=== PATIENT | male | born 1940 | race Caucasian/White ===

== ENCOUNTER 2017-12-03 09:30 | Outpatient (RCR) | payer OTHER, SELFPAY ==
--- NOTE | 2017-11-09 09:57 | PCM.PR.HP ---
History of Present Illness Arrival date:: 11/09/17 Arrival time:: 09:58 Date of Evaluation: 11/09/17 Referring Physician: Dr. Dale Cooper Primary Diagnosis: COPD- Chronic Bronchitis History of Present Illness: This is a 76 yr old male patient of Dr. Dale Cooper who presents to pulmonary rehab today with shortness of breath with exertion, which he reports seems to be getting worse. mMRC Breathless Scale: When is the patient short of breath? Y/N Grade: Description of Breathlessness: 0 I only get breathless with strenuous exercise. 1 I get short of breath when hurrying on level ground or walking up a slight hill. 2 On level ground, I walk slower than people of the same age because of breathless, or have to stop for breath when walking at my own pace. 3 I stop for breath after walking 100 yards or after a few minutes on level ground. 4 I am too breathless to leave the house or I am breathless when dressing. Respiratory Problems: Yes: Limited Range of Motion, Fatigue, Wheezing, Able to Speak in Full Sentences, Dyspnea at Rest, Dyspnea with Activity No: Retain Secretions, Dizziness, Hoarseness, Anxiety, Panic - Secretions Normal Color:: yellowish brown color to clear Thick:: Yes Amount/Day:: 1 TBSP AM: Yes Sleep Disorder Evaluation: EPWORTH SLEEPINESS SCALE 0 = NO chance of dozing 2 = MODERATE chance of dozing 1 = SLIGHT chance of dozing 3 = HIGH chance of dozing : SITUATION: CHANCE OF DOZING: Sitting and Reading Watching TV Sitting inactive in a public place (i.e. Movies) As a passenger in a car for an hour without a break Lying down to rest in the afternoon when permitted Sitting and talking to someone Sitting quietly after lunch without alcohol In a car, while stopped for a few minutes in traffic Total Total Equals: 1-6 = Adequate Sleep 7-8 = Average > 9 = Sleep Study/Consult Indicated Patient has a history of sleep apnea. Past Medical History Past Medical History: Arthitis, Hypertension, High Cholesterol, Obesity, - - Chronic Bronchitis, Esophageal Reflux, Sleep apnea, hypertension, decreased libido, sinusitis, wheezing symptom, chest wall pain. Psychiatric History: no pertinent psych hx Surgical History: - - oral surgery, tonsillectomy, colonoscopy, gallbladder, hernia repair, endoscopy, Additional Family History: Paternal grandfather heart disease, paternal uncle heart disease, sister, malignant neoplasm colon cancer, father stricture of esophagous and malignant neoplasm, paternal grandmother history of malignant neoplasm. 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 Smoking Status: Former smoker - Living Arrangement Patient lives with other person(s) in the home:: AROUND THE CLOCK - Current/ [facility] No Other Home Health:: No [facility] Card[facility] Rehab:: No Life (Palliative) Care Services:: No Tobacco Use & Smoking Cessation:: No Pulmonary Rehab:: No Social History - Smoking History Smoking Status: Former smoker Years Smokin Packs Smoked per Day: 3 - as much as 4 to 5. Hx Smoking Cessation Date: 1986 Hx Tobacco Use: Yes Hx Smoking Exposure: No - Alcohol Use Alcohol Usage: Yes - ocassionally - Substance Abuse Hx Substance Use: No - Occupation Occupation (List type of work in comments):: Retired - Hobbies, Recreation, Social Activities Hobbies: Walking, Other - golfing (hard to do lack of stamina), Recreational Activities: I am able to engage in a few activities - doesn't feel able to do what I used to do, even walking to [employer] is a chore. Medications & Vaccination Info Home Medications: Ambulatory Orders Fluticasone 0.05% [Flonase Nasal [place]] 1 spray NASAL BID 11/09/17 Metoprolol Tartrate [Lopressor (Beta Gigi)] 50 mg PO BID 11/09/17 Mometasone/Formoterol [Dulera 100 Mcg/5 Mcg Inhaler] 13 gm IH BID 11/09/17 Mometasone/Formoterol [Dulera 200 Mcg/5 Mcg Inhaler] 13 gm IH BID 11/09/17 [place]-3/Dha/Epa/Fish Oil [Fish Oil [place]-3 EC 1,200 mg] 1 each PO 11/09/17 Pantoprazole Sodium [Protonix] 40 mg PO 11/09/17 Sildenafil Citrate [Viagra] 100 mg PO 11/09/17 Tiotropium [place] [Spiriva] 18 mcg IH 11/09/17 Vit A/Vit C/Vit E/Zinc/Copper [Preservision Areds Softgel] 2 each PO 11/09/17 Do you use a peak flow meter at home?: No Do you use a spacer device with your inhalers?: No Number of hospital visits in the last year?: 0 Number of emergency room visits in the last year?: 0 Do you see your physician on a regular schedule?: Yes How often?: 6 months or 3 months if having problems Has adequate access & meets healthcare needs?: Yes - Drug Regimen Review Indication of potential clinical significant med issues (drug reactions, ineffective therapy, side effects, interactions, duplicate therapy, omissions, dose errors, or non-compliance)?: No problems found during review Was a physician or the physican designee contacted within one calendar day to resolve clinically significant medication issues, including reconcilitation?: No Review of Systems Constitutional: Denies: Chills, Fever, Weight Change HEENT: Reports: Hard of Hearing, Hearing Changes. Denies: Head Aches, Sinus Congestion, Sinus Drainage Cardiovascular: Denies: Chest Pain, Palpitations Respiratory: Reports: Shortness of breath upon exertion - seems to be worsening according to patient, Wheezing. Denies: Cough, Shortness of breath at rest, Sputum production Musculoskeletal: Denies: Joint Pain, Joint Tenderness Skin: Reports: Dryness. Denies: Rash, Wounds Neurological: Denies: Numbness, Tingling, Focal weakness Psychiatric: Denies: Anxiety, Depression, Homicidal Ideations, Suicidal Ideations Advanced Directives - Advanced Directives Power of Straw Hat Plunger Operator: No Living Will: No Advance Directives Information Provided: Yes Advance Directives on File: No DNR Order?:: No Coping/Social Support/Other - Abuse and Neglect Do you feel safe in your surroundings?:: YES Are there sign/symptoms of abuse?: No Has anyone physically or mentally abused you?: No Has anyone threatened to harm you in any way?: No Been asked to sign a document that you don't understand?: No - Exacerbation History Number of Exacerbations in a year:: 0 Recent exposure to illness?: No Known carrier?: No Antibiotic Taken:: No I know I have an infection when:: Tightness in chest, chest wall pain, harder to breath, and change in color of mucus. - Nutrition Risk Factor Are you on a special diet?: No Diff. chewing/swallowing:: No Have you had a change in your weight?: Yes Amount gained:: 20 Physical Exam - Vital Signs Temperature: 97.8 F Pulse Rate: 42 - sitting Respiratory Rate: 22 Pulse Ox at rest: 93 - Room Air at rest Blood Pressure: 142/80 - sitting L arm Nailbeds:: pink Height: 5 ft 6 in Weight:: 100.2 kg Weight Source: Standing Scale Body Mass Index (BMI): 35.6 - Physical Exam General: Alert, Oriented x3, Cooperative Neck: Supple, No JVD, Negative Carotid Bruits, Negative Hepatojugular Reflux Lungs: Clear to auscultation, Normal air movement Cardiovascular: Regular rate, Regular Rhythm, No murmurs Extremities: No clubbing, No cyanosis, No edema, Capillary Refill Less than 3 Seconds Musculoskeletal: No Tenderness to Palpation of Joints or Extremities Psych/Mental Status: Normal Affect, Appropriate - Pain Is Patient Pain Free?: Yes Pain Location: none - Hearing/Speech/Vision/Spiritual Cultural/Faith Needs that may affect Treatment Plan: No Do you have any Spiritual/Emotional needs of which our Traffic Signal Supervisor Maintenance Ministry could be of assistance?: No Traffic Signal Supervisor Maintenance to contact Place of Anabaptist?: No Primary Language: Panamanian Right Hearing Abillity: Hard of Hearing Visual Difficulty: Near Sighted, Far Sighted Comments: wears corrective lenses for vision correction - Motivation to Participate On a scale of 1 to 10, how prepared are you to commit to attending pulmonary rehabilitation?: 9 What do you see as barriers to successfully being able to complete the program?: babysitting grandchildren, son's deployment service What do you see as the benefits of succesfully completing the program? In other words, what do you hope to get out of participating in the program?: hopefully increase lung capacity and improve breathing to be more functiona Are there issues you are dealing with that will interfere with completing the program?: none Do you have a spouse or signficant other, family or friends who will help support you to complete the program?: yes Diagnostic Data Review - Lab Results Hematology/Chemistry: see labs from Dr. Cooper's office/[facility]. - Diagnostic and Imaging Results CXR:: Breanna Vanessa - Pulmonary Function Test FEV1:: 1.43 FVC:: 2.86 FEV1/FVC%:: 50 Gold Classification: GOLD class II(mod. COPD)with FEV1/FVC <70%, 50%</= FEV1< 50% predicted Functioning ADL/IADL - Functional Capacity ADL/IADL GROOMING: Current ability to tend safely to personal hygiene needs (i.e., washing face/hands, hair care, shaving or make up, teeth or denture care, fingernail care).: Able to groom self unaided, w/ or w/o the use of assistive devices. Current ABILITY TO DRESS UPPER BODY safely (with or w/out dressing aids) including undergarments, pullovers, front-opening shirts & blouses, managing zippers, buttons, & snaps:: Gets clothes out, puts on, and removes from upper body w/o assist. Current ABILITY TO DRESS LOWER BODY safely (with or w/out dressing aids) including undergarments, slacks, socks or nylons, shoes:: Able to obtain, put on, & remove clothing and shoes w/out assistance. Bathing: Current ability to wash entire body safely. EXCLUDES grooming (washing face, washing hands and shampooing hair): Bathes self in shower/tub independently, incl getting in & out TOILET TRANSFERRING: Current ability to get to & from the toilet/BSC safely and transfer on & off toilet/commode.: Gets to & from toilet, transfers independently w/ or w/o a device. TOILETING HYGIENE: Current ability to maintain perineal hygiene safely, adjust clothes and/or incontinence pads before & after using toilet, commode, bedpan, urinal. If managing ostomy, includes cleaning: Manages toileting hygiene & clothing management w/out assist TRANSFERRING: Current ability to move safely from bed to chair, or ability to turn and position self in bed if patient is bedfast.: Able to independently transfer. AMBULATION/LOCOMOTION: Current ability to walk safely, once in a standing position, or use wheelchair, once in a seated position, on a variety of surfaces.: Able to IND walk on even/uneven surface&use stairs with or w/o railing FEEDING or EATING: Current ability to feed self meals and snacks safely. NOTE: This refers only to the process of eating, chewing and swallowing, not preparing the food to be eaten.: Able to independently fee ABILITY TO PLAN AND PREPARE MEALS: (e.g., cereal, sandwich) or reheat delivered meals safely.: IND prepare light meals/reheat delvrd meals/Or can but hasn't done so. ABILITY TO USE TELEPHONE: Current ability to answer the phone safely, including dialing numbers, and effectively using the telephone to communicate.: Able to dial numbers and answer calls appropriately and as desired. - Pt Functioning Prior to Problem Self-Care (e.g.,grooming, dressing, & bathing): INDEPENDENT Ambulation: INDEPENDENT Transfer: INDEPENDENT Household tasks (e.g., light meal prep, laundry, shopping): INDEPENDENT
--- NOTE | 2017-11-09 10:08 | PR.HP_ITS ---
History of Present Illness Arrival date:: 11/09/17 Arrival time:: 09:58 Date of Evaluation: 11/09/17 Referring Physician: Dr. Dale Cooper Primary Diagnosis: COPD- Chronic Bronchitis History of Present Illness: This is a 76 yr old male patient of Dr. Dale Cooper who presents to pulmonary rehab today with shortness of breath with exertion, which he reports seems to be getting worse. mMRC Breathless Scale: When is the patient short of breath? Y/N Grade: Description of Breathlessness: 0 I only get breathless with strenuous exercise. 1 I get short of breath when hurrying on level ground or walking up a slight hill. 2 On level ground, I walk slower than people of the same age because of breathless, or have to stop for breath when walking at my own pace. 3 I stop for breath after walking 100 yards or after a few minutes on level ground. 4 I am too breathless to leave the house or I am breathless when dressing. Respiratory Problems: Yes: Limited Range of Motion, Fatigue, Wheezing, Able to Speak in Full Sentences, Dyspnea at Rest, Dyspnea with Activity No: Retain Secretions, Dizziness, Hoarseness, Anxiety, Panic - Secretions Normal Color:: yellowish brown color to clear Thick:: Yes Amount/Day:: 1 TBSP AM: Yes Sleep Disorder Evaluation: EPWORTH SLEEPINESS SCALE 0 = NO chance of dozing 2 = MODERATE chance of dozing 1 = SLIGHT chance of dozing 3 = HIGH chance of dozing : SITUATION: CHANCE OF DOZING: Sitting and Reading Watching TV Sitting inactive in a public place (i.e. Movies) As a passenger in a car for an hour without a break Lying down to rest in the afternoon when permitted Sitting and talking to someone Sitting quietly after lunch without alcohol In a car, while stopped for a few minutes in traffic Total Total Equals: 1-6 = Adequate Sleep 7-8 = Average > 9 = Sleep Study/Consult Indicated Patient has a history of sleep apnea. Past Medical History Past Medical History: Arthitis, Hypertension, High Cholesterol, Obesity, - - Chronic Bronchitis, Esophageal Reflux, Sleep apnea, hypertension, decreased libido, sinusitis, wheezing symptom, chest wall pain. Psychiatric History: no pertinent psych hx Surgical History: - - oral surgery, tonsillectomy, colonoscopy, gallbladder, hernia repair, endoscopy, Additional Family History: Paternal grandfather heart disease, paternal uncle heart disease, sister, malignant neoplasm colon cancer, father stricture of esophagous and malignant neoplasm, paternal grandmother history of malignant neoplasm. 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 Smoking Status: Former smoker - Living Arrangement Patient lives with other person(s) in the home:: AROUND THE CLOCK - Current/ [facility] Other Home Health:: No [facility] Card[facility] Rehab:: No Life (Palliative) Care Services:: No Tobacco Use & Smoking Cessation:: No Pulmonary Rehab:: No Social History - Smoking History Smoking Status: Former smoker Years Smokin Packs Smoked per Day: 3 - as much as 4 to 5. Hx Smoking Cessation Date: 1986 Hx Tobacco Use: Yes Hx Smoking Exposure: No - Alcohol Use Alcohol Usage: Yes - ocassionally - Substance Abuse Hx Substance Use: No - Occupation Occupation (List type of work in comments):: Retired - Hobbies, Recreation, Social Activities Hobbies: Walking, Other - golfing (hard to do lack of stamina), Recreational Activities: I am able to engage in a few activities - doesn't feel able to do what I used to do, even walking to [employer] is a chore. Medications & Vaccination Info Home Medications: Ambulatory Orders Fluticasone 0.05% [Flonase Nasal [place]] 1 spray NASAL BID 11/09/17 Metoprolol Tartrate [Lopressor (Beta Gigi)] 50 mg PO BID 11/09/17 Mometasone/Formoterol [Dulera 100 Mcg/5 Mcg Inhaler] 13 gm IH BID 11/09/17 Mometasone/Formoterol [Dulera 200 Mcg/5 Mcg Inhaler] 13 gm IH BID 11/09/17 [place]-3/Dha/Epa/Fish Oil [Fish Oil [place]-3 EC 1,200 mg] 1 each PO 11/09/17 Pantoprazole Sodium [Protonix] 40 mg PO 11/09/17 Sildenafil Citrate [Viagra] 100 mg PO 11/09/17 Tiotropium [place] [Spiriva] 18 mcg IH 11/09/17 Vit A/Vit C/Vit E/Zinc/Copper [Preservision Areds Softgel] 2 each PO 11/09/17 Do you use a peak flow meter at home?: No Do you use a spacer device with your inhalers?: No Number of hospital visits in the last year?: 0 Number of emergency room visits in the last year?: 0 Do you see your physician on a regular schedule?: Yes How often?: 6 months or 3 months if having problems Has adequate access & meets healthcare needs?: Yes - Drug Regimen Review Indication of potential clinical significant med issues (drug reactions, ineffective therapy, side effects, interactions, duplicate therapy, omissions, dose errors, or non-compliance)?: No problems found during review Was a physician or the physican designee contacted within one calendar day to resolve clinically significant medication issues, including reconcilitation?: No Review of Systems Constitutional: Denies: Chills, Fever, Weight Change HEENT: Reports: Hard of Hearing, Hearing Changes. Denies: Head Aches, Sinus Congestion, Sinus Drainage Cardiovascular: Denies: Chest Pain, Palpitations Respiratory: Reports: Shortness of breath upon exertion - seems to be worsening according to patient, Wheezing. Denies: Cough, Shortness of breath at rest, Sputum production Musculoskeletal: Denies: Joint Pain, Joint Tenderness Skin: Reports: Dryness. Denies: Rash, Wounds Neurological: Denies: Numbness, Tingling, Focal weakness Psychiatric: Denies: Anxiety, Depression, Homicidal Ideations, Suicidal Ideations Advanced Directives - Advanced Directives Power of Avionics Systems Repairer: No Living Will: No Advance Directives Information Provided: Yes Advance Directives on File: No DNR Order?:: No Coping/Social Support/Other - Abuse and Neglect Do you feel safe in your surroundings?:: YES Are there sign/symptoms of abuse?: No Has anyone physically or mentally abused you?: No Has anyone threatened to harm you in any way?: No Been asked to sign a document that you don't understand?: No - Exacerbation History Number of Exacerbations in a year:: 0 Recent exposure to illness?: No Known carrier?: No Antibiotic Taken:: No I know I have an infection when:: Tightness in chest, chest wall pain, harder to breath, and change in color of mucus. - Nutrition Risk Factor Are you on a special diet?: No Diff. chewing/swallowing:: No Have you had a change in your weight?: Yes Amount gained:: 20 Physical Exam - Vital Signs Temperature: 97.8 F Pulse Rate: 42 - sitting Respiratory Rate: 22 Pulse Ox at rest: 93 - Room Air at rest Blood Pressure: 142/80 - sitting L arm Nailbeds:: pink Height: 5 ft 6 in Weight:: 100.2 kg Weight Source: Standing Scale Body Mass Index (BMI): 35.6 - Physical Exam General: Alert, Oriented x3, Cooperative Neck: Supple, No JVD, Negative Carotid Bruits, Negative Hepatojugular Reflux Lungs: Clear to auscultation, Normal air movement Cardiovascular: Regular rate, Regular Rhythm, No murmurs Extremities: No clubbing, No cyanosis, No edema, Capillary Refill Less than 3 Seconds Musculoskeletal: No Tenderness to Palpation of Joints or Extremities Psych/Mental Status: Normal Affect, Appropriate - Pain Is Patient Pain Free?: Yes Pain Location: none - Hearing/Speech/Vision/Spiritual Cultural/Sabianist Needs that may affect Treatment Plan: No Do you have any Spiritual/Emotional needs of which our Commercial Shrimping Captain Ministry could be of assistance?: No Commercial Shrimping Captain to contact Place of Adventism?: No Primary Language: Sudanese Right Hearing Abillity: Hard of Hearing Visual Difficulty: Near Sighted, Far Sighted Comments: wears corrective lenses for vision correction - Motivation to Participate On a scale of 1 to 10, how prepared are you to commit to attending pulmonary rehabilitation?: 9 What do you see as barriers to successfully being able to complete the program? : babysitting grandchildren, son's deployment service What do you see as the benefits of succesfully completing the program? In other words, what do you hope to get out of participating in the program?: hopefully increase lung capacity and improve breathing to be more functiona Are there issues you are dealing with that will interfere with completing the program?: none Do you have a spouse or signficant other, family or friends who will help support you to complete the program?: yes Diagnostic Data Review - Lab Results Hematology/Chemistry: see labs from Dr. Cooper's office/[facility]. - Diagnostic and Imaging Results CXR:: Breanna Vanessa - Pulmonary Function Test FEV1:: 1.43 FVC:: 2.86 FEV1/FVC%:: 50 Gold Classification: GOLD class II(mod. COPD)with FEV1/FVC <70%, 50%</= FEV1< 50 % predicted Functioning ADL/IADL - Functional Capacity ADL/IADL GROOMING: Current ability to tend safely to personal hygiene needs (i.e., washing face/hands, hair care, shaving or make up, teeth or denture care, fingernail care).: Able to groom self unaided, w/ or w/o the use of assistive devices. Current ABILITY TO DRESS UPPER BODY safely (with or w/out dressing aids) including undergarments, pullovers, front-opening shirts & blouses, managing zippers, buttons, & snaps:: Gets clothes out, puts on, and removes from upper body w/o assist. Current ABILITY TO DRESS LOWER BODY safely (with or w/out dressing aids) including undergarments, slacks, socks or nylons, shoes:: Able to obtain, put on , & remove clothing and shoes w/out assistance. Bathing: Current ability to wash entire body safely. EXCLUDES grooming (washing face, washing hands and shampooing hair): Bathes self in shower/tub independently, incl getting in & out TOILET TRANSFERRING: Current ability to get to & from the toilet/BSC safely and transfer on & off toilet/commode.: Gets to & from toilet, transfers independently w/ or w/o a device. TOILETING HYGIENE: Current ability to maintain perineal hygiene safely, adjust clothes and/or incontinence pads before & after using toilet, commode, bedpan, urinal. If managing ostomy, includes cleaning: Manages toileting hygiene & clothing management w/out assist TRANSFERRING: Current ability to move safely from bed to chair, or ability to turn and position self in bed if patient is bedfast.: Able to independently transfer. AMBULATION/LOCOMOTION: Current ability to walk safely, once in a standing position, or use wheelchair, once in a seated position, on a variety of surfaces.: Able to IND walk on even/uneven surface&use stairs with or w/o railing FEEDING or EATING: Current ability to feed self meals and snacks safely. NOTE: This refers only to the process of eating, chewing and swallowing, not preparing the food to be eaten.: Able to independently fee ABILITY TO PLAN AND PREPARE MEALS: (e.g., cereal, sandwich) or reheat delivered meals safely.: IND prepare light meals/reheat delvrd meals/Or can but hasn't done so. ABILITY TO USE TELEPHONE: Current ability to answer the phone safely, including dialing numbers, and effectively using the telephone to communicate.: Able to dial numbers and answer calls appropriately and as desired. - Pt Functioning Prior to Problem Self-Care (e.g.,grooming, dressing, & bathing): INDEPENDENT Ambulation: INDEPENDENT Transfer: INDEPENDENT Household tasks (e.g., light meal prep, laundry, shopping): INDEPENDENT
--- NOTE | 2017-11-09 10:17 | PR.ITP_ITS ---
General Information - General Information Admitting Diagnosis: Chronic Bronchitis Gold Classification:: GOLD 2: Moderate - PFT FEV1:: 1.43 FVC:: 2.86 FEV1/FVC%:: 50 - Education/Goals Barriers to Learning: Hearing Impairment, Vision Impairment Individual Counseling: Initial Assessment: Dyspnea control techniques at rest, activity, and ADLs, Inhaled and respiratory medications, Exacerbation prevention & management, ADL management and pacing, Nutrition & weight management, Home exercise plan & guidelines Patient Goals: Breathe better: Initial Assessment, Increase endurance/stamina: Initial Assessment, Return to recreation/hobby: Initial Assessment, Improve weight: Initial Assessment Exercise - Initial Assessment - Visit Date of Eval: 11/09/17 - Initial Evaluation - Problem/Goals Problems: Deconditioning, No regular exercise, Knowledge deficit exercise guidelines, Knowledge deficit exercise safety - Exercise Prescription Frequency (x/week): 3 Duration:: 30 MET LEVEL:: 2 - 2.0-2.5 METs HR (bpm):: 107 - THRR 100-107 - Plan Plan and Plan to Review:: Benefits of exercise, Core components of exercise, How to measure dyspnea level, How to monitor dyspnea level, Exercise intensity, Exercise safety guideline, Home exercise guidelines, Torrey: 3-4/11-13 Disease Management - Initial - Problems/Goals-Hypoxemia Hypoxemia Problems:: Poor knowledge of O2 use/safety Hypoxemia Goals:: Using O2 as Rx's safely - Problems/Goals-Medications Medication Goals: Correct technique/timing & care of MDI, DPI, nebulizer, and spacer. - Problems/Goals-Bronchial Hygiene Bronchial Hygiene Problems:: Respiratory infection Prevention/Management Bronchial Hygiene Goals:: Pt demonstrates effective cough, effective secretion clearance., Pt describes signs and symptoms of infection. - Initial Assessment SpO2:: 93 - room air Does pt report taking home meds as prescribed?: Yes Medications: Yes MDI, Yes DPI, No Spacer Patient Reports:: Prod cough daily <1 Tbsp, Nasal Congestion, 0-1/yr respiratory infection - Plans Hypoxemia Plan:: Monitor SpO2 rest & with exercise, Train appropriate O2 use with exercise, Train O2 safety & systems Reviewed prescribed medications:: Purpose, Schedule, Side effects, Importance of compliance Instruct correct technique/timing & care:: MDI, DPI, Return demo use of inhaler Bronchial Hygiene Plan: Controlled cough, Vibratory PEP device, NS Nasal spray, Hydration, Hand hygiene, Evaluate sputum, When to call MD, Signs/symptoms to report: Psychosocial - Initial Assess - Problems/Goals Problems: Impaired Q.O.L. Psychosocial Goals: Improved Q.O.L. - Psychosocial Test Depression:: Self report - fustration of not being able to function daily, or play golf anymore, Impaired QOL Tests Completed: SF - 36 survey completed, Mood Scale Test Referred to MD for counseling:: No - Plan Reviewed screening results: Yes Instructions given regarding:: Benefits of exercise, Relaxation techniques, Training in coping strategies Tobacco - Initial Assessment - Program Goals Tobacco Program Goals: Complete smoking cessation. Attend education classes. Improve Knowledge Test score - Stage of Change Stages of Change:: Action - Learning Barriers Learning Barriers: Hearing, Vision, Ready to Learn - Family Support Do you have family support?: Yes - Tobacco Use Tobacco Use: Non-smoker How long ago did you quit using tobacco products?: Greater than or equal to 6 months ago Do you use smokeless tobacco?: No - Intervention Smoking Cessation Referral:: No Individual Education/Counseling:: No Education Schedule Given:: Yes - Education Gave Education Materials For:: Pulmonary Disease, Risk Factors, Breathing Techniques, Medical Compliance, Pulmonary A&P, Exacerbation Signs & Symptoms, Stress & Relaxation Nutrition/Wt Mgmt - Initial - Problems/Goals Problems: Overweight Goals: BMI 21-25, Waist circumference - Weight Management Knowledge Deficit Management of:: Overweight, Role of exercise in weight control Admit Height:: 5 ft 6 in Admit Weight:: 100 kg Admit BMI:: 35.6 - Diabetes Diabetes:: No Insulin: No Do you monitor your blood sugar at home?: No - Intervention Referral to dietitian:: No Referral to Diabetic Clinic:: No Will attend diet classes:: Yes - Plan Nutrition Plan: Yes Review BMI or WC & identify target wt & strategies for wt control, Yes Nutrition education class:, Yes Medication education class [ Prednisone]:, Yes Weight control education class:, Yes Education re: Need for ongoing weight monitoring Patient Health Questionnaire Initial Assessment 1. Little interest or pleasure in doing things: More than half the days 2. Feeling down, depressed, or hopeless: Several days 3. Trouble falling or staying asleep, or sleeping too much: Nearly every day 4. Feeling tired or having little energy: Nearly every day 5. Poor appetite or overeating: Nearly every day 6. Feeling bad about yourself -- or that you are a failure or have let yourself or your family down: Not at all 7. Trouble concentrating on things, such as reading the newspaper or watching television: Several days 8. Moving or speaking so slowly that other people could have noticed. Or the opposite - being so fidgety or restless that you have been moving around a lot more than usual: Several days 9. Thoughts that you would be better off , or of hurting yourself in some way: Not at all How difficult have these problems made it for you to do your work, take care of things at home, or get along with other people?: Somewhat difficult Total Score: 14 COPD Knowledge Test Initial COPD is a lung disease that:: Makes it hard to breathe & gets worse over time In the [place] the term COPD describes 2 main lung conditions:: Emphysema & chronic bronchitis The most common lung irritant that causes COPD is:: Cigarette smoke Common signs and symptoms of COPD include:: An ongoing cough/cough that produces a large amount of mucus, & SOB If you have COPD, what steps can you take?: Follow your treatment plan for COPD exactly as your doctor prescribes Swelling of the ankles is common in COPD:: False Fatigue [tiredness] is common in COPD:: True Wheezing is common in COPD:: True Crushing chest pain is common in COPD:: True Rapid weight loss is common in COPD:: False Breathlessness is a normal response to exercise: False Exercise should be avoided if it makes you short of breath: False All bronchodilators act within 10 minutes: False A spacer device increases the medication to the lungs: False Annual flu vaccine is recommended for pts w/lung disease: True COPD Knowledge Test Total Score:: 11 COPD Assessment Test [CAT] - Questions Never cough = 0, Cough all the time = 5: 2 No phlegm = 0, Chest full of phlegm = 5: 3 No chest tightness = 0, Chest very tight = 5: 3 No breathless w/exertion = 0, Very breathless w/exertion = 5: 5 No limitations w/activity = 0, Very limited w/activity = 5: 4 Confident leaving home = 0, Not at all confident = 5: 2 Sleep soundly = 0, Don't sleep soundly = 5: 4 Lots of energy = 0, No energy at all = 5: 5 Total CAT score:: 28 Self-Efficacy Initial Assessment We would like to know how confident you are in doing certain activities. Please select your confidence level for:: Select your confidence level for the following using the scale 1-10 where 1 is not at all confident and 10 is totally confident. Your score is the average of all 6 responses. Fatigue: How confident are you that you can keep the fatigue caused by your disease from interfering with the things you want to do? Select Number: 1 Physical Discomfort or Pain: How confident are you that you can keep the physical discomfort or pain of your disease from interfering with the things you want to do? Select Number: 2 Emotional Distress: How confident are you that you can keep the emotional distress caused by your disease from interfering with the things you want to do? Select Number: 5 Other Symptoms or Health Problems: How confident are you that you can keep other symptoms or health problems from interfering with the things you want to do? Select Number: 7 Different Tasks and Activities: How confident are you that you can do the different tasks and activities needed to manage your health condition so as to reduce your need to see a doctor? Select Number: 8 Medication: How confident are you that you can do things other than just taking medication to reduce how much your illness affects your everyday life? Select Number: 4 Total Score:: 4 Nutrition Survey - Nutrition Survey Instructions Scoring Instructions: Scoring is as follows: Yes = 1 points. No = 0 point. Patient score that is >/=12 is considered to be at potential nutritional risk and could benefit from a referral to a registered dietitian. - Nutrition Survey Initial Have you lost >10 lbs over the past 2 months without trying?: No Are you following a special diet at home for diabetes, low fat, or low salt?: No Are you interested in meeting with a dietitian for help understanding your diet? : No Do you eat less than 3 meals a day?: No Do you eat fatty meats (burciaga, sausage, ribs, etc), fried foods, desserts, large amounts of salad dressings, margarine, butter, or cheese most days?: Yes Do you have food allergies? [Enter types in comment field]: No Do you eat in restaurants more than 3 times a week?: No Do you season food with salt, seasoning salt, or garlic salt?: Yes Do you used canned, boxed, frozen meals, or soups, seasoning packets?: Yes Total Score:: 3
[2017-11-09 10:35] VITALS: BP 142/80; PULSE 42; RESP 22; TEMP 36.6; O2SAT 93; BMI 35.6
[2017-11-09 11:17] VITALS: O2SAT 93; BMI 35.6
--- NOTE | 2017-12-03 10:38 | PCM.PR.DAT ---
Dates of Coverage Times for Dates Of Coverage; All dates of coverage are for physician supervision/medical or surgical instrument maker for during the times of 08:00 AM through 4:30 PM. Effective Jul 06, 2013 our hours will be changing to 8:00 to 4:30 on Sunday, Sunday and Sunday. First Date of the Month: 12/06/17 Last Date of the Month: 01/02/18
--- NOTE | 2017-12-03 10:39 | PCM.PR.DAT ---
Dates of Coverage Times for Dates Of Coverage; All dates of coverage are for physician supervision/electromedical equipment repairer for during the times of 08:00 AM through 4:30 PM. Effective Jul 06, 2013 our hours will be changing to 8:00 to 4:30 on Sunday, Sunday and Sunday. First Date of the Month: 11/09/17 Last Date of the Month: 12/05/17
--- NOTE | 2017-12-03 10:40 | PCM.PR.TP ---
Exercise - 30-Day Assessment - Exercise Prescription Mode:: Treadmill, Airdyne, NuStep, Arm Ergometer Frequency (x/week): 3 Duration:: 30 Aerobic Exercise [30-60 min 3-7x/week]:: Progressing Target heart rate: 121 - 114-121 Max HR 92 [place] MET Level:: 3 - Home Exercise Home Exercise:: No Disease Management - 30-Day - Hypoxemia Reassessment: Demonstrates knowledge of O2 Rx with exercise - Medications Medication list reviewed:: Yes Taking medications 100% of the time:: Approximately 75% of the time - reinforced routine use as ordered by physician. Medication reassessment: Yes Pt demonstrates correct technique timing for MDI, Yes Pt demonstrates correct technique timing for DPI, Yes Pt demonstrates correct technique timing for NEB, Yes Pt demonstrates correct technique timing for spacer - Bronchial Hygiene Bronchial Hygiene Plan: Yes Pt demo correct for improved hydration - drinks regularly, Yes Pt demo correct for hand hygiene - uses good hand washing Psychosocial - 30-Day - Assessment Reassessment: Practicing interventions Tobacco - 30-Day Assessment - Program Goals Tobacco Program Goals: Complete smoking cessation. Attend education classes. Improve Knowledge Test score - Stage of Change Stages of Change:: Action - Learning Barriers Learning Barriers: Participates in education - Family Support Do you have family support?: Yes - Tobacco Use Tobacco Use: Non-smoker Do you use smokeless tobacco?: No - Intervention Smoking Cessation Referral:: No Individual Education/Counseling:: No Education Schedule Given:: Yes - Education Gave Education Materials For:: Pulmonary Disease, Risk Factors, Breathing Techniques, Medical Compliance, Pulmonary A&P, Exacerbation Signs & Symptoms, Stress & Relaxation Nutrition/Wt Mgmt - 30-Day - Weight Management Weight Assessment:: Wt loss 1-2 lbs per week Weight:: 100.244 kg Weight Goals Progress:: Progressing Patient Health Questionnaire 30-Day Re-eval Assessment 1. Little interest or pleasure in doing things: Not at all 2. Feeling down, depressed, or hopeless: Not at all 3. Trouble falling or staying asleep, or sleeping too much: Several days 4. Feeling tired or having little energy: Several days 5. Poor appetite or overeating: Not at all 6. Feeling bad about yourself -- or that you are a failure or have let yourself or your family down: Not at all 7. Trouble concentrating on things, such as reading the newspaper or watching television: Not at all 8. Moving or speaking so slowly that other people could have noticed. Or the opposite - being so fidgety or restless that you have been moving around a lot more than usual: Not at all 9. Thoughts that you would be better off , or of hurting yourself in some way: Not at all How difficult have these problems made it for you to do your work, take care of things at home, or get along with other people?: Not difficult at all Total Score: 2 COPD Assessment Test [CAT] - Questions Never cough = 0, Cough all the time = 5: 2 No phlegm = 0, Chest full of phlegm = 5: 2 No chest tightness = 0, Chest very tight = 5: 1 No breathless w/exertion = 0, Very breathless w/exertion = 5: 2 No limitations w/activity = 0, Very limited w/activity = 5: 1 Confident leaving home = 0, Not at all confident = 5: 1 Sleep soundly = 0, Don't sleep soundly = 5: 3 Lots of energy = 0, No energy at all = 5: 2 Total CAT score:: 14 Self-Efficacy 30-Day Re-eval Assessment We would like to know how confident you are in doing certain activities. Please select your confidence level for:: Select your confidence level for the following using the scale 1-10 where 1 is not at all confident and 10 is totally confident. Your score is the average of all 6 responses. Fatigue: How confident are you that you can keep the fatigue caused by your disease from interfering with the things you want to do? Select Number: 8 Physical Discomfort or Pain: How confident are you that you can keep the physical discomfort or pain of your disease from interfering with the things you want to do? Select Number: 7 Emotional Distress: How confident are you that you can keep the emotional distress caused by your disease from interfering with the things you want to do? Select Number: 8 Other Symptoms or Health Problems: How confident are you that you can keep other symptoms or health problems from interfering with the things you want to do? Select Number: 8 Different Tasks and Activities: How confident are you that you can do the different tasks and activities needed to manage your health condition so as to reduce your need to see a doctor? Select Number: 9 Medication: How confident are you that you can do things other than just taking medication to reduce how much your illness affects your everyday life? Select Number: 9 Total Score:: 8
== END 2017-12-05 23:59 ==
LOC: PR 09:30
PROVIDERS: Family Provider Family Medicine; PCP Family Medicine; Visit Provider Family Medicine
DX: J42 Unspecified chronic bronchitis (principal); J43.8 Other emphysema
CPT/HCPCS: 97150; G0239

== ENCOUNTER 2018-01-02 08:00 | Outpatient (RCR) | payer OTHER, SELFPAY ==
[2017-11-09 10:35] VITALS: BP 142/80
[2017-11-09 11:17] VITALS: BMI 35.6
[2017-12-06 01:01] VITALS: PULSE 42; RESP 22; TEMP 36.6; O2SAT 93
--- NOTE | 2017-12-31 13:38 | PCM.PR.DAT ---
Dates of Coverage Times for Dates Of Coverage; All dates of coverage are for physician supervision/medical assisting program director for during the times of 08:00 AM through 4:30 PM. Effective Jul 06, 2013 our hours will be changing to 8:00 to 4:30 on Sunday, Sunday and Sunday. First Date of the Month: 01/03/18 Last Date of the Month: 02/01/18
--- NOTE | 2017-12-31 13:39 | PCM.PR.TP ---
Exercise - 60-Day Assessment - Current Level Mode:: Treadmill, Airdyne, NuStep, Arm Ergometer Frequency (x/week): 3 Duration:: 30 Aerobic Exercise [30-60 min 3-7x/week]:: Progressing Target heart rate: 100 - THRR 114-121 [place] MET Level:: 3 Disease Management - 60-Day - Hypoxemia Reassessment: Using O2 as prescribed, Uses port O2 as prescribed - Medications Medication list reviewed:: Yes Taking medications 100% of the time:: Met Medication reassessment: Yes Pt demonstrates correct technique timing for MDI, Yes Pt demonstrates correct technique timing for DPI, Yes Pt demonstrates correct technique timing for NEB, Yes Pt demonstrates correct technique timing for spacer Psychosocial - 60-Day - Assessment Depression reassess: Management of stress: Met, Management of depression: Met, Practicing interventions: Met Tobacco - 60-Day Assessment - Program Goals Tobacco Program Goals: Complete smoking cessation. Attend education classes. Improve Knowledge Test score - Stage of Change Stages of Change:: Action - Learning Barriers Learning Barriers: Participates in education - Family Support Do you have family support?: Yes - Tobacco Use Tobacco Use: Non-smoker Do you use smokeless tobacco?: No - Intervention Smoking Cessation Referral:: No Individual Education/Counseling:: No Education Schedule Given:: Yes - Education Gave Education Materials For:: Pulmonary Disease, Risk Factors, Breathing Techniques, Medical Compliance, Pulmonary A&P, Exacerbation Signs & Symptoms, Stress & Relaxation Nutrition/Wt Mgmt - 60-Day - Weight Management Weight Assessment:: Wt loss 1-2 lbs per week Weight:: 98.203 kg - down 5 pounds Weight Goals Progress:: Progressing Patient Health Questionnaire 60-Day Re-eval Assessment 1. Little interest or pleasure in doing things: Not at all 2. Feeling down, depressed, or hopeless: Not at all 3. Trouble falling or staying asleep, or sleeping too much: Not at all 4. Feeling tired or having little energy: Several days 5. Poor appetite or overeating: Not at all 6. Feeling bad about yourself -- or that you are a failure or have let yourself or your family down: Not at all 7. Trouble concentrating on things, such as reading the newspaper or watching television: Not at all 8. Moving or speaking so slowly that other people could have noticed. Or the opposite - being so fidgety or restless that you have been moving around a lot more than usual: Not at all 9. Thoughts that you would be better off , or of hurting yourself in some way: Not at all How difficult have these problems made it for you to do your work, take care of things at home, or get along with other people?: Not difficult at all Total Score: 1 COPD Assessment Test [CAT] - Questions Never cough = 0, Cough all the time = 5: 3 No phlegm = 0, Chest full of phlegm = 5: 4 No chest tightness = 0, Chest very tight = 5: 3 No breathless w/exertion = 0, Very breathless w/exertion = 5: 2 No limitations w/activity = 0, Very limited w/activity = 5: 1 Confident leaving home = 0, Not at all confident = 5: 1 Sleep soundly = 0, Don't sleep soundly = 5: 3 Lots of energy = 0, No energy at all = 5: 2 Total CAT score:: 19 Self-Efficacy 60-Day Re-eval Assessment We would like to know how confident you are in doing certain activities. Please select your confidence level for:: Select your confidence level for the following using the scale 1-10 where 1 is not at all confident and 10 is totally confident. Your score is the average of all 6 responses. Fatigue: How confident are you that you can keep the fatigue caused by your disease from interfering with the things you want to do? Select Number: 9 Physical Discomfort or Pain: How confident are you that you can keep the physical discomfort or pain of your disease from interfering with the things you want to do? Select Number: 8 Emotional Distress: How confident are you that you can keep the emotional distress caused by your disease from interfering with the things you want to do? Select Number: 9 Other Symptoms or Health Problems: How confident are you that you can keep other symptoms or health problems from interfering with the things you want to do? Select Number: 9 Different Tasks and Activities: How confident are you that you can do the different tasks and activities needed to manage your health condition so as to reduce your need to see a doctor? Select Number: 10 Medication: How confident are you that you can do things other than just taking medication to reduce how much your illness affects your everyday life? Select Number: 10 Total Score:: 9
== END 2018-01-02 23:59 ==
LOC: PR 08:00
PROVIDERS: Family Provider Family Medicine; PCP Family Medicine; Visit Provider Family Medicine
DX: J42 Unspecified chronic bronchitis (principal); J43.8 Other emphysema
CPT/HCPCS: 97150; G0239

== ENCOUNTER 2018-02-01 09:30 | Outpatient (RCR) | payer OTHER, SELFPAY ==
[2018-01-03 00:47] VITALS: BP 142/80; PULSE 42; RESP 22; TEMP 36.6; O2SAT 93; BMI 35.6
--- NOTE | 2018-01-28 13:31 | PCM.PR.DAT ---
Dates of Coverage Times for Dates Of Coverage; All dates of coverage are for physician supervision/medical device sales consultant for during the times of 08:00 AM through 4:30 PM. Effective Jul 06, 2013 our hours will be changing to 8:00 to 4:30 on Sunday, Sunday and Sunday. First Date of the Month: 02/03/18 Last Date of the Month: 03/04/18
--- NOTE | 2018-01-28 13:32 | PCM.PR.TP ---
Exercise - 90-Day Assessment - Exercise Prescription Mode:: Treadmill, NuStep, Arm Ergometer Frequency (x/week): 3 Duration:: 30 Aerobic Exercise [30-60 min 3-7x/week]:: Progressing Target heart rate: 121 - 114-121w/max HR 80 Torrey MET Level:: 4 - Home Exercise Home Exercise?: No Disease Management - 90-Day - Hypoxemia Reassessment: Demonstrates knowledge of O2 Rx with exercise, Using O2 as prescribed - Medications Medication list reviewed:: Yes Taking medications 100% of the time:: Met Medication reassessment: Yes Pt demonstrates correct technique timing for MDI, Yes Pt demonstrates correct technique timing for DPI, Yes Pt demonstrates correct technique timing for NEB, Yes Pt demonstrates correct technique timing for spacer - Bronchial Hygiene Bronchial Hygiene Plan: Yes Pt demo correct for device - returned demonstration of acapella device, Yes Pt demo correct for improved hydration - uses proper hadn hygiene, Yes Pt demo correct for hand hygiene, Yes Pt demo correct for verbalize when to call MD - verbalizes Psychosocial - 90-Day - Assessment Depression reassess: Management of stress: Met, Management of depression: Met, Practicing interventions: Met Tobacco - 90-Day Assessment - Program Goals Tobacco Program Goals: Complete smoking cessation. Attend education classes. Improve Knowledge Test score - Stage of Change Stages of Change:: Action - Learning Barriers Learning Barriers: Participates in education - Family Support Do you have family support?: Yes - Tobacco Use Tobacco Use: Non-smoker Do you use smokeless tobacco?: No - Intervention Smoking Cessation Referral:: No Individual Education/Counseling:: No Education Schedule Given:: Yes - Education Gave Education Materials For:: Pulmonary Disease, Risk Factors, Breathing Techniques, Medical Compliance, Pulmonary A&P, Exacerbation Signs & Symptoms, Stress & Relaxation Nutrition/Wt Mgmt - 90-Day - Weight Management Weight Assessment:: Wt loss 1-2 lbs per week Weight:: 219 lb - gained 3 pounds this month Weight Goals Progress:: Not progressing Patient Health Questionnaire 90-Day Re-eval Assessment 1. Little interest or pleasure in doing things: Not at all 2. Feeling down, depressed, or hopeless: Not at all 3. Trouble falling or staying asleep, or sleeping too much: Not at all 4. Feeling tired or having little energy: Not at all 5. Poor appetite or overeating: Not at all 6. Feeling bad about yourself -- or that you are a failure or have let yourself or your family down: Not at all 7. Trouble concentrating on things, such as reading the newspaper or watching television: Not at all 8. Moving or speaking so slowly that other people could have noticed. Or the opposite - being so fidgety or restless that you have been moving around a lot more than usual: Not at all 9. Thoughts that you would be better off , or of hurting yourself in some way: Not at all How difficult have these problems made it for you to do your work, take care of things at home, or get along with other people?: Not difficult at all Total Score: 0 COPD Assessment Test [CAT] - Questions Never cough = 0, Cough all the time = 5: 2 No phlegm = 0, Chest full of phlegm = 5: 1 No chest tightness = 0, Chest very tight = 5: 2 No breathless w/exertion = 0, Very breathless w/exertion = 5: 3 No limitations w/activity = 0, Very limited w/activity = 5: 2 Confident leaving home = 0, Not at all confident = 5: 1 Sleep soundly = 0, Don't sleep soundly = 5: 3 Lots of energy = 0, No energy at all = 5: 2 Total CAT score:: 16 Self-Efficacy 90-Day Re-eval Assessment We would like to know how confident you are in doing certain activities. Please select your confidence level for:: Select your confidence level for the following using the scale 1-10 where 1 is not at all confident and 10 is totally confident. Your score is the average of all 6 responses. Fatigue: How confident are you that you can keep the fatigue caused by your disease from interfering with the things you want to do? Select Number: 9 Physical Discomfort or Pain: How confident are you that you can keep the physical discomfort or pain of your disease from interfering with the things you want to do? Select Number: 10 Emotional Distress: How confident are you that you can keep the emotional distress caused by your disease from interfering with the things you want to do? Select Number: 9 Other Symptoms or Health Problems: How confident are you that you can keep other symptoms or health problems from interfering with the things you want to do? Select Number: 9 Different Tasks and Activities: How confident are you that you can do the different tasks and activities needed to manage your health condition so as to reduce your need to see a doctor? Select Number: 10 Medication: How confident are you that you can do things other than just taking medication to reduce how much your illness affects your everyday life? Select Number: 10 Total Score:: 9
== END 2018-02-02 23:59 ==
LOC: PR 09:30
PROVIDERS: Family Provider Family Medicine; PCP Family Medicine; Visit Provider Family Medicine
DX: J42 Unspecified chronic bronchitis (principal); J43.8 Other emphysema
CPT/HCPCS: 97150; G0239

== ENCOUNTER → 2018-02-12 10:56 | Outpatient (CLI) | payer MEDICARE, SELFPAY ==
--- NOTE | 2018-02-13 09:43 | PFT ---
INTRODUCTION: The patient is a 77-year-old male currently under the care of Dr. Dale Cooper presents for pulmonary function testing secondary to a diagnosis of COPD. Respiratory therapy reports good patient effort and reports no other concerns. Bronchodilators were used during testing. INTERPRETATION: Forced expiration spirometry demonstrates the presence of a moderately severe large airways obstructive ventilatory defect. There was a significant response to aerosolized bronchodilators noted in both FEV1 and FVC. Spirograms are of good quality and do not plateau indicating slow emptying of the lungs. The respiratory flow volume loop reveals decreased expiratory flow rates at all lung volumes consistent with airways obstruction. Body plethysmography was performed and reveals a decreased TLC to 3.59 L, 66% of predicted, indicative of a moderate restrictive ventilatory impairment. The remainder of the lung volumes are symmetrically reduced. Diffusing capacity by single breath CO is moderately reduced at 56% of predicted. IMPRESSION: These pulmonary function studies demonstrate the presence of a moderately severe mixed ventilatory defect with symmetric reduction in diffusing capacity and significant bronchodilator response. There are no previous pulmonary function studies available for comparison.
== END ==
PROVIDERS: Family Provider Family Medicine; PCP Family Medicine; Visit Provider Family Medicine
DX: J44.9 Chronic obstructive pulmonary disease, unspecified (principal)
CPT/HCPCS: 94060; 94726; 94729

== ENCOUNTER 2018-02-22 09:30 | Outpatient (RCR) | payer MEDICARE, SELFPAY ==
[2018-02-03 00:41] VITALS: BP 142/80; PULSE 42; RESP 22; TEMP 36.6; O2SAT 93; BMI 35.6
--- NOTE | 2018-02-26 10:21 | PR.ITP_ITS ---
Exercise - Final Assessment - Exercise Prescription Mode:: Treadmill, NuStep, Arm Ergometer Frequency (x/week): 3 - Discharged 02/22/2018 Duration:: 30 Aerobic Exercise [30-60 min 3-7x/week]:: Met Further followup [see D/C Summary]:: No Target heart rate: 114-121 w/ max HR 92 Torrey.5 MET Level:: 5 - Home Exercise Home Exercise:: No Disease Management - Final - Hypoxemia Final Assessment: Demonstrates knowledge of O2 Rx at rest, Demonstrates knowledge of O2 Rx with exercise, Using O2 as prescribed - Medications Medication list reviewed:: Yes Taking medications 100% of the time:: Met Psychosocial - Final Assess - Assessment Depression reassess: Management of stress: Met, Management of depression: Met, Practicing interventions: Met Tobacco - Final Assessment - Program Goals Tobacco Program Goals: Complete smoking cessation. Attend education classes. Improve Knowledge Test score - Stage of Change Stages of Change:: Action - Learning Barriers Learning Barriers: Participates in education - Family Support Do you have family support?: Yes - Tobacco Use Tobacco Use: Non-smoker Do you use smokeless tobacco?: No - Intervention Smoking Cessation Referral:: No Individual Education/Counseling:: No Education Schedule Given:: Yes - Education Education Goal Reached?: Yes Nutrition/Wt Mgmt - Final - Weight Management Weight:: 216 lb Weight Goals Progress:: Goal met Patient Health Questionnaire Discharge Assessment 1. Little interest or pleasure in doing things: Not at all 2. Feeling down, depressed, or hopeless: Not at all 3. Trouble falling or staying asleep, or sleeping too much: Not at all 4. Feeling tired or having little energy: Not at all 5. Poor appetite or overeating: Not at all 6. Feeling bad about yourself -- or that you are a failure or have let yourself or your family down: Not at all 7. Trouble concentrating on things, such as reading the newspaper or watching television: Not at all 8. Moving or speaking so slowly that other people could have noticed. Or the opposite - being so fidgety or restless that you have been moving around a lot more than usual: Not at all 9. Thoughts that you would be better off , or of hurting yourself in some way: Not at all How difficult have these problems made it for you to do your work, take care of things at home, or get along with other people?: Not difficult at all Total Score: 0 COPD Knowledge Test Discharge COPD is a lung disease that:: Makes it hard to breathe & gets worse over time In the [place] the term COPD describes 2 main lung conditions:: Emphysema & chronic bronchitis The most common lung irritant that causes COPD is:: Cigarette smoke Common signs and symptoms of COPD include:: An ongoing cough/cough that produces a large amount of mucus, & SOB If you have COPD, what steps can you take?: All of the above Swelling of the ankles is common in COPD:: False Fatigue [tiredness] is common in COPD:: True Wheezing is common in COPD:: True Crushing chest pain is common in COPD:: False Rapid weight loss is common in COPD:: False Breathlessness is a normal response to exercise: False Exercise should be avoided if it makes you short of breath: False All bronchodilators act within 10 minutes: False A spacer device increases the medication to the lungs: True Annual flu vaccine is recommended for pts w/lung disease: True COPD Knowledge Test Total Score:: 14 COPD Assessment Test [CAT] - Questions Never cough = 0, Cough all the time = 5: 1 No phlegm = 0, Chest full of phlegm = 5: 2 No chest tightness = 0, Chest very tight = 5: 3 No breathless w/exertion = 0, Very breathless w/exertion = 5: 4 No limitations w/activity = 0, Very limited w/activity = 5: 3 Confident leaving home = 0, Not at all confident = 5: 2 Sleep soundly = 0, Don't sleep soundly = 5: 3 Lots of energy = 0, No energy at all = 5: 4 Total CAT score:: 22 Self-Efficacy Discharge Assessment We would like to know how confident you are in doing certain activities. Please select your confidence level for:: Select your confidence level for the following using the scale 1-10 where 1 is not at all confident and 10 is totally confident. Your score is the average of all 6 responses. Fatigue: How confident are you that you can keep the fatigue caused by your disease from interfering with the things you want to do? Select Number: 7 Physical Discomfort or Pain: How confident are you that you can keep the physical discomfort or pain of your disease from interfering with the things you want to do? Select Number: 8 Emotional Distress: How confident are you that you can keep the emotional distress caused by your disease from interfering with the things you want to do? Select Number: 8 Other Symptoms or Health Problems: How confident are you that you can keep other symptoms or health problems from interfering with the things you want to do? Select Number: 8 Different Tasks and Activities: How confident are you that you can do the different tasks and activities needed to manage your health condition so as to reduce your need to see a doctor? Select Number: 6 Medication: How confident are you that you can do things other than just taking medication to reduce how much your illness affects your everyday life? Select Number: 8 Total Score:: 7 Nutrition Survey - Nutrition Survey Instructions Scoring Instructions: Scoring is as follows: Yes = 1 points. No = 0 point. Patient score that is >/=12 is considered to be at potential nutritional risk and could benefit from a referral to a registered dietitian. - Nutrition Survey Discharge Have you lost >10 lbs over the past 2 months without trying?: No Are you following a special diet at home for diabetes, low fat, or low salt?: No Are you interested in meeting with a dietitian for help understanding your diet? : No Do you eat less than 3 meals a day?: No Do you eat fatty meats (burciaga, sausage, ribs, etc), fried foods, desserts, large amounts of salad dressings, margarine, butter, or cheese most days?: No Do you have food allergies? [Enter types in comment field]: No Do you eat in restaurants more than 3 times a week?: No Do you season food with salt, seasoning salt, or garlic salt?: Yes Do you used canned, boxed, frozen meals, or soups, seasoning packets?: Yes Total Score:: 2
== END 2018-03-04 23:59 ==
LOC: PR 09:30
PROVIDERS: Family Provider Family Medicine; PCP Family Medicine; Visit Provider Family Medicine
DX: J42 Unspecified chronic bronchitis (principal); J43.8 Other emphysema
CPT/HCPCS: 97150; G0239

== ENCOUNTER → 2018-05-24 14:31 | Outpatient (CLI) | payer MEDICARE, SELFPAY | PROVIDERS: Family Provider Family Medicine; PCP Family Medicine; Visit Provider Family Medicine | DX: E29.1 Testicular hypofunction (principal) | CPT/HCPCS: 36415; 84403 ==

== ENCOUNTER → 2018-08-29 06:17 | Outpatient (CLI) | payer MEDICARE, SELFPAY ==
--- NOTE | 2018-08-29 10:04 | STRESSREP_ITS ---
Stress Test Report Date: 08/29/2018 Procedure: Exercise tolerance test/imaging study Indications: Chest pain Consent: Per the patient Procedure: The patient exercised on a Josse protocol for 4 minutes and 45 seconds completing Stage I and 1 minute and 45 seconds of Stage II achieving a peak heart rate of 134 bpm (94 % predicted maximal heart rate) with a peak blood pressure 186/94 mmHg and a peak MET capacity of 6 METs. The baseline ECG demonstrated sinus bradycardia. The peak exercise ECG demonstrated somatic/motion artifact with no obvious ECG changes. There were occasional PVCs during exercise and early recovery; there were occasional ventricular couplets during exercise and early recovery; there were rare ventricular triplets/quadruplets during exercise. The functional capacity was considered decreased. There was vague chest discomfort associated with dyspnea at peak exercise with spontaneous resolution in recovery. The examination was discontinued secondary to dyspnea. Impression: 1. Technically adequate (percent predicted maximal heart rate greater than 85%) exercise tolerance test 2. Peak exercise ECG somatic/motion artifact with no obvious ECG changes 3. Were occasional PVCs during exercise and early recovery; there were occasional ventricular couplets during exercise and early recovery; there were rare ventricular triplets/quadruplets during exercise 4. Nuclear images pending Comment: A. Resting O2 saturation: 3 L nasal cannula: 96% B. Peak exercise O2 saturation: 3 L nasal cannula: Approximately 88% C. Recovery O2 saturation: 3 L nasal cannula: 98% D. The patient noted vague chest discomfort associated with dyspnea peak exercise with spontaneous resolution during recovery Myocardial perfusion imaging study: Technique: The patient was injected with 14.6 mCi of technetium 99m Cardiolite and subsequently rest SPECT Cardiolite nuclear imaging was obtained in the horizontal long, vertical long, and short axis views. The patient exercised on a Josse protocol for 4 minutes and 45 seconds completing Stage I and 1 minute and 45 seconds of Stage II achieving a peak heart rate of 134 bpm (94 % predicted maximal heart rate) with a peak blood pressure 186/94 mmHg and a peak MET capacity of 6 METs. The patient was injected with 44.7 mCi of technetium 99m Cardiolite and subsequently stress SPECT Cardiolite nuclear imaging was obtained in the horizontal long, vertical long, and short axis views. A gated Cardiolite study at peak stress was obtained. Interpretation: Rest and stress SPECT Cardiolite nuclear imaging status post realignment, normalization, and attenuation correction, demonstrates at rest of extra cardiac/gastrointestinal tracer uptake and otherwise myocardial perfusion appear ing within normal limits. Status post stress there is diminished myocardial perfusion in the mid to distal inferior and inferior apical segments. There are similar type findings on the resting and stress polar map images.. There is diminished end systolic thickening and brightening in the aforementioned areas.. The gated Cardiolite study demonstrates myocardial thickening and inward wall motion. The reported LVEF is 69 %. Impression: 1. Rest and stress SPECT Cardiolite nuclear imaging demonstrate myocardial perfusion changes concerning for an area of stress-induced myocardial ischemia and portions of the mid to distal inferior and inferior apical segments. 2. The gated Cardiolite study reports an LVEF of 69 %. This note was generated with [employer] software. It may contain incorrect words, spelling, and punctuation that were not noted in checking the note before signing.
== END ==
PROVIDERS: Family Provider Family Medicine; PCP Family Medicine; Referring Provider Family Medicine; Visit Provider Family Medicine
DX: R07.9 Chest pain, unspecified (principal)
CPT/HCPCS: 78452; 93017; A9500; A4216

== ENCOUNTER → 2018-10-11 09:29 | Outpatient (CLI) | payer MEDICARE, SELFPAY ==
[2018-10-10 11:53] VITALS: BMI 35.0
--- NOTE | 2018-10-11 09:39 | RAD_ITS ---
STUDY: X-RAY CHEST REASON FOR EXAM: Male, 77 years old. Shortness of breath. TECHNIQUE: PA and lateral views of the chest. COMPARISON: None. FINDINGS: There is hyperinflation of the lungs consistent with chronic obstructive lung disease (COPD). There is no demonstrated pleural abnormality. Normal size heart. Normal mediastinum and marsha. Normal visualized pulmonary arteries. Normal visualized aortic arch and descending thoracic aorta. There are diffuse degenerative changes of the visualized thoracic spine. There is degenerative osteoarthritis of the bilateral shoulders. There is no demonstrated abnormality of the visualized soft tissue structures of the upper abdomen. RAD/Chest PA and Lateral IMPRESSION: COPD without acute cardiopulmonary disease. Electronically Signed: Patricio Patrick DO at 17:06 EST Tel [phone], Service support ,
[2018-10-11 10:37] LABS: Absolute Lymphocyte Count 1.98 X10^3/ul (0.83-4.51); Absolute Neutrophil Count 4.4 X10^3/uL (2.0-7.7); Basophil# 0.02 X10^3/uL; Basophil% 0.3 % (0-1); Eosinophil# 0.06 X10^3/uL; Eosinophils% 0.8 % (0-5); Hematocrit 45.6 % (40-54); Hemoglobin 14.8 g/dl (13.0-16.5); Lymphocyte # 1.98 X10^3/ul (4.0); Lymphocyte % 27.7 % (19-41); Mean Corp Hgb Conc 32.5 g/gl (32-36); Mean Corpuscular Hgb 29.7 pg (27.0-32.0); Mean Corpuscular Volume 91.4 fL (80-94); Mean Platelet Vol. 9.9 fl (6.2-12.0); Monocyte# 0.69 X10^3/uL; Monocyte% 9.7 % (0-10); Neutrophil # 4.38 X10^3/uL (2.7-7.7); Neutrophil % 61.2 % (47-70); POSITIVE COUNT NO; POSITIVE DIFFERENTIAL NO; POSITIVE MORPHOLOGY NO; Platelet Count 211 K/mm3 (150-450); RBC Distribution Width CV 13.8 % (11.6-14.6); RBC Distribution Width SD 45.7 fl (35.1-43.9); Red Blood Count 4.99 M/mm3 (4.6-6.2); White Blood Count 7.2 K/mm3 (4.4-11.0)
[2018-10-11 10:49] LABS: Prothrombin Time (Protime)PT. 13.2 SECONDS (11.7-14.9)
[2018-10-11 10:50] LABS: Partial Thromboplast Time 32.6 Seconds (24.1-36.2)
[2018-10-11 11:18] LABS: AST(SGOT) 11 U/L (15-37); Alanine Aminotransfer ALT/SGPT 35 U/L (16-61); Albumin, Serum 3.6 g/dL (3.2-5.0); Alkaline Phosphatase 67 U/L (45-117); Anion Gap 7 (5-15); BUN 21 mg/dL (7-18); BUN/Creat Ratio 25.5 RATIO (10-20); Bilirubin, Direct 0.13 mg/dL (0.00-0.30); Chloride 108 mmol/L (98-107); Cholesterol 213 mg/dL (200); Creatinine, Serum 0.82 mg/dL (0.70-1.30); EST Glomerular Filtration Rate 96 mL/min (>60); Est Glom Filt Rate - Afr Amer 116 mL/min (>60); Glucose 119 mg/dL (74-106); High Density Lipoprotein 53 mg/dL; Potassium 4.1 mmol/L (3.5-5.1); Protein, Total 7.6 g/dL (6.4-8.2); Sodium Level 141 mmol/L (136-145); Triglycerides 96 mg/dL; Very Low Density Lipoprotein 19 mg/dL (5-40)
== END ==
PROVIDERS: Family Provider Family Medicine; PCP Family Medicine; Referring Provider Internal Medicine Cardiovascular Disease; Visit Provider Internal Medicine Cardiovascular Disease
DX: I20.9 Angina pectoris, unspecified (principal); R94.39 Abnormal result of other cardiovascular function study; I10 Essential (primary) hypertension; J44.9 Chronic obstructive pulmonary disease, unspecified; E66.01 Morbid (severe) obesity due to excess calories; Z68.35 Body mass index [BMI] 35.0-35.9, adult; R06.02 Shortness of breath; R06.00 Dyspnea, unspecified
CPT/HCPCS: 36415; 71046; 80048; 80061; 80076; 85025; 85610; 85730

== ENCOUNTER → 2018-10-11 09:49 | Outpatient (CLI) | payer MEDICARE, SELFPAY ==
[2018-10-10 11:53] VITALS: BMI 35.0
== END ==
PROVIDERS: Family Provider Family Medicine; PCP Family Medicine; Referring Provider Internal Medicine Cardiovascular Disease; Visit Provider Internal Medicine Cardiovascular Disease
DX: I20.9 Angina pectoris, unspecified (principal); R94.39 Abnormal result of other cardiovascular function study; I10 Essential (primary) hypertension; J44.9 Chronic obstructive pulmonary disease, unspecified

== ENCOUNTER → 2018-10-14 10:58 | Outpatient (CLI) | payer MEDICARE, SELFPAY ==
[2018-10-10 11:53] VITALS: BMI 35.0
--- NOTE | 2018-10-14 11:04 | ECHOCS_ITS ---
Reason For Study: SOB Procedure This was a 2D Doppler, Color Flow transthoracic echocardiogram. The study was technically difficult. Contrast injection was performed. Exam performed in department. Left Ventricle Normal LV size. Left ventricular systolic function is normal. The estimated ejection fraction is 60 %. No regional wall motion abnormalities noted. Right Ventricle Normal RV size. Normal systolic function. Atria The left atrium is mildly enlarged. Normal right atrium. No doppler evidence for ASD. Mitral Valve There is no mitral annular calcification. Normal mitral valve. Trivial mitral valve insufficiency. Tricuspid Valve Normal tricuspid valve. Trivial tricuspid valve insufficiency. Unable to estimate RV systolic pressure/pulmonary artery pressure due to technically difficult study. Aortic Valve Trisinus/trileaflet aortic valve. Mild focal aortic valve calcification. Pulmonic Valve The pulmonic valve is not well visualized. Great Vessels Normal sized aortic root. Pericardium/Pleural No pericardial effusion. Medication 22 gauge I.V. with prn adaptor inserted into right arm. Diluted definity 2ml given slow IV push to enhance endocardial definition. MMode/2D Measurements & Calculations LVIDd: 3.8 cm IVSd: 1.4 cm Ao root diam: 3.4 cm LVIDs: 2.5 cm LVPWd: 1.1 cm LA dimension: 3.6 cm FS: 33.0 % LAV(MOD-sp4): 60.8 ml LA A4 area: 20.5 cm2 RA A4 area: 19.2 cm2 Time Measurements MV dec time: 0.22 sec Doppler Measurements & Calculations MV E max jose: 111.5 cm/sec MV V2 max: 125.2 cm/sec MV P1/2t max jose: 123.3 cm/sec MV A max jose: 90.5 cm/sec MV max P.3 mmHg MV P1/2t: 75.9 msec MV E/A: 1.2 MV V2 mean: 60.5 cm/sec MV dec slope: 475.5 cm/sec2 MV mean P.8 mmHg MV V2 VTI: 47.6 cm MVA(P1/2t): 2.9 cm2 Ao V2 max: 169.1 cm/sec LV V1 max: 156.9 cm/sec MR max jose: 620.1 cm/sec Ao max P.4 mmHg LV V1 max P.8 mmHg MR max P.8 mmHg Ao V2 mean: 110.0 cm/sec LV V1 mean P.1 mmHg MR mean jose: 523.8 cm/sec Ao mean P.6 mmHg LV V1 mean: 92.5 cm/sec MR mean P.4 mmHg Ao V2 VTI: 40.2 cm LV V1 VTI: 35.1 cm MR VTI: 228.1 cm PA V2 max: 115.6 cm/sec Interpretation Summary The study was technically difficult. Contrast injection was performed. Left ventricular systolic function is normal. The estimated ejection fraction is 60 %. The left atrium is mildly enlarged. Trivial mitral valve insufficiency. Trivial tricuspid valve insufficiency. Mild focal aortic valve calcification. Transmitral diastolic flow velocities suggest diastolic dysfunction (pseudonormal pattern). Ordering Physician: Carlene^Lane^^^ Referring Physician: Lane Concepcion Performed By: Khalif Dent RCS
== END ==
PROVIDERS: Family Provider Family Medicine; PCP Family Medicine; Referring Provider Internal Medicine Cardiovascular Disease; Visit Provider Internal Medicine Cardiovascular Disease
DX: R07.9 Chest pain, unspecified (principal); I20.9 Angina pectoris, unspecified; R94.39 Abnormal result of other cardiovascular function study; I10 Essential (primary) hypertension; J44.9 Chronic obstructive pulmonary disease, unspecified
CPT/HCPCS: 93306; Q9957; A4216; C8929

== ENCOUNTER 2018-10-18 08:00 | Day surgery (SDC) | payer MEDICARE, SELFPAY ==
[2018-10-10 11:53] VITALS: BMI 35.0
[2018-10-17 07:33] VITALS: BMI 35.0
[2018-10-18] VITALS (28 sets, daily range): BP systolic 100–204; BP diastolic 33–75; PULSE 41–56; RESP 9–19; TEMP 36.7–37.1; O2SAT 90–99; BMI 35.0
--- NOTE | 2018-10-18 12:12 | EKG12_ITS ---
Test Reason : PCI Blood Pressure : / mmHG Vent. Rate : 046 BPM Atrial Rate : 046 BPM P-R Int : 200 ms QRS Dur : 108 ms QT Int : 458 ms P-R-T Axes : 059 026 040 degrees QTc Int : 400 ms Sinus bradycardia with marked sinus arrhythmia Otherwise normal ECG When compared with ECG of 18-JUN-2011 01:13, No significant change was found Confirmed by MICHA MAN, RENATO ([id number]), material expeditor SEAMUS DUGGAN ([id number]) on 10/23/2018 4:06:18 PM Referred By: Lane Concepcion Confirmed By:RENATO MUSE MD
--- NOTE | 2018-10-18 12:20 | CL.I_ITS ---
Patient Name: JESSE MACHUCA Study Date: 10/18/2018 Performing: Lara Carrington MD Ht: 66.14 inches 168 cm : 1940 Wt: 216.05 lbs 98 kg Age: 77 Gender: male BSA: 2.07 PROCEDURE(S) PERFORMED [id number] W OR WO PTCA, SINGLE CORONARY ARTERY CLINICAL PROFILE AND CO-MORBIDITIES Heart Failure: None Stress/Imaging Stress Test w/SPECT MPI: Yes Result: Positive Intermediate Risk Stress Test with S PECT MPI: Positive Intermediate Risk Angina Classification Anginal Classification w/in 2 Weeks: CCS III CAD Presentations: Stable angina. CONCLUSIONS Successful PTCA/LAN Mid RCA using Resolute Integrity 3.5x38 mm, post-dilated using 3.75 mm balloon RECOMMENDATIONS ASA Indefinitley Plavix for at least 12 months Follow up with Dr. Concepcion INTERVENTION INFORMATION LESION SITE: RCA (Mid) Lesion Complexity: High/C, culprit lesion: Yes Pre Stenosis: 95 % Pre intervention LAMAR flow: 3 PROCEDURE: Drug Eluting Stent with pre and post dilatation Post Stenosis: 0 % Post intervention LAMAR flow: 3 Lesion Devices: Cordis 6 Fr JR4 100cm Guide Catheter Terumo .014 Runthrough Extra Floppy 180cm straight Magdiel Sci EMERGE MR 3.00x15 BALLOON Medtronic Resolute RX LAN 3.5x38 Magdiel Sci NC EMERGE MR 3.50x30 BALLOON Magdiel Sci NC EMERGE MR 3.75x20 BALLOON Lesion Devices: Terumo .014 Runthrough Extra Floppy 180cm straight Magdiel Sci EMERGE MR 3.00x15 BALLOON COMPLICATIONS No Complications PROCEDURE MEDICATIONS Versed 1 mg IV Fentanyl 50 mcg IV Oxygen: 2 L/min via nasal cannula Heparin diluted in 23cc Heparinized saline. Patient given 10cc IA of this solution. 10/18/2018 11:20 :52 Heparin 8000 unit(s) IV 10/18/2018 11:39:49 Nitro 200 mcg IC 10/18/2018 11:57:38 Nitro 200 mcg IC 10/18/2018 11:57:38 Plavix 300 mg PO 10/18/2018 12:06:18 SUMMARY OF HEMODYNAMIC DATA Time AIR REST ECG 08:19:23 AO 111/52 (75) SA 11:22:45 LV 139/7, 17 11:33:43 LV 138/6, 19 11:33:49 LV 120/6, 18 11:34:45 LV 131/6, 18 11:34:52 LVp 144/17, 62 11:34:58 AOp 145/62 (96) 11:35:03 Signed By Lara Carrington MD On 10/18/2018 2:07:06 PM Signed By Lara Carrington MD On 10/18/2018 12:20:02 Lara Carrington MD
[2018-10-18 12:30] LABS: ACT Activated Clotting Time 401 sec (74-137)
[2018-10-18 12:30] LABS: ACT Activated Clotting Time 257 sec (74-137)
[2018-10-18] MEDS: 0.9% Normal Saline 1,000 ML 150 ML IV (13:41)
--- NOTE | 2018-10-18 13:57 | CRPHASE1 ---
Patient Data/Charges Former Patient:: Phase I Phase II Referral:: [facility] Start Phase II:: After discharge Phase I Charge:: Level I - Education Risk Factors/Lifestyle Smoking Status: Never smoker Hx Hypertension: Yes Hx Diabetes Mellitus Type 1: No Hx Diabetes Mellitus Type 2: No Hx Dyslipidemia: Yes Hx Obesity: Yes Height: 1.68 m Weight:: 98.43 kg BMI: 35.0 Stress: Home/Family ETOH: No Caffeine: No Substance Abuse: No Family History: Family History (Last Reviewed 10/10/18 @ 11:57 by Sarah Roche) Father Colon cancer Mother Heart disease Uncle Myocardial infarction Hypertension Phase I Education Given On:: [place], Nutrition, Antiplatelet medication Issues Affecting Care:: None Knowledge of Condition:: Yes Learning Preferences: Verbal, Written Medical/Surgical History CAD:: Yes COPD:: Yes Hypertension:: Yes Dyslipidemia:: Yes PTCA:: Yes - LAN Discharge/Home/Social Eval Discharge Disposition: Home - Pt has been in Pulmonary Rehab in the past
--- NOTE | 2018-10-18 14:02 | CRPHASE1_ITS ---
Patient Data/Charges Former Patient:: Phase I Phase II Referral:: [facility] Start Phase II:: After discharge Phase I Charge:: Level I - Education Risk Factors/Lifestyle Smoking Status: Never smoker Hx Hypertension: Yes Hx Diabetes Mellitus Type 1: No Hx Diabetes Mellitus Type 2: No Hx Dyslipidemia: Yes Hx Obesity: Yes Height: 1.68 m Weight:: 98.43 kg BMI: 35.0 Stress: Home/Family ETOH: No Caffeine: No Substance Abuse: No Family History: Family History (Last Reviewed 10/10/18 @ 11:57 by Sarah Roche) Father Colon cancer Mother Heart disease Uncle Myocardial infarction Hypertension Phase I Education Given On:: [place], Nutrition, Antiplatelet medication Issues Affecting Care:: None Knowledge of Condition:: Yes Learning Preferences: Verbal, Written Medical/Surgical History CAD:: Yes COPD:: Yes Hypertension:: Yes Dyslipidemia:: Yes PTCA:: Yes - LAN Discharge/Home/Social Eval Discharge Disposition: Home - Pt has been in Pulmonary Rehab in the past
--- NOTE | 2018-10-18 14:02 | CRPH1.INSTRU ---
General Education CAD and cardiac anatomy and function:: Patient communicates acknowledgment Explanation of diagnoses and procedures:: Patient communicates acknowledgment Sign/Symptoms of DC:: Patient communicates acknowledgment Antiplatelet therapy: Patient communicates acknowledgment Proper use of NTG-SL: Patient communicates acknowledgment Emergency procedures and activation of EMS: Patient communicates acknowledgment Compliance of all prescribed medications: Patient communicates acknowledgment Smoking Patient Nicotine/Smoking Risk Factors Are:: Non-smoker Dyslipidemia Patient Dyslipidemia Risk Factors Are:: Total Cholesterol, Triglycerides, HDL, LDL Recommendations Include:: Lipid profile provided, Reviewed NCEP/ATP guidelines, Therapeutic Lifestyle Change dietary guidelines Dyslipidemia Response Code:: Patient communicates acknowledgment Overweight/Obesity Patient Overweight/Obesity Risk Factors Are:: Obesity - > or = 30 Recommendations Include:: Weight loss of 5-10%, Reduced calorie diet, Exercise 5-7 times/week Overweight/Obesity:: Patient communicates acknowledgment Hypertension Patient Hypertension Risk Factors Are:: No documented hx of HTN Recommendations Include:: Maintain BP <130/85, DASH dietary guidelines, Decrease/maintain normal body weight, Moderation of ETOH Hypertension:: Patient communicates acknowledgment Heart Disease Patient Heart Disease Risk Factors Are:: Family history of heart disease < 65 years old Recommendations Include:: Educated family members of their risk, Educated family members of importance of prevention of heart disease Heart Disease Response Code:: Patient communicates acknowledgment Diabetes Recommendations Include:: Maintain fasting blood sugars 70-110 md/dL, Maintain HgbA1c of 6% or less, Monitor blood sugar as prescribed, Diabetic dietary guidelines, Decrease/maintain body weight Diabetes:: Patient communicates acknowledgment Metabolic Syndrome Patient Metabolic Syndrome Risk Factors Are [3 of 5]:: Waist circumference > 35 [female] or 40 [male], Hypertension Recommendations Include:: Encouraged follow-up with Primary Care Physician Metabolic Syndrome Response Code:: Patient communicates acknowledgment Sedentary Patient Sedentary Risk Factors Are:: Lack of regular exercise Recommendations Include:: Aerobic exercise 5-7 times/week for 20-30 minutes continuously, Benefits of regular exercise, Monitored Outpatient Cardiac Rehab Sedentary Response Code:: Patient communicates acknowledgment Stress Patient Stress Risk Factors Are:: Patient denies stress as a risk factor Recommendations Include:: Identification of stressors, and assessment of coping skills, Stress management techniques Stress Response Code:: Patient communicates acknowledgment
--- NOTE | 2018-10-18 14:17 | CL.D_ITS ---
Patient Name: JESSE MACHUCA Study Date: 10/18/2018 Performing: Lane Concepcion MD Ht: 66.14 inches 168 cm : 1940 Wt: 216.05 lbs 98 kg Age: 77 Gender: male BSA: 2.07 PROCEDURE(S) PERFORMED [id number]/LV [id number] W OR WO PTCA, SINGLE CORONARY ARTERY CLINICAL PROFILE AND INDICATIONS Indications: Suspected CAD Heart Failure: None Stress/Imaging Stress Test w/SPECT MPI: Yes Result: Positive Intermediate RiskStress Test with SP ECT MPI: Positive Intermediate Risk Angina Classification Anginal Classification w/in 2 Weeks: CCS III CAD Presentations: Stable angina. Stable angina. CONCLUSIONS Elevated Left Ventricular End Diastolic Pressure Left ventricular regional wall motion abnormalities with overall preserved LV systolic function LVEF: by LV gram 55 % Teller Multivessel CAD (predominantly RCA) RECOMMENDATIONS Risk factor modification Medical therapy Referred for immediate PCI DESCRIPTION OF PROCEDURE The patient arrived to the procedure lab. The risks and benefits of the procedure as well as a full d escription of our services here and current unavailability of surgical backup were fully explained to the patient and/or their significant other prior to the catheterization. The Timeout was completed, verifying the correct patient and procedure. The patient's procedural site was prepped and draped in the usual fashion. Local anesthetic was given subcutaneously to right radial region with Lidocaine 2% . Using a modified Seldinger technique, arterial access was obtained via the right radial artery, a 6 Fr sheath was inserted. Right Coronary Artery selective angiography was then performed in multiple v iews using a 5 Fr. 4.0 Saffell catheter. Left Coronary Artery selective angiography was performed in mu ltiple views using a 5 Fr. 4.0 Saffell catheter. Left Ventriculography was performed in GALINDO projection using a 5 Fr. Pigtail catheter. LV to AO pullback pressures were then recorded.The arterial sheath was pulled and manual compression applied until hemostasis is achieved. CORONARY ANGIOGRAPHY DOMINANCE: Right Dominant LEFT HEART ASSESSMENT Left Ventricular Ejection Fraction: by LV Gram 55 % Inferior Mid Hypokinesis Elevated Left Ventricular End Diastolic Pressure LVEDP: 19 mmHg LEFT MAIN: Angiographically normal LEFT ANTERIOR DECENDING ARTERY: Mild luminal irregularities CIRCUMFLEX ARTERY: Mild luminal irregularities RAMUS: Mild luminal irregularities RIGHT CORONARY ARTERY: MID RCA: Irregular: Sequential 95 % Stenosis RIGHT AV SEGMENT: 50-75 % Stenosis VALVE FINDINGS: Normal Aortic Valve function Normal Mitral Valve function AORTIC ROOT: Angiographically normal COMPLICATIONS No Complications PROCEDURE MEDICATIONS Versed 1 mg IV Fentanyl 50 mcg IV Oxygen: 2 L/min via nasal cannula Heparin diluted in 23cc Heparinized saline. Patient given 10cc IA of this solution. 10/18/2018 11:20 :52 Heparin 8000 unit(s) IV 10/18/2018 11:39:49 Nitro 200 mcg IC 10/18/2018 11:57:38 Nitro 200 mcg IC 10/18/2018 11:57:38 Plavix 300 mg PO 10/18/2018 12:06:18 SUMMARY OF HEMODYNAMIC DATA Time AIR REST ECG 08:19:23 AO 111/52 (75) SA 11:22:45 LV 139/7, 17 11:33:43 LV 138/6, 19 11:33:49 LV 120/6, 18 11:34:45 LV 131/6, 18 11:34:52 LVp 144/17, 62 11:34:58 AOp 145/62 (96) 11:35:03 RM AIR REST 14:07:[address] Concepcion MD On 10/18/2018 2:16:[address] Concepcion MD
[2018-10-18] MEDS: 0.9% NaCl Peripheral Flush Adult/Peds IV (14:25)
[2018-10-18] MEDS: Furosemide 20 MG/2 ML VIAL IV (17:54)
--- NOTE | 2018-10-18 18:25 | PCM.PN.CARD ---
Subjectve: The patient is awake and alert. He notes that when his blood pressure elevates he does get an uncomfortable sensation in his chest. He denies any acute respiratory issues. Objective: Vital Signs Temp Pulse Resp BP Pulse Ox 98.0 F 56 L 12 166/65 H 96 10/18/18 16:05 10/18/18 18:00 10/18/18 18:00 10/18/18 18:00 10/18/18 18:00 Oxygen Flow Rate (L/min) 2 Oxygen Delivery Method Room Air Weight: 217 lb Body Mass Index (BMI) 35.0 Intake and Output for Last 24 Hours 10/16/18 10/17/18 10/18/18 23:59 23:59 23:59 Intake Total 1003.6 / 1003.6 Balance 1003.6 / 1003.6 General: Awake, Alert, Oriented x 3, Cooperative, No Acute Distress HEENT: Atraumatic, Normocephalic, PERRL, EOMI, Sclera Non Icteric Oral: Moist Mucosa Neck: Supple, Good ROM, No JVD Lungs: Clear to auscultation Cardiovascular: Regular Rhythm, Normal S1, Normal S2 Vascular: Normal Radial Pulses Abdomen: Bowel Sounds Present, Soft, Non Tender Extremities: No Cyanosis, No Clubbing, No edema Neurological: No Focal Motor or Sensory Deficit Psych/Mental Status: Appropriate Rhythm: Sinus rhythm EKG: Post PCI ECG: Sinus rhythm/sinus bradycardia; no acute ECG changes Cardiac Cath: Please see official report PCI: Please see official report Medical Necessity - Tobacco Use Smoking Status: Never smoker Assessment/Plan 1. CAD status post RCA PCI The patient presented with concerns of angina pectoris. He was noted to have an abnormal rest nuclear imaging study. He has subsequently undergone evaluation with diagnostic cardiac catheterization. He is noted to have angiographically significant appearing CAD in the RCA distribution. He is now status post RCA PCI. At the present time he will need to continue medical therapy. This will include a combination of aspirin, antiplatelet therapy with Plavix/clopidogrel, nitrate therapy as deemed appropriate, beta-blockers as tolerated, afterload reducing agents as deemed appropriate, and lipid-lowering agents. 2. Hyperlipidemia The patient will need to continue lipid-lowering therapy. 3. Hypertension The patient has been noted to have markedly elevated blood pressures. When his blood pressures are elevated he appears to have underlying chest discomfort. His medication regimen is being adjusted to help bring his blood pressures under better control. 4. COPD The patient does have underlying COPD. He will need to continue to follow with pulmonology for further evaluation and care. Comment: The above has been discussed and reviewed with the patient and his spouse. This note was generated with [employer] software. It may contain incorrect words, spelling, and punctuation that were not noted in checking the note before signing.
[2018-10-18] MEDS: Acetaminophen 500 MG Tablet 1000 MG PO (18:31)
[2018-10-18] MEDS: Isosorbide Mononitrate 30 MG Tablet PO (19:06)
[2018-10-18] MEDS: Losartan Potassium 50 MG Tablet PO (22:03)
[2018-10-18] MEDS: Atorvastatin Calcium 80 MG Tablet PO (22:03)
[2018-10-19] VITALS (19 sets, daily range): BP systolic 114–145; BP diastolic 39–65; PULSE 51–63; RESP 12–18; TEMP 36.4–37.1; O2SAT 91–95
[2018-10-19] MEDS: 0.9% NaCl Peripheral Flush Adult/Peds IV (04:04)
[2018-10-19 04:33] LABS: Hematocrit 41.6 % (40-54); Hemoglobin 13.6 g/dl (13.0-16.5); Mean Corp Hgb Conc 32.7 g/gl (32-36); Mean Corpuscular Volume 91.6 fL (80-94); Mean Platelet Vol. 9.9 fl (6.2-12.0); Platelet Count 208 K/mm3 (150-450); RBC Distribution Width SD 46.2 fl (35.1-43.9); Red Blood Count 4.54 M/mm3 (4.6-6.2); White Blood Count 9.7 K/mm3 (4.4-11.0)
[2018-10-19 04:34] LABS: Scan Indicated on CBC? Y/N NO
[2018-10-19 04:52] LABS: Anion Gap 6 (5-15); BUN 20 mg/dL (7-18); BUN/Creat Ratio 26.1 RATIO (10-20); Calcium,Total 8.7 mg/dL (8.5-10.1); Chloride 108 mmol/L (98-107); Creatinine, Serum 0.77 mg/dL (0.70-1.30); EST Glomerular Filtration Rate 104 mL/min (>60); Est Glom Filt Rate - Afr Amer 126 mL/min (>60); Estimated Creatinine Clearance 54.94 ml/min; Glucose 115 mg/dL (74-106); Potassium 3.8 mmol/L (3.5-5.1); Sodium Level 142 mmol/L (136-145)
[2018-10-19] MEDS: hydroCHLOROthiazide 12.5mg 12.5 MG PO (09:47)
[2018-10-19] MEDS: Metoprolol Tartrate 25 MG Tablet PO (09:47)
[2018-10-19] MEDS: Clopidogrel Bisulfate 75 MG Tablet PO (09:47)
[2018-10-19] MEDS: Losartan Potassium 50 MG Tablet PO (09:47)
[2018-10-19] MEDS: Aspirin E.C. 81 MG Tablet PO (09:47)
[2018-10-19] MEDS: Isosorbide Mononitrate 30 MG Tablet PO (09:47)
--- NOTE | 2018-10-19 10:00 | EKG12_ITS ---
Test Reason : AM Blood Pressure : / mmHG Vent. Rate : 058 BPM Atrial Rate : 058 BPM P-R Int : 148 ms QRS Dur : 086 ms QT Int : 426 ms P-R-T Axes : 040 008 057 degrees QTc Int : 418 ms Sinus bradycardia Otherwise normal ECG When compared with ECG of 18-JUN-2011 01:13, No significant change was found Confirmed by MICHA MAN, RENATO ([id number]), scientific editor SEAMUS DUGGAN ([id number]) on 10/23/2018 4:03:35 PM Referred By: Lane Concepcion Confirmed By:RENATO MUSE MD
--- NOTE | 2018-10-19 10:54 | PCM.PN.CARD ---
Subjectve: No complaints. Feels good. Ambulating. Objective: Vital Signs Temp Pulse Resp BP Pulse Ox 98.7 F 62 12 143/61 H 92 10/19/18 09:00 10/19/18 10:00 10/19/18 10:00 10/19/18 10:00 10/19/18 10:00 Oxygen Flow Rate (L/min) 2 Oxygen Delivery Method Room Air Weight: 99.1 kg Body Mass Index (BMI) 35.0 Intake and Output for Last 24 Hours 10/17/18 10/18/18 10/19/18 23:59 23:59 23:59 Intake Total 1003.6 / 1003.6 120 / 120 Output Total 1974 Balance 1003.6 / 1003.6 -1855 / -1855 General: Healthy Appearing, Awake, Alert, Oriented x 3 HEENT: Atraumatic, Normocephalic Neck: Supple Lungs: Diminished Ben Bases Cardiovascular: Regular Rhythm, Normal S1, Normal S2 Vascular: - - Right radial pulse 2+ Abdomen: Bowel Sounds Present, Soft Neurological: No Focal Motor or Sensory Deficit Psych/Mental Status: Appropriate 10/19/18 04:05: WBC 9.7, RBC 4.54 L, Hgb 13.6, Hct 41.6, MCV 91.6, MCH 30.0, MCHC 32.7, RDW 14.0, RDW Differential 46.2 H, Plt Count 208, MPV 9.9 10/19/18 04:05: Sodium 142, Potassium 3.8, Chloride 108 H, Carbon Dioxide 28.0, Anion Gap 6, BUN 20 H, Creatinine 0.77, Est GFR (MDRD) Af Amer 126, Est GFR (MDRD) Non-Af 104, BUN/Creatinine Ratio 26.1 H, Glucose 115 H, Calcium 8.7 Rhythm: Normal sinus. EKG: ECHO: Stress Test: Cardiac Cath: PCI: CT Surgery: Holter monitor: EPS: PPM: CXR: Chest CT Scan: Medical Necessity - Tobacco Use Smoking Status: Never smoker Assessment/Plan 1. Coronary artery disease/angina pectoris. Status post percutaneous intervention to critically stenosed right coronary artery. Stable. Asymptomatic. Continue medications. Patient counseled regarding the importance of compliance with his antiplatelet therapy. 2. Hypertension. 3. Dyslipidemia. 4. COPD. DC home. Follow-up with Dr. Concepcion in 1-2 weeks time.
--- NOTE | 2018-10-19 10:57 | PCM.DC.BLA ---
Discharge Summary Date of Admission: 10/18/18 Date of Discharge: 10/19/18 Summary: Final diagnoses 1. Coronary artery disease. Secondary diagnosis: 1. Hypertension 2. Dyslipidemia. 3. COPD. Procedures performed: 1. Cardiac catheterization and coronary angiography. 2. Percutaneous intervention to the right coronary artery with drug-eluting stent. Hospital course: Uneventful. Final disposition: 1. Discharged home in stable condition. Follow-up: 1. Follow-up with Dr. Concepcion in 1-2 weeks time. - Physical Exam Vital Signs Temp Pulse Resp BP Pulse Ox 98.7 F 62 12 143/61 H 92 10/19/18 09:00 10/19/18 10:00 10/19/18 10:00 10/19/18 10:00 10/19/18 10:00 Oxygen Flow Rate (L/min) 2 Oxygen Delivery Method Room Air Weight: 99.1 kg Body Mass Index (BMI) 35.0 Intake and Output for Last 24 Hours 10/17/18 10/18/18 10/19/18 23:59 23:59 23:59 Intake Total 1003.6 / 1003.6 120 / 120 Output Total 1974 Balance 1003.6 / 1003.6 -1855 / -1855 Laboratory Tests Past 24 Hrs 10/18/18 10/18/18 10/19/18 11:45 12:07 04:05 WBC 9.7 RBC 4.54 L Hgb 13.6 Hct 41.6 MCV 91.6 MCH 30.0 MCHC 32.7 RDW 14.0 RDW Differential 46.2 H Plt Count 208 MPV 9.9 Activated Clotting Time 401 H 257 H Sodium Potassium Chloride Carbon Dioxide Anion Gap BUN Creatinine Estim Creat Clear Calc Est GFR (MDRD) Af Amer Est GFR (MDRD) Non-Af BUN/Creatinine Ratio Glucose Calcium 10/19/18 04:05 WBC RBC Hgb Hct MCV MCH MCHC RDW RDW Differential Plt Count MPV Activated Clotting Time Sodium 142 Potassium 3.8 Chloride 108 H Carbon Dioxide 28.0 Anion Gap 6 BUN 20 H Creatinine 0.77 Estim Creat Clear Calc 54.94 Est GFR (MDRD) Af Amer 126 Est GFR (MDRD) Non-Af 104 BUN/Creatinine Ratio 26.1 H Glucose 115 H Calcium 8.7
--- NOTE | 2018-10-19 12:00 | PCM.DC.CCA ---
Discharge Diet: Low fat/ Low Cholesterol May shower in (days): 1 May resume sexual activity in: 1 week - if no groin problems occur. Lifting Restrictions: 10 pounds and also avoid any pushing or pulling for 3 days after your test. Call your doctor if your incision/area has: Continuous Slow Oozing, Increased Pain/ Swelling, Increased Redness, Foul Smelling Discharge Call your doctor if you observe: Fever of 101 or Higher Remove Dressing in (days):: 1 Additional Dressing/Incision Instructions:: Keep the dressing (bandage) on until the next morning. You may then shower, but do not take a tub bath for 5 days after your test. It is normal to have some tenderness and discomfort at the puncture site. Sometimes bruising also occurs. However, if pain, numbness, or coldness occurs below the puncture site (in your leg, toes, arms or fingers) call your doctor at once. You may have a small, marble sized knot at the puncture site. This is normal. Do not rub it. It will go away in 4-6 weeks. Bleeding can occur from the area where the puncture was done. Blood may spurt or drip from the site. If blood spurts, apply pressure right away to stop bleeding and call 911. Although rare, bleeding into the tissue (hematoma) can also occur. If this happens, a large, firm area goose egg under the skin will appear. If any of these occur, lie down as flat as you can and have someone apply firm pressure to the cath site with a gauze pad or a clean washcloth for 10-15 minutes. Call 911 or go to the Emergency Department. Additional Instructions: You can not stop you Plavix for at least one year Your medications were adjusted. We decreased your metoprolol to 25 mg twice a day, increased your atorvastatin to 80 mg a day, started your on Imdur (long acting Nitrate), Losartan and HCTZ all to help with BP control. We can discuss these further in the office. We will call you on Sunday for a follow up appt. Allergies/Adverse Reactions: Allergies hydrocodone [From Vicodin] Adverse Reaction (Unknown, Verified 10/10/18 11:55) Unknown Medications to take at Discharge [place]-3/Dha/Epa/Fish Oil [Fish Oil [place]-3 EC 1,200 mg] 1 ea PO DAILY 11/09/17 Vit A/Vit C/Vit E/Zinc/Copper [Preservision Areds Softgel] 2 ea PO DAILY 11/09/17 mometasone-formoterol HFA 200 mcg-5 mcg/actuation aerosol inhaler 2 puff INHALATION BID #13 g 01/24/18 omeprazole 40 mg capsule,delayed release 40 mg PO QDAY #90 cap 01/24/18 albuterol sulfate HFA 90 mcg/actuation aerosol inhaler 2 puff INHALATION Q6H PRN #1 device 07/10/18 clopidogrel 75 mg tablet 75 mg PO DAILY #30 tab 10/10/18 Aspirin [Aspirin, Baby] 81 mg PO DAILY 10/18/18 Tiotropium [place] [Spiriva] 1 cap INHALATION QDAY 10/18/18 Aspirin E.C. [Ecotrin] 81 mg PO DAILY@0800 tablet 10/19/18 Atorvastatin Calcium [Lipitor] 80 mg PO QHS #30 tablet 10/19/18 Isosorbide Mononitrate [Imdur] 30 mg PO DAILY #60 tablet 10/19/18 Losartan Potassium [Cozaar] 50 mg PO BID #60 tablet 10/19/18 Metoprolol Tartrate [Lopressor (beta remington)] 25 mg PO BID tablet 10/19/18 hydroCHLOROthiazide [Hydrochlorothiazide] 12.5 mg PO DAILY #30 capsule 10/19/18 The following prescriptions were given: Atorvastatin Calcium [Lipitor] 80 mg PO QHS #30 tablet hydroCHLOROthiazide [Hydrochlorothiazide] 12.5 mg PO DAILY #30 capsule Isosorbide Mononitrate [Imdur] 30 mg PO DAILY #60 tablet Losartan Potassium [Cozaar] 50 mg PO BID #60 tablet Primary Care Physician: Dale Cooper DO [Primary Care Provider] - Test Results: Test results from this visit will be discussed in further detail at your follow-up appointment, if applicable. Please Follow Up With: Lane Concepcion MD When: We will call sunday with an appt Cardiac Rehabilitation Info Cardiac Rehabilitation Program Information: Cardiac Rehabilitation is important for patients like you who are recovering from a heart problem. Cardiac rehabilitation programs are recognized as integral to the continued care of the patient with coronary heart disease. The cardiac rehabilitation program is designed to optimize a patient's physical, psychological, and social functioning. Health child day care center worker work in cardiac rehabilitation programs and assist you with getting the treatments you need to get stronger and healthier - like exercise, healthy eating habits, and medications. Cardiac rehabilitation has been show to help people with heart problems live longer and have better life enjoyment than people who do not go to cardiac rehabilitation. Please contact the Cardiac Rehabilitation Program at [facility] at in two weeks if you have not heard from them.
--- NOTE | 2018-10-19 12:03 | DCINST_ITS ---
Discharge Diet: Low fat/ Low Cholesterol May shower in (days): 1 May resume sexual activity in: 1 week - if no groin problems occur. Lifting Restrictions: 10 pounds and also avoid any pushing or pulling for 3 days after your test. Call your doctor if your incision/area has: Continuous Slow Oozing, Increased Pain/ Swelling, Increased Redness, Foul Smelling Discharge Call your doctor if you observe: Fever of 101 or Higher Remove Dressing in (days):: 1 Additional Dressing/Incision Instructions:: Keep the dressing (bandage) on until the next morning. You may then shower, but do not take a tub bath for 5 days after your test. It is normal to have some tenderness and discomfort at the puncture site. Sometimes bruising also occurs. However, if pain, numbness, or coldness occurs below the puncture site (in your leg, toes, arms or fingers) call your doctor at once. You may have a small, marble sized knot at the puncture site. This is normal. Do not rub it. It will go away in 4-6 weeks. Bleeding can occur from the area where the puncture was done. Blood may spurt or drip from the site. If blood spurts, apply pressure right away to stop bleeding and call 911. Although rare, bleeding into the tissue (hematoma) can also occur. If this happens, a large, firm area goose egg under the skin will appear. If any of these occur, lie down as flat as you can and have someone apply firm pressure to the cath site with a gauze pad or a clean washcloth for 10-15 minutes. Call 911 or go to the Emergency Department. Additional Instructions: You can not stop you Plavix for at least one year Your medications were adjusted. We decreased your metoprolol to 25 mg twice a day, increased your atorvastatin to 80 mg a day, started your on Imdur (long acting Nitrate), Losartan and HCTZ all to help with BP control. We can discuss these further in the office. We will call you on Sunday for a follow up appt. Allergies/Adverse Reactions: Allergies hydrocodone [From Vicodin] Adverse Reaction (Unknown, Verified 10/10/18 11:55) Unknown Medications to take at Discharge [place]-3/Dha/Epa/Fish Oil [Fish Oil [place]-3 EC 1,200 mg] 1 ea PO DAILY 11/09/17 Vit A/Vit C/Vit E/Zinc/Copper [Preservision Areds Softgel] 2 ea PO DAILY 11/09/17 mometasone-formoterol HFA 200 mcg-5 mcg/actuation aerosol inhaler 2 puff INHALATION BID #13 g 01/24/18 omeprazole 40 mg capsule,delayed release 40 mg PO QDAY #90 cap 01/24/18 albuterol sulfate HFA 90 mcg/actuation aerosol inhaler 2 puff INHALATION Q6H PRN #1 device 07/10/18 clopidogrel 75 mg tablet 75 mg PO DAILY #30 tab 10/10/18 Aspirin [Aspirin, Baby] 81 mg PO DAILY 10/18/18 Tiotropium [place] [Spiriva] 1 cap INHALATION QDAY 10/18/18 Aspirin E.C. [Ecotrin] 81 mg PO DAILY@0800 tablet 10/19/18 Atorvastatin Calcium [Lipitor] 80 mg PO QHS #30 tablet 10/19/18 Isosorbide Mononitrate [Imdur] 30 mg PO DAILY #60 tablet 10/19/18 Losartan Potassium [Cozaar] 50 mg PO BID #60 tablet 10/19/18 Metoprolol Tartrate [Lopressor (beta remington)] 25 mg PO BID tablet 10/19/18 hydroCHLOROthiazide [Hydrochlorothiazide] 12.5 mg PO DAILY #30 capsule 10/19/18 The following prescriptions were given: Atorvastatin Calcium [Lipitor] 80 mg PO QHS #30 tablet hydroCHLOROthiazide [Hydrochlorothiazide] 12.5 mg PO DAILY #30 capsule Isosorbide Mononitrate [Imdur] 30 mg PO DAILY #60 tablet Losartan Potassium [Cozaar] 50 mg PO BID #60 tablet Primary Care Physician: Dale Cooper DO [Primary Care Provider] - Test Results: Test results from this visit will be discussed in further detail at your follow- up appointment, if applicable. Please Follow Up With: Lane Concepcion MD When: We will call sunday with an appt Cardiac Rehabilitation Info Cardiac Rehabilitation Program Information: Cardiac Rehabilitation is important for patients like you who are recovering from a heart problem. Cardiac rehabilitation programs are recognized as integral to the continued care of the patient with coronary heart disease. The cardiac rehabilitation program is designed to optimize a patient's physical, psychological, and social functioning. Health career resource specialist work in cardiac rehabilitation programs and assist you with getting the treatments you need to get stronger and healthier - like exercise, healthy eating habits, and medications. Cardiac rehabilitation has been show to help people with heart problems live longer and have better life enjoyment than people who do not go to cardiac rehabilitation. Please contact the Cardiac Rehabilitation Program at [facility] at in two weeks if you have not heard from them.
--- OUTSIDE RECORDS SUMMARY | 2018-12-03 19:34 | XMS RPT_ITS ---
:1940 Author Organization [facility] Support Name Relationship Address Phone IAN MACHUCA Unavailable [address] + [place] [address] MAXWELL, POPPY/BRENDA Unavailable [address] + [place] [address] R Unavailable Unavailable Unavailable BRIGETTE IAN Unavailable [address] + [place] [address] MAXWELL, POPPY/BRENDA Unavailable [address] + [place] [address] R Unavailable Unavailable Unavailable IAN MACHUCA Unavailable [address] + [place] [address] MAXWELL, POPPY/BRENDA Unavailable [address] + [place] [address] R Unavailable Unavailable Unavailable BRIGETTE IAN Unavailable [address] + [place] [address] MAXWELL, POPPY/BRENDA Unavailable [address] + [place] [address] R Unavailable Unavailable Unavailable IAN MACHUCA Unavailable [address] + [place] [address] MAXWELL, POPPY/BRENDA Unavailable [address] + [place] [address] R Unavailable Unavailable Unavailable IAN MACHUCA Unavailable [address] + [place] [address] MAXWELL, POPPY/BRENDA Unavailable . + ., . . R Unavailable Unavailable Unavailable IAN MACHUCA Unavailable [address] + [place] [address] MAXWELL, POPPY/BRENDA Unavailable . + ., . . R Unavailable Unavailable Unavailable ATKINS, IAN Unavailable [address] + [place] [address] MAXWELL, POPPY/BRENDA Unavailable Unavailable + R Unavailable Unavailable Unavailable ATKINS, IAN Unavailable [address] + [place] [address] MAXWELL, POPPY/BRENDA Unavailable Unavailable + R Unavailable Unavailable Unavailable ATKINS, IAN Unavailable [address] + [place] [address] MAXWELL, POPPY/BRENDA Unavailable [address] + [place] [address] R Unavailable Unavailable Unavailable ATKINS, IAN Unavailable [address] + [place] [address] MAXWELL, POPPY/BRENDA Unavailable . + ., . . R Unavailable Unavailable Unavailable ATKINS, IAN Unavailable [address] + [place] [address] MAXWELL, POPPY/BRENDA Unavailable Unavailable + [place] [address] R Unavailable Unavailable Unavailable ATKINS, IAN Unavailable [address] + [place] [address] MAXWELL, POPPY/BRENDA Unavailable Unavailable + [place] [address] R Unavailable Unavailable Unavailable ATKINS, IAN Unavailable [address] + [place] [address] MAXWELL, POPPY/BRENDA Unavailable Unavailable + [place] [address] R Unavailable Unavailable Unavailable ATKINS, IAN Unavailable [address] + [place] [address] MAXWELL, POPPY/BRENDA Unavailable . + [place] [address] R Unavailable Unavailable Unavailable ATKINS, IAN Unavailable [address] + [place] [address] MAXWELL, POPPY/BRENDA Unavailable . + ., . . R Unavailable Unavailable Unavailable ATKINS, IAN Unavailable [address] + [place] [address] MAXWELL, POPPY/BRENDA Unavailable . + [place] [address] R Unavailable Unavailable Unavailable ATKINS, IAN Unavailable [address] + [place] [address] MAXWELL, POPPY/BRENDA Unavailable . + [place] [address] R Unavailable Unavailable Unavailable ATKINS, IAN Unavailable [address] + [place] [address] MAXWELL, POPPY/BRENDA Unavailable . + [place] [address] R Unavailable Unavailable Unavailable ATKINS, IAN Unavailable [address] + [place] [address] MAXWELL, POPPY/BRENDA Unavailable Unavailable + [place] [address] R Unavailable Unavailable Unavailable ATKINS, IAN Unavailable [address] + [place] [address] MAXWELL, POPPY/BRENDA Unavailable . + [place] [address] R Unavailable Unavailable Unavailable ATKINS, IAN Unavailable [address] + [place] [address] MAXWELL, POPPY/BRENDA Unavailable . + [place] [address] R Unavailable Unavailable Unavailable ATKINS, IAN Unavailable [address] + [place] [address] MAXWELL, POPPY/BRENDA Unavailable . [phone] [place] [address] R Unavailable Unavailable Unavailable ATKINS, IAN Unavailable [address] + [place] [address] MAXWELL, POPPY/BRENDA Unavailable . [phone] [place] [address] R Unavailable Unavailable Unavailable ATKINS, IAN Unavailable [address] + [place] [address] MAXWELL, POPPY/BRENDA Unavailable . [phone] [place] [address] R Unavailable Unavailable Unavailable ATKINS, IAN Unavailable [address] + [place] [address] MAXWELL, POPPY/BRENDA Unavailable . [phone] [place] [address] R Unavailable Unavailable Unavailable ATKINS, IAN Unavailable [address] + [place] [address] MAXWELL, POPPY/BRENDA Unavailable . [phone] [place] [address] R Unavailable Unavailable Unavailable ATKINS, IAN Unavailable [address] + [place] [address] MAXWELL, POPPY/BRENDA Unavailable Unavailable [phone] [place] [address] R Unavailable Unavailable Unavailable ATKINS, IAN Unavailable [address] + [place] [address] R Unavailable Unavailable Unavailable ATKINS, IAN Unavailable [address] + [place] [address] R Unavailable Unavailable Unavailable ATKINS, IAN Unavailable [address] + [place] [address] R Unavailable Unavailable Unavailable ATKINS, IAN Unavailable [address] + [place] [address] R Unavailable Unavailable Unavailable Care Team Providers Name Role Phone Lane Abdi Attending Unavailable Lane Abdi Referring Unavailable Kenneth, Dale Primary Care Unavailable Lane Abdi Consulting Unavailable Lara Carrington Attending Unavailable Lane Abdi Referring Unavailable Brown, Dale Primary Care Unavailable Lane Abdi Consulting Unavailable Lexa Moody Attending Unavailable Kenneth, Dale Referring Unavailable MoodLane baca Attending Unavailable Joseph Cooper Referring Unavailable Lane Abdi Attending Unavailable Lane Abdi Referring Unavailable Sean Dee Attending Unavailable Brown, Dale Referring Unavailable Brown, Dale Attending Unavailable Brown, Dale Referring Unavailable Brown, Dale Primary Care Unavailable Brown, Dale Attending Unavailable Brown, Dale Referring Unavailable Brown, Dale Primary Care Unavailable Brown, Dale Attending Unavailable Brown, Dale Referring Unavailable Brown, Dale Primary Care Unavailable Moodisparenny, Lane Attending Unavailable Moodispaw, Lane Referring Unavailable Brown, Dale Primary Care Unavailable Brown, Dale Attending Unavailable Brown, Dale Referring Unavailable Brown, Dale Attending Unavailable Brown, Dale Referring Unavailable Brown, Dale Primary Care Unavailable Moodisparenny, Lane Attending Unavailable Moodisparenny, Lane Referring Unavailable Brown, Dale Primary Care Unavailable Moodphuong, Lane Attending Unavailable Moodisparenny, Lane Referring Unavailable Brown, Dale Primary Care Unavailable Brown, Dale Attending Unavailable Brown, Dale Referring Unavailable Brown, Dale Attending Unavailable Brown, Dale Referring Unavailable Brown, Dale Primary Care Unavailable Brown, Dale Attending Unavailable Brown, Dale Referring Unavailable Brown, Dale Primary Care Unavailable Sean Zimmerman PIG MACHINE CRANE OPERATOR-C Attending Unavailable Brown, Dale Referring Unavailable Brown, Dale Primary Care Unavailable Kendall Cooper D.O. Attending Unavailable Brown, Dale Referring Unavailable Brown, Dale Attending Unavailable Brown, Dale Referring Unavailable Brown, Dale Primary Care Unavailable Kenadll Cooper D.O. Attending Unavailable Brown, Dale Referring Unavailable Krissy Alanis Attending Unavailable Brown, Dale Referring Unavailable Brown, Dale Attending Unavailable Brown, Dale Referring Unavailable Brown, Dale Primary Care Unavailable Brown, Dale Attending Unavailable Brown, Dale Referring Unavailable Brown, Dale Primary Care Unavailable Kendall Cooper D.O. Attending Unavailable Brown, Dale Referring Unavailable Brown, Dale Attending Unavailable Brown, Dale Referring Unavailable Brown, Dale Attending Unavailable Brown, Dale Referring Unavailable Brown, Dale Primary Care Unavailable Moodisparenny, Lane Attending Unavailable Brown, Dale Referring Unavailable Moodisparenny, Lane Attending Unavailable Moodispaw, Lane Referring Unavailable Brown, Dale Primary Care Unavailable Moodisparenny, Lane Attending Unavailable Moodispaw, Lane Referring Unavailable Brown, Dale Primary Care Unavailable Moodisparenny, Lane Attending Unavailable Moodisparenny, Lane Referring Unavailable Brown, Dale Primary Care Unavailable Moodispaw, Lane Attending Unavailable Moodispaw, Lane Referring Unavailable Brown, Dale Primary Care Unavailable PROBLEMS PROBLEMS DATE TYPE CONDITION / CODE ATTENDING STATUS SOURCE 11/27/2018 Unknown 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 / I25.10(ICD-10) 11/27/2018 Unknown R94.39 - Abnormal MoodisLane damon [facility] result of other Community cardiovascular Hospital function study / Repository R94.39(ICD-10) 11/27/2018 Unknown J44.9 - Chronic MoodisLane damon Active [facility] obstructive pulmonary Community disease, unspecified Hospital / J44.9(ICD-10) Repository 11/27/2018 Unknown Z95.5 - Presence of MoodispaLane lawson Active [facility] coronary angioplasty Community implant and graft / Hospital Z95.5(ICD-10) Repository 11/27/2018 Unknown I10 - Essential MoodisLane damon Active [facility] (primary) Community hypertension / Hospital I10(ICD-10) Repository 11/27/2018 Unknown 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 / Community E78.2(ICD-10) Hospital Repository 10/31/2018 Unknown R07.9 - Chest pain, MoodispaLane lawson Active [facility] unspecified / Community R07.9(ICD-10) Hospital Repository 10/11/2018 Unknown I20.9 - Angina MoodisLane damon Active [facility] pectoris, unspecified Community / I20.9(ICD-10) Hospital Repository 10/11/2018 Unknown E66.01 - Morbid MoodisLane damon Active [facility] (severe) obesity due Community to excess calories / Hospital E66.01(ICD-10) Repository 10/11/2018 Unknown Z68.35 - Body mass Lane Abdi Active [facility] index (BMI) Community 35.0-35.9, adult / Hospital Z68.35(ICD-10) Repository 08/20/2018 Unknown Z23 - Encounter for Brown, Dale Active [facility] immunization / Community Z23(ICD-10) Hospital Repository 05/23/2018 Unknown 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, 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 / Community E29.1(ICD-10) Hospital Repository 03/05/2018 Unknown J42 - Unspecified Brown, Dale Active [facility] chronic bronchitis / Community J42(ICD-10) Hospital Repository 01/24/2018 Unknown K21.9 - Brown, Dale Active [facility] Gastro-esophageal Community reflux disease Hospital without esophagitis / Repository K21.9(ICD-10) PROCEDURES PROCEDURES No Procedure Records FoundRESULTS RESULTS CR - HISTORY AND Observed: 11/21/2018 Status: F Source: [place] [facility] 12:53 PM [facility] REPOS[facility] [address] [place] [address] CR - History AND Physical MR#: [id number] Acct: [id number] Name: JESSE MACHUCA Rep #: [id number] : 1940 77 From: Lalito Malik DELPHI DEVELOPER, FLOORING MECHANIC, BS PCP: Dale Cooper DO DOS: 11/21/18 CR - History AND Physical - General Arrival date:: 11/21/18 Arrival time:: 09:00 Date of Referral:: 10/25/18 Referring Physician: TRINIDAD Primary Diagnosis: PCI W/STENTING - History of Present Cardiac Event Onset Date: Enter Onset Date of cardiac illnesses in Comment field below PTCA or coronary stenting:: Yes - PCI W/STENTING 10/18/2018 Type of Symptoms:: CHEST DISCOMFORT AND PAIN UNDER THE ARMS WHILE EXERCISE, CAME IN FOR EVALUATION. Interventions with present event:: EXERCISE STRESS TEST AND THEN HEART CATH Were there any complications?: NONE - Medications Home Medications: Ambulatory Orders Medication Instructions Recorded Geneva-3/Dha/Epa/Fish Oil [Fish Oil 1 ea PO DAILY 11/09/17 - Allergies Allergies/Adverse Reactions: Allergies hydrocodone [From Vicodin] Adverse Reaction (Unknown, Verified 11/02/18 12:55) Unknown - Sleep Disorder Evaluation Hx of Sleep Apnea: Yes Do you snore loudly (louder than talking or can be heard through closed doors)?: Yes - WEARS CPAP UNIT AT HOME DURING HS Do you often feel tired/ fatigued/ sleepy during daytime?: Yes Has anyone observed you stop breathing during sleep?: No History of Hypertension (for STOP score): Yes STOP Results: Positive Advanced Directives - Advanced Directives Power of Quality Control Technician: No Living Will: No Advance Directives Information Provided: Yes Advance Directives on File: No DNR Order?:: No - MOLST See MOLST form: No Past Medical History - Past Medical Illness Medical History: Past Medical History (Last Reviewed 11/19/18 @ 14:26 by Dale Cooper DO) Chest pain (Acute) R07.9 Abnormal stress test (Acute) R94.39 Essential hypertension (Chronic) I10 Arthritis (Chronic) M19.90 Macular degeneration (Chronic) H35.30 Hearing loss (Chronic) H91.90 GERD (gastroesophageal reflux disease) (Chronic) K21.9 Emphysema lung (Chronic) J43.9 COPD (chronic obstructive pulmonary disease) (Chronic) J44.9 Hypertension (Inactive) I10 - Past Surgical History Surgical History: Past Surgical History (Last Reviewed 11/19/18 @ 14:26 by Dale Cooper DO) H/O hernia repair Z98.890, Z87.19 History of bilateral cataract extraction Z98.41, Z98.42 History of cholecystectomy Z90.49 Hx of heart artery stent Z95.5 10/18/18 - Family History Summary Family History: Family History (Last Reviewed 11/19/18 @ 14:26 by Dale Cooper DO) Father Colon cancer Mother Heart disease Uncle Myocardial infarction Hypertension Social History - Smoking History Smoking Status: Former smoker Years Smokin Packs Smoked per Day: 4 - RANGED 3-4 PPD AT HEAVIEST Hx Smoking Cessation Date: 1986 Hx Tobacco Use: Yes Hx Smoking Exposure: No - Alcohol Use Alcohol Usage: Yes - OCASSIONALLY SOCIALLY - Substance Abuse Hx Substance Use: No - Occupation Occupation (List type of work in comments):: Retired - Hobbies, Recreation, Social Activities Hobbies: Sports - GOLFED IN THE PAST., Hiking, Other - GOLF Recreational Activities: I am able to engage in a few activities Social Environment - Status Marital Status: - Current Living Arrangements Living Environment:: Spouse - Children How many children do you have?: 2 Do any of your children live nearby?: Yes - 1 LOCALLY 1 IN [place] - Safety Do you feel safe in your surroundings?: Yes - Assistance Do you need any assistance at home?: NONE Review of Systems - Review of Systems Hints: Right click = Denies (Slash). Left click = Reports ([place]) Review of Present Symptoms: Reports: Shortness of Breath at Rest - ONCE IN A WHILE DUE TO THE COPD., Shortness of Breath with Exertion, Dizziness/Lightheadedness, Fatigue, Heart Arrhythmia/Irregularities - EXPERIENCED PALPITATIONS PRIOR TO STENT, EKG INDICATED SINUS BRADYCARDIA OTHERWISE NORMAL EKG, Appetite - Normal, Appetite - Special Diet - TRYING TO WATCH WHAT EAT DAILY TRY TO EAT BETTER., Sleep - Normal. 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 HE WAS REFERRED TO DR. ABDI FOR EVAULATION AND HAD A ABNORMAL EXERCISE STRESS TEST AND SUBSEQUENT HEART CATH PROCEDURE RESULTING IN ONE STENT PLACEMENT WHICH COVERED TWO BLOCKAGE AREAS IN CORONARY ARTERY. - Vital Signs Temperature: 98.7 F - LAST WEEK CAUGHT BUG HAD SLIGHT FEVER 100-101 AND IS ON ANTIBIOTICS UNDER DR. COOPER. Respiratory Rate: 16 Pulse Ox: 90 Blood Pressure: 128/62 - Pulse Pulse Rate: 64 Pulse Rhythm: Regular - Hypertension How long have you been treated?: LAST 5-6 YEARS On medication(s)?: YES Blood Pressure Sitting - Left Arm: 128/62 - Diabetes Nutrition Referral for Diabetes: No - Obesity Height: 5 ft 6 in Weight:: 209 lb Weight in Pounds: 209.0 lbs Weight Source: Stated by Patient Body Mass Index (BMI): 33.7 Desired Body Weight: 191 Nutritional Referral for Obesity: Yes - PATIENT COULD BENEFIT FROM A STRRUCTURED WEIGHT LOSS AND DIETARY CONSULT - Physical Inactivity Physical Inactivity: Reg Exercise 30 min/day - TRYING TO EXERCISE 3 DAYS PER WEEK AFTTER LA PROGRAM WAS OVER, AT [facility] - Risk Stratification Risk Guidelines: Lowest Risk: Risk Factor for Smoking, Risk Factor for Diabetes, Risk Factor for Hypertension, Risk Factor for Sedentary Lifestyle, Risk Factor for Depression, Moderate Risk: Risk Factor for Dyslipidemia, Highest Risk: Risk Factor for Obesity - For Smoking Smoking Risk Guidelines: Smoking Low Risk: None or quit greater than 6 months ago. Smoking Moderate Risk: Smoker or quit 6 months or less ago. Smoking High Risk: Smoker - For Dyslipidemia Dyslipidemia Risk Guidelines: Low Risk: Moderate Risk: High Risk: 15-25% fat 25.1-29% fat >/= 30% fat. <7% sat fat 7-9% sat fat >9% sat fat. <150 mg chol 150-299 mg chol >/= 300 mg chol. LDL <100 LDL 100-129 LDL >/= 130. Chol/HDL ratio <5.0 Chol/HDL ratio 5.0-6.0 Chol/HDL ratio >6.0. Triglycerides <100 Triglycerides 100-149 Triglycerides >/= 150 - For Diabetes Mellitus Diabetes Risk Guidelines: Diabetes Low Risk: HgA1c <6.5% and/or FBG <120. Diabetes Moderate Risk: HgA1c 6.6-7.9% and/or FBG 120- 180. Diabetes High Risk: HgA1c >/= 8% and/or FBG >180 - For Obesity/Overweight Obesity/Overweight Risk Guidelines: Obesity Low Risk: BMI <25.0. Obesity Moderate Risk: BMI 25-29.9. Obesity High Risk: BMI >/= 30.0 - For Hypertension Hypertension Risk Guidelines: Hypertension Low Risk: Systolic <120 and Diastolic <80. Hypertension Moderate Risk: Systolic 120-139 and Diastolic 80-89. Hypertension High Risk: Systolic >/= 140 and Diastolic >/= 90 - For Sedentary Lifestyle Sedentary Lifestyle Risk Guidelines: Sedentary Lifestyle Low Risk: >/= 1,500 kcal/week. Sedentary Lifestyle Moderate Risk: 700-1,499 kcal/week. Sedentary Lifestyle High Risk: < 700 kcal/week - For Depression Depression Risk Guidelines: Depression Low Risk: Not clinically depressed. Depression Moderate Risk: Mildly depressed. Depression High Risk: Clinically depressed - Family History Family History: Family History (Last Reviewed 11/19/18 @ 14:26 by Dale Cooper DO) Father Colon cancer Mother Heart disease Uncle Myocardial infarction Hypertension Motivation - Motivation to Participate On a scale of 1 to 10, how prepared are you to commit to attending program?: 10 What do you see as barriers to successfully being able to complete the program?: NONE; UNLESS FAMILY EMERGENCY OR SOMETHING What do you see as the benefits of succesfully completing the program? In other words, what do you hope to get out of participating in the program?: LONGER LIFE! HEALTHIER LIFE Are there issues you are dealing with that will interfere with completing the program?: NONE- REQUIRES OXYGEN DURING EXERCISE. Do you have a spouse or signficant other, family or friends who will help support you to complete the program?: YES. 11/21/18 0953 <Electronically signed by Lalito Malik CRT, RCP, BS> Date Lalito Malik CRT, RCP, BS Outcome assessment reviewed. Exercise plan approved as documented. Treatment plan and goals support patient needs/abilities. Continue with current plan. I certify the patient demonstrates improvement and remains willing and capable of participation. the patient continues to benefit from cardiac rehab services/training. The patient may continue at current intensity, endurance and modality and progress per protocol. 11/21/18 1253 <Electronically signed by Lane Abdi MD> Cosigner Signature: Date Lane Abdi MD CC: Signed INTERNAL MEDICINE Observed: 11/19/2018 Status: F Source: [place] OFFICE VISIT 2:30 PM [facility] [address] [place] [address] [address] [place] [address] OFFICE VISIT Date of Service: 11/19/18 MR#: [id number] Acct: [id number] Name: JESSE MACHUCA Lyla Rep #: [id number] : 1940 Provider: Dale Cooper DO Age/Sex: 77/M Location: [facility] Status: Signed Intake Vital Signs11/19/18 Body Mass Index (BMI) 35.0 11/19/18 Height 5 ft 6 in Intake Visit Reasons: 3 MO FU Chief Complaint: f/u visit Is patient in pain?: No Allergies hydrocodone [From Vicodin] Adverse Reaction (Unknown, Verified 11/02/18 12:55) Unknown Medications Geneva-3/Dha/Epa/Fish Oil [Fish Oil Geneva-3 EC 1,200 mg] 1 ea PO DAILY 11/09/17 [History Confirmed 11/19/18] Vit A/Vit C/Vit E/Zinc/Copper [Preservision Areds Softgel] 2 ea PO DAILY 11/09/17 [History Confirmed 11/02/18] mometasone-formoterol HFA 200 mcg-5 mcg/actuation aerosol inhaler 2 puff INHALATION BID #13 g 01/24/18 [Rx Confirmed 11/02/18] omeprazole 40 mg capsule,delayed release 40 mg PO QDAY #90 cap 01/24/18 [Rx Confirmed 11/02/18] albuterol sulfate HFA 90 mcg/actuation aerosol inhaler 2 puff INHALATION Q6H PRN #1 device 07/10/18 [Rx Confirmed 11/19/18] Aspirin [Aspirin, Baby] 81 mg PO DAILY 10/18/18 [History Confirmed 11/19/18] Tiotropium Lund [Spiriva] 1 cap INHALATION QDAY 10/18/18 [History Confirmed 11/19/18] Atorvastatin Calcium [Lipitor] 80 mg PO QHS #30 tab 10/19/18 [Rx Confirmed 11/19/18] Isosorbide Mononitrate [Imdur] 30 mg PO DAILY #60 tab 10/19/18 [Rx Confirmed 11/19/18] Losartan Potassium [Cozaar] 50 mg PO BID #60 tab 10/19/18 [Rx Confirmed 11/19/18] Metoprolol Tartrate [Lopressor (beta gigi)] 25 mg PO BID tab 10/19/18 [Rx Confirmed 11/19/18] hydroCHLOROthiazide [Hydrochlorothiazide] 12.5 mg PO DAILY #30 cap 10/19/18 [Rx Confirmed 11/19/18] clopidogrel 75 mg tablet 75 mg PO DAILY #90 tab 10/25/18 [Rx Confirmed 11/19/18] doxycycline hyclate 100 mg tablet 100 mg PO BID #20 tab 11/19/18 [Rx Confirmed 11/19/18] PFSH Medical History Chest pain (Acute) Abnormal stress test (Acute) Essential hypertension (Chronic) Arthritis (Chronic) Macular degeneration (Chronic) Hearing loss (Chronic) GERD (gastroesophageal reflux disease) (Chronic) Emphysema lung (Chronic) COPD (chronic obstructive pulmonary disease) (Chronic) Hypertension (Inactive) Surgical History Hx of heart artery stent (Acute) H/O hernia repair (Acute) History of bilateral cataract extraction (Acute) History of cholecystectomy (Acute) Family History Father Colon cancer Mother Heart disease Uncle Myocardial infarction Hypertension Social History Smoking Status: Never smoker how long ago did patient quit smokin second hand exposure: No alcohol intake: current alcohol intake frequency: a few times a month substance use type: does not use caffeine: Yes Type: coffee Number of servings: 4 what type of physical activity do you participate in: other details: pulmonary rehab frequency: 3-4 times per week HPI HPI Chief Complaint: f/u visit Details: JESSE MACHUCA, is a 77 M who presents to the office today for a follow-up visit after his angioplasty. He states he felt quite well for a couple of days after the angioplasty with no chest pain and no shortness of breath but shortly afterwards he developed an upper respiratory tract infection and is been coughing and very short of breath since that time. ROS Const Constitutional: No weight change, body ache, chills, fatigue, sleep problems, fever(s), change in appetite, snoring, weakness, frequent falls, headache(s) or excessive sweating Eyes Eyes: No change in vision, eye pain, light sensitivity or blurry vision ENT ENT: No headache(s), abnormal hearing, ear pain, tinnitus, nasal congestion, sore throat or neck pain Resp Respiratory: No snoring, cough, shortness of breath or wheezing Cardio Cardiology: No excessive sweating, chest pain at rest, chest pain with exertion, shortness of breath, dyspnea on exertion, palpitations, orthopnea or lightheadedness Gastro GI: No abdominal pain, change in bowel habits, constipation, diarrhea, vomiting, nausea/dyspepsia or cramping Genitourinary Male: No painful urination, urinary incontinence, urinary frequency, urinary urgency, blood in urine, testicle pain or other Musc Musculoskeletal: No neck pain, abnormal walking, joint pain, back pain, limited range of motion, numbness or tingling Skin Skin: No redness, dry skin, itching, lesions, wounds or rash Neuro Neurology: Positive for dizziness (worse since the stent); no weakness, frequent falls, headache(s), abnormal hearing, abnormal walking, numbness, tingling, abnormal speech or memory loss Psych Psychiatric: No change in appetite, No memory loss, No anxiety, No depression, No Thoughts of harming yourself/Others Endo Endocrine: No fatigue, excessive sweating, cold intolerance, increased thirst/drinking, heat intolerance, flushing or increased hunger Aller/Imm Allergy/Immunologic: No wheezing, itchy eyes, hives or seasonal allergy symptoms Toño/Lymp Hematologic/Lymphatic: No easy bleeding, easy bruising or enlarged lymph nodes Exam Const General: healthy appearing, no acute distress Orientation: oriented x3, oriented to person, oriented to place, oriented to time [facility] Head: normocephalic Ears: external ears normal, TM's normal bilaterally, EAC's normal Nose: no nasal discharge, no nasal discharge noted Eyes General: appearance normal, both eyes and all related structures Conjunctivae: conjunctivae normal Sclera: sclerae normal Pupils: PERRL Neck Neck: no lymphadenopathy Thyroid: thyroid normal Chest Chest palpation AND inspection: normal inspection of the chest Resp Effort AND Inspection: normal respiratory effort, cough Quality of cough: productive, respiratory distress Auscultation: Right: Rales, Bilateral: Diminished Lung Sounds, Expiratory Wheezes Cardio Rate: regular rate Rhythm: regular rhythm GI Inspection: normal to inspection Auscultation: normal bowel sounds Palpation: no hepatosplenomegaly, no splenomegaly, no masses Skin General: no pallor Rashes: no rashes Nails: no clubbing Neuro General: oriented x3, gait normal Extrem General: normal to inspection, no pedal edema, no calf tenderness, normal gait, no edema, no cyanosis, no clubbing, no calf tenderness bilaterally, no pedal edema Psych Mood: congruent mood Affect: normal affect Speech and Movement: speech and movement normal Assessment AND Plan Problems 1. Mixed hyperlipidemia E78.2 2. 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 GERD (gastroesophageal reflux disease) K21.9 4. History of coronary artery stent placement Z95.5 5. Bronchitis after surgery J40 Plan This patient seems to be doing fine after surgery except he developed a significant upper respiratory infection. Because it was fairly close to his surgical date that the symptoms started I elected to get a chest x-ray started him on doxycycline as it seems like he has a deep infection. His blood pressure is actually lower than it usually is in his physical examination other than his pulmonary examination was quite normal. I will contact him as to the results of the chest x-ray and what immediate follow-up there needs to be. 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 GERD (gastroesophageal reflux disease) K21.9 History of coronary artery stent placement Z95.5 Bronchitis after surgery J40 11/19/18 1430 <Electronically signed by Dale Cooper DO> Date Dale Cooper DO Cosigner Signature: Date (if applicable) CC: CHEST PA AND LATERAL Observed: 11/19/2018 Status: F Source: [place] 2:19 PM [facility] REPOSITORY [facility] Imaging Services [address] [place] [address] Chest PA and Lateral MR#: [id number] Acct: [id number] Name: JESSE MACHUCA Rep #: [id number] : 1940 M 77 From: Chas Walker MD PCP: Dale Cooper DO Status: REG CLI Study: Chest PA and Lateral Date of Exam: 11/19/18 Exam# [id number] Ordering Dr: Dale Cooper DO HISTORY: Cough EXAM: XR Chest 2 Views: COMPARISON: 10/11/18 chest radiographs. FINDINGS: # of images incl. paperwork: 2 LINES/DEVICES: None. LUNGS: Radiographically clear. No consolidation, edema or effusion. No pneumothorax. Emphysematous changes are noted. MEDIASTINUM AND CARDIOVASCULAR STRUCTURES: Cardiac silhouette not enlarged. Central airways and mediastinal contour are unremarkable. BONES AND SOFT TISSUES: Unremarkable. RAD/Chest PA and Lateral IMPRESSION: COPD. No radiographic evidence of acute cardiopulmonary disease. 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 LIVER PROFILE Collected: 11/11/2018 Status: F Source: [place] 7:58 AM [facility] REPOSITORY TYPE CODE TESTS RESULT OUT OF RANGE REFERENCE UNITS LAB L501.1500 6.4-8.2 g/dL Normal T PROT 7.4 LAB L501.1800 3.2-5.0 g/dL Low ALB 2.9 LAB L501.1950 2.2-4.2 g/dL High GLOB 4.5 LAB L501.4100 15-37 U/L Low AST 13 LAB L501.4305 45-117 U/L Normal ALK P 64 LAB L501.4405 16-61 U/L Normal ALT 50 LAB L501.4600 0.20-1.00 mg/dL Normal T BILI 0.50 LAB L501.4700 0.00-0.30 mg/dL Normal D BILI 0.16 Performed By: #### L500.3400, L500.4100 #### [facility] [address] [place], [place], [id number] LIPID PROFILE Collected: 11/11/2018 Status: F Source: [place] 7:58 AM [facility] REPOSITORY TYPE CODE TESTS RESULT OUT OF RANGE REFERENCE UNITS LAB L501.4900 200 mg/dL Normal CHOL 91 Result Comment: <200 mg/dL Desirable 200-240 mg/dL Borderline >240 mg/dL High Risk LAB L501.5000 mg/dL Normal TRIG 76 Result Comment: The drugs N-Acetylcysteine and Metamizole may falsely depress this assay. Serum Triglycerides Reference Interval Normal <150 mg/dL Borderline high 150 - 199 mg/dL High 200 - 499 mg/dL Very High > or = 500 mg/dL LAB L501.6400 mg/dL Low HDL 39 Result Comment: The drugs N-Acetylcysteine and Metamizole may falsely depress this assay. Reference Range HDL <40 mg/dL Low HDL Cholesterol HDL >or= 60 mg/dL High HDL Cholesterol LAB L501.6500 0-130 mg/dL Normal LDL 37 LAB L501.6600 5-40 mg/dL Normal VLDL 15 Performed By: #### L500.3400, L500.4100 #### [facility] [address] [place], [place], [id number] URGENT CARE VISIT Observed: 11/02/2018 Status: F Source: [place] REPORT 1:28 PM [facility] REPOSITORY [facility] [address] [place] [address] [address] [place] [address] OFFICE VISIT Date of Service: 11/02/18 MR#: [id number] Acct: [id number] Name: JESSE MACHUCA Rep #: [id number] : 1940 Provider: DANISHA Dee Age/Sex: 77/M Location: [facility] Status: Signed Intake Vital Signs11/02/18 Body Mass Index (BMI) 35.0 11/02/18 Height 5 ft 6 in Intake Visit Reasons: COUGH/CHEST CONGESTION Chief Complaint: Cough/ congestion/ Carpenter Packing Required: No Accompanied by: Is patient in pain?: No Allergies hydrocodone [From Vicodin] Adverse Reaction (Unknown, Verified 11/02/18 12:55) Unknown Medications Geneva-3/Dha/Epa/Fish Oil [Fish Oil Geneva-3 EC 1,200 mg] 1 ea PO DAILY 11/09/17 [History Confirmed 11/02/18] Vit A/Vit C/Vit E/Zinc/Copper [Preservision Areds Softgel] 2 ea PO DAILY 11/09/17 [History Confirmed 11/02/18] mometasone-formoterol HFA 200 mcg-5 mcg/actuation aerosol inhaler 2 puff INHALATION BID #13 g 01/24/18 [Rx Confirmed 11/02/18] omeprazole 40 mg capsule,delayed release 40 mg PO QDAY #90 cap 01/24/18 [Rx Confirmed 11/02/18] albuterol sulfate HFA 90 mcg/actuation aerosol inhaler 2 puff INHALATION Q6H PRN #1 device 07/10/18 [Rx Confirmed 11/02/18] Aspirin [Aspirin, Baby] 81 mg PO DAILY 10/18/18 [History Confirmed 11/02/18] Tiotropium Lund [Spiriva] 1 cap INHALATION QDAY 10/18/18 [History Confirmed 11/02/18] Atorvastatin Calcium [Lipitor] 80 mg PO QHS #30 tab 10/19/18 [Rx Confirmed 11/02/18] Isosorbide Mononitrate [Imdur] 30 mg PO DAILY #60 tab 10/19/18 [Rx Confirmed 11/02/18] Losartan Potassium [Cozaar] 50 mg PO BID #60 tab 10/19/18 [Rx Confirmed 11/02/18] Metoprolol Tartrate [Lopressor (beta gigi)] 25 mg PO BID tab 10/19/18 [Rx Confirmed 11/02/18] hydroCHLOROthiazide [Hydrochlorothiazide] 12.5 mg PO DAILY #30 cap 10/19/18 [Rx Confirmed 11/02/18] clopidogrel 75 mg tablet 75 mg PO DAILY #90 tab 10/25/18 [Rx Confirmed 11/02/18] methylprednisolone 4 mg tablets in a dose pack See Rx Instructions PO PER PKG DIR #21 tab 11/02/18 [Rx Confirmed 11/02/18] PFSH Medical History Chest pain (Acute) Abnormal stress test (Acute) Essential hypertension (Chronic) Arthritis (Chronic) Macular degeneration (Chronic) Hearing loss (Chronic) GERD (gastroesophageal reflux disease) (Chronic) Emphysema lung (Chronic) COPD (chronic obstructive pulmonary disease) (Chronic) Hypertension (Inactive) Surgical History H/O hernia repair (Acute) History of bilateral cataract extraction (Acute) History of cholecystectomy (Acute) Family History Father Colon cancer Mother Heart disease Uncle Myocardial infarction Hypertension Social History Smoking Status: Never smoker how long ago did patient quit smokin second hand exposure: No alcohol intake: current alcohol intake frequency: a few times a month substance use type: does not use caffeine: Yes Type: coffee Number of servings: 4 what type of physical activity do you participate in: other details: pulmonary rehab frequency: 3-4 times per week HPI HPI Chief Complaint: Cough/ congestion/ Details: JESSE MACHUCA, is a 77 M who presents to the office today for a cough with wheezing stuffy nose and nasal congestion times 5 days. He states he is occasionally productive of phlegm, yellow in color. He has been taking his breathing medication as directed. He has not contacted his primary care physician regarding his current symptoms. He states he has no chest pain no shortness of breath no nausea vomiting. He states he recently had a stent placed 1 week ago on October 25, 2018 aside from his cough and congestion and current symptoms he states he feels fine. ROS Const Constitutional: No chills or fever(s) Eyes Eyes: No change in vision ENT ENT: No ear pain, sore throat, nasal congestion or nasal discharge Resp Respiratory: Positive for cough and change in phlegm color (Yellow phlegm production on occasion); no shortness of breath Cardio Cardiology: No chest pain at rest or chest pain with exertion Gastro GI: No abdominal pain, diarrhea, vomiting or nausea/dyspepsia Genitourinary Male: No urinary frequency, urinary urgency or difficulty urinating Musc Musculoskeletal: No back pain or abnormal walking Skin Skin: No rash or change in skin color Neuro Neurology: No confusion, abnormal walking or abnormal speech Psych Psychiatric: No confusion Exam Const General: healthy appearing, no acute distress Orientation: oriented x3, oriented to person, oriented to place, oriented to time [facility] Head: normocephalic Ears: external ears normal, TM's normal bilaterally, EAC's normal Nose: no nasal discharge, no nasal discharge noted Eyes General: appearance normal, both eyes and all related structures Conjunctivae: conjunctivae normal Sclera: sclerae normal Pupils: PERRL Neck Neck: no lymphadenopathy Thyroid: thyroid normal Chest Chest palpation AND inspection: normal inspection of the chest Resp Effort AND Inspection: normal respiratory effort, no cough, no respiratory distress Auscultation: Bilateral: Expiratory Wheezes Cardio Rate: regular rate Rhythm: regular rhythm GI Inspection: normal to inspection Auscultation: normal bowel sounds Palpation: no hepatosplenomegaly, no splenomegaly, no masses Skin General: no pallor Rashes: no rashes Nails: no clubbing Neuro General: oriented x3, gait normal Extrem General: normal to inspection, no pedal edema, no calf tenderness, normal gait, no edema, no cyanosis, no clubbing, no calf tenderness bilaterally, no pedal edema Psych Mood: congruent mood Affect: normal affect Speech and Movement: speech and movement normal Assessment AND Plan Problems 1. Wheezing R06.2 2. Cough R05 Plan We will begin a Medrol Dosepak as the directed. The patient was instructed to continue his current breathing medications. If any chest pain shortness of breath or fevers develop he was instructed to call his primary care physician. Or go to the emergency department. Medications New: Coding Level of Care Code Off vis,est,level 4 Diagnoses Wheezing R06.2 Cough R05 11/02/18 1328 <Electronically signed by Sean RAMAN> Date Sean RAMAN Cosigner Signature: Date (if applicable) CC: CARDIOLOGY VISIT Observed: 10/25/2018 Status: F Source: [place] REPORT 12:27 PM [facility] REPOSITORY [facility] [address] [place] [address] OFFICE VISIT Date of Service: 10/25/18 MR#: [id number] Acct: [id number] Name: JESSE MACHUCA Rep #: [id number] : 1940 Provider: BEA Moody Age/Sex: 77/M Location: [facility] Status: Signed HPI HPI Details: JESSE MACHUCA, is a 77 M who presents to the office today for a cardiovascular outpatient follow-up. He has a history of coronary artery disease status post PTCA/LAN to mid RCA in October 2018, hypertension, hyperlipidemia, COPD, and obesity. Pt. denies chest, arm, jaw, or neck discomfort. His exercise tolerance is stable. Pt. denies symptoms of CHF, palpitations, near syncope, or syncopal episodes. Pt. denies edema or claudication issues. Pt. denies orthopnea, chills, blood in urine, blood in stool, myalgia, or unexplainable fatigue. He states random episodes of dizziness when sitting and with ambulation. Intake Vital Signs10/25/18 Body Mass Index (BMI) 35.0 10/25/18 Height 5 ft 6 in 10/25/18 Weight: 215 lb 10/25/18 Body Mass Index (BMI) 34.7 10/25/18 Blood Pressure 128/62 H H 10/25/18 Blood Pressure Location Lt brachial Intake Visit Reasons: S/P PCI Carpenter Packing Required: No Is patient in pain?: No Allergies hydrocodone [From Vicodin] Adverse Reaction (Unknown, Verified 10/25/18 08:36) Unknown Medications Geneva-3/Dha/Epa/Fish Oil [Fish Oil Geneva-3 EC 1,200 mg] 1 ea PO DAILY 11/09/17 [History Confirmed 10/17/18] Vit A/Vit C/Vit E/Zinc/Copper [Preservision Areds Softgel] 2 ea PO DAILY 11/09/17 [History Confirmed 10/17/18] mometasone-formoterol HFA 200 mcg-5 mcg/actuation aerosol inhaler 2 puff INHALATION BID #13 g 01/24/18 [Rx Confirmed 10/17/18] omeprazole 40 mg capsule,delayed release 40 mg PO QDAY #90 cap 01/24/18 [Rx Confirmed 10/17/18] albuterol sulfate HFA 90 mcg/actuation aerosol inhaler 2 puff INHALATION Q6H PRN #1 device 07/10/18 [Rx Confirmed 10/17/18] Aspirin [Aspirin, Baby] 81 mg PO DAILY 10/18/18 [History Confirmed 10/18/18] Tiotropium Lund [Spiriva] 1 cap INHALATION QDAY 10/18/18 [History Confirmed 10/17/18] Atorvastatin Calcium [Lipitor] 80 mg PO QHS #30 tab 10/19/18 [Rx] Isosorbide Mononitrate [Imdur] 30 mg PO DAILY #60 tab 10/19/18 [Rx] Losartan Potassium [Cozaar] 50 mg PO BID #60 tab 10/19/18 [Rx] Metoprolol Tartrate [Lopressor (beta gigi)] 25 mg PO BID tab 10/19/18 [Rx] hydroCHLOROthiazide [Hydrochlorothiazide] 12.5 mg PO DAILY #30 cap 10/19/18 [Rx] clopidogrel 75 mg tablet 75 mg PO DAILY #90 tab 10/25/18 [Rx Confirmed 10/25/18] PFSH Medical History Chest pain (Acute) Abnormal stress test (Acute) Essential hypertension (Chronic) Arthritis (Chronic) Macular degeneration (Chronic) Hearing loss (Chronic) GERD (gastroesophageal reflux disease) (Chronic) Emphysema lung (Chronic) COPD (chronic obstructive pulmonary disease) (Chronic) Hypertension (Inactive) Surgical History H/O hernia repair (Acute) History of bilateral cataract extraction (Acute) History of cholecystectomy (Acute) Family History Father Colon cancer Mother Heart disease Uncle Myocardial infarction Hypertension Social History Smoking Status: Never smoker how long ago did patient quit smokin second hand exposure: No alcohol intake: current alcohol intake frequency: a few times a month substance use type: does not use caffeine: Yes Type: coffee Number of servings: 4 what type of physical activity do you participate in: other details: pulmonary rehab frequency: 3-4 times per week ROS Const Const: Negative for fatigue, weakness, body ache, fever(s) or chills ENT ENT: Negative for dizziness Cardio Chest Pain: No Palpitations: No Edema: None Muscle aches with walking: None Resp Respiratory: Positive for SOB with activity (at baseline); negative for SOB at rest, SOB orthopnea\SOB lying down or paroxysmal nocturnal dyspnea GI GI: Negative nausea, black,tarry stools, bright, red blood in stools or vomiting blood/hematemesis : Negative for hematuria or frequent nighttime urination/ nocturia Musc Musc: Negative for muscle aches/ myalgia Skin Skin: Negative non-healing lesions or rash Neuro Neuro: Negative for weakness, dizziness, lightheadedness, near syncope, syncope or orthostatic symptoms Endo Endo: Negative for fatigue Allergy Allergy/Immunology: Negative for rash Cardiology Exam Const Appearance: cooperative, healthy appearing, comfortable, no acute distress, well developed and well groomed Nutritional Appearance: overweight and well nourished Orientation: alert, awake and oriented x3 Head Head: normal to inspection, normocephalic and atraumatic Ears: hearing grossly normal bilaterally Nose: external nose normal Face and Sinus: face symmetric Mouth: oral mucosae normal Teeth and gingiva: fair dentition Eyes Eyelids: eyelids normal Conjunctivae: conjunctivae normal Pupils: PERRL EOM: EOM intact bilaterally Neck Neck: normal visual inspection and full ROM Carotids: normal carotid upstroke Chest Chest inspection: normal inspection of the chest, symmetric chest movement and normal respiratory effort Auscultation: Bilateral: Clear to Auscultation Cardio Palpation: normal PMI Rate: regular rate Rhythm: regular rhythm Heart sounds: S1 normal and S2 normal GI GI: normal to inspection Neuro General: alert, awake, oriented x3 and moves all extremities Skin Skin: no rashes or lesions noted Extremities Pulses: Normal: Right Posterior Tibial Pulse, Left Posterior Tibial Pulse, Right Radial Pulse, Left Radial Pulse Lower Extremity Edema: None: Bilateral Right wrist, clean, dry, 2+ pulse, with less than 3 seconds capillary refill. Psych Psychological: normal affect Assessment AND Plan 1. Atherosclerosis of [place] coronary artery of [place] heart without angina pectoris I25.10 Status post PTCA/LAN to mid RCA in October 2018; Plan He will begin cardiac rehab. Patient denies any chest pain, arm pain, jaw pain, neck pain, worsening shortness of breath, or fatigue suggestive of angina at this time. We will continue to monitor this. We will not make any medication regimen changes and will continue risk factor modification. Orders Referrals: 2. Essential (primary) hypertension I10 Plan Patient's blood pressure is well-controlled today in the office. We will continue to monitor this. We will not make any medication regimen changes. 3. Mixed hyperlipidemia E78.2 Plan Patient's lipid panel from October 2018 showed cholesterol: 213, HDL: 53, LDL: 141, and triglycerides: 96. He will repeat liver and lipid panel in approximately 1 month after initiating statin medication. We will wait for results for further recommendation. 4. COPD (chronic obstructive pulmonary disease) J44.9 Plan He states that his shortness of breath appears to be at baseline. He will continue follow-up with pulmonology for ongoing care and treatment for this. Plan Detail Other Orders Referrals: Other Medications Refilled: Additional Comments Thank you for allowing us to participate in the patients plan of care, if you have any questions please do not hesitate to call. This note was generated using a voice recognition system and there may be incorrect words, spelling or punctuation that were not noted when reviewing the office note prior to saving. Follow Up 13 Months (PFM) Coding Level of Care Code Off vis,est,level 3 Diagnoses Atherosclerosis of [place] coronary artery of [place] heart without angina pectoris I25.10 Essential (primary) hypertension I10 Mixed hyperlipidemia E78.2 Hyperlipidemia type: mixed hyperlipidemia COPD (chronic obstructive pulmonary disease) J44.9 Coding Level of Care Code Off vis,est,level 3 Diagnoses Atherosclerosis of [place] coronary artery of [place] heart without angina pectoris I25.10 Essential (primary) hypertension I10 Mixed hyperlipidemia E78.2 Hyperlipidemia type: mixed hyperlipidemia COPD (chronic obstructive pulmonary disease) J44.9 10/25/18 1227 <Electronically signed by Lexa BARTH> Date Lexa [facility] PIG MACHINE CRANE OPERATOR-Yola Marrero Signature: Date (if applicable) CC: Dale Cooper DO 12 LEAD ELECTROCARDIOGRAM Observed: 10/23/2018 Status: F Source: [place] 4:06 PM [facility] REPOSITORY [facility] Cardiovascular Services [address] [place] [address] 12 Lead EKG 10/18/18 1252 MR#: [id number] Acct: [id number] Name: JESSE MACHUCA Rep #: [id number] : 1940 77 From: Austin Cowart MD Attending Dr: Lane Abdi MD Status: [facility] Ordering Dr: Lara Carrington MD Date: 10/18/18 Location: [facility] Sex: M C Admitted: Test Reason : PCI Blood Pressure : / mmHG Vent. Rate : 046 BPM Atrial Rate : 046 BPM P-R Int : 200 ms QRS Dur : 108 ms QT Int : 458 ms P-R-T Axes : 059 026 040 degrees QTc Int : 400 ms Sinus bradycardia with marked sinus arrhythmia Otherwise normal ECG When compared with ECG of 18-JUN-2011 01:13, No significant change was found Confirmed by MICHA MAN, AUSTIN ([id number]), production editor SEAMUS DUGGAN ([id number]) on 10/23/2018 4:06:18 PM Referred By: Lane Abdi Confirmed By:AUSTIN COWART MD 10/23/18 1606 Date Austin Cowart MD CC: Lara Carrington MD; Dale Cooper DO; Lane Abdi MD Signed 12 LEAD ELECTROCARDIOGRAM Observed: 10/23/2018 Status: F Source: [place] 4:03 PM [facility] REPOSITORY [facility] Cardiovascular Services [address] [place] [address] 12 Lead EKG 10/19/18 0505 MR#: [id number] Acct: [id number] Name: JESSE MACHUCA Rep #: [id number] : 1940 77 From: Austin Cowart MD Attending Dr: Lane Abdi MD Status: [facility] [place]ing Dr: Lara Carrington MD Date: 10/19/18 Location: [facility] Sex: M C Admitted: Test Reason : AM Blood Pressure : / mmHG Vent. Rate : 058 BPM Atrial Rate : 058 BPM P-R Int : 148 ms QRS Dur : 086 ms QT Int : 426 ms P-R-T Axes : 040 008 057 degrees QTc Int : 418 ms Sinus bradycardia Otherwise normal ECG When compared with ECG of 18-JUN-2011 01:13, No significant change was found Confirmed by MICHA MAN, AUSTIN ([id number]), production editor SEAMUS DUGGAN ([id number]) on 10/23/2018 4:03:35 PM Referred By: Lane Abdi Confirmed By:AUSTIN COWART MD 10/23/18 1603 Date Austin Cowart MD CC: Lara Carrington MD; Dale Cooper DO; Lane Abdi MD Signed DISCHARGE INSTRUCTION Observed: 10/19/2018 Status: F Source: [place] 12:03 PM [facility] REPOSITORY [facility] Medical Records Department [address] [place] [address] Instructions for Home/Discharge Instructions 10/19/18 1200 MR#: [id number] Acct: [id number] Name: JESSE MACHUCA Rep #: [id number] : 1940 77 From: Sarah RAMAN PCP: Dale Cooper DO Status: REG SDC Discharge Diet: Low fat/ Low Cholesterol May shower in (days): 1 May resume sexual activity in: 1 week - if no groin problems occur. Lifting Restrictions: 10 pounds and also avoid any pushing or pulling for 3 days after your test. Call your doctor if your incision/area has: Continuous Slow Oozing, Increased Pain/ Swelling, Increased Redness, Foul Smelling Discharge Call your doctor if you observe: Fever of 101 or Higher Remove Dressing in (days):: 1 Additional Dressing/Incision Instructions:: Keep the dressing (bandage) on until the next morning. You may then shower, but do not take a tub bath for 5 days after your test. It is normal to have some tenderness and discomfort at the puncture site. Sometimes bruising also occurs. However, if pain, numbness, or coldness occurs below the puncture site (in your leg, toes, arms or fingers) call your doctor at once. You may have a small, marble sized knot at the puncture site. This is normal. Do not rub it. It will go away in 4-6 weeks. Bleeding can occur from the area where the puncture was done. Blood may spurt or drip from the site. If blood spurts, apply pressure right away to stop bleeding and call 911. Although rare, bleeding into the tissue (hematoma) can also occur. If this happens, a large, firm area goose egg under the skin will appear. If any of these occur, lie down as flat as you can and have someone apply firm pressure to the cath site with a gauze pad or a clean washcloth for 10-15 minutes. Call 911 or go to the Emergency Department. Additional Instructions: You can not stop you Plavix for at least one year Your medications were adjusted. We decreased your metoprolol to 25 mg twice a day, increased your atorvastatin to 80 mg a day, started your on Imdur (long acting Nitrate), Losartan and HCTZ all to help with BP control. We can discuss these further in the office. We will call you on Sunday for a follow up appt. Allergies/Adverse Reactions: Allergies hydrocodone [From Vicodin] Adverse Reaction (Unknown, Verified 10/10/18 11:55) Unknown Medications to take at Discharge Geneva-3/Dha/Epa/Fish Oil [Fish Oil Geneva-3 EC 1,200 mg] 1 ea PO DAILY 11/09/17 Vit A/Vit C/Vit E/Zinc/Copper [Preservision Areds Softgel] 2 ea PO DAILY 11/09/17 mometasone-formoterol HFA 200 mcg-5 mcg/actuation aerosol inhaler 2 puff INHALATION BID #13 g 01/24/18 omeprazole 40 mg capsule,delayed release 40 mg PO QDAY #90 cap 01/24/18 albuterol sulfate HFA 90 mcg/actuation aerosol inhaler 2 puff INHALATION Q6H PRN #1 device 07/10/18 clopidogrel 75 mg tablet 75 mg PO DAILY #30 tab 10/10/18 Aspirin [Aspirin, Baby] 81 mg PO DAILY 10/18/18 Tiotropium Lund [Spiriva] 1 cap INHALATION QDAY 10/18/18 Aspirin E.C. [Ecotrin] 81 mg PO DAILY@0800 tablet 10/19/18 Atorvastatin Calcium [Lipitor] 80 mg PO QHS #30 tablet 10/19/18 Isosorbide Mononitrate [Imdur] 30 mg PO DAILY #60 tablet 10/19/18 Losartan Potassium [Cozaar] 50 mg PO BID #60 tablet 10/19/18 Metoprolol Tartrate [Lopressor (beta gigi)] 25 mg PO BID tablet 10/19/18 hydroCHLOROthiazide [Hydrochlorothiazide] 12.5 mg PO DAILY #30 capsule 10/19/18 The following prescriptions were given: Atorvastatin Calcium [Lipitor] 80 mg PO QHS #30 tablet hydroCHLOROthiazide [Hydrochlorothiazide] 12.5 mg PO DAILY #30 capsule Isosorbide Mononitrate [Imdur] 30 mg PO DAILY #60 tablet Losartan Potassium [Cozaar] 50 mg PO BID #60 tablet Primary Care Physician: Dale Cooper DO [Primary Care Provider] - Test Results: Test results from this visit will be discussed in further detail at your follow-up appointment, if applicable. Please Follow Up With: Lane Abdi MD When: We will call sunday with an appt Cardiac Rehabilitation Info Cardiac Rehabilitation Program Information: Cardiac Rehabilitation is important for patients like you who are recovering from a heart problem. Cardiac rehabilitation programs are recognized as integral to the continued care of the patient with coronary heart disease. The cardiac rehabilitation program is designed to optimize a patient's physical, psychological, and social functioning. Health childcare teacher work in cardiac rehabilitation programs and assist you with getting the treatments you need to get stronger and healthier - like exercise, healthy eating habits, and medications. Cardiac rehabilitation has been show to help people with heart problems live longer and have better life enjoyment than people who do not go to cardiac rehabilitation. Please contact the Cardiac Rehabilitation Program at [facility] at in two weeks if you have not heard from them. 10/19/18 1203 <Electronically signed by Sarah RAMAN> Date Sarah RAMAN CC: Dale Cooper DO DISCHARGE SUMMARY Observed: 10/19/2018 Status: F Source: [place] 11:01 AM [facility] REPOSITORY [facility] Medical Records Department [address] [place] [address] Discharge Summary 10/19/18 1057 MR#: [id number] Acct: [id number] Name: JESSE MACHUCA Rep #: [id number] : 1940 77 From: Lara Carrington MD PCP: Dale Cooper DO Status: REG SDC Y Location: ICU [id number] Discharge Summary Date of Admission: 10/18/18 Date of Discharge: 10/19/18 Summary: Final diagnoses 1. Coronary artery disease. Secondary diagnosis: 1. Hypertension 2. Dyslipidemia. 3. COPD. Procedures performed: 1. Cardiac catheterization and coronary angiography. 2. Percutaneous intervention to the right coronary artery with drug-eluting stent. Hospital course: Uneventful. Final disposition: 1. Discharged home in stable condition. Follow-up: 1. Follow-up with Dr. Abdi in 1-2 weeks time. - Physical Exam Vital Signs Temp Pulse Resp BP Pulse Ox 98.7 F 62 12 143/61 H 92 10/19/18 09:00 10/19/18 10:00 10/19/18 10:00 10/19/18 10:00 10/19/18 10:00 Oxygen Flow Rate (L/min) 2 Oxygen Delivery Method Room Air Weight: 99.1 kg Body Mass Index (BMI) 35.0 Intake and Output for Last 24 Hours Intake Total 1003.6 / 1003.6 120 / 120 Output Total 1974 / 1974 Balance 1003.6 / 1003.6 -1855 / -1855 Laboratory Tests Past 24 Hrs WBC 9.7 RBC 4.54 L Hgb 13.6 Hct 41.6 10/19/18 1101 <Electronically signed by Lara Carrington MD> Date Lara Carrington MD Cosigner Signature (if applicable): Date CC: Lara Carrington MD; Dale Cooper DO Signed CBC-COMPLETE BLOOD CNT Collected: 10/19/2018 Status: F Source: [place] NO DIFF 4:05 AM [facility] REPOSITORY TYPE CODE TESTS RESULT OUT OF RANGE REFERENCE UNITS LAB L100.1000 4.4-11.0 K/mm3 Normal WBC 9.7 LAB L100.1200 4.6-6.2 M/mm3 Low RBC 4.54 LAB L100.1300 13.0-16.5 g/dl Normal HGB 13.6 LAB L100.1400 40-54 % Normal HCT 41.6 LAB L100.1500 80-94 fL Normal MCV 91.6 LAB L100.1600 27.0-32.0 pg Normal MCH 30.0 LAB L100.1700 32-36 g/gl Normal MCHC 32.7 LAB L100.1810 11.6-14.6 % Normal RDW CV 14.0 LAB L100.1820 35.1-43.9 fl High RDW SD 46.2 LAB L100.1900 150-450 K/mm3 Normal PLT 208 LAB L100.2000 6.2-12.0 fl Normal MPV 9.9 Performed By: #### L100.0500 #### [facility] [address] [place], [place], [address] BASIC METABOLIC Collected: 10/19/2018 Status: F Source: [place] PROFILE (BMP) 4:05 AM [facility] REPOSITORY TYPE CODE TESTS RESULT OUT OF RANGE REFERENCE UNITS LAB L501.0100 74-106 mg/dL High GLU 115 Result Comment: Fasting Glucose result from 100 to 125 mg/dL suggests IMPAIRED HOMEOSTASIS per A.D.A. criteria. Please note revised GLUCOSE reference range effective 2017. LAB L501.1000 7-18 mg/dL High BUN 20 LAB L501.1100 0.70-1.30 mg/dL Normal CREAT,SERUM 0.77 Result Comment: The validity of the calculated GFR AND GFRAA in patients over 70 years has not been determined. Clinical correlation is essential. LAB L501.1110 >60 mL/min Normal EST GFR 104 Result Comment: Non- GFR Calc LAB L501.1115 >60 mL/min Normal EST GFR - AA 126 Result Comment: GFR Calc LAB L501.1255 ml/min Normal Estimated CRCL 54.94 LAB L501.1300 10-20 RATIO High BUN/CRE 26.1 LAB L501.2200 8.5-10 mg/dL Normal .1 CA 8.7 LAB L501.5300 136-14 mmol/L Normal 5 NA 142 LAB L501.5600 3.5-5. mmol/L Normal 1 K 3.8 LAB L501.5900 98-107 mmol/L High CL 108 LAB L501.6100 21.0-3 mmol/L Normal 2.0 CO2 28.0 LAB L501.6200 5-15 Normal GAP 6 Performed By: #### L500.2500 #### [facility] [address] [facility] [address] ACT ACTIVATED CLOTTING Collected: 10/18/2018 Status: F Source: [place] TIME 12:07 PM [facility] REPOSITORY TYPE CODE TESTS RESULT OUT OF RANGE REFERENCE UNITS LAB L9100.0100 74-137 sec High ACTk CLOT 257 TIME Performed By: #### L9100.0100 #### [facility] Point of Care [address] [place] [address] ACT ACTIVATED CLOTTING Collected: 10/18/2018 Status: F Source: [place] TIME 11:45 AM [facility] REPOSITORY TYPE CODE TESTS RESULT OUT OF RANGE REFERENCE UNITS LAB L9100.0100 74-137 sec High ACTk CLOT 401 TIME Performed By: #### L9100.0100 #### [facility] Point of Care [address] [place] [address] ECHO, COMPLETE W/ Observed: 10/14/2018 Status: F Source: [place] CONTRAST 3:43 PM [facility] REPOSITORY [facility] Cardiovascular Services [address] [place] [address] Echo Complete W/ Contrast 10/14/18 1105 MR#: [id number] Acct: [id number] Name: JESSE MACHUCA Rep #: [id number] : 1940 77 From: Lane Abdi MD Attending Dr: Lane Abdi MD Status: REG CLI Ordering Dr: Lane Abdi MD Date: 10/14/18 Location: CVS Sex: M C Admitted: Reason For Study: SOB Procedure This was a 2D Doppler, Color Flow transthoracic echocardiogram. The study was technically difficult. Contrast injection was performed. Exam performed in department. Left Ventricle Normal LV size. Left ventricular systolic function is normal. The estimated ejection fraction is 60 %. No regional wall motion abnormalities noted. Right Ventricle Normal RV size. Normal systolic function. Atria The left atrium is mildly enlarged. Normal right atrium. No doppler evidence for ASD. Mitral Valve There is no mitral annular calcification. Normal mitral valve. Trivial mitral valve insufficiency. Tricuspid Valve Normal tricuspid valve. Trivial tricuspid valve insufficiency. Unable to estimate RV systolic pressure/pulmonary artery pressure due to technically difficult study. Aortic Valve Trisinus/trileaflet aortic valve. Mild focal aortic valve calcification. Pulmonic Valve The pulmonic valve is not well visualized. Great Vessels Normal sized aortic root. Pericardium/Pleural No pericardial effusion. Medication 22 gauge I.V. with prn adaptor inserted into right arm. Diluted definity 2ml given slow IV push to enhance endocardial definition. MMode/2D Measurements AND Calculations LVIDd: 3.8 cm IVSd: 1.4 cm Ao root diam: 3.4 cm LVIDs: 2.5 cm LVPWd: 1.1 cm LA dimension: 3.6 cm FS: 33.0 % LAV(MOD-sp4): 60.8 ml LA A4 area: 20.5 cm2 RA A4 area: 19.2 cm2 Time Measurements MV dec time: 0.22 sec Doppler Measurements AND Calculations MV E max jose: 111.5 cm/sec MV V2 max: 125.2 cm/sec MV P1/2t max jose: 123.3 cm/sec MV A max jose: 90.5 cm/sec MV max P.3 mmHg MV P1/2t: 75.9 msec MV E/A: 1.2 MV V2 mean: 60.5 cm/sec MV dec slope: 475.5 cm/sec2 MV mean P.8 mmHg MV V2 VTI: 47.6 cm MVA(P1/2t): 2.9 cm2 Ao V2 max: 169.1 cm/sec LV V1 max: 156.9 cm/sec MR max jose: 620.1 cm/sec Ao max P.4 mmHg LV V1 max P.8 mmHg MR max P.8 mmHg Ao V2 mean: 110.0 cm/sec LV V1 mean P.1 mmHg MR mean jose: 523.8 cm/sec Ao mean P.6 mmHg LV V1 mean: 92.5 cm/sec MR mean P.4 mmHg Ao V2 VTI: 40.2 cm LV V1 VTI: 35.1 cm MR VTI: 228.1 cm PA V2 max: 115.6 cm/sec Interpretation Summary The study was technically difficult. Contrast injection was performed. Left ventricular systolic function is normal. The estimated ejection fraction is 60 %. The left atrium is mildly enlarged. Trivial mitral valve insufficiency. Trivial tricuspid valve insufficiency. Mild focal aortic valve calcification. Transmitral diastolic flow velocities suggest diastolic dysfunction (pseudonormal pattern). Ordering Physician: Trinidad Referring Physician: Lane Abdi Performed By: Khalif Dent RCS 10/14/[address] Abdi MD CC: Dale Cooper DO; Lane Abdi MD Date Dictated: 10/14/18 1105 Date Transcribed: 10/14/181542 Venetian Blind Washer: Signed CBC W/DIFF, AUTOMATED Collected: 10/11/2018 Status: F Source: [place] 9:41 AM [facility] REPOSITORY TYPE CODE TESTS RESULT OUT OF RANGE REFERENCE UNITS LAB L100.1000 4.4-11.0 K/mm3 Normal WBC 7.2 LAB L100.1200 4.6-6.2 M/mm3 Normal RBC 4.99 LAB L100.1300 13.0-16.5 g/dl Normal HGB 14.8 LAB L100.1400 40-54 % Normal HCT 45.6 LAB L100.1500 80-94 fL Normal MCV 91.4 LAB L100.1600 27.0-32.0 pg Normal MCH 29.7 LAB L100.1700 32-36 g/gl Normal MCHC 32.5 LAB L100.1810 11.6-14.6 % Normal RDW CV 13.8 LAB L100.1820 35.1-43.9 fl High RDW SD 45.7 LAB L100.1900 150-450 K/mm3 Normal PLT 211 LAB L100.2000 6.2-12.0 fl Normal MPV 9.9 LAB L100.2100 47-70 % Normal NEUT% 61.2 LAB L100.2200 19-41 % Normal LY% 27.7 LAB L100.2300 0-10 % Normal MONO% 9.7 LAB L100.2400 0-5 % Normal EO% 0.8 LAB L100.2500 0-1 % Normal BASO% 0.3 LAB L100.2550 0.0-0.9 % Normal IM GRAN % 0.300 Result Comment: IG% - Immature Granulocytes (promyelocytes, myelocytes and metamyelocytes) > 1% indicates that a LEFT SHIFT is Present. LAB L100.2620 2.0-7.7 X10 3/uL Normal Absolute Neut 4.4 LAB L100.2720 0.83-4.51 X10 3/ul Normal Absolute Lymph 1.98 Performed By: #### L100.0100 #### [facility] [address] [place], [address] PROTHROMBIN TIME W/INR Collected: 10/11/2018 Status: F Source: [place] 9:41 AM [facility] REPOSITORY TYPE CODE TESTS RESULT OUT OF RANGE REFERENCE UNITS LAB L300.4150 11.7-14.9 SECONDS Normal PROTIME 13.2 LAB L300.4200 Normal INR 1.0 Performed By: #### L300.3900, L300.4310 #### [facility] [address] [place], [address] PARTIAL THROMBOPLAST Collected: 10/11/2018 Status: F Source: [place] TIME 9:41 AM [facility] REPOSITORY TYPE CODE TESTS RESULT OUT OF RANGE REFERENCE UNITS LAB L300.4310 24.1-36.2 Seconds Normal PTT 32.6 Performed By: #### L300.3900, L300.4310 #### [facility] [address] [place], [address] BASIC METABOLIC Collected: 10/11/2018 Status: F Source: [place] PROFILE (BMP) 9:41 AM [facility] REPOSITORY TYPE CODE TESTS RESULT OUT OF RANGE REFERENCE UNITS LAB L501.0100 74-106 mg/dL High GLU 119 Result Comment: Fasting Glucose result from 100 to 125 mg/dL suggests IMPAIRED HOMEOSTASIS per A.D.A. criteria. Please note revised GLUCOSE reference range effective 2017. LAB L501.1000 7-18 mg/dL High BUN 21 LAB L501.1100 0.70-1.30 mg/dL Normal CREAT,SERUM 0.82 Result Comment: The validity of the calculated GFR AND GFRAA in patients over 70 years has not been determined. Clinical correlation is essential. LAB L501.1110 >60 mL/min Normal EST GFR 96 Result Comment: Non- GFR Calc LAB L501.1115 >60 mL/min Normal EST GFR - AA 116 Result Comment: GFR Calc LAB L501.1300 10-20 RATIO High BUN/CRE 25.5 LAB L501.2200 8.5-10.1 mg/dL CA Normal 9.0 LAB L501.5300 136-145 mmol/L NA Normal 141 LAB L501.5600 3.5-5.1 mmol/L K Normal 4.1 LAB L501.5900 98-107 mmol/L High CL 108 LAB L501.6100 21.0-32.0 mmol/L Normal CO2 26.0 LAB L501.6200 5-15 Normal GAP 7 Performed By: #### L500.2500, L500.3400, L500.4100 #### [facility] [address] [place], [place], [address] LIVER PROFILE Collected: 10/11/2018 Status: F Source: [place] 9:41 AM [facility] REPOSITORY TYPE CODE TESTS RESULT OUT OF RANGE REFERENCE UNITS LAB L501.1500 6.4-8.2 g/dL Normal T PROT 7.6 LAB L501.1800 3.2-5.0 g/dL Normal ALB 3.6 LAB L501.1950 2.2-4.2 g/dL Normal GLOB 4.0 LAB L501.4100 15-37 U/L Low AST 11 LAB L501.4305 45-117 U/L Normal ALK P 67 LAB L501.4405 16-61 U/L Normal ALT 35 LAB L501.4600 0.20-1.00 mg/dL Normal T BILI 0.40 LAB L501.4700 0.00-0.30 mg/dL Normal D BILI 0.13 Performed By: #### L500.2500, L500.3400, L500.4100 #### [facility] [address] [place], [address] LIPID PROFILE Collected: 10/11/2018 Status: F Source: [place] 9:41 AM [facility] REPOSITORY TYPE CODE TESTS RESULT OUT OF RANGE REFERENCE UNITS LAB L501.4900 200 mg/dL High CHOL 213 Result Comment: <200 mg/dL Desirable 200-240 mg/dL Borderline >240 mg/dL High Risk LAB L501.5000 mg/dL Normal TRIG 96 Result Comment: The drugs N-Acetylcysteine and Metamizole may falsely depress this assay. Serum Triglycerides Reference Interval Normal <150 mg/dL Borderline high 150 - 199 mg/dL High 200 - 499 mg/dL Very High > or = 500 mg/dL LAB L501.6400 mg/dL Normal HDL 53 Result Comment: The drugs N-Acetylcysteine and Metamizole may falsely depress this assay. Reference Range HDL <40 mg/dL Low HDL Cholesterol HDL >or= 60 mg/dL High HDL Cholesterol LAB L501.6500 0-130 mg/dL High LDL 141 LAB L501.6600 5-40 mg/dL Normal VLDL 19 Performed By: #### L500.2500, L500.3400, L500.4100 #### [facility] [address] [place], [address] CHEST PA AND LATERAL Observed: 10/11/2018 Status: F Source: [place] 9:39 AM [facility] REPOSITORY [facility] Imaging Services [address] [place] [address] Chest PA and Lateral MR#: [id number] Acct: [id number] Name: JESSE MACHUCA Rep #: [id number] : 1940 M 77 From: Patricio Patrick DO PCP: Dale Cooper DO Status: REG CLI Study: Chest PA and Lateral Date of Exam: 10/11/18 Exam# [id number] Ordering Dr: Lane Abdi MD STUDY: X-RAY CHEST REASON FOR EXAM: Male, 77 years old. Shortness of breath. TECHNIQUE: PA and lateral views of the chest. COMPARISON: None. FINDINGS: There is hyperinflation of the lungs consistent with chronic obstructive lung disease (COPD). There is no demonstrated pleural abnormality. Normal size heart. Normal mediastinum and marsha. Normal visualized pulmonary arteries. Normal visualized aortic arch and descending thoracic aorta. There are diffuse degenerative changes of the visualized thoracic spine. There is degenerative osteoarthritis of the bilateral shoulders. There is no demonstrated abnormality of the visualized soft tissue structures of the upper abdomen. RAD/Chest PA and Lateral IMPRESSION: COPD without acute cardiopulmonary disease. Electronically Signed: Patricio Patrick DO at 17:06 EST Tel [phone], Service support , CC: Dale Cooper DO; Lane Abdi MD Venetian Blind Washer: Signed CARDIOLOGY VISIT Observed: 10/10/2018 Status: F Source: [place] REPORT 6:28 PM [facility] REPOSITORY [facility] [address] [place] [address]. [address] [place] [address] OFFICE VISIT Date of Service: 10/10/18 MR#: [id number] Acct: [id number] Name: JESSE MACHUCA Rep #: [id number] : 1940 Provider: Lane Abdi MD Age/Sex: 77/M Location: [facility] Status: Signed HPI HPI Details: JESSE MACHUCA, is a 77 M who presents to the office today for outpatient cardiovascular consultation based on concerns of shortness of breath/dyspnea and an abnormal stress nuclear imaging study for further evaluation with diagnostic cardiac catheterization. The patient does have a history of underlying pulmonary disease which she has been evaluated for. 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 He is following with pulmonology for this. In the meantime he notes based upon his shortness of breath and dyspnea as well as some associated chest discomfort he has with this-mainly with exertion as opposed to rest, he is undergone further evaluation with an exercise tolerance test/stress nuclear imaging study. The results are as noted below. However he was noted to have exercise related ventricular ectopy with ventricular couplets triplets and quadruplets as well as exercise related O2 saturation decreased despite wearing 3 L nasal cannula and exercise related myocardial perfusion changes compatible with stress-induced myocardial ischemia and portions of the mid to distal inferior and inferior apical segments. He denies any history of ongoing orthopnea or PND. There has been no ongoing peripheral pitting edema. There has been no near syncope or syncope. He had an ECG today. He was in sinus bradycardia with a ventricular rate of approximately 45 bpm. He had no acute ECG changes. Intake Vital Signs10/10/18 Height 5 ft 6 in 10/10/18 Weight: 217 lb 10/10/18 Body Mass Index (BMI) 35.0 10/10/18 Blood Pressure 148/68 H Intake Visit Reasons: COPD/CP/REF. DR. COOPER Allergies acetaminophen [From Vicodin] Adverse Reaction (Unknown, Verified 10/10/18 11:55) Unknown hydrocodone [From Vicodin] Adverse Reaction (Unknown, Verified 10/10/18 11:55) Unknown Medications Geneva-3/Dha/Epa/Fish Oil [Fish Oil Geneva-3 EC 1,200 mg] 1 ea PO 11/09/17 [History Confirmed 10/10/18] Vit A/Vit C/Vit E/Zinc/Copper [Preservision Areds Softgel] 2 ea PO 11/09/17 [History Confirmed 10/10/18] mometasone-formoterol HFA 200 mcg-5 mcg/actuation aerosol inhaler 2 puff INHALATION BID #13 g 01/24/18 [Rx Confirmed 10/10/18] omeprazole 40 mg capsule,delayed release 40 mg PO QDAY #90 cap 01/24/18 [Rx Confirmed 10/10/18] tiotropium bromide 18 mcg capsule with inhalation device 1 cap INHALATION QDAY #30 ea 01/24/18 [Rx Confirmed 10/10/18] metoprolol tartrate 50 mg tablet 50 mg PO BID #180 tab 03/28/18 [Rx Confirmed 10/10/18] sildenafil 100 mg tablet 100 mg PO ONCE PRN #10 tab 05/23/18 [Rx Confirmed 10/10/18] albuterol sulfate HFA 90 mcg/actuation aerosol inhaler 2 puff INHALATION Q6H PRN #1 device 07/10/18 [Rx Confirmed 10/10/18] clopidogrel 75 mg tablet 75 mg PO DAILY #30 tab 10/10/18 [Rx Confirmed 10/10/18] PFSH Medical History Chest pain (Acute) Abnormal stress test (Acute) Essential hypertension (Chronic) Arthritis (Chronic) Macular degeneration (Chronic) Hearing loss (Chronic) GERD (gastroesophageal reflux disease) (Chronic) Emphysema lung (Chronic) COPD (chronic obstructive pulmonary disease) (Chronic) Hypertension (Inactive) Surgical History H/O hernia repair (Acute) History of bilateral cataract extraction (Acute) History of cholecystectomy (Acute) Family History Father Colon cancer Mother Heart disease Uncle Myocardial infarction Hypertension Social History Smoking Status: Former smoker how long ago did patient quit smokin second hand exposure: No alcohol intake: current alcohol intake frequency: a few times a month substance use type: does not use caffeine: Yes Type: coffee Number of servings: 4 what type of physical activity do you participate in: other details: pulmonary rehab frequency: 3-4 times per week ROS Const Const: Positive for fatigue; negative for weakness, weight gain, weight loss, frequent falls or excessive sweating Eyes Eyes: Negative for change in vision, blurry vision or transient loss of vision ENT ENT: Positive for balance problems (slight unsteadiness); negative for dizziness Cardio Chest Pain: Yes Character: tightness (when HR is elevated while working out on treadmill) Onset: exercise Location: other (across the chest and under bilat arms) Duration: brief (intermittant throughout the day), continuous (while on the treadmill ) Exacerbation: activity Relieving: rest Palpitations: No Edema: Bilateral (occasional bilat ankles) Muscle aches with walking: None Resp Respiratory: Positive for SOB with activity (HX COPD, baseline), SOB at rest (HX COPD, baseline) and wheezing GI GI: Negative vomiting or vomiting blood/hematemesis : Negative for hematuria Musc Musc: Positive for balance problems (slight unsteadiness); negative for muscle aches/ myalgia, muscle weakness or joint pain Skin Skin: Negative non-healing lesions or rash Neuro Neuro: Positive for lightheadedness (anytime can come on); negative for weakness, blurry vision, dizziness, frequent falls or orthostatic symptoms [place] Hematologic/Lymphatic: Negative for easy bleeding Endo Endo: Positive for fatigue; negative for excessive sweating Psych Psych: Negative for anxiety or depression Allergy Allergy/Immunology: Negative for hives, Negative for rash Cardiology Exam Const Appearance: cooperative, healthy appearing, comfortable, no acute distress, well developed and well groomed Nutritional Appearance: overweight Orientation: alert, awake and oriented x3 Head Head: normal to inspection, normocephalic and atraumatic Ears: hearing grossly normal bilaterally Nose: external nose normal Face and Sinus: face symmetric Mouth: oral mucosae normal Teeth and gingiva: fair dentition Eyes Eyelids: eyelids normal Conjunctivae: conjunctivae normal Pupils: PERRL EOM: EOM intact bilaterally Neck Neck: normal visual inspection and full ROM Carotids: normal carotid upstroke Chest Chest inspection: normal inspection of the chest, symmetric chest movement and normal respiratory effort Auscultation: Bilateral: Clear to Auscultation Cardio Palpation: normal PMI Rate: regular rate Rhythm: regular rhythm Heart sounds: S1 normal and S2 normal GI GI: normal to inspection, bowel sounds present and soft Neuro General: alert, awake, oriented x3 and moves all extremities Skin Skin: no rashes or lesions noted Extremities Pulses: Normal: Right Radial Pulse, Left Radial Pulse Lower Extremity Edema: None: Bilateral Psych Psychological: normal affect Supplemental Info Stress nuclear imaging study: 08/29/2018 [facility] patient exercised on a Josse protocol for 4 minutes and 45 seconds completing Stage I and 1 minute and 45 seconds of Stage II achieving a peak heart rate of 134 bpm (94 % predicted maximal heart rate) with a peak blood pressure 186/94 mmHg and a peak MET capacity of 6 METs. The baseline ECG demonstrated sinus bradycardia. The peak exercise ECG demonstrated somatic/motion artifact with no obvious ECG changes. There were occasional PVCs during exercise and early recovery; there were occasional ventricular couplets during exercise and early recovery; there were rare ventricular triplets/quadruplets during exercise. The functional capacity was considered decreased. There was vague chest discomfort associated with dyspnea at peak exercise with spontaneous resolution in recovery. The examination was discontinued secondary to dyspnea. Impression: 1. Technically adequate (percent predicted maximal heart rate greater than 85%) exercise tolerance test 2. Peak exercise ECG somatic/motion artifact with no obvious ECG changes 3. Were occasional PVCs during exercise and early recovery; there were occasional ventricular couplets during exercise and early recovery; there were rare ventricular triplets/quadruplets during exercise 4. Nuclear images pending Comment: A. Resting O2 saturation: 3 L nasal cannula: 96% B. Peak exercise O2 saturation: 3 L nasal cannula: Approximately 88% C. Recovery O2 saturation: 3 L nasal cannula: 98% D. The patient noted vague chest discomfort associated with dyspnea peak exercise with spontaneous resolution during recovery Myocardial perfusion imaging study: Technique: The patient was injected with 14.6 mCi of technetium 99m Cardiolite and subsequently rest SPECT Cardiolite nuclear imaging was obtained in the horizontal long, vertical long, and short axis views. The patient exercised on a Josse protocol for 4 minutes and 45 seconds completing Stage I and 1 minute and 45 seconds of Stage II achieving a peak heart rate of 134 bpm (94 % predicted maximal heart rate) with a peak blood pressure 186/94 mmHg and a peak MET capacity of 6 METs. The patient was injected with 44.7 mCi of technetium 99m Cardiolite and subsequently stress SPECT Cardiolite nuclear imaging was obtained in the horizontal long, vertical long, and short axis views. A gated Cardiolite study at peak stress was obtained. Interpretation: Rest and stress SPECT Cardiolite nuclear imaging status post realignment, normalization, and attenuation correction, demonstrates at rest of extra cardiac/gastrointestinal tracer uptake and otherwise myocardial perfusion appearing within normal limits. Status post stress there is diminished myocardial perfusion in the mid to distal inferior and inferior apical segments. There are similar type findings on the resting and stress polar map images.. There is diminished end systolic thickening and brightening in the aforementioned areas.. The gated Cardiolite study demonstrates myocardial thickening and inward wall motion. The reported LVEF is 69 %. Impression: 1. Rest and stress SPECT Cardiolite nuclear imaging demonstrate myocardial perfusion changes concerning for an area of stress-induced myocardial ischemia and portions of the mid to distal inferior and inferior apical segments. 2. The gated Cardiolite study reports an LVEF of 69 %. Assessment AND Plan 1. Angina pectoris I20.9 Plan At the present time there are concerns based on his symptoms of exertional angina pectoris. He also has an abnormal stress nuclear imaging study. Thus it was felt prudent that he continue medical management with the addition of agents such as aspirin 81 mg a day and clopidogrel/Plavix 75 mg a day. It was also felt prudent that he undergo further cardiovascular evaluation. This would include a transthoracic echocardiogram to evaluate his left ventricular wall motion, thickness, and overall systolic function. It also include a diagnostic cardiac catheterization to evaluate his coronary anatomy for the need for further revascularization therapy. The procedure and risks were discussed with him. He was agreeable to this approach per Orders Orders: 2. Abnormal stress test R94.39 Plan And he does have an abnormal stress nuclear imaging study. Thus at the present time it was felt that he should proceed forward with evaluation and care as described above Orders Orders: 3. Essential hypertension I10 Plan He does have a history of hypertension. He will continue medical management and follow-up with adjustment as needed. Orders Orders: 4. COPD (chronic obstructive pulmonary disease) J44.9 Plan He does have a history of underlying COPD. He will continue to follow with Dr. Cooper of pulmonology/critical care medicine Orders Orders: Plan Detail Other Orders Orders: Other Medications New: Additional Comments Thank you for allowing me to participate in the care of your patient. Please don't hesitate to call if any issues arise. This note was generated using a voice recognition system and there may be incorrect words, spelling or punctuation that were not noted when reviewing the office note prior to saving. Follow Up 3 Months (PFM) Coding Level of Care Code Off vis,new,level 5 Diagnoses Angina pectoris I20.9 Abnormal stress test R94.39 Essential hypertension I10 COPD (chronic obstructive pulmonary disease) J44.9 Coding Level of Care Code Off vis,new,level 5 Diagnoses Angina pectoris I20.9 Abnormal stress test R94.39 Essential hypertension I10 COPD (chronic obstructive pulmonary disease) J44.9 10/10/18 1828 <Electronically signed by Lane Abdi MD> Date Lane Abdi MD Cosigner Signature: Date (if applicable) CC: Kendall Cooper D.O.; Dale Cooper DO 12 LEAD EKG PERFORMED Observed: 10/10/2018 Status: F Source: [facility] 12:08 PM [facility] [address] [place] [address] 12 Lead EKG performed by [facility] 10/10/181207 MR#: [id number] Acct: [id number] Name: JESSE MACHUCA Rep #: [id number] : 1940 77 From: Lane Abdi MD Attending Dr: Lane Abdi MD Status: DEP AMB Ordering Dr: Lane Abdi MD Date: 10/10/18 Location: [facility] Sex: José Miguel Aceves Admitted: [facility]/12 Lead EKG performed by [facility] ECG Report Interpretation Marked sinus Bradycardia Low voltage in limb leads. ABNORMAL Electronically signed on 10/10/2018 at 19:[address]di Software Version [id number] 10/10/181955 Date Lane Abdi MD CC: Dale Cooper DO Date Dictated: 10/10/181207 Date Transcribed: 10/10/181207 Venetian Blind Washer: PM Signed STRESS REPORT Observed: 08/29/2018 Status: F Source: [place] 10:04 AM [facility] [address] [place] [address] MR#: [id number] Acct: [id number] Name: JESSE MACHUCA Rep #: [id number] : 1940 77 From: Lane Abdi MD Primary Care: Dale Cooper DO Status: REG CLI Ordering Dr: Sex: M C Stress Test Report Date: 08/29/2018 Procedure: Exercise tolerance test/imaging study Indications: Chest pain Consent: Per the patient Procedure: The patient exercised on a Josse protocol for 4 minutes and 45 seconds completing Stage I and 1 minute and 45 seconds of Stage II achieving a peak heart rate of 134 bpm (94 % predicted maximal heart rate) with a peak blood pressure 186/94 mmHg and a peak MET capacity of 6 METs. The baseline ECG demonstrated sinus bradycardia. The peak exercise ECG demonstrated somatic/motion artifact with no obvious ECG changes. There were occasional PVCs during exercise and early recovery; there were occasional ventricular couplets during exercise and early recovery; there were rare ventricular triplets/quadruplets during exercise. The functional capacity was considered decreased. There was vague chest discomfort associated with dyspnea at peak exercise with spontaneous resolution in recovery. The examination was discontinued secondary to dyspnea. Impression: 1. Technically adequate (percent predicted maximal heart rate greater than 85%) exercise tolerance test 2. Peak exercise ECG somatic/motion artifact with no obvious ECG changes 3. Were occasional PVCs during exercise and early recovery; there were occasional ventricular couplets during exercise and early recovery; there were rare ventricular triplets/quadruplets during exercise 4. Nuclear images pending Comment: A. Resting O2 saturation: 3 L nasal cannula: 96% B. Peak exercise O2 saturation: 3 L nasal cannula: Approximately 88% C. Recovery O2 saturation: 3 L nasal cannula: 98% D. The patient noted vague chest discomfort associated with dyspnea peak exercise with spontaneous resolution during recovery Myocardial perfusion imaging study: Technique: The patient was injected with 14.6 mCi of technetium 99m Cardiolite and subsequently rest SPECT Cardiolite nuclear imaging was obtained in the horizontal long, vertical long, and short axis views. The patient exercised on a Josse protocol for 4 minutes and 45 seconds completing Stage I and 1 minute and 45 seconds of Stage II achieving a peak heart rate of 134 bpm (94 % predicted maximal heart rate) with a peak blood pressure 186/94 mmHg and a peak MET capacity of 6 METs. The patient was injected with 44.7 mCi of technetium 99m Cardiolite and subsequently stress SPECT Cardiolite nuclear imaging was obtained in the horizontal long, vertical long, and short axis views. A gated Cardiolite study at peak stress was obtained. Interpretation: Rest and stress SPECT Cardiolite nuclear imaging status post realignment, normalization, and attenuation correction, demonstrates at rest of extra cardiac/gastrointestinal tracer uptake and otherwise myocardial perfusion appearing within normal limits. Status post stress there is diminished myocardial perfusion in the mid to distal inferior and inferior apical segments. There are similar type findings on the resting and stress polar map images.. There is diminished end systolic thickening and brightening in the aforementioned areas.. The gated Cardiolite study demonstrates myocardial thickening and inward wall motion. The reported LVEF is 69 %. Impression: 1. Rest and stress SPECT Cardiolite nuclear imaging demonstrate myocardial perfusion changes concerning for an area of stress-induced myocardial ischemia and portions of the mid to distal inferior and inferior apical segments. 2. The gated Cardiolite study reports an LVEF of 69 %. This note was generated with [employer]ation software. It may contain incorrect words, spelling, and punctuation that were not noted in checking the note before signing. 08/29/18 1004 <Electronically signed by Lane Abdi MD> Date Lane Abdi MD CC: Dale Cooper DO Date Dictated: 08/29/18958 Date Transcribed: 08/29/18958 Venetian Blind Washer: PM Signed INTERNAL MEDICINE Observed: 08/20/2018 Status: F Source: [facility] OFFICE VISIT 5:27 PM [facility] [address] [place] [address] [place] [address] OFFICE VISIT Date of Service: 08/20/18 MR#: [id number] Acct: [id number] Name: JESSE MACHUCA Lyla Rep #: [id number] : 1940 Provider: Dale Cooper DO Age/Sex: 77/M Location: [facility] Status: Signed Intake Vital Signs08/20/18 Height 5 ft 6 in 08/20/18 Weight: 213 lb 08/20/18 Body Mass Index (BMI) 34.3 08/20/18 Blood Pressure 129/77 H 08/20/18 Blood Pressure Location Lt brachial Intake Visit Reasons: 3 MO FU Chief Complaint: 3 mo follow-up visit Is patient in pain?: No (Nothing unusual) Allergies acetaminophen [From Vicodin] Adverse Reaction (Unknown, Verified 08/20/18 13:15) Unknown hydrocodone [From Vicodin] Adverse Reaction (Unknown, Verified 08/20/18 13:15) Unknown Medications Geneva-3/Dha/Epa/Fish Oil [Fish Oil Geneva-3 EC 1,200 mg] 1 ea PO 11/09/17 [History Confirmed 08/20/18] Vit A/Vit C/Vit E/Zinc/Copper [Preservision Areds Softgel] 2 ea PO 11/09/17 [History Confirmed 08/20/18] mometasone-formoterol HFA 200 mcg-5 mcg/actuation aerosol inhaler 2 puff INHALATION BID #13 g 01/24/18 [Rx Confirmed 08/20/18] omeprazole 40 mg capsule,delayed release 40 mg PO QDAY #90 cap 01/24/18 [Rx Confirmed 08/20/18] tiotropium bromide 18 mcg capsule with inhalation device 1 cap INHALATION QDAY #30 ea 01/24/18 [Rx Confirmed 08/20/18] metoprolol tartrate 50 mg tablet 50 mg PO BID #180 tab 03/28/18 [Rx Confirmed 08/20/18] sildenafil 100 mg tablet 100 mg PO ONCE PRN #10 tab 05/23/18 [Rx Confirmed 08/20/18] albuterol sulfate HFA 90 mcg/actuation aerosol inhaler 2 puff INHALATION Q6H PRN #1 device 07/10/18 [Rx Confirmed 08/20/18] PFSH Medical History Arthritis (Chronic) Macular degeneration (Chronic) Hearing loss (Chronic) Hypertension (Chronic) GERD (gastroesophageal reflux disease) (Chronic) Emphysema lung (Chronic) COPD (chronic obstructive pulmonary disease) (Chronic) Surgical History H/O hernia repair (Acute) History of bilateral cataract extraction (Acute) History of cholecystectomy (Acute) Family History Father Colon cancer Mother Heart disease Uncle Myocardial infarction Hypertension Social History Smoking Status: Former smoker how long ago did patient quit smokin second hand exposure: No alcohol intake: current alcohol intake frequency: a few times a month substance use type: does not use caffeine: Yes Type: coffee Number of servings: 4 what type of physical activity do you participate in: other details: pulmonary rehab frequency: 3-4 times per week HPI HPI Chief Complaint: 3 mo follow-up visit Details: JESSE MACHUCA, is a 77 M who presents to the office today for Chest pain with exertion. He gets these pains with exercise on tread mill. ROS Const Constitutional: No chills, fatigue, fever(s), frequent falls, malaise, weakness, sleep problems or change in appetite Eyes Eyes: No blurry vision, change in vision, double vision, discharge or visual disturbances ENT ENT: No abnormal hearing, ear pain, ear pressure, tinnitus or dizziness/vertigo Resp Respiratory: No cough, shortness of breath or wheezing Cardio Cardiology: Positive for chest pain with exertion and dyspnea on exertion; no chest pain at rest, shortness of breath, generalized swelling, irregular heart rhythm, lightheadedness, orthopnea, fast heart rate or palpitations Gastro GI: No abdominal pain, change in bowel habits, constipation, diarrhea, nausea/dyspepsia or vomiting Genitourinary Male: No difficulty urinating, burning urination, painful urination, urinary incontinence, urinary frequency, urinary urgency, urinary hesitancy, urinary retention, blood in urine, Frequent nighttime urination/ nocturia, sexual problems, testicle lump or testicle pain Musc Musculoskeletal: No joint pain, back pain, joint swelling, limited range of motion, muscle weakness, numbness or tingling Skin Skin: No change in skin color, itching, rash or wounds Breast Breast: No breast lump or breast pain Neuro Neurology: No frequent falls, weakness, abnormal hearing, numbness, tingling, unsteady gait/balance, dizziness, loss of vision, memory loss or visual disturbances Psych Psychiatric: No memory loss, No anxiety, No change in appetite, No depression, No Thoughts of harming yourself/Others Endo Endocrine: No fatigue, heat intolerance, increased thirst/drinking, increased hunger or increased urination Aller/Imm Allergy/Immunologic: No wheezing, itchy eyes or seasonal allergy symptoms Toño/Lymp Hematologic/Lymphatic: No easy bleeding, easy bruising or enlarged lymph nodes Exam Const General: cooperative Resp Effort AND Inspection: normal respiratory effort, symmetric chest movement Auscultation: Bilateral: Clear to Auscultation Cardio Rate: regular rate Rhythm: regular rhythm Heart Sounds: S1 normal, S2 normal Musc Musculoskeletal: No muscle weakness Skin General: no rashes or lesions noted Extrem General: no clubbing, cyanosis or edema Immunizations Fluad 2017- 65yr up(PF)45 mcg(15 mcgx3)/0.5 mL intramuscular syringe Performing Provider: Dale Cooper DO Administered by: Tatum Childs on 08/20/18 14:30 Dose Route Admin Location Lot Number Expiration Date NDC Plumbing Manager 0.5 mL IM Right Deltoid [id number] 03/04/19 66486-473-30 SEQIRUS VIS Given Date VIS Publication Date 08/20/18 08/20/18 Eligibility Eligibility Date Assessment AND Plan Problems 1. Stage 2 moderate COPD by GOLD classification J44.9 FEV1 51% of predicted 2. Hypertension I10 3. GERD (gastroesophageal reflux disease) K21.9 4. Exertional chest pain R07.9 Plan This patient was here for routine 3-month checkup. His physical examination was unchanged from prior exams has he still has some evidence of restrictive lung disease. Biggest complaint is that he is having oppressive chest pain after exercising on a treadmill for a relatively short period of time. When he stops the pain goes away, and yet every time he exercises the pain recurs. He says that he has had a chemical stress test sometime back perhaps 2 years but I think with the ominous symptoms he has of exertional chest pain he needs to be rather reevaluated with a nuclear stress test and possibly even going through a cardiac catheterization as he has multiple risk factors. Orders Orders: Medications Discontinued: Fluad 65yr up(PF)45 mcg(15 mcgx3)/0.5 mL intramuscula0.5 mL IM ONCE #1 0RF NS Z23 r syringe (flu vac 2017 [id number](PF)) Discontinued Re ason: Duplicate Order Plan Detail Follow Up 3 Months Coding Level of Care Code Off vis,est,level 3 Diagnoses Stage 2 moderate COPD by GOLD classification J44.9 Hypertension I10 GERD (gastroesophageal reflux disease) K21.9 Exertional chest pain R07.9 08/20/18 1727 <Electronically signed by Dale Cooper DO> Date Dale Cooper DO [facility] Signature: Date (if applicable) CC: PULMONARY VISIT REPORT Observed: 07/10/2018 Status: F Source: [place] 8:20 AM [facility] REPOSITORY [facility] [address] [place] [address] OFFICE VISIT Date of Service: 07/10/18 MR#: [id number] Acct: [id number] Name: JESSE MACHUCA Rep #: [id number] : 1940 Provider: Kendall Cooper D.O. 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 These medications will be continued without change. A refill for the patient's rescue inhaler, Proventil, will be provided today. We will plan to obtain repeat pulmonary function testing and a repeat 6 minute walk test prior to his follow-up office visit with me in the spring 2018. The patient has been advised to call this office with any worsening in his breathing quality and/or increased reliance on his short acting beta agonist. 2. JOSE (obstructive sleep apnea) G47.33 Plan The patient reports compliance with use of nocturnal CPAP therapy. He plans to take his smart card to [facility] for a compliance report download following his appointment today. This will be reviewed accordingly. At the current time, there is no indication for a change in his regimen. Plan Detail Other Orders Orders: Other Medications New: albuterol sulfate HFA 90 mcg/actuation (Prove2 puffs Inhalation Q6H PRN shortness of hui ntil HFA) th or wheezing Changed: Follow Up 8 Months (DMB) HPI HPI Comments Details: The patient is a 77-year-old male who presents to the clinic today in referral for evaluation of COPD and obstructive sleep apnea. The patient has a smoking history that includes 3-5 packs per day 19 years. He quit completely in 1986. He states that he was initially diagnosed with COPD approximately 10 years ago. He is currently on a triple therapy inhaler regimen with Dulera and Spiriva. He also recently just completed pulmonary rehabilitation. 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 He has baseline, chronic dyspnea on exertion, which has improved somewhat since completing pulmonary rehabilitation. Pulmonary function testing was completed in February 2018 revealed evidence of a moderately severe mixed ventilatory defect with symmetric reduction in diffusing capacity and significant bronchodilator response. The patient also has an established diagnosis of obstructive sleep apnea. He states that he has been on his current CPAP machine for greater than 5 years. He currently utilizes a full facemask and receives his equipment through [employer]. Today, the patient reports overall stability in his breathing quality. He remains compliant with use of Dulera and Spiriva. He states that he only utilizes his Proventil rescue inhaler as a pretreatment medication before working out. Since completing pulmonary rehab, he has remained active with membership in a local gym. He does report occasional chest tightness and wheezing, which is most pronounced with exercise. His weight has been stable. He denies fevers, chills or night sweats. He denies chest pain, dizziness or lightheadedness. He states that, on average, he utilizes his nocturnal CPAP approximately 8-9 hours per night. Intake Vital Signs07/10/18 Height 5 ft 6 in 07/10/18 Weight: 214 lb Intake Visit Reasons: 3 M FU Carpenter Packing Required: No DME Vendor: [facility], [address] [place] [address] Accompanied by: Self Is patient in pain?: No Allergies No Known Allergies Allergy (Unverified 07/10/18 07:28) Medications Geneva-3/Dha/Epa/Fish Oil [Fish Oil Geneva-3 EC 1,200 mg] 1 ea PO 11/09/17 [History Confirmed 07/10/18] Vit A/Vit C/Vit E/Zinc/Copper [Preservision Areds Softgel] 2 ea PO 11/09/17 [History Confirmed 07/10/18] mometasone-formoterol HFA 200 mcg-5 mcg/actuation aerosol inhaler 2 puff INHALATION BID #13 g 01/24/18 [Rx Confirmed 07/10/18] omeprazole 40 mg capsule,delayed release 40 mg PO QDAY #90 cap 01/24/18 [Rx Confirmed 07/10/18] tiotropium bromide 18 mcg capsule with inhalation device 1 cap INHALATION QDAY #30 ea 01/24/18 [Rx Confirmed 07/10/18] metoprolol tartrate 50 mg tablet 50 mg PO BID #180 tab 03/28/18 [Rx Confirmed 07/10/18] sildenafil 100 mg tablet 100 mg PO ONCE PRN #10 tab 05/23/18 [Rx Confirmed 07/10/18] albuterol sulfate HFA 90 mcg/actuation aerosol inhaler 2 puff INHALATION Q6H PRN g 07/10/18 [History Confirmed 07/10/18] albuterol sulfate HFA 90 mcg/actuation aerosol inhaler 2 puff INHALATION Q6H PRN #1 device 07/10/18 [Rx Confirmed 07/10/18] [facility] Medical History Arthritis (Chronic) Macular degeneration (Chronic) Hearing loss (Chronic) Hypertension (Chronic) GERD (gastroesophageal reflux disease) (Chronic) Emphysema lung (Chronic) COPD (chronic obstructive pulmonary disease) (Chronic) Surgical History H/O hernia repair (Acute) History of bilateral cataract extraction (Acute) History of cholecystectomy (Acute) Family History Father Colon cancer Mother Heart disease Uncle Myocardial infarction Hypertension Social History Smoking Status: Former smoker how long ago did patient quit smokin second hand exposure: No alcohol intake: current alcohol intake frequency: a few times a month substance use type: does not use caffeine: Yes Type: coffee Number of servings: 4 what type of physical activity do you participate in: other details: pulmonary rehab frequency: 3-4 times per week Review of Systems Const CONSTITUTIONAL: Positive fatigue; negative anorexia, body ache, chills, daytime sleepiness, fever(s), night sweats, oral thrush, stops breathing during sleep, weight loss, sleeping in chair, weight loss, weight gain, frequent colds, seasonal allergies, other, headache(s) or orthopnea EETM Ear Nose Throat Mouth: Positive hearing normal; negative hard of hearing, hoarseness, dry mouth in morning, change in vision, itchy eyes, eye pain, swallowing Difficulty, ear pain, nose bleed, headache(s), mouth pain, nasal congestion, nasal discharge, post nasal drip, sinus pain, sinus pressure, sore throat or other Cardio Cardiovascular: Negative chest pain, chest pain at rest, chest pain with activity, irregular heart rhythm, edema, shortness of breath when lying down, palpitations, murmur or other Resp Respiratory: Positive as per HPI, shortness of breath, wheezing and chest tightness; negative pain with cough, chest congestion, cough, pain on inspiration, inhalers, increase use of rescue inhalers, snoring, apnea or other Gastro Gastrointestional: Negative bloody stools, change in appetite, difficulty swallowing, reflux, hematemesis, melena stool, loose stool, constipation or other Genitourinary: Negative blood in urine, nocturia, pain with urination or other Musc Musculoskeletal: Negative body pain, back pain, neck pain or other Skin/Breast Skin/Breast: Negative dry skin, itching, rash, unusual bruising, breast lump or other Neuro Neurological: Negative restless legs, confusion, weakness or other Psych Psychocological: Negative abnormal sleep pattern, anxiety, thoughts of hurting self/others, hopelessness or other Lymph Lymphatic: Negative easy bleeding, easy bruising, swollen lymph nodes or other Exam Const Constitutional: Positive conversant, cooperative, in no acute respiratory distress, well developed, well nourished, good hygiene and obese Head Head: Positive normocephalic and atraumatic; negative cyanosis of lips/distal nose Eyes Eye: Positive clear conjunctiva; negative nystagmus or scleral abnormality Ears Ear: Positive hearing normal and external ears normal; negative hard of hearing Nose Nose: Positive external nose normal; negative epistaxis Mouth Mouth: Positive oral mucosae normal and posterior oropharynx is adequate; negative no lesions or post nasal drip Mallampati Score: III: Mallampati Score Neck Neck: Positive normal visual inspection and trachea midline; negative lymphadenopathy Chest Wall Chest: Positive symmetric chest movement Normal AP diameter. Resp lung sounds: Positive diminished diminished: Positive global and normal expiratory time; negative wheezes, rhonchi or rales Cardio Cardiac: Positive regular rate, regular rhythm, S1 normal and S2 normal; negative rub, gallop or murmur GI GI: Positive normal bowel sounds and obese Soft without distention Genitourinary: Positive deferred Musc Musculoskeletal: Positive steady gait Skin Pulmonary Skin Exam: Positive intact; negative lesion, ulcers, dermal atrophy or rash Pulses Pulse: Yes Pedal pulses present: Extremities Extremities: No clubbing, No cyanosis, No edema Neuro Neurologic: Yes conversant, Yes no focal neuro deficits, Yes cooperative Lymph Lymphatic: No lymphadenopathy Psych Appearance: Positive grossly normal Mental Status: Positive mental status grossly normal Mood: Positive congruent mood Affect: Positive normal affect Coding Level of Care Code Off vis,est,level 3 Diagnoses Mixed obstructive and restrictive ventilatory defect JOSE (obstructive sleep apnea) G47.33 07/10/18 0820 <Electronically signed by Kendall Cooper DO> Date Kendall Cooper DO Cosigner Signature: Date (if applicable) CC: Dale Cooper DO TESTOSTERONE, SERUM TOTAL Collected: 05/24/2018 Status: F Source: [place] 2:42 PM [facility] REPOSITORY TYPE CODE TESTS RESULT OUT OF REFERENCE UNITS RANGE LAB L509.3000 ng/dL Testosterone Normal 320.97 Result Comment: NORMAL REFERENCE RANGES MALE AGE <50 123.06 - 813.86 ng/dL MALE AGE >50 89.98 - 780.10 ng/dL FEMALE PREMENOPAUSE AGE 21 - 60 9.01 - 47.94 ng/dL FEMALE POSTMENOPAUSE AGE 45 - 89 <7.00 - 45.62 ng/dL REFERENCE RANGE AND METHODOLOGY CHANGED 10/24/2017 Performed By: #### L509.3000 #### [facility] [address], [id number] INTERNAL MEDICINE Observed: 05/24/2018 Status: F Source: [place] OFFICE VISIT 12:30 PM [facility] REPOSITORY [facility] [address] [place] [address] OFFICE VISIT Date of Service: 05/23/18 MR#: [id number] Acct: [id number] Name: JESSE MACHUCA Rep #: [id number] : 1940 Provider: Dale Cooper DO Age/Sex: 77/M Location[facility] Status: Signed Intake Vital Signs05/23/18 Height 5 ft 6 in 05/23/18 Weight: 213 lb 05/23/18 Body Mass Index (BMI) 34.3 05/23/18 Blood Pressure 125/73 Intake Visit Reasons: 3 M FU Chief Complaint: 3 mo follow-up visit Is patient in pain?: No Allergies No Known Allergies Allergy (Unverified 05/23/18 16:07) Medications Geneva-3/Dha/Epa/Fish Oil [Fish Oil Geneva-3 EC 1,200 mg] 1 ea PO 11/09/17 [History Confirmed 05/23/18] Vit A/Vit C/Vit E/Zinc/Copper [Preservision Areds Softgel] 2 ea PO 11/09/17 [History Confirmed 05/23/18] albuterol sulfate HFA 90 mcg/actuation aerosol inhaler 1 puff INHALATION Q6H 01/24/18 [History Confirmed 05/23/18] mometasone-formoterol HFA 200 mcg-5 mcg/actuation aerosol inhaler 2 puff INHALATION BID #13 g 01/24/18 [Rx Confirmed 05/23/18] omeprazole 40 mg capsule,delayed release 40 mg PO QDAY #90 cap 01/24/18 [Rx Confirmed 05/23/18] tiotropium bromide 18 mcg capsule with inhalation device 1 cap INHALATION QDAY #30 ea 01/24/18 [Rx Confirmed 05/23/18] metoprolol tartrate 50 mg tablet 50 mg PO BID #180 tab 03/28/18 [Rx Confirmed 05/23/18] sildenafil 100 mg tablet 100 mg PO ONCE PRN #10 tab 05/23/18 [Rx Confirmed 05/23/18] PFSH Medical History Arthritis (Chronic) Macular degeneration (Chronic) Hearing loss (Chronic) Hypertension (Chronic) GERD (gastroesophageal reflux disease) (Chronic) Emphysema lung (Chronic) COPD (chronic obstructive pulmonary disease) (Chronic) Surgical History H/O hernia repair (Acute) History of bilateral cataract extraction (Acute) History of cholecystectomy (Acute) Family History Father Colon cancer Mother Heart disease Uncle Myocardial infarction Hypertension Social History Smoking Status: Former smoker how long ago did patient quit smokin second hand exposure: No alcohol intake: current alcohol intake frequency: a few times a month substance use type: does not use caffeine: Yes Type: coffee Number of servings: 4 what type of physical activity do you participate in: other details: pulmonary rehab frequency: 3-4 times per week HPI HPI Chief Complaint: 3 mo follow-up visit Details: JESSE MACHUCA, is a 77 M who presents to the office today for a follow up on his dyspnea ROS Const Constitutional: No chills, fatigue, fever(s), frequent falls, malaise, weakness, sleep problems or change in appetite Eyes Eyes: No blurry vision, change in vision, double vision, discharge or visual disturbances ENT ENT: No abnormal hearing, ear pain, ear pressure, tinnitus or dizziness/vertigo Resp Respiratory: No cough, shortness of breath or wheezing Cardio Cardiology: Positive for dyspnea on exertion and generalized swelling (Lower extremities); no chest pain at rest, chest pain with exertion, shortness of breath, irregular heart rhythm, lightheadedness, orthopnea, fast heart rate or palpitations Gastro GI: No abdominal pain, change in bowel habits, constipation, diarrhea, nausea/dyspepsia or vomiting Genitourinary Male: No difficulty urinating, burning urination, painful urination, urinary incontinence, urinary frequency, urinary urgency, urinary hesitancy, urinary retention, blood in urine, Frequent nighttime urination/ nocturia, sexual problems, testicle lump or testicle pain Musc Musculoskeletal: No joint pain, back pain, joint swelling, limited range of motion, muscle weakness, numbness or tingling Skin Skin: No change in skin color, itching, rash or wounds Breast Breast: No breast lump or breast pain Neuro Neurology: No frequent falls, weakness, abnormal hearing, numbness, tingling, unsteady gait/balance, dizziness, loss of vision, memory loss or visual disturbances Psych Psychiatric: No memory loss, No anxiety, No change in appetite, No depression, No Thoughts of harming yourself/Others Endo Endocrine: No fatigue, heat intolerance, increased thirst/drinking, increased hunger or increased urination Aller/Imm Allergy/Immunologic: No wheezing, itchy eyes or seasonal allergy symptoms Toño/Lymp Hematologic/Lymphatic: No easy bleeding, easy bruising or enlarged lymph nodes Exam Const General: cooperative Nutritional Appearance: overweight Resp Effort AND Inspection: symmetric chest movement Auscultation: Bilateral: Clear to Auscultation Cardio Rate: regular rate Rhythm: regular rhythm Musc Musculoskeletal: No muscle weakness Assessment AND Plan Problems 1. Chronic respiratory failure with hypoxia J96.11 5 L/min on exertion 2. 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 Hypertension I10 4. GERD (gastroesophageal reflux disease) K21.9 Plan This patient was here for checkup and medication refill his breathing is doing much better with pulmonary rehab he feels he is able to walk longer distances without being quite so dyspneic. He still uses oxygen at night his medications were refilled he is not due for any blood work except that he is concerned that he has a history of low testosterone in the past and wonders if we could recheck it to see where he is at this point in time as he used to take testosterone injections. Orders Orders: Medications Changed: Plan Detail Follow Up 3 Months Coding Level of Care Code Off vis,est,level 3 Diagnoses Chronic respiratory failure with hypoxia J96.11 Stage 2 moderate COPD by GOLD classification J44.9 Hypertension I10 GERD (gastroesophageal reflux disease) K21.9 05/24/18 1230 <Electronically signed by Dale Cooper DO> Date Dale Cooper DO Cosigner Signature: Date (if applicable) CC: PULMONARY VISIT REPORT Observed: 05/02/2018 Status: F Source: [place] 1:53 PM [facility] REPOSITORY [facility] [address] [place] [address] OFFICE VISIT Date of Service: 05/02/18 MR#: [id number] Acct: [id number] Name: JESSE MACHUCA Rep #: [id number] : 1940 Provider: Krissy Alanis Age/Sex: 77/M Location: [facility] Status: Signed Assessment AND Plan 1. Stage 2 moderate COPD by GOLD classification J44.9 Status Chronic Plan Stable. He does not appear to be an exacerbation of his COPD today. Continue triple therapy inhalers. No need for antibiotics or prednisone today. No additional testing at this time. Follow-up with Dr. Cooper in 3 months. Patient has been encouraged to contact the office with any symptoms of exacerbation prior to follow-up. Orders Orders: 2. Chronic respiratory failure with hypoxia J96.11 Status Chronic Plan Stable. Patient is using and benefiting from supplemental oxygen during ambulation. No indication for further testing at this time. Follow-up with Dr. Cooper in 3 months. 3. Class 2 severe obesity due to excess calories with serious comorbidity and body mass index (BMI) of 35.0 to 35.9 in adult E66.01; Z68.35 Status Chronic Plan Continue to encourage weight loss. Plan Detail Follow Up 3 Months (DMB) HPI 6 wk FU: Chief Complaint: Shortness of breath on exertion HPI Comments Details: This patient presents the office today for follow- up on his shortness of breath on exertion. He is ambulatory and currently on room air. He has not been seen in the ED or urgent care for any respiratory problems since last office visit. He has not required antibiotics or prednisone. He has since completed pulmonary rehab. Today in the office he was able to complete a 6 minute walk, during which time he ambulated 1379 feet. Over the course of the 6 minutes he did desaturate below 89% and required 5 L of nasal cannula oxygen to complete the walk test. He does report that he continues to exercise 3-5 times weekly. He is either using a treadmill or a bicycle. He does report using supplemental oxygen during exercise. He does have a portable pulse oximeter and is aware that oxygen saturation goal is to maintain 89-92%. He is compliant with his Pap therapy. He denies any difficulties with air leaks or dry mouth. He is using it the entire time he spent sleeping. I do not have a compliance report to review but the patient states that he is having no difficulties with the machine and is feeling rested upon arising. He denies any napping or falling asleep while watching TV. He has a rare dry cough. Denies any sputum production or hemoptysis. He denies any wheezing, chest tightness, chest pain or palpitations. He denies any fever, chills or body aches. He experiences shortness of breath on exertion only, denies any shortness of breath during conversation or at rest. He is compliant with Dulera 2 puffs twice daily. He rinsed his mouth out after each use. He denies any medication side effects such as sore throat or thrush. He is also compliant with Spiriva daily. He reports his medications are helpful. He has not used his rescue inhaler. He has not had any [id number] medications. See complete review of systems. Intake Vital Signs05/02/18 Pulse Ox 94 05/02/18 Oxygen Delivery Method nasal canula 05/02/18 Oxygen Flow Rate (L/min) 5 05/02/18 Comment 8 min -ambulation 05/02/18 Pulse Ox 88 05/02/18 Oxygen Delivery Method nasal canula Intake Visit Reasons: 6 wk FU DME Vendor: [facility] Accompanied by: Self Allergies No Known Allergies Allergy (Unverified 05/02/18 09:44) Medications Fluticasone 0.05% [Flonase Nasal [place]] 1 spray NASAL BID 11/09/17 [History Confirmed 05/02/18] Geneva-3/Dha/Epa/Fish Oil [Fish Oil Geneva-3 EC 1,200 mg] 1 ea PO 11/09/17 [History Confirmed 05/02/18] Vit A/Vit C/Vit E/Zinc/Copper [Preservision Areds Softgel] 2 ea PO 11/09/17 [History Confirmed 05/02/18] albuterol sulfate HFA 90 mcg/actuation aerosol inhaler 1 puff INHALATION Q6H 01/24/18 [History Confirmed 05/02/18] mometasone-formoterol HFA 200 mcg-5 mcg/actuation aerosol inhaler 2 puff INHALATION BID #13 g 01/24/18 [Rx Confirmed 05/02/18] omeprazole 40 mg capsule,delayed release 40 mg PO QDAY #90 cap 01/24/18 [Rx Confirmed 05/02/18] sildenafil 100 mg tablet 100 mg PO PRN 01/24/18 [History Confirmed 05/02/18] tiotropium bromide 18 mcg capsule with inhalation device 1 cap INHALATION QDAY #30 ea 01/24/18 [Rx Confirmed 05/02/18] metoprolol tartrate 50 mg tablet 50 mg PO BID #180 tab 03/28/18 [Rx Confirmed 05/02/18] [facility] Medical History Arthritis (Chronic) Macular degeneration (Chronic) Hearing loss (Chronic) Hypertension (Chronic) GERD (gastroesophageal reflux disease) (Chronic) Emphysema lung (Chronic) COPD (chronic obstructive pulmonary disease) (Chronic) Surgical History H/O hernia repair (Acute) History of bilateral cataract extraction (Acute) History of cholecystectomy (Acute) Family History Father Colon cancer Mother Heart disease Uncle Myocardial infarction Hypertension Social History Smoking Status: Former smoker how long ago did patient quit smokin second hand exposure: No alcohol intake: current alcohol intake frequency: a few times a month substance use type: does not use caffeine: Yes Type: coffee Number of servings: 4 what type of physical activity do you participate in: other details: pulmonary rehab frequency: 3-4 times per week FEV1% FEV1%: 51 Review of Systems Const CONSTITUTIONAL: Negative anorexia, body ache, chills, daytime sleepiness, fever(s), night sweats, oral thrush, stops breathing during sleep, weight loss, sleeping in chair, fatigue, weight loss, weight gain, frequent colds, seasonal allergies, other, headache(s) or orthopnea EETM Ear Nose Throat Mouth: Positive hearing normal; negative hoarseness, dry mouth in morning, change in vision, itchy eyes, eye pain, swallowing Difficulty, ear pain, headache(s), mouth pain, nasal congestion, nasal discharge, sinus pain, sinus pressure, sore throat, other, hard of hearing, nose bleed or post nasal drip Cardio Cardiovascular: Negative chest pain, chest pain at rest, chest pain with activity, irregular heart rhythm, edema, shortness of breath when lying down, palpitations, other or murmur Resp Respiratory: Positive as per HPI, shortness of breath, wheezing and chest tightness; negative pain with cough, chest congestion, cough, pain on inspiration, inhalers, increase use of rescue inhalers, snoring, apnea or other Gastro Gastrointestional: Negative bloody stools, change in appetite, difficulty swallowing, reflux, hematemesis, melena stool, loose stool, constipation or other Genitourinary: Negative blood in urine, nocturia, pain with urination or other Musc Musculoskeletal: Negative body pain, back pain, neck pain or other Skin/Breast Skin/Breast: Negative dry skin, itching, unusual bruising, breast lump, other or rash Neuro Neurological: Negative restless legs, confusion, weakness or other Psych Psychocological: Negative abnormal sleep pattern, anxiety, thoughts of hurting self/others, hopelessness or other Lymph Lymphatic: Negative easy bleeding, easy bruising, other or swollen lymph nodes Exam Const Constitutional: Positive cooperative, in no acute respiratory distress, healthy appearing, well developed, well nourished, good hygiene, obese and conversant Head Head: Positive normocephalic and atraumatic; negative cyanosis of lips/distal nose Eyes Eye: Positive clear conjunctiva and nystagmus; negative scleral abnormality Ears Ear: Positive hearing normal and external ears normal; negative hard of hearing Nose Nose: Positive external nose normal and no nasal discharge; negative epistaxis Mouth Mouth: Positive oral mucosae normal, no lesions and crowded posterior oropharynx; negative post nasal drip, malodorous breath or oral thrush present Mallampati Score: III: Mallampati Score Neck Neck: Positive normal visual inspection, full ROM, trachea midline and thick neck; negative lymphadenopathy, JVD or tender Chest Wall Chest: Positive normal inspection of the chest and symmetric chest movement; negative increased A/P diameter Resp lung sounds: Positive clear to auscultation, diminished, normal expiratory time and normal respiratory effort; negative wheezes, rhonchi, rales, dullness to percussion or wheeze present on forced exhalation Cardio Cardiac: Positive S2 normal, S1 normal, regular rhythm and regular rate; negative murmur GI GI: Positive normal to inspection, normal bowel sounds and obese; negative distended Genitourinary: Positive deferred Musc Musculoskeletal: Positive steady gait and ROM normal; negative kyphosis or scoliosis Skin Pulmonary Skin Exam: Positive intact; negative rash, lesion, ulcers, erythema, scaly or dermal atrophy Pulses Pulse: Yes pulses normal x4 extremities Extremities Extremities: Yes edema Location: lower extremity location: Bilateral pitting +1, Yes capillary refill normal, No clubbing, No cyanosis Neuro Neurologic: Yes conversant, Yes no focal neuro deficits, Yes cooperative, Yes normal cognition, Yes normal coordination, Yes normal concentration, Yes understands questions, No tremor Lymph Lymphatic: No lymphadenopathy, No tenderness, No cervical adenopathy, No axillary adenopathy Psych Appearance: Positive grossly normal, eye contact and well kempt Mental Status: Positive mental status grossly normal Mood: Positive congruent mood Affect: Positive normal affect Office Procedures Walking Oximetry Walking Oximetry Procedure performed by: Yary Reynoso Walking Oximetry: Yes walking oximetry preformed, desaturation below 89% occured, lowest saturation (84), oxygen applied, no signs of distress prior to departing office and supplemental oxygen order generated Coding Level of Care Code Off vis,est,level 3 Diagnoses Stage 2 moderate COPD by GOLD classification J44.9 Chronic respiratory failure with hypoxia J96.11 Class 2 severe obesity due to excess calories with serious comorbidity and body mass index (BMI) of 35.0 to 35.9 in adult E66.01; Z68.35 Obesity type: due to excess calories Obesity classification: adult class 2 (BMI 35 - 39.9) Serious obesity comorbidity presence: with serious comorbidity Body mass index: BMI 35.0-35.9 05/02/18 1353 <Electronically signed by Krissy BARTH> Date Krissy BARTH Cosigner Signature: Date (if applicable) CC: Dale Cooper DO PULMONARY VISIT REPORT Observed: 03/21/2018 Status: F Source: [place] 8:29 AM [facility] REPOSITORY [facility] of [address] [place] [address] OFFICE VISIT Date of Service: 03/21/18 MR#: [id number] Acct: [id number] Name: JESSE MACHUCA Rep #: [id number] : 1940 Provider: Kendall Cooper D.O. Age/Sex: 77/M Location: [facility] Status: Signed Assessment AND Plan 1. COPD (chronic obstructive pulmonary disease) J44.9 Plan The patient has evidence of moderately severe mixed ventilatory defect noted on his most recent PFTs from February 2018. He is currently on a triple therapy inhaler regimen with stable breathing quality. Plan to continue Dulera and Spiriva as ordered. The patient just recently completed pulmonary rehabilitation. Recommend repeating pulmonary function testing in February 2019. It would be beneficial to repeat a 6 minute walk test, now that the patient has completed pulmonary rehabilitation. Orders for this can be placed at his follow-up office visit. 2. Chronic hypoxemic respiratory failure J96.11 Plan Continue supplemental oxygen as ordered. Plan to place orders for a repeat 6 minute walk test at his follow-up office visit. 3. JOSE (obstructive sleep apnea) G47.33 Plan The patient reports compliance with nocturnal CPAP therapy. His current pressure settings and compliance are not known at this time. Will place call to [facility] and if the patient's equipment is truly older than 5 years, orders for new equipment will be placed. A compliance report will be generated prior to his follow-up office visit with us. Will attempt to obtain records pertinent to the patient's last polysomnogram in [place]. 4. Obesity E66.9 Plan Weight loss through dietary modification and a graded exercise regimen is strongly encouraged. Plan Detail Follow Up 6 Weeks (CSM) HPI HPI Comments Details: The patient is a 77-year-old male who presents to the clinic today in referral for evaluation of COPD and chronic hypoxemic respiratory failure. The patient has a smoking history that includes 3-5 packs per day 19 years. He quit completely in 1986. He states that he was initially diagnosed with COPD approximately 10 years ago. He is currently on a triple therapy inhaler regimen with Dulera and Spiriva. He also recently just completed pulmonary rehabilitation. 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 He has baseline, chronic dyspnea on exertion, which has improved somewhat since completing pulmonary rehabilitation. He denies any significant cough. He does experience occasional exertional chest tightness, but denies wheezing. He does have access to an albuterol rescue inhaler in his home environment. However, he does not routinely utilize that medication. He states that about the only time utilizes his rescue inhaler is as pretreatment prior to working out. Pulmonary function testing was completed in February 2018 revealed evidence of a moderately severe mixed ventilatory defect with symmetric reduction in diffusing capacity and significant bronchodilator response. The patient also has a baseline supplemental oxygen requirement, 4 L/min with activity and 2 L/min at rest. The patient also has an established diagnosis of obstructive sleep apnea. He states that he has been on his current CPAP machine for greater than 5 years. He currently utilizes a full facemask and receives his equipment through [employer]. He reports compliance with nocturnal CPAP utilization and denies significant air leaks. He does report significant improvement in his sleep quality since being started on CPAP therapy multiple years ago. His last sleep study was just completed within the last year and performed at a sleep center in [place]. His weight has been stable. He denies fevers, chills or night sweats. He reports no chest pain, dizziness or lightheadedness. Intake Vital Signs03/21/18 Height 5 ft 6 in 03/21/18 Weight: 218 lb 03/21/18 Body Mass Index (BMI) 35.2 03/21/18 Blood Pressure 155/75 03/21/18 Blood Pressure Location Lt brachial 03/21/18 Blood Pressure Position Sitting Intake Visit Reasons: COPD Chief Complaint: follow-up visit Accompanied by: Allergies No Known Allergies Allergy (Unverified 01/24/18 09:44) Medications Fluticasone 0.05% [Flonase Nasal [place]] 1 spray NASAL BID 11/09/17 [History Confirmed 01/24/18] Metoprolol Tartrate [Lopressor (Beta Gigi)] 50 mg PO BID 11/09/17 [History Confirmed 01/24/18] Geneva-3/Dha/Epa/Fish Oil [Fish Oil Geneva-3 EC 1,200 mg] 1 ea PO 11/09/17 [History Confirmed 01/24/18] Tiotropium Lund [Spiriva] 18 mcg IH 11/09/17 [History Confirmed 01/24/18] Vit A/Vit C/Vit E/Zinc/Copper [Preservision Areds Softgel] 2 ea PO 11/09/17 [History Confirmed 01/24/18] albuterol sulfate HFA 90 mcg/actuation aerosol inhaler 1 puff INHALATION Q6H 01/24/18 [History Confirmed 01/24/18] mometasone-formoterol HFA 200 mcg-5 mcg/actuation aerosol inhaler 2 puff INHALATION BID #13 g 01/24/18 [Rx Confirmed 01/24/18] omeprazole 40 mg capsule,delayed release 40 mg PO QDAY #90 cap 01/24/18 [Rx Confirmed 01/24/18] sildenafil 100 mg tablet 100 mg PO PRN 01/24/18 [History Confirmed 01/24/18] tiotropium bromide 18 mcg capsule with inhalation device 1 cap INHALATION QDAY #30 ea 01/24/18 [Rx Confirmed 01/24/18] [facility] Medical History Arthritis (Chronic) Macular degeneration (Chronic) Hearing loss (Chronic) Hypertension (Chronic) GERD (gastroesophageal reflux disease) (Chronic) Emphysema lung (Chronic) COPD (chronic obstructive pulmonary disease) (Chronic) Surgical History H/O hernia repair (Acute) History of bilateral cataract extraction (Acute) History of cholecystectomy (Acute) Family History Father Colon cancer Mother Heart disease Uncle Myocardial infarction Hypertension Social History Smoking Status: Former smoker how long ago did patient quit smokin second hand exposure: No alcohol intake: current alcohol intake frequency: a few times a month substance use type: does not use caffeine: Yes Type: coffee Number of servings: 4 what type of physical activity do you participate in: other details: pulmonary rehab frequency: 3-4 times per week Review of Systems Const CONSTITUTIONAL: Positive fatigue; negative anorexia, body ache, chills, daytime sleepiness, fever(s), night sweats, oral thrush, stops breathing during sleep, weight loss, sleeping in chair, weight loss, weight gain, frequent colds, seasonal allergies, other, headache(s) or orthopnea EETM Ear Nose Throat Mouth: Positive nasal congestion, sinus pressure and hearing normal; negative hard of hearing, hoarseness, dry mouth in morning, change in vision, itchy eyes, eye pain, swallowing Difficulty, ear pain, nose bleed, headache(s), mouth pain, nasal discharge, post nasal drip, sinus pain, sore throat or other Cardio Cardiovascular: Negative chest pain, chest pain at rest, chest pain with activity, irregular heart rhythm, edema, shortness of breath when lying down, palpitations, murmur or other Resp Respiratory: Positive as per HPI, shortness of breath shortness of breath: Positive with activity and worsening, wheezing and chest tightness; negative pain with cough, chest congestion, cough, pain on inspiration, inhalers, increase use of rescue inhalers, snoring, apnea or other Gastro Gastrointestional: Negative bloody stools, change in appetite, difficulty swallowing, reflux, hematemesis, melena stool, loose stool, constipation or other Genitourinary: Negative blood in urine, nocturia, pain with urination or other Musc Musculoskeletal: Negative body pain, back pain, neck pain or other Skin/Breast Skin/Breast: Negative dry skin, itching, rash, unusual bruising, breast lump or other Neuro Neurological: Positive restless legs; negative confusion, weakness or other Psych Psychocological: Negative abnormal sleep pattern, anxiety, thoughts of hurting self/others, hopelessness or other Lymph Lymphatic: Negative easy bleeding, easy bruising, swollen lymph nodes or other Exam Const Constitutional: Positive conversant, cooperative, in no acute respiratory distress, well developed, well nourished, good hygiene and obese Head Head: Positive normocephalic and atraumatic; negative cyanosis of lips/distal nose Eyes Eye: Positive clear conjunctiva; negative nystagmus or scleral abnormality Ears Ear: Positive hearing normal and external ears normal; negative hard of hearing Nose Nose: Positive external nose normal; negative epistaxis Mouth Mouth: Positive oral mucosae normal and posterior oropharynx is adequate; negative no lesions or post nasal drip Mallampati Score: III: Mallampati Score Neck Neck: Positive normal visual inspection, trachea midline and thick neck; negative lymphadenopathy Chest Wall Chest: Positive symmetric chest movement Normal AP diameter. Resp lung sounds: Positive diminished diminished: Positive global and normal expiratory time; negative wheezes, rhonchi or rales Cardio Cardiac: Positive regular rate, regular rhythm, S1 normal and S2 normal; negative rub, gallop or murmur GI GI: Positive normal bowel sounds and obese Soft without distention Genitourinary: Positive deferred Musc Musculoskeletal: Positive steady gait Skin Pulmonary Skin Exam: Positive intact; negative lesion, ulcers, dermal atrophy or rash Pulses Pulse: Yes Pedal pulses present: Extremities Extremities: No clubbing, No cyanosis, No edema Neuro Neurologic: Yes conversant, Yes no focal neuro deficits, Yes cooperative Lymph Lymphatic: No lymphadenopathy Psych Appearance: Positive grossly normal Mental Status: Positive mental status grossly normal Mood: Positive congruent mood Affect: Positive normal affect Coding Level of Care Code Off vis,new,level 4 Diagnoses COPD (chronic obstructive pulmonary disease) J44.9 Chronic hypoxemic respiratory failure J96.11 JOSE (obstructive sleep apnea) G47.33 Obesity E66.9 03/21/18 0829 <Electronically signed by Kendall Cooper DO> Date Kendall Cooper DO Cosigner Signature: Date (if applicable) CC: Dale Cooper DO [place] - INDIVIDUAL Observed: 03/04/2018 Status: F Source: [facility] 7:03 PM [facility] Pulmonary Rehab Reports [address] [place] [address] [place] - Individual Treatment Plan MR#: [id number] Acct: [id number] Name: JESSE MACHUCA Rep #: [id number] : 1940 77 From: Lalito Malik DELPHI DEVELOPER, FLOORING MECHANIC, BS PCP: Dale Cooper DO Exercise - Final Assessment - Exercise Prescription Mode:: Treadmill, NuStep, Arm Ergometer Frequency (x/week): 3 - Discharged 02/22/2018 Duration:: 30 Aerobic Exercise [30-60 min 3-7x/week]:: Met Further followup [see D/C Summary]:: No Target heart rate: 114-121 w/ max HR 92 Torrey.5 MET Level:: 5 - Home Exercise Home Exercise:: No Disease Management - Final - Hypoxemia Final Assessment: Demonstrates knowledge of O2 Rx at rest, Demonstrates knowledge of O2 Rx with exercise, Using O2 as prescribed - Medications Medication list reviewed:: Yes Taking medications 100% of the time:: Met Psychosocial - Final Assess - Assessment Depression reassess: Management of stress: Met, Management of depression: Met, Practicing interventions: Met Tobacco - Final Assessment - Program Goals Tobacco Program Goals: Complete smoking cessation. Attend education classes. Improve Knowledge Test score - Stage of Change Stages of Change:: Action - Learning Barriers Learning Barriers: Participates in education - Family Support Do you have family support?: Yes - Tobacco Use Tobacco Use: Non-smoker Do you use smokeless tobacco?: No - Intervention Smoking Cessation Referral:: No Individual Education/Counseling:: No Education Schedule Given:: Yes - Education Education Goal Reached?: Yes Nutrition/Wt Mgmt - Final - Weight Management Weight:: 216 lb Weight Goals Progress:: Goal met Patient Health Questionnaire Discharge Assessment 1. Little interest or pleasure in doing things: Not at all 2. Feeling down, depressed, or hopeless: Not at all 3. Trouble falling or staying asleep, or sleeping too much: Not at all 4. Feeling tired or having little energy: Not at all 5. Poor appetite or overeating: Not at all 6. Feeling bad about yourself -- or that you are a failure or have let yourself or your family down: Not at all 7. Trouble concentrating on things, such as reading the newspaper or watching television: Not at all 8. Moving or speaking so slowly that other people could have noticed. Or the opposite - being so fidgety or restless that you have been moving around a lot more than usual: Not at all 9. Thoughts that you would be better off , or of hurting yourself in some way: Not at all How difficult have these problems made it for you to do your work, take care of things at home, or get along with other people?: Not difficult at all Total Score: 0 COPD Knowledge Test Discharge COPD is a lung disease that:: Makes it hard to breathe AND gets worse over time In the [place] the term COPD describes 2 main lung conditions:: Emphysema AND chronic bronchitis The most common lung irritant that causes COPD is:: Cigarette smoke Common signs and symptoms of COPD include:: An ongoing cough/cough that produces a large amount of mucus, AND SOB If you have COPD, what steps can you take?: All of the above Swelling of the ankles is common in COPD:: False Fatigue [tiredness] is common in COPD:: True Wheezing is common in COPD:: True Crushing chest pain is common in COPD:: False Rapid weight loss is common in COPD:: False Breathlessness is a normal response to exercise: False Exercise should be avoided if it makes you short of breath: False All bronchodilators act within 10 minutes: False A spacer device increases the medication to the lungs: True Annual flu vaccine is recommended for pts w/lung disease: True COPD Knowledge Test Total Score:: 14 COPD Assessment Test [CAT] - Questions Never cough = 0, Cough all the time = 5: 1 No phlegm = 0, Chest full of phlegm = 5: 2 No chest tightness = 0, Chest very tight = 5: 3 No breathless w/exertion = 0, Very breathless w/exertion = 5: 4 No limitations w/activity = 0, Very limited w/activity = 5: 3 Confident leaving home = 0, Not at all confident = 5: 2 Sleep soundly = 0, Don't sleep soundly = 5: 3 Lots of energy = 0, No energy at all = 5: 4 Total CAT score:: 22 Self-Efficacy Discharge Assessment We would like to know how confident you are in doing certain activities. Please select your confidence level for:: Select your confidence level for the following using the scale 1-10 where 1 is not at all confident and 10 is totally confident. Your score is the average of all 6 responses. Fatigue: How confident are you that you can keep the fatigue caused by your disease from interfering with the things you want to do? Select Number: 7 Physical Discomfort or Pain: How confident are you that you can keep the physical discomfort or pain of your disease from interfering with the things you want to do? Select Number: 8 Emotional Distress: How confident are you that you can keep the emotional distress caused by your disease from interfering with the things you want to do? Select Number: 8 Other Symptoms or Health Problems: How confident are you that you can keep other symptoms or health problems from interfering with the things you want to do? Select Number: 8 Different Tasks and Activities: How confident are you that you can do the different tasks and activities needed to manage your health condition so as to reduce your need to see a doctor? Select Number: 6 Medication: How confident are you that you can do things other than just taking medication to reduce how much your illness affects your everyday life? Select Number: 8 Total Score:: 7 Nutrition Survey - Nutrition Survey Instructions Scoring Instructions: Scoring is as follows: Yes = 1 points. No = 0 point. Patient score that is >/=12 is considered to be at potential nutritional risk and could benefit from a referral to a registered dietitian. - Nutrition Survey Discharge Have you lost >10 lbs over the past 2 months without trying?: No Are you following a special diet at home for diabetes, low fat, or low salt?: No Are you interested in meeting with a dietitian for help understanding your diet?: No Do you eat less than 3 meals a day?: No Do you eat fatty meats (burciaga, sausage, ribs, etc), fried foods, desserts, large amounts of salad dressings, margarine, butter, or cheese most days?: No Do you have food allergies? [Enter types in comment field]: No Do you eat in restaurants more than 3 times a week?: No Do you season food with salt, seasoning salt, or garlic salt?: Yes Do you used canned, boxed, frozen meals, or soups, seasoning packets?: Yes Total Score:: 2 02/26/18 1021 <Electronically signed by Lalito Malik CRT, RCP, BS> Date Lalito Malik CRT, RCP, BS Outcome assessment reviewed. Exercise plan approved as documented. Treatment plan and goals support patient needs/abilities. Continue with current plan. I certify the patient demonstrates improvement and remains willing and capable of participation. the patient continues to benefit from pulmonary services/training. The patient may continue at current intensity, endurance and modality and progress per protocol. 03/04/18 925<Electronically signed by Lane Lord MD> Cosigner Signature: Date Lane Lord MD CC: Signed INTERNAL MEDICINE Observed: 02/20/2018 Status: F Source: [facility] OFFICE VISIT 12:00 PM [facility] [address] [place] [address] [place] [address] OFFICE VISIT Date of Service: 02/20/18 MR#: [id number] Acct: [id number] Name: JESSE MACHUCA Rep #: [id number] : 1940 Provider: Sean Zimmerman NP Age/Sex: 77/M Location: [facility] Status: Signed Intake Vital Signs02/20/18 Height 5 ft 6 in Intake Visit Reasons: FU for [employer] oxygen order, needs seen by PCP Chief Complaint: follow-up visit Is patient in pain?: No Allergies No Known Allergies Allergy (Unverified 01/24/18 09:44) Medications Fluticasone 0.05% [Flonase Nasal [place]] 1 spray NASAL BID 11/09/17 [History Confirmed 01/24/18] Metoprolol Tartrate [Lopressor (Beta Gigi)] 50 mg PO BID 11/09/17 [History Confirmed 01/24/18] Geneva-3/Dha/Epa/Fish Oil [Fish Oil Geneva-3 EC 1,200 mg] 1 ea PO 11/09/17 [History Confirmed 01/24/18] Tiotropium Lund [Spiriva] 18 mcg IH 11/09/17 [History Confirmed 01/24/18] Vit A/Vit C/Vit E/Zinc/Copper [Preservision Areds Softgel] 2 ea PO 11/09/17 [History Confirmed 01/24/18] albuterol sulfate HFA 90 mcg/actuation aerosol inhaler 1 puff INHALATION Q6H 01/24/18 [History Confirmed 01/24/18] mometasone-formoterol HFA 200 mcg-5 mcg/actuation aerosol inhaler 2 puff INHALATION BID #13 g 01/24/18 [Rx Confirmed 01/24/18] omeprazole 40 mg capsule,delayed release 40 mg PO QDAY #90 cap 01/24/18 [Rx Confirmed 01/24/18] sildenafil 100 mg tablet 100 mg PO PRN 01/24/18 [History Confirmed 01/24/18] tiotropium bromide 18 mcg capsule with inhalation device 1 cap INHALATION QDAY #30 ea 01/24/18 [Rx Confirmed 01/24/18] [facility] Medical History Arthritis (Chronic) Macular degeneration (Chronic) Hearing loss (Chronic) Hypertension (Chronic) GERD (gastroesophageal reflux disease) (Chronic) Emphysema lung (Chronic) COPD (chronic obstructive pulmonary disease) (Chronic) Surgical History H/O hernia repair (Acute) History of bilateral cataract extraction (Acute) History of cholecystectomy (Acute) Family History Father Colon cancer Mother Heart disease Uncle Myocardial infarction Hypertension Social History Smoking Status: Former smoker how long ago did patient quit smokin alcohol intake: current alcohol intake frequency: a few times a month what type of physical activity do you participate in: other details: pulmonary rehab frequency: 3-4 times per week HPI HPI Chief Complaint: follow-up visit Details: JESSE MACHUCA, is a 77 M who presents to the office today for a [id number] evaluation for necessity of supplemental O2. He has a past medical history as listed above but is significant for COPD with hypoxemia with activity. The patient was seen by pulmonary rehabilitation on 02/13/2018 and testing was done that demonstrated a decrease in oxygen saturation with exercise that required 4 L of supplemental oxygen with activity to maintain normal SPO2 per protocol. The patient states that with his oxygen, he is able to tolerate and under more exercise this noting an improvement in his ADLs with it. The patient does note that he will be following up with a rough rounder next month. He denies any acute complaints at this time. It was recommend that the patient have 4 L of supplemental O2 ordered with activity and 2 L with dyspnea at rest. The patient did have PFTs done which demonstrated the presence of a moderately severe mixed ventilatory defect with symmetric reduction in diffusing capacity and significant bronchodilator response. The patient otherwise denies any fever, chills, nausea, vomiting, so chest pain or pressure, palpitations, orthopnea, lower extremity edema, syncope or presyncopal episodes. ROS Const Constitutional: Positive for fatigue and weakness; no weight change, body ache, chills, fever(s), change in appetite, snoring, frequent falls, headache(s) or excessive sweating Eyes Eyes: No change in vision, eye pain, light sensitivity or blurry vision ENT ENT: No headache(s), abnormal hearing, ear pain, tinnitus, nasal congestion, sore throat or neck pain Resp Respiratory: Positive for cough and shortness of breath sob: SOB with activity; no snoring or wheezing Cardio Cardiology: No excessive sweating, chest pain at rest, chest pain with exertion, shortness of breath, dyspnea on exertion, palpitations, orthopnea or lightheadedness Gastro GI: No abdominal pain, change in bowel habits, constipation, diarrhea, vomiting, nausea/dyspepsia or cramping Genitourinary Male: No painful urination, urinary incontinence, urinary frequency, urinary urgency, blood in urine, testicle pain or other Musc Musculoskeletal: No neck pain, abnormal walking, joint pain, back pain, limited range of motion, numbness or tingling Skin Skin: No redness, dry skin, itching, lesions, wounds or rash Neuro Neurology: Positive for weakness; no frequent falls, headache(s), abnormal hearing, abnormal walking, numbness, tingling, abnormal speech, dizziness or memory loss Psych Psychiatric: No change in appetite, No memory loss, No anxiety, No depression, No Thoughts of harming yourself/Others Endo Endocrine: Positive for fatigue; no excessive sweating, cold intolerance, increased thirst/drinking, heat intolerance, flushing or increased hunger Aller/Imm Allergy/Immunologic: No wheezing, itchy eyes, hives or seasonal allergy symptoms Toño/Lymp Hematologic/Lymphatic: No easy bleeding, easy bruising or enlarged lymph nodes Exam Const General: healthy appearing Nutritional Appearance: overweight Orientation: oriented x3 Neck Neck: normal visual inspection, full ROM Resp Effort AND Inspection: able to speak in complete sentences, prolonged expiratory phase, normal respiratory effort Auscultation: Bilateral: Clear to Auscultation, Diminished Lung Sounds Cardio Rate: regular rate Rhythm: regular rhythm Skin General: no rashes or lesions noted Neuro General: alert, awake, oriented x3 Cranial Nerves: CN's II-XI intact bilaterally Psych Appearance: grossly normal Mental Status: mental status grossly normal Mood: congruent mood Affect: normal affect Assessment AND Plan 1. COPD (chronic obstructive pulmonary disease) J44.9 Plan The patient does have COPD with hypoxemia with activity. Supplemental O2 orders were placed to [employer]. 4 L of supplemental oxygen with activity and 2 L with dyspnea at rest. He will continue with his current medication regimen. No changes at this time. Discussed red flag symptoms that require urgent medical attention. He is not an acute exacerbation of his COPD at this time. 2. Hypoxemia R09.02 Plan Plan as above, the patient is only 92% O2 saturation on room air today in the office. He will follow-up with his rough rounder later next month. Dragon disclaimer Plan Detail Follow Up As previously scheduled or sooner if need Coding Level of Care Code Off vis,est,level 3 Diagnoses COPD (chronic obstructive pulmonary disease) J44.9 Hypoxemia R09.02 02/20/18 1200 <Electronically signed by Sean BARTH> Date Sean BARTH Cosigner Signature: Date (if applicable) CC: PULMONARY FUNCTION Observed: 02/13/2018 Status: F Source: [facility] TEST 9:47 AM [facility] Pulmonary Services/Neurology [address] [place] [id number] MR#: [id number] Acct: [id number] Name: JESSE MACHUCA Rep #: [id number] : 1940 77 From: Kendall Cooper DO Referring Dr: Dale Cooper DO Status: REG CLI Ordering Dr: Date: Location: [facility] Sex: M C INTRODUCTION: The patient is a 77-year-old male currently under the care of Dr. Dale Cooper presents for pulmonary function testing secondary to a diagnosis of COPD. Respiratory therapy reports good patient effort and reports no other concerns. Bronchodilators were used during testing. INTERPRETATION: Forced expiration spirometry demonstrates the presence of a moderately severe large airways obstructive ventilatory defect. There was a significant response to aerosolized bronchodilators noted in both FEV1 and FVC. Spirograms are of good quality and do not plateau indicating slow emptying of the lungs. The respiratory flow volume loop reveals decreased expiratory flow rates at all lung volumes consistent with airways obstruction. Body plethysmography was performed and reveals a decreased TLC to 3.59 L, 66% of predicted, indicative of a moderate restrictive ventilatory impairment. The remainder of the lung volumes are symmetrically reduced. Diffusing capacity by single breath CO is moderately reduced at 56% of predicted. IMPRESSION: These pulmonary function studies demonstrate the presence of a moderately severe mixed ventilatory defect with symmetric reduction in diffusing capacity and significant bronchodilator response. There are no previous pulmonary function studies available for comparison. 02/13/18946 <Electronically signed by Kendall Cooper DO> Date Kendall Cooper DO CC: Dale Cooper DO Date Dictated: 02/13/18942 Date Transcribed: 02/13/18942 Venetian Blind Washer: DB Signed [place] - INDIVIDUAL Observed: 02/11/2018 Status: F Source: [facility] 8:53 AM [facility] Pulmonary Rehab Reports [address] [place] [address] [place] - Individual Treatment Plan MR#: [id number] Acct: [id number] Name: JESSE MACHCUA Lyla Rep #: [id number] : 1940 77 From: Lalito Malik DELPHI DEVELOPER, FLOORING MECHANIC, BS PCP: Dale Cooper DO Exercise - 90-Day Assessment - Exercise Prescription Mode:: Treadmill, NuStep, Arm Ergometer Frequency (x/week): 3 Duration:: 30 Aerobic Exercise [30-60 min 3-7x/week]:: Progressing Target heart rate: 121 - 114-121w/max HR 80 Torrey MET Level:: 4 - Home Exercise Home Exercise?: No Disease Management - 90-Day - Hypoxemia Reassessment: Demonstrates knowledge of O2 Rx with exercise, Using O2 as prescribed - Medications Medication list reviewed:: Yes Taking medications 100% of the time:: Met Medication reassessment: Yes Pt demonstrates correct technique timing for MDI, Yes Pt demonstrates correct technique timing for DPI, Yes Pt demonstrates correct technique timing for NEB, Yes Pt demonstrates correct technique timing for spacer - Bronchial Hygiene Bronchial Hygiene Plan: Yes Pt demo correct for device - returned demonstration of acapella device, Yes Pt demo correct for improved hydration - uses proper hadn hygiene, Yes Pt demo correct for hand hygiene, Yes Pt demo correct for verbalize when to call MD - verbalizes Psychosocial - 90-Day - Assessment Depression reassess: Management of stress: Met, Management of depression: Met, Practicing interventions: Met Tobacco - 90-Day Assessment - Program Goals Tobacco Program Goals: Complete smoking cessation. Attend education classes. Improve Knowledge Test score - Stage of Change Stages of Change:: Action - Learning Barriers Learning Barriers: Participates in education - Family Support Do you have family support?: Yes - Tobacco Use Tobacco Use: Non-smoker Do you use smokeless tobacco?: No - Intervention Smoking Cessation Referral:: No Individual Education/Counseling:: No Education Schedule Given:: Yes - Education Gave Education Materials For:: Pulmonary Disease, Risk Factors, Breathing Techniques, Medical Compliance, Pulmonary A AND P, Exacerbation Signs AND Symptoms, Stress AND Relaxation Nutrition/Wt Mgmt - 90-Day - Weight Management Weight Assessment:: Wt loss 1-2 lbs per week Weight:: 219 lb - gained 3 pounds this month Weight Goals Progress:: Not progressing Patient Health Questionnaire 90-Day Re-eval Assessment 1. Little interest or pleasure in doing things: Not at all 2. Feeling down, depressed, or hopeless: Not at all 3. Trouble falling or staying asleep, or sleeping too much: Not at all 4. Feeling tired or having little energy: Not at all 5. Poor appetite or overeating: Not at all 6. Feeling bad about yourself -- or that you are a failure or have let yourself or your family down: Not at all 7. Trouble concentrating on things, such as reading the newspaper or watching television: Not at all 8. Moving or speaking so slowly that other people could have noticed. Or the opposite - being so fidgety or restless that you have been moving around a lot more than usual: Not at all 9. Thoughts that you would be better off , or of hurting yourself in some way: Not at all How difficult have these problems made it for you to do your work, take care of things at home, or get along with other people?: Not difficult at all Total Score: 0 COPD Assessment Test [CAT] - Questions Never cough = 0, Cough all the time = 5: 2 No phlegm = 0, Chest full of phlegm = 5: 1 No chest tightness = 0, Chest very tight = 5: 2 No breathless w/exertion = 0, Very breathless w/exertion = 5: 3 No limitations w/activity = 0, Very limited w/activity = 5: 2 Confident leaving home = 0, Not at all confident = 5: 1 Sleep soundly = 0, Don't sleep soundly = 5: 3 Lots of energy = 0, No energy at all = 5: 2 Total CAT score:: 16 Self-Efficacy 90-Day Re-eval Assessment We would like to know how confident you are in doing certain activities. Please select your confidence level for:: Select your confidence level for the following using the scale 1-10 where 1 is not at all confident and 10 is totally confident. Your score is the average of all 6 responses. Fatigue: How confident are you that you can keep the fatigue caused by your disease from interfering with the things you want to do? Select Number: 9 Physical Discomfort or Pain: How confident are you that you can keep the physical discomfort or pain of your disease from interfering with the things you want to do? Select Number: 10 Emotional Distress: How confident are you that you can keep the emotional distress caused by your disease from interfering with the things you want to do? Select Number: 9 Other Symptoms or Health Problems: How confident are you that you can keep other symptoms or health problems from interfering with the things you want to do? Select Number: 9 Different Tasks and Activities: How confident are you that you can do the different tasks and activities needed to manage your health condition so as to reduce your need to see a doctor? Select Number: 10 Medication: How confident are you that you can do things other than just taking medication to reduce how much your illness affects your everyday life? Select Number: 10 Total Score:: 9 01/28/18 1336 <Electronically signed by Lalito Malik CRT, RCP, BS> Date Lalito Malik CRT, RCP, BS Outcome assessment reviewed. Exercise plan approved as documented. Treatment plan and goals support patient needs/abilities. Continue with current plan. I certify the patient demonstrates improvement and remains willing and capable of participation. the patient continues to benefit from pulmonary services/training. The patient may continue at current intensity, endurance and modality and progress per protocol. 02/11/18 0853<Electronically signed by Brandin Matias MD> Cosigner Signature: Date Brandin Matias MD CC: Signed INTERNAL MEDICINE Observed: 01/24/2018 Status: F Source: [facility] OFFICE VISIT 12:33 PM [facility] [address] [place] [address] [place] [address] OFFICE VISIT Date of Service: 01/24/18 MR#: [id number] Acct: [id number] Name: JESSE MACHUCA Rep #: [id number] : 1940 Provider: Dale Cooper DO Age/Sex: 77/M Location: [facility] Status: Signed Intake Vital Signs01/24/18 Height 5 ft 6 in Intake Visit Reasons: F/U Chief Complaint: follow-up visit Is patient in pain?: No Allergies No Known Allergies Allergy (Unverified 01/24/18 09:44) Medications Fluticasone 0.05% [Flonase Nasal [place]] 1 spray NASAL BID 11/09/17 [History Confirmed 01/24/18] Metoprolol Tartrate [Lopressor (Beta Gigi)] 50 mg PO BID 11/09/17 [History Confirmed 01/24/18] Geneva-3/Dha/Epa/Fish Oil [Fish Oil Geneva-3 EC 1,200 mg] 1 ea PO 11/09/17 [History Confirmed 01/24/18] Pantoprazole Sodium [Protonix] 40 mg PO 11/09/17 [History Confirmed 01/24/18] Tiotropium Lund [Spiriva] 18 mcg IH 11/09/17 [History Confirmed 01/24/18] Vit A/Vit C/Vit E/Zinc/Copper [Preservision Areds Softgel] 2 ea PO 11/09/17 [History Confirmed 01/24/18] albuterol sulfate HFA 90 mcg/actuation aerosol inhaler 1 puff INHALATION Q6H 01/24/18 [History Confirmed 01/24/18] mometasone-formoterol HFA 200 mcg-5 mcg/actuation aerosol inhaler 2 puff INHALATION BID #13 g 01/24/18 [Rx Confirmed 01/24/18] omeprazole 40 mg capsule,delayed release 40 mg PO QDAY #90 cap 01/24/18 [Rx Confirmed 01/24/18] sildenafil 100 mg tablet 100 mg PO PRN 01/24/18 [History Confirmed 01/24/18] tiotropium bromide 18 mcg capsule with inhalation device 1 cap INHALATION QDAY #30 ea 01/24/18 [Rx Confirmed 01/24/18] PFSH Medical History Arthritis (Chronic) Macular degeneration (Chronic) Hearing loss (Chronic) Hypertension (Chronic) GERD (gastroesophageal reflux disease) (Chronic) Emphysema lung (Chronic) COPD (chronic obstructive pulmonary disease) (Chronic) Surgical History H/O hernia repair (Acute) History of bilateral cataract extraction (Acute) History of cholecystectomy (Acute) Family History Father Colon cancer Mother Heart disease Uncle Myocardial infarction Hypertension Social History Smoking Status: Former smoker how long ago did patient quit smokin alcohol intake: current alcohol intake frequency: a few times a month what type of physical activity do you participate in: other details: pulmonary rehab frequency: 3-4 times per week HPI HPI Chief Complaint: follow-up visit Details: JESSE MACHUCA, is a 77 M who presents to the office today for Exam Const General: healthy appearing Nutritional Appearance: overweight Orientation: oriented x3 Neck Neck: normal visual inspection, full ROM Resp Effort AND Inspection: able to speak in complete sentences Auscultation: Bilateral: Clear to Auscultation Percussion: hyperresonance Cardio Rate: regular rate Rhythm: regular rhythm Skin General: no rashes or lesions noted Assessment AND Plan 1. COPD (chronic obstructive pulmonary disease) J44.9 Plan His main problem is his shortness of breath he is in pulmonary rehab currently he has not had a pulmonary function test in over a year I need to repeat this so I can get a baseline and see if his medications need adjusted. Patient Instructions Insurance would not cover his protonix so I changed the prescription to omeprazole Orders Orders: 2. GERD (gastroesophageal reflux disease) K21.9 3. Hypertension I10 Plan Detail Other Medications New: Changed: Follow Up 3 Months Coding Level of Care Code Off vis,est,level 3 Diagnoses COPD (chronic obstructive pulmonary disease) J44.9 GERD (gastroesophageal reflux disease) K21.9 Hypertension I10 01/24/18 1233 <Electronically signed by Dale Cooper DO> Date Dale Cooper DO Cosigner Signature: Date (if applicable) CC: [place] - INDIVIDUAL Observed: 12/31/2017 Status: F Source: [place] TREATMENT PLAN 7:01 PM [facility] Pulmonary Rehab Reports [address] [place] [address] [place] - Individual Treatment Plan MR#: [id number] Acct: [id number] Name: JESSE MACHUCA Rep #: [id number] : 1940 77 From: Lalito Malik DELPHI DEVELOPER, FLOORING MECHANIC, BS PCP: Dale Cooper DO Exercise - 60-Day Assessment - Current Level Mode:: Treadmill, Airdyne, NuStep, Arm Ergometer Frequency (x/week): 3 Duration:: 30 Aerobic Exercise [30-60 min 3-7x/week]:: Progressing Target heart rate: 100 - THRR 114-121 [place] MET Level:: 3 Disease Management - 60-Day - Hypoxemia Reassessment: Using O2 as prescribed, Uses port O2 as prescribed - Medications Medication list reviewed:: Yes Taking medications 100% of the time:: Met Medication reassessment: Yes Pt demonstrates correct technique timing for MDI, Yes Pt demonstrates correct technique timing for DPI, Yes Pt demonstrates correct technique timing for NEB, Yes Pt demonstrates correct technique timing for spacer Psychosocial - 60-Day - Assessment Depression reassess: Management of stress: Met, Management of depression: Met, Practicing interventions: Met Tobacco - 60-Day Assessment - Program Goals Tobacco Program Goals: Complete smoking cessation. Attend education classes. Improve Knowledge Test score - Stage of Change Stages of Change:: Action - Learning Barriers Learning Barriers: Participates in education - Family Support Do you have family support?: Yes - Tobacco Use Tobacco Use: Non-smoker Do you use smokeless tobacco?: No - Intervention Smoking Cessation Referral:: No Individual Education/Counseling:: No Education Schedule Given:: Yes - Education Gave Education Materials For:: Pulmonary Disease, Risk Factors, Breathing Techniques, Medical Compliance, Pulmonary A AND P, Exacerbation Signs AND Symptoms, Stress AND Relaxation Nutrition/Wt Mgmt - 60-Day - Weight Management Weight Assessment:: Wt loss 1-2 lbs per week Weight:: 98.203 kg - down 5 pounds Weight Goals Progress:: Progressing Patient Health Questionnaire 60-Day Re-eval Assessment 1. Little interest or pleasure in doing things: Not at all 2. Feeling down, depressed, or hopeless: Not at all 3. Trouble falling or staying asleep, or sleeping too much: Not at all 4. Feeling tired or having little energy: Several days 5. Poor appetite or overeating: Not at all 6. Feeling bad about yourself -- or that you are a failure or have let yourself or your family down: Not at all 7. Trouble concentrating on things, such as reading the newspaper or watching television: Not at all 8. Moving or speaking so slowly that other people could have noticed. Or the opposite - being so fidgety or restless that you have been moving around a lot more than usual: Not at all 9. Thoughts that you would be better off , or of hurting yourself in some way: Not at all How difficult have these problems made it for you to do your work, take care of things at home, or get along with other people?: Not difficult at all Total Score: 1 COPD Assessment Test [CAT] - Questions Never cough = 0, Cough all the time = 5: 3 No phlegm = 0, Chest full of phlegm = 5: 4 No chest tightness = 0, Chest very tight = 5: 3 No breathless w/exertion = 0, Very breathless w/exertion = 5: 2 No limitations w/activity = 0, Very limited w/activity = 5: 1 Confident leaving home = 0, Not at all confident = 5: 1 Sleep soundly = 0, Don't sleep soundly = 5: 3 Lots of energy = 0, No energy at all = 5: 2 Total CAT score:: 19 Self-Efficacy 60-Day Re-eval Assessment We would like to know how confident you are in doing certain activities. Please select your confidence level for:: Select your confidence level for the following using the scale 1-10 where 1 is not at all confident and 10 is totally confident. Your score is the average of all 6 responses. Fatigue: How confident are you that you can keep the fatigue caused by your disease from interfering with the things you want to do? Select Number: 9 Physical Discomfort or Pain: How confident are you that you can keep the physical discomfort or pain of your disease from interfering with the things you want to do? Select Number: 8 Emotional Distress: How confident are you that you can keep the emotional distress caused by your disease from interfering with the things you want to do? Select Number: 9 Other Symptoms or Health Problems: How confident are you that you can keep other symptoms or health problems from interfering with the things you want to do? Select Number: 9 Different Tasks and Activities: How confident are you that you can do the different tasks and activities needed to manage your health condition so as to reduce your need to see a doctor? Select Number: 10 Medication: How confident are you that you can do things other than just taking medication to reduce how much your illness affects your everyday life? Select Number: 10 Total Score:: 9 12/31/17 1346 <Electronically signed by Lalito Malik CRT, RCP, BS> Date Lalito Malik CRT, RCP, BS Outcome assessment reviewed. Exercise plan approved as documented. Treatment plan and goals support patient needs/abilities. Continue with current plan. I certify the patient demonstrates improvement and remains willing and capable of participation. the patient continues to benefit from pulmonary services/training. The patient may continue at current intensity, endurance and modality and progress per protocol. 12/31/17 163<Electronically signed by Lane Lord MD> Cosigner Signature: Date Lane Lord MD CC: Signed [place] - HISTORY AND Observed: 12/14/2017 Status: F Source: [place] PHYSICAL 6:05 PM [facility] Pulmonary Rehab Reports [address] [place] [address] [place] - History AND Physical MR#: [id number] Acct: [id number] Name: JESSE MACHUCA Rep #: [id number] : 1940 76 From: Lalito Malik DELPHI DEVELOPER, FLOORING MECHANIC, BS PCP: Dale Cooper MD History of Present Illness Arrival date:: 11/09/17 Arrival time:: 09:58 Date of Evaluation: 11/09/17 Referring Physician: Dr. Dale Cooper Primary Diagnosis: COPD- Chronic Bronchitis History of Present Illness: This is a 76 yr old male patient of Dr. Dale Cooper who presents to pulmonary rehab today with shortness of breath with exertion, which he reports seems to be getting worse. mMRC Breathless Scale: When is the patient short of breath? Y/N Grade: Description of Breathlessness: Respiratory Problems: Yes: Limited Range of Motion, Fatigue, Wheezing, Able to Speak in Full Sentences, Dyspnea at Rest, Dyspnea with Activity No: Retain Secretions, Dizziness, Hoarseness, Anxiety, Panic - Secretions Normal Color:: yellowish brown color to clear Thick:: Yes Amount/Day:: 1 TBSP AM: Yes Sleep Disorder Evaluation: EPWORTH SLEEPINESS SCALE 0 = NO chance of dozing 2 = MODERATE chance of dozing 1 = SLIGHT chance of dozing 3 = HIGH chance of dozing : SITUATION: CHANCE OF DOZING: Sitting and Reading Watching TV Sitting inactive in a public place (i.e. Movies) As a passenger in a car for an hour without a break Lying down to rest in the afternoon when permitted Total Equals: 1-6 = Adequate Sleep 7-8 = Average > 9 = Sleep Study/Consult Indicated Patient has a history of sleep apnea. Past Medical History Past Medical History: Arthitis, Hypertension, High Cholesterol, Obesity, - - Chronic Bronchitis, Esophageal Reflux, Sleep apnea, hypertension, decreased libido, sinusitis, wheezing symptom, chest wall pain. Psychiatric History: no pertinent psych hx Surgical History: - - oral surgery, tonsillectomy, colonoscopy, gallbladder, hernia repair, endoscopy, Additional Family History: Paternal grandfather heart disease, paternal uncle heart disease, sister, malignant neoplasm colon cancer, father stricture of esophagous and malignant neoplasm, paternal grandmother history of malignant neoplasm. 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 Smoking Status: Former smoker - Living Arrangement Patient lives with other person(s) in the home:: AROUND [place] CLOCK - Current/ Previous Services [facility] Home Health:: No Other Home Health:: No [facility] Cardiac Rehab:: No Life (Palliative) Care Services:: No Tobacco Use AND Smoking Cessation:: No Pulmonary Rehab:: No Social History - Smoking History Smoking Status: Former smoker Years Smokin Packs Smoked per Day: 3 - as much as 4 to 5. Hx Smoking Cessation Date: 1986 Hx Tobacco Use: Yes Hx Smoking Exposure: No - Alcohol Use Alcohol Usage: Yes - ocassionally - Substance Abuse Hx Substance Use: No - Occupation Occupation (List type of work in comments):: Retired - Hobbies, Recreation, Social Activities Hobbies: Walking, Other - golfing (hard to do lack of stamina), Recreational Activities: I am able to engage in a few activities - doesn't feel able to do what I used to do, even walking to [employer] is a chore. Medications AND Vaccination Info Home Medications: Ambulatory Orders Fluticasone 0.05% [Flonase Nasal [place]] 1 spray NASAL BID 11/09/17 Metoprolol Tartrate [Lopressor (Beta Gigi)] 50 mg PO BID 11/09/17 Mometasone/Formoterol [Dulera 100 Mcg/5 Mcg Inhaler] 13 gm IH BID 11/09/17 Mometasone/Formoterol [Dulera 200 Mcg/5 Mcg Inhaler] 13 gm IH BID 11/09/17 Geneva-3/Dha/Epa/Fish Oil [Fish Oil Geneva-3 EC 1,200 mg] 1 each PO 11/09/17 Pantoprazole Sodium [Protonix] 40 mg PO 11/09/17 Sildenafil Citrate [Viagra] 100 mg PO 11/09/17 Tiotropium Lund [Spiriva] 18 mcg IH 11/09/17 Vit A/Vit C/Vit E/Zinc/Copper [Preservision Areds Softgel] 2 each PO 11/09/17 Do you use a peak flow meter at home?: No Do you use a spacer device with your inhalers?: No Number of hospital visits in the last year?: 0 Number of emergency room visits in the last year?: 0 Do you see your physician on a regular schedule?: Yes How often?: 6 months or 3 months if having problems Has adequate access AND meets healthcare needs?: Yes - Drug Regimen Review Indication of potential clinical significant med issues (drug reactions, ineffective therapy, side effects, interactions, duplicate therapy, omissions, dose errors, or non-compliance)?: No problems found during review Was a physician or the physican designee contacted within one calendar day to resolve clinically significant medication issues, including reconcilitation?: No Review of Systems Constitutional: Denies: Chills, Fever, Weight Change HEENT: Reports: Hard of Hearing, Hearing Changes. Denies: Head Aches, Sinus Congestion, Sinus Drainage Cardiovascular: Denies: Chest Pain, Palpitations Respiratory: Reports: Shortness of breath upon exertion - seems to be worsening according to patient, Wheezing. Denies: Cough, Shortness of breath at rest, Sputum production Musculoskeletal: Denies: Joint Pain, Joint Tenderness Skin: Reports: Dryness. Denies: Rash, Wounds Neurological: Denies: Numbness, Tingling, Focal weakness Psychiatric: Denies: Anxiety, Depression, Homicidal Ideations, Suicidal Ideations Advanced Directives - Advanced Directives Power of Quality Control Technician: No Living Will: No Advance Directives Information Provided: Yes Advance Directives on File: No DNR Order?:: No Coping/Social Support/Other - Abuse and Neglect Do you feel safe in your surroundings?:: YES Are there sign/symptoms of abuse?: No Has anyone physically or mentally abused you?: No Has anyone threatened to harm you in any way?: No Been asked to sign a document that you don't understand?: No - Exacerbation History Number of Exacerbations in a year:: 0 Recent exposure to illness?: No Known carrier?: No Antibiotic Taken:: No I know I have an infection when:: Tightness in chest, chest wall pain, harder to breath, and change in color of mucus. - Nutrition Risk Factor Are you on a special diet?: No Diff. chewing/swallowing:: No Have you had a change in your weight?: Yes Amount gained:: 20 Physical Exam - Vital Signs Temperature: 97.8 F Pulse Rate: 42 - sitting Respiratory Rate: 22 Pulse Ox at rest: 93 - Room Air at rest Blood Pressure: 142/80 - sitting L arm Nailbeds:: pink Height: 5 ft 6 in Weight:: 100.2 kg Weight Source: Standing Scale Body Mass Index (BMI): 35.6 - Physical Exam General: Alert, Oriented x3, Cooperative Neck: Supple, No JVD, Negative Carotid Bruits, Negative Hepatojugular Reflux Lungs: Clear to auscultation, Normal air movement Cardiovascular: Regular rate, Regular Rhythm, No murmurs Extremities: No clubbing, No cyanosis, No edema, Capillary Refill Less than 3 Seconds Musculoskeletal: No Tenderness to Palpation of Joints or Extremities Psych/Mental Status: Normal Affect, Appropriate - Pain Is Patient Pain Free?: Yes Pain Location: none - Hearing/Speech/Vision/Spiritual Cultural/Protestant Needs that may affect Treatment Plan: No Do you have any Spiritual/Emotional needs of which our Manager Ems Ministry could be of assistance?: No Manager Ems to contact Place of Synagogue?: No Primary Language: Danish Right Hearing Abillity: Hard of Hearing Visual Difficulty: Near Sighted, Far Sighted Comments: wears corrective lenses for vision correction - Motivation to Participate On a scale of 1 to 10, how prepared are you to commit to attending pulmonary rehabilitation?: 9 What do you see as barriers to successfully being able to complete the program?: babysitting grandchildren, son's deployment service What do you see as the benefits of succesfully completing the program? In other words, what do you hope to get out of participating in the program?: hopefully increase lung capacity and improve breathing to be more functiona Are there issues you are dealing with that will interfere with completing the program?: none Do you have a spouse or signficant other, family or friends who will help support you to complete the program?: yes Diagnostic Data Review - Lab Results Hematology/Chemistry: see labs from Dr. Cooper's office/[facility]. - Diagnostic and Imaging Results CXR:: Breanna Vanessa - Pulmonary Function Test FEV1:: 1.43 FVC:: 2.86 FEV1/FVC%:: 50 Gold Classification: GOLD class II(mod. COPD)with FEV1/FVC <70%, 50%</= FEV1< 50% predicted Functioning ADL/IADL - Functional Capacity ADL/IADL GROOMING: Current ability to tend safely to personal hygiene needs (i.e., washing face/hands, hair care, shaving or make up, teeth or denture care, fingernail care).: Able to groom self unaided, w/ or w/o the use of assistive devices. Current ABILITY TO DRESS UPPER BODY safely (with or w/out dressing aids) including undergarments, pullovers, front-opening shirts AND blouses, managing zippers, buttons, AND snaps:: Gets clothes out, puts on, and removes from upper body w/o assist. Current ABILITY TO DRESS LOWER BODY safely (with or w/out dressing aids) including undergarments, slacks, socks or nylons, shoes:: Able to obtain, put on, AND remove clothing and shoes w/out assistance. Bathing: Current ability to wash entire body safely. EXCLUDES grooming (washing face, washing hands and shampooing hair): Bathes self in shower/tub independently, incl getting in AND out TOILET TRANSFERRING: Current ability to get to AND from the toilet/BSC safely and transfer on AND off toilet/commode.: Gets to AND from toilet, transfers independently w/ or w/o a device. TOILETING HYGIENE: Current ability to maintain perineal hygiene safely, adjust clothes and/or incontinence pads before AND after using toilet, commode, bedpan, urinal. If managing ostomy, includes cleaning: Manages toileting hygiene AND clothing management w/out assist TRANSFERRING: Current ability to move safely from bed to chair, or ability to turn and position self in bed if patient is bedfast.: Able to independently transfer. AMBULATION/LOCOMOTION: Current ability to walk safely, once in a standing position, or use wheelchair, once in a seated position, on a variety of surfaces.: Able to IND walk on even/uneven surface AND use stairs with or w/o railing FEEDING or EATING: Current ability to feed self meals and snacks safely. NOTE: This refers only to the process of eating, chewing and swallowing, not preparing the food to be eaten.: Able to independently fee ABILITY TO PLAN AND PREPARE MEALS: (e.g., cereal, sandwich) or reheat delivered meals safely.: IND prepare light meals/reheat delvrd meals/Or can but hasn't done so. ABILITY TO USE TELEPHONE: Current ability to answer the phone safely, including dialing numbers, and effectively using the telephone to communicate.: Able to dial numbers and answer calls appropriately and as desired. - Pt Functioning Prior to Problem Self-Care (e.g.,grooming, dressing, AND bathing): INDEPENDENT Ambulation: INDEPENDENT Transfer: INDEPENDENT Household tasks (e.g., light meal prep, laundry, shopping): INDEPENDENT 11/09/17 1036 <Electronically signed by Lalito Malik CRT, RCP, PAMELA> Date Lalito Malik CRT, RCP, BS Outcome assessment reviewed. Exercise plan approved as documented. Treatment plan and goals support patient needs/abilities. Continue with current plan. I certify the patient demonstrates improvement and remains willing and capable of participation. the patient continues to benefit from pulmonary services/training. The patient may continue at current intensity, endurance and modality and progress per protocol. 12/14/171804<Electronically signed by Brandin Matias MD> Cosigner Signature: Date Brandin Matias MD CC: Signed [place] - INDIVIDUAL Observed: 12/14/2017 Status: F Source: [place] TREATMENT PLAN 6:05 PM [facility] REPOSITORY [facility] Pulmonary Rehab Reports [address] [place] [address] [place] - Individual Treatment Plan MR#: [id number] Acct: [id number] Name: JESSE MACHUCA Rep #: [id number] : 1940 76 From: Lalito Malik CRT, RCP, BS PCP: Dale Cooper MD General Information - General Information Admitting Diagnosis: Chronic Bronchitis Gold Classification:: GOLD 2: Moderate - PFT FEV1:: 1.43 FVC:: 2.86 FEV1/FVC%:: 50 - Education/Goals Barriers to Learning: Hearing Impairment, Vision Impairment Individual Counseling: Initial Assessment: Dyspnea control techniques at rest, activity, and ADLs, Inhaled and respiratory medications, Exacerbation prevention AND management, ADL management and pacing, Nutrition AND weight management, Home exercise plan AND guidelines Patient Goals: Breathe better: Initial Assessment, Increase endurance/stamina: Initial Assessment, Return to recreation/hobby: Initial Assessment, Improve weight: Initial Assessment Exercise - Initial Assessment - Visit Date of Eval: 11/09/17 - Initial Evaluation - Problem/Goals Problems: Deconditioning, No regular exercise, Knowledge deficit exercise guidelines, Knowledge deficit exercise safety - Exercise Prescription Frequency (x/week): 3 Duration:: 30 MET LEVEL:: 2 - 2.0-2.5 METs HR (bpm):: 107 - THRR 100-107 - Plan Plan and Plan to Review:: Benefits of exercise, Core components of exercise, How to measure dyspnea level, How to monitor dyspnea level, Exercise intensity, Exercise safety guideline, Home exercise guidelines, Torrey: 3-4/11-13 Disease Management - Initial - Problems/Goals-Hypoxemia Hypoxemia Problems:: Poor knowledge of O2 use/safety Hypoxemia Goals:: Using O2 as Rx's safely - Problems/Goals-Medications Medication Goals: Correct technique/timing AND care of MDI, DPI, nebulizer, and spacer. - Problems/Goals-Bronchial Hygiene Bronchial Hygiene Problems:: Respiratory infection Prevention/Management Bronchial Hygiene Goals:: Pt demonstrates effective cough, effective secretion clearance., Pt describes signs and symptoms of infection. - Initial Assessment SpO2:: 93 - room air Does pt report taking home meds as prescribed?: Yes Medications: Yes MDI, Yes DPI, No Spacer Patient Reports:: Prod cough daily <1 Tbsp, Nasal Congestion, 0-1/yr respiratory infection - Plans Hypoxemia Plan:: Monitor SpO2 rest AND with exercise, Train appropriate O2 use with exercise, Train O2 safety AND systems Reviewed prescribed medications:: Purpose, Schedule, Side effects, Importance of compliance Instruct correct technique/timing AND care:: MDI, DPI, Return demo use of inhaler Bronchial Hygiene Plan: Controlled cough, Vibratory PEP device, NS Nasal spray, Hydration, Hand hygiene, Evaluate sputum, When to call MD, Signs/symptoms to report: Psychosocial - Initial Assess - Problems/Goals Problems: Impaired Q.O.L. Psychosocial Goals: Improved Q.O.L. - Psychosocial Test Depression:: Self report - fustration of not being able to function daily, or play golf anymore, Impaired QOL Tests Completed: SF - 36 survey completed, Mood Scale Test Referred to MD for counseling:: No - Plan Reviewed screening results: Yes Instructions given regarding:: Benefits of exercise, Relaxation techniques, Training in coping strategies Tobacco - Initial Assessment - Program Goals Tobacco Program Goals: Complete smoking cessation. Attend education classes. Improve Knowledge Test score - Stage of Change Stages of Change:: Action - Learning Barriers Learning Barriers: Hearing, Vision, Ready to Learn - Family Support Do you have family support?: Yes - Tobacco Use Tobacco Use: Non-smoker How long ago did you quit using tobacco products?: Greater than or equal to 6 months ago Do you use smokeless tobacco?: No - Intervention Smoking Cessation Referral:: No Individual Education/Counseling:: No Education Schedule Given:: Yes - Education Gave Education Materials For:: Pulmonary Disease, Risk Factors, Breathing Techniques, Medical Compliance, Pulmonary A AND P, Exacerbation Signs AND Symptoms, Stress AND Relaxation Nutrition/Wt Mgmt - Initial - Problems/Goals Problems: Overweight Goals: BMI 21-25, Waist circumference - Weight Management Knowledge Deficit Management of:: Overweight, Role of exercise in weight control Admit Height:: 5 ft 6 in Admit Weight:: 100 kg Admit BMI:: 35.6 - Diabetes Diabetes:: No Insulin: No Do you monitor your blood sugar at home?: No - Intervention Referral to dietitian:: No Referral to Diabetic Clinic:: No Will attend diet classes:: Yes - Plan Nutrition Plan: Yes Review BMI or WC AND identify target wt AND strategies for wt control, Yes Nutrition education class:, Yes Medication education class [Prednisone]:, Yes Weight control education class:, Yes Education re: Need for ongoing weight monitoring Patient Health Questionnaire Initial Assessment 1. Little interest or pleasure in doing things: More than half the days 2. Feeling down, depressed, or hopeless: Several days 3. Trouble falling or staying asleep, or sleeping too much: Nearly every day 4. Feeling tired or having little energy: Nearly every day 5. Poor appetite or overeating: Nearly every day 6. Feeling bad about yourself -- or that you are a failure or have let yourself or your family down: Not at all 7. Trouble concentrating on things, such as reading the newspaper or watching television: Several days 8. Moving or speaking so slowly that other people could have noticed. Or the opposite - being so fidgety or restless that you have been moving around a lot more than usual: Several days 9. Thoughts that you would be better off , or of hurting yourself in some way: Not at all How difficult have these problems made it for you to do your work, take care of things at home, or get along with other people?: Somewhat difficult Total Score: 14 COPD Knowledge Test Initial COPD is a lung disease that:: Makes it hard to breathe AND gets worse over time In the [place] the term COPD describes 2 main lung conditions:: Emphysema AND chronic bronchitis The most common lung irritant that causes COPD is:: Cigarette smoke Common signs and symptoms of COPD include:: An ongoing cough/cough that produces a large amount of mucus, AND SOB If you have COPD, what steps can you take?: Follow your treatment plan for COPD exactly as your doctor prescribes Swelling of the ankles is common in COPD:: False Fatigue [tiredness] is common in COPD:: True Wheezing is common in COPD:: True Crushing chest pain is common in COPD:: True Rapid weight loss is common in COPD:: False Breathlessness is a normal response to exercise: False Exercise should be avoided if it makes you short of breath: False All bronchodilators act within 10 minutes: False A spacer device increases the medication to the lungs: False Annual flu vaccine is recommended for pts w/lung disease: True COPD Knowledge Test Total Score:: 11 COPD Assessment Test [CAT] - Questions Never cough = 0, Cough all the time = 5: 2 No phlegm = 0, Chest full of phlegm = 5: 3 No chest tightness = 0, Chest very tight = 5: 3 No breathless w/exertion = 0, Very breathless w/exertion = 5: 5 No limitations w/activity = 0, Very limited w/activity = 5: 4 Confident leaving home = 0, Not at all confident = 5: 2 Sleep soundly = 0, Don't sleep soundly = 5: 4 Lots of energy = 0, No energy at all = 5: 5 Total CAT score:: 28 Self-Efficacy Initial Assessment We would like to know how confident you are in doing certain activities. Please select your confidence level for:: Select your confidence level for the following using the scale 1-10 where 1 is not at all confident and 10 is totally confident. Your score is the average of all 6 responses. Fatigue: How confident are you that you can keep the fatigue caused by your disease from interfering with the things you want to do? Select Number: 1 Physical Discomfort or Pain: How confident are you that you can keep the physical discomfort or pain of your disease from interfering with the things you want to do? Select Number: 2 Emotional Distress: How confident are you that you can keep the emotional distress caused by your disease from interfering with the things you want to do? Select Number: 5 Other Symptoms or Health Problems: How confident are you that you can keep other symptoms or health problems from interfering with the things you want to do? Select Number: 7 Different Tasks and Activities: How confident are you that you can do the different tasks and activities needed to manage your health condition so as to reduce your need to see a doctor? Select Number: 8 Medication: How confident are you that you can do things other than just taking medication to reduce how much your illness affects your everyday life? Select Number: 4 Total Score:: 4 Nutrition Survey - Nutrition Survey Instructions Scoring Instructions: Scoring is as follows: Yes = 1 points. No = 0 point. Patient score that is >/=12 is considered to be at potential nutritional risk and could benefit from a referral to a registered dietitian. - Nutrition Survey Initial Have you lost >10 lbs over the past 2 months without trying?: No Are you following a special diet at home for diabetes, low fat, or low salt?: No Are you interested in meeting with a dietitian for help understanding your diet?: No Do you eat less than 3 meals a day?: No Do you eat fatty meats (burciaga, sausage, ribs, etc), fried foods, desserts, large amounts of salad dressings, margarine, butter, or cheese most days?: Yes Do you have food allergies? [Enter types in comment field]: No Do you eat in restaurants more than 3 times a week?: No Do you season food with salt, seasoning salt, or garlic salt?: Yes Do you used canned, boxed, frozen meals, or soups, seasoning packets?: Yes Total Score:: 3 11/09/17 1117 <Electronically signed by Lalito Malik CRT, RCP, BS> Date Lalito Malik CRT, RCP, BS Outcome assessment reviewed. Exercise plan approved as documented. Treatment plan and goals support patient needs/abilities. Continue with current plan. I certify the patient demonstrates improvement and remains willing and capable of participation. the patient continues to benefit from pulmonary services/training. The patient may continue at current intensity, endurance and modality and progress per protocol. 12/14/17 2911<Electronically signed by Brandin Matias MD> Cosigner Signature: Date Brandin Matias MD CC: Signed [place] - INDIVIDUAL Observed: 12/14/2017 Status: F Source: [place] TREATMENT PLAN 6:05 PM [facility] REPOSITORY [facility] Pulmonary Rehab Reports [address] [place] [address] [place] - Individual Treatment Plan MR#: [id number] Acct: [id number] Name: JESSE MACHUCA Rep #: [id number] : 1940 76 From: Lalito Malik CRT, RCP, BS PCP: Kenneth MAN,Dale Exercise - 30-Day Assessment - Exercise Prescription Mode:: Treadmill, Airdyne, NuStep, Arm Ergometer Frequency (x/week): 3 Duration:: 30 Aerobic Exercise [30-60 min 3-7x/week]:: Progressing Target heart rate: 121 - 114-121 Max HR 92 Torrey MET Level:: 3 - Home Exercise Home Exercise:: No Disease Management - 30-Day - Hypoxemia Reassessment: Demonstrates knowledge of O2 Rx with exercise - Medications Medication list reviewed:: Yes Taking medications 100% of the time:: Approximately 75% of the time - reinforced routine use as ordered by physician. Medication reassessment: Yes Pt demonstrates correct technique timing for MDI, Yes Pt demonstrates correct technique timing for DPI, Yes Pt demonstrates correct technique timing for NEB, Yes Pt demonstrates correct technique timing for spacer - Bronchial Hygiene Bronchial Hygiene Plan: Yes Pt demo correct for improved hydration - drinks regularly, Yes Pt demo correct for hand hygiene - uses good hand washing Psychosocial - 30-Day - Assessment Reassessment: Practicing interventions Tobacco - 30-Day Assessment - Program Goals Tobacco Program Goals: Complete smoking cessation. Attend education classes. Improve Knowledge Test score - Stage of Change Stages of Change:: Action - Learning Barriers Learning Barriers: Participates in education - Family Support Do you have family support?: Yes - Tobacco Use Tobacco Use: Non-smoker Do you use smokeless tobacco?: No - Intervention Smoking Cessation Referral:: No Individual Education/Counseling:: No Education Schedule Given:: Yes - Education Gave Education Materials For:: Pulmonary Disease, Risk Factors, Breathing Techniques, Medical Compliance, Pulmonary A AND P, Exacerbation Signs AND Symptoms, Stress AND Relaxation Nutrition/Wt Mgmt - 30-Day - Weight Management Weight Assessment:: Wt loss 1-2 lbs per week Weight:: 100.244 kg Weight Goals Progress:: Progressing Patient Health Questionnaire 30-Day Re-eval Assessment 1. Little interest or pleasure in doing things: Not at all 2. Feeling down, depressed, or hopeless: Not at all 3. Trouble falling or staying asleep, or sleeping too much: Several days 4. Feeling tired or having little energy: Several days 5. Poor appetite or overeating: Not at all 6. Feeling bad about yourself -- or that you are a failure or have let yourself or your family down: Not at all 7. Trouble concentrating on things, such as reading the newspaper or watching television: Not at all 8. Moving or speaking so slowly that other people could have noticed. Or the opposite - being so fidgety or restless that you have been moving around a lot more than usual: Not at all 9. Thoughts that you would be better off , or of hurting yourself in some way: Not at all How difficult have these problems made it for you to do your work, take care of things at home, or get along with other people?: Not difficult at all Total Score: 2 COPD Assessment Test [CAT] - Questions Never cough = 0, Cough all the time = 5: 2 No phlegm = 0, Chest full of phlegm = 5: 2 No chest tightness = 0, Chest very tight = 5: 1 No breathless w/exertion = 0, Very breathless w/exertion = 5: 2 No limitations w/activity = 0, Very limited w/activity = 5: 1 Confident leaving home = 0, Not at all confident = 5: 1 Sleep soundly = 0, Don't sleep soundly = 5: 3 Lots of energy = 0, No energy at all = 5: 2 Total CAT score:: 14 Self-Efficacy 30-Day Re-eval Assessment We would like to know how confident you are in doing certain activities. Please select your confidence level for:: Select your confidence level for the following using the scale 1-10 where 1 is not at all confident and 10 is totally confident. Your score is the average of all 6 responses. Fatigue: How confident are you that you can keep the fatigue caused by your disease from interfering with the things you want to do? Select Number: 8 Physical Discomfort or Pain: How confident are you that you can keep the physical discomfort or pain of your disease from interfering with the things you want to do? Select Number: 7 Emotional Distress: How confident are you that you can keep the emotional distress caused by your disease from interfering with the things you want to do? Select Number: 8 Other Symptoms or Health Problems: How confident are you that you can keep other symptoms or health problems from interfering with the things you want to do? Select Number: 8 Different Tasks and Activities: How confident are you that you can do the different tasks and activities needed to manage your health condition so as to reduce your need to see a doctor? Select Number: 9 Medication: How confident are you that you can do things other than just taking medication to reduce how much your illness affects your everyday life? Select Number: 9 Total Score:: 8 12/03/17 1045 <Electronically signed by Lalito Malik CRT, RCP, BS> Date Lalito Malik CRT, RCP, PAMELA Outcome assessment reviewed. Exercise plan approved as documented. Treatment plan and goals support patient needs/abilities. Continue with current plan. I certify the patient demonstrates improvement and remains willing and capable of participation. the patient continues to benefit from pulmonary services/training. The patient may continue at current intensity, endurance and modality and progress per protocol. 12/14/17 1805<Electronically signed by Brandin Matias MD> Cosigner Signature: Date Brandin Matias MD CC: Signed ALLERGIES ALLERGIES DATE TYPE / CODE NAME / CODE REACTION SEVERITY SOURCE 11/02/2018 Drug hydrocodone/F Unknown Unknown [place] [facility] Allergy/4160 [id number](RXN Hospital 58462(SNOMED ORM) Repository CT) 10/10/2018 Drug acetaminophen Unknown Unknown [facility] /[id number](R [facility] 91971(SNOMED XNORM) Repository CT) 07/10/2018 Drug No Known Unknown [place] [facility] Allergy/4160 Allergies/F00 Hospital 89474(SNOMED 2226784(RXNOR Repository CT) M) ENCOUNTERS ENCOUNTERS ADMIT/DISCHARGE ACCOUNT ADMITTING ENCOUNTER LOCATION SOURCE NUMBER CLASS 11/27/2018 [id number] Ambulatory [place] 8 [facility] ing:CR Repository 11/21/2018 [id number] Ambulatory [place] [facility] 7 [facility] ing:CR Repository 11/19/2018 [id number] Ambulatory [place] 0 [facility] ing:MTRAD Repository 11/19/2018/ [id number] Ambulatory BMSBuilding:B [place] 9 9 [place] Repository 11/11/2018 [id number] Ambulatory [place] 5 [facility] ing:LAB Repository 11/02/2018/ [id number] Ambulatory BMSBuilding:B [place] 8 8 [place] Repository 10/25/2018/ [id number] Ambulatory BMSBuilding:B [place] 8 0 [place].[facility] Repository 10/19/2018 [id number] Ambulatory BMSBuilding:B [place] 4 [place]..[facility] Repository 10/18/2018 [id number] Ambulatory BMSBuilding:B [place] 5 [place].[facility] Repository 10/18/2018/ [id number] Ambulatory [place] 8 5 [facility] Hospital ing:CLSPRoom: Repository [id number] 10/14/2018 [id number] Ambulatory BMSBuilding:W [place] 7 [facility] Hospital Repository 10/14/2018 [id number] [facility]ulatory [place] [facility] 3 [facility] Repository 10/11/2018 [id number] Ambulatory [place] 9 [facility] Hospital ing:RAD Repository 10/11/2018 [id number] Ambulatory [place] 4 [facility] Hospital ing:LAB Repository 10/10/2018/ [id number] Ambulatory BMSBuilding:B [place] 8 1 [place].[facility] Repository 08/29/2018 [id number] Ambulatory BMSBuilding:W [place] 8 [facility] Repository 08/29/2018 [id number] Ambulatory [place] 0 [facility] Hospital ing:CVS Repository 08/20/2018/ [id number] Ambulatory BMSBuilding:B [place] 8 9 [place].[facility] Hospital Repository 07/10/2018/ [id number] Ambulatory BMSBuilding:B [place] 8 0 [place].[facility] Repository 05/24/2018 [id number] Ambulatory [place] 9 [facility] Hospital ing:LAB Repository 05/23/2018/ [id number] Ambulatory BMSBuilding:B [place] 8 5 [place].[facility] Repository 05/02/2018/ [id number] Ambulatory BMSBuilding:B [place] 8 7 [place].[facility] Repository 03/21/2018/ [id number] Ambulatory BMSBuilding:B [place] 8 9 [place].[facility] Repository 03/15/2018 [id number] Ambulatory [place] 1 [facility] Hospital ing:[place] Repository 02/22/2018/ [id number] Ambulatory [place] 8 8 [facility] Hospital ing:[place] Repository 02/20/2018/ [id number] Ambulatory BMSBuilding:B [place] 8 8 [place].[facility] Repository 02/13/2018 [id number] Ambulatory BMSBuilding:W [place] 7 [facility] Repository 02/12/2018 [id number] Ambulatory [place] 4 [facility] ing:PSN Repository 02/01/2018/ [id number] Ambulatory [place] 8 8 [facility] ing:[place] Repository 01/24/2018/ [id number] Ambulatory BMSBuilding:B [place] 8 5 [place] Repository 01/02/2018/ [id number] Ambulatory [place] 8 5 [facility] ing:[place] Repository 12/03/2017/ [id number] Ambulatory [place] 8 6 [facility] ing:LA Repository PAYERS PAYERS ENCOUNTER GUARANTOR PAYER SUBSCRIBER SOURCE 11/27/2018 JESSE J Primary JESSE J [place] [id number] Insurance:JOHANNA ATKINSDOB: [facility] [id number] [facility] Number: Repository 15289Maj: 330 [id number] [phone] () Date:[id number] [facility] [place] [address]UH: 11/27/2018 Secondary NOT GIVENUNK [place] Insurance:SELF PAY [facility] Number: Effective Repository Date:2018-11-21 11/21/2018 JESSE J Primary JESSE J [place] [id number] Insurance:JOHANNA ATKINSDOB: [facility] [id number] [facility] Number: Repository [id number]: 330 [id number] [phone] () Date:[id number] [facility] [address] [address]JG: 11/21/2018 Secondary NOT GIVENUNK [place] Insurance:SELF PAY [facility] Number: Effective Repository Date:2018-11-04 11/19/2018 JESSE J Primary JESSE J [place] [id number] Insurance:JOHANNA ATKINSDOB: [facility] [id number] [facility] Number: Repository [id number]: 330 [id number] [phone] (HP) Date:9020-16-06JL [address] [address]RR: 11/19/2018 Secondary NOT GIVENUNK [place] Insurance:SELF PAY [facility] Number: Effective Repository Date:2018-11-19 11/19/2018 JESSE J Primary JESSE J [place] [id number] Insurance:JOHANNA ATKINSDOB: [facility] [id number] [facility] Number: Repository [id number]: 330 [id number] [phone] (HP) Date:5703-45-00FP [address], [place] [address]WZ: 11/19/2018 Secondary NOT GIVENUNK [place] Insurance:SELF PAY [facility] Number: Effective Repository Date:2018-11-11 11/11/2018 JESSE J Primary JESSE J [place] [id number] Insurance:JOHANNA ATKINSDOB: [facility] [id number] [facility] Number: Repository [id number]: 330 [id number] [phone] (HP) Date:8208-53-65GJ [address] [address]PN: 11/11/2018 Secondary NOT GIVENUNK [place] Insurance:SELF PAY [facility] Number: Effective Repository Date:2018-11-11 11/02/2018 JESSE J Primary JESSE J [place] [id number] Insurance:JOHANNA ATKINSDOB: [facility] [id number] [facility] Number: Repository [id number]: 330 [id number] [phone] (HP) Date:6967-93-81CT [address] [place] [address]QP: 11/02/2018 Secondary NOT GIVENUNK [place] Insurance:SELF PAY [facility] Number: Effective Repository Date:2018-11-02 10/25/2018 JESSE J Primary JESSE J [place] [id number] Insurance:JOHANNA ATKINSDOB: [facility] [id number] [facility] Number: Repository [id number]: 330 [id number] [phone] (HP) Date:0248-97-29GB [address] [address]VR: 10/25/2018 Secondary NOT GIVENUNK [place] Insurance:SELF PAY [facility] Number: Effective Repository Date:2018-10-25 10/19/2018 JESSE J Primary JESSE J [place] [id number] Insurance:JOHANNA ATKINSDOB: [facility] [facility] [id number] [facility] Number: Repository [id number]: 330 [id number] [phone] () Date:7985-85-71OB [facility] [address] [place] [address]OD: 10/19/2018 Secondary NOT GIVENUNK Stanton Insurance:SELF PAY [facility] Number: Effective Repository Date:2018-10-19 10/18/2018 JESSE J Primary JESSE J [place] [id number] Insurance:JOHANNA ATKINSDOB: [facility] [id number] [facility] Number: Repository [id number]: [phone] [id number] [phone] (HP) Date:2198-30-28HF [address] [place] [address]ED: 10/18/2018 Secondary NOT GIVENUNK [place] Insurance:SELF PAY [facility] Number: Effective Repository Date:2018-10-18 10/18/2018 JESSE J Primary JESSE J [place] [id number] Insurance:JOHANNA ATKINSDOB: [facility] [id number] Community HospitalOPolcl[facility] Number: Repository [address]Nbd: 330 [id number] [phone] (HP) Date:5564-66-69TN [facility] [place] [address]HG: 10/18/2018 Secondary NOT GIVENUNK Terrence Insurance:SELF PAY [facility] Number: Effective Repository Date:2018-10-10 10/14/2018 JESSE J Primary JESSE J [place] [id number] Insurance:[facility]OHANNA [facility]: [facility] [id number] [facility] Number: Repository [id number]: 330 [id number] [phone] (HP) Date:8184-53-51SV [facility] [address] [address]QZ: 10/14/2018 Secondary NOT GIVENUNK [place] Insurance:SELF PAY [facility] Number: Effective Repository Date:2018-10-14 10/14/2018 JESSE J Primary JESSE J [place] [id number] Insurance:JOHANNA ATKINSDOB: [facility] [id number] [facility] Number: Repository [id number]: 330 [id number] [phone] (HP) Date:6624-97-78UW [facility] [address] [address]KQ: 10/14/2018 Secondary NOT GIVENUNK [place] Insurance:SELF PAY [facility] Number: Effective Repository Date:2018-10-10 10/11/2018 JESSE J Primary JESSE J [place] [id number] Insurance:JOHANNA AT[facility]ENTERDOB: [facility] [id number] [facility] Number: Repository [id number]: 330 [id number] [phone] (HP) Date:3648-57-35ST [facility] [address] [address]CJ: 10/11/2018 Secondary NOT GIVENUNK [place] Insurance:SELF PAY [facility] Number: Effective Repository Date:2018-10-11 10/11/2018 JESSE J Primary JESSE J [place] [id number] Insurance:JOHANNA ATKINSDOB: [facility] [id number] [facility] Number: Repository [id number]: 330 [id number] [phone] () Date:4365-51-02FF [facility] [address] [place] [address]NJ: 10/11/2018 Secondary NOT GIVENUNK Stanton Insurance:SELF PAY [facility] Number: Effective Repository Date:2018-10-11 10/10/2018 JESSE J Primary JESSE J [place] [id number] Insurance:JOHANNA ATKINSDOB: [facility] [id number] [facility] Number: Repository [id number]: 330 [id number] [phone] () Date:1022-06-25OS [facility] [address] [address]VI: 10/10/2018 Secondary NOT GIVENUNK [place] Insurance:SELF PAY [facility] Number: Effective Repository Date:2018-10-10 08/29/2018 JESSE J Primary JESSE J [place] [id number] Insurance:JOHANNA ATKINSDOB: [facility] [id number] [facility] Number: Repository [address]754Flx: 330 [id number] [phone] () Date:5555-55-92CC [facility] [address] [address]DJ: 08/29/2018 Secondary NOT GIVENUNK [place] Insurance:SELF PAY [facility] Number: Effective Repository Date:2018-08-29 08/29/2018 JESSE J Primary JESSE J [place] [id number] Insurance:JOHANNA ATKINSDOB: [facility] [id number] Community HospitalOPolclarinda regional health center Number: Repository [id number]: 330 [id number] [phone] (HP) Date:1474-37-19CD [address] [place] [address]FW: 08/29/2018 Secondary NOT GIVENUNK [place] Insurance:SELF PAY [facility] Number: Effective Repository Date:2018-08-20 08/20/2018 JESSE J Primary JESSE J [place] [id number] Insurance:JOHANNA ATKINSDOB: [facility] [id number] [facility] Number: Repository [id number]: 330 [id number] [phone] (HP) Date:3315-83-50AE [facility] [address] [address]WR: 08/20/2018 Secondary NOT GIVENUNK [place] Insurance:SELF PAY [facility] Number: Effective Repository Date:2018-08-20 07/10/2018 JESSE J Primary JESSE J [place] [id number] Insurance:JOHANNA ATKINSDOB: [facility] [id number] [facility] Number: Repository 08191Stc: 330 [id number] [phone] () Date:0738-19-66BO [facility] [address] [address]RN: 07/10/2018 Secondary NOT GIVENUNK [place] Insurance:SELF PAY [facility] Number: Effective Repository Date:2018-07-09 05/24/2018 JESSE J Primary JESSE J [place] [id number] Insurance:JOHANNA ATKINSDOB: [facility] 8921-84-27OHAFormerly [facility] Number: Repository 10922Jys: 330 [id number] [phone] (HP) Date:7905-96-28SM [address] [address]CC: 05/24/2018 Secondary NOT GIVENUNK [place] Insurance:SELF PAY [facility] Number: Effective Repository Date:2018-05-24 05/23/2018 JESSE J Primary JESSE J [place] [id number] Insurance:JOHANNA ATKINSDOB: [facility] [id number] [facility] Number: Repository 57438Bnx: 330 [id number] [phone] () Date:7219-48-31WL [facility] [address] [address]XO: 05/23/2018 Secondary NOT GIVENUNK [place] Insurance:SELF PAY [facility] Number: Effective Repository Date:2018-04-30 05/02/2018 JESSE J Primary JESSE J [place] [id number] Insurance:JOHANNA ATKINSDOB: [facility] [id number] [facility] Number: Repository [id number]: 330 [id number] [phone] () Date:5892-51-22VT [facility] [address] [address]TC: 05/02/2018 Secondary NOT GIVENUNK [place] Insurance:SELF PAY [facility] Number: Effective Repository Date:2018-03-21 03/21/2018 JESSE J Primary JESSE J [place] [id number] Insurance:JOHANNA ATKINSDOB: [facility] [id number] [facility] Number: Repository [id number]: 330 [id number] [phone] () Date:0914-99-53IM [facility] [address] [address]WD: 03/21/2018 Secondary NOT GIVENUNK [place] Insurance:SELF PAY [facility] Number: Effective Repository Date:2018-03-19 03/15/2018 JESSE J Primary JESSE J [place] [id number] Insurance:JOHANNA ATKINSDOB: [facility] [id number] [facility] Number: Repository 64090Tkd: 330 [id number] [phone] () Date:9983-64-80GP [address], [place] [address]BR: 03/15/2018 Secondary NOT GIVENUNK [place] Insurance:SELF PAY [facility] Number: Effective Repository Date:2018-03-05 02/22/2018 JESSE J Primary JESSE J [place] [id number] Insurance:JOHANNA ATKINSDOB: [facility] [id number] [facility] Number: Repository 81152Www: 330 [id number] [phone] () Date:7853-54-69NQ [facility] [address] [place] [address]RJ: 02/22/2018 Secondary NOT GIVENUNK [place] Insurance:SELF PAY [facility] Number: Effective Repository Date:2018-02-03 02/20/2018 JESSE J Primary JESSE J [place] [id number] Insurance:JOHANNA ATKINSDOB: [facility] 1935-40-69WRFFormerly [facility] Number: Repository [id number]: 330 [id number] [phone] () Date:9443-52-87QY [facility] [address] [address]ZX: 02/20/2018 Secondary NOT GIVENUNK [place] Insurance:SELF PAY [facility] Number: Effective Repository Date:2018-02-19 02/13/2018 JESSE J Primary JESSE J [place] [id number] Insurance:JOHANNA ATKINSDOB: [facility] 2488-12-59GDWFormerly [facility] Number: Repository [id number]: 330 [id number] [phone] () Date:7792-84-54CA [facility] [address] [address]QT: 02/13/2018 Secondary NOT GIVENUNK [place] Insurance:SELF PAY [facility] Number: Effective Repository Date:2018-02-13 02/12/2018 JESSE J Primary JESSE Arita [place] [id number] Insurance:JOHANNA ATKINSDOB: [facility] [employer] 5319[place]98[place]US[place] HMOPolclarinda regional health center Number: Repository [id number]: [phone] [id number] [phone] () Date:1820-41-52YG [address] [place] [address]VP: 02/12/2018 Secondary NOT GIVENUNK [place] Insurance:SELF PAY [facility] Number: Effective Repository Date:2018-01-24 02/01/2018 JESSE J Primary IAN L [place] [id number] Insurance:AULTCAREPol ATKINSDOB: [facility] icy Number: [id number] [place], [place] [id number] Repository [address]Nds: 330) Date:6855-17-81ZN [phone] () [address], [place] [address]SV: 02/01/2018 Secondary NOT GIVENUNK [place] Insurance:SELF PAY [facility] Number: Effective Repository Date:2018-01-03 01/24/2018 JESSE J Primary IAN L [place] [id number] Insurance:AULTCAREPol ATKINSDOB: [facility] icy Number: [id number] [place], [place] [id number] Repository [address]Csz: (330) Date:9916-65-07UF [phone] () [address], [place] [address]ZL: 01/24/2018 Secondary NOT GIVENUNK [place] Insurance:SELF PAY [facility] Number: Effective Repository Date:2018-01-24 01/02/2018 Jesse J Primary IAN L [place] [id number] Insurance:AULTCAREPol ATKINSDOB: [facility] ic Number: [id number], [place] [id number] Repository [address]Kvx: (330) Date:4523-22-48LI [phone] () [address], [place] [address]IS: 01/02/2018 Secondary NOT GIVENUNK [place] Insurance:SELF PAY [facility] Number: Effective Repository Date:2017-12-06 12/03/2017 Jesse Lyla Primary IAN Ocampo [id number] Insurance[facility] Number: [id number], [place] [id number] Repository 119[address]Wxb: (330) Date:6404-23-88AA [phone] () [address], [place] [address]YI: 12/03/2017 Secondary NOT GIVENUNK Stanton Insurance:SELF PAY [facility] Number: Effective Repository Date:2017-11-07
== END 2018-10-19 12:03 | disposition home or self-care (01) ==
LOC: CLSP 08:01 → ICU 12:00
PROVIDERS: Internal Medicine Cardiovascular Disease; Family Provider Family Medicine; PCP Family Medicine; Referring Provider Internal Medicine Cardiovascular Disease; Visit Provider Internal Medicine Cardiovascular Disease
DX: I25.10 Atherosclerotic heart disease of native coronary artery without angina pectoris (principal); R07.9 Chest pain, unspecified; E78.5 Hyperlipidemia, unspecified; I10 Essential (primary) hypertension; J44.9 Chronic obstructive pulmonary disease, unspecified; Z87.891 Personal history of nicotine dependence; R94.39 Abnormal result of other cardiovascular function study; E66.01 Morbid (severe) obesity due to excess calories; Z68.35 Body mass index [BMI] 35.0-35.9, adult
CPT/HCPCS: 80048; 85027; 85347; 92928; 93005; 93458; 99152; 99153; J7030; J7040; Q9967; A4216; C1725; C1769; C1874; C1887; C1894; C9600; J1940

== ENCOUNTER → 2018-11-11 07:56 | Outpatient (CLI) | payer MEDICARE, SELFPAY ==
[2018-10-18 14:00] VITALS: BMI 35.0
[2018-11-02 12:55] VITALS: BMI 35.0
[2018-11-11 09:29] LABS: AST(SGOT) 13 U/L (15-37); Alanine Aminotransfer ALT/SGPT 50 U/L (16-61); Albumin, Serum 2.9 g/dL (3.2-5.0); Alkaline Phosphatase 64 U/L (45-117); Bilirubin, Direct 0.16 mg/dL (0.00-0.30); Cholesterol 91 mg/dL (200); Globulin 4.5 g/dL (2.2-4.2); High Density Lipoprotein 39 mg/dL; Protein, Total 7.4 g/dL (6.4-8.2); Triglycerides 76 mg/dL; Very Low Density Lipoprotein 15 mg/dL (5-40)
== END ==
PROVIDERS: Family Provider Family Medicine; PCP Family Medicine; Referring Provider Internal Medicine Cardiovascular Disease; Visit Provider Internal Medicine Cardiovascular Disease
DX: E78.5 Hyperlipidemia, unspecified (principal)
CPT/HCPCS: 36415; 80061; 80076

== ENCOUNTER → 2018-11-19 14:18 | Outpatient (CLI) | payer MEDICARE, SELFPAY ==
[2018-10-18 14:00] VITALS: BMI 35.0
[2018-11-19 13:20] VITALS: BMI 35.0
--- NOTE | 2018-11-19 14:19 | RAD_ITS ---
HISTORY: Cough EXAM: XR Chest 2 Views: COMPARISON: 10/11/18 chest radiographs. FINDINGS: # of images incl. paperwork: 2 LINES/DEVICES: None. LUNGS: Radiographically clear. No consolidation, edema or effusion. No pneumothorax. Emphysematous changes are noted. MEDIASTINUM AND CARDIOVASCULAR STRUCTURES: Cardiac silhouette not enlarged. Central airways and mediastinal contour are unremarkable. BONES AND SOFT TISSUES: Unremarkable. RAD/Chest PA and Lateral IMPRESSION: COPD. No radiographic evidence of acute cardiopulmonary disease. at 0233 Reported and signed by: Chas Walker MD Electronically Signed: Chas Walker, at 2:31 EST Tel , Service support ,
== END ==
PROVIDERS: Family Provider Family Medicine; PCP Family Medicine; Referring Provider Family Medicine; Visit Provider Family Medicine
DX: J44.9 Chronic obstructive pulmonary disease, unspecified (principal)
CPT/HCPCS: 71046

== ENCOUNTER → 2018-11-21 08:33 | Outpatient (CLI) | payer MEDICARE, SELFPAY ==
[2018-10-18 14:00] VITALS: BMI 35.0
[2018-11-02 12:55] VITALS: BMI 35.0
[2018-11-19 13:20] VITALS: BMI 35.0
--- NOTE | 2018-11-21 09:33 | PCM.CR.HP2 ---
CR - History & Physical - General Arrival date:: 11/21/18 Arrival time:: 09:00 Date of Referral:: 10/25/18 Referring Physician: TRINIDAD Primary Diagnosis: PCI W/STENTING - History of Present Cardiac Event Onset Date: Enter Onset Date of cardiac illnesses in Comment field below PTCA or coronary stenting:: Yes - PCI W/STENTING 10/18/2018 Type of Symptoms:: CHEST DISCOMFORT AND PAIN UNDER THE ARMS WHILE EXERCISE, CAME IN FOR EVALUATION. Interventions with present event:: EXERCISE STRESS TEST AND THEN HEART CATH Were there any complications?: NONE - Medications Home Medications: Ambulatory Orders Medication Instructions Recorded [place]-3/Dha/Epa/Fish Oil [Fish Oil 1 ea PO DAILY 11/09/17 [place]-3 EC 1,200 mg] Vit A/Vit C/Vit E/Zinc/Copper 2 ea PO DAILY 11/09/17 [Preservision Areds Softgel] mometasone-formoterol HFA 200 2 puff INHALATION BID #13 g 01/24/18 mcg-5 mcg/actuation aerosol inhaler omeprazole 40 mg capsule,delayed 40 mg PO QDAY #90 cap 01/24/18 release albuterol sulfate HFA 90 2 puff INHALATION Q6H PRN #1 device 07/10/18 mcg/actuation aerosol inhaler Aspirin [Aspirin, Baby] 81 mg PO DAILY 10/18/18 Tiotropium [place] [Spiriva] 1 cap INHALATION QDAY 10/18/18 Atorvastatin Calcium [Lipitor] 80 mg PO QHS #30 tab 10/19/18 Isosorbide Mononitrate [Imdur] 30 mg PO DAILY #60 tab 10/19/18 Losartan Potassium [Cozaar] 50 mg PO BID #60 tab 10/19/18 Metoprolol Tartrate [Lopressor 25 mg PO BID tab 10/19/18 (beta [place])] hydroCHLOROthiazide 12.5 mg PO DAILY #30 cap 10/19/18 [Hydrochlorothiazide] clopidogrel 75 mg tablet 75 mg PO DAILY #90 tab 10/25/18 doxycycline hyclate 100 mg tablet 100 mg PO BID #20 tab 11/19/18 - Allergies Allergies/Adverse Reactions: Allergies hydrocodone [From Vicodin] Adverse Reaction (Unknown, Verified 11/02/18 12:55) Unknown - Sleep Disorder Evaluation Hx of Sleep Apnea: Yes Do you snore loudly (louder than talking or can be heard through closed doors)?: Yes - WEARS CPAP UNIT AT HOME DURING HS Do you often feel tired/ fatigued/ sleepy during daytime?: Yes Has anyone observed you stop breathing during sleep?: No History of Hypertension (for STOP score): Yes STOP Results: Positive Advanced Directives - Advanced Directives Power of Oyster Worker: No Living Will: No Advance Directives Information Provided: Yes Advance Directives on File: No DNR Order?:: No - MOLST See MOLST form: No Past Medical History - Past Medical Illness Medical History: Past Medical History (Last Reviewed 11/19/18 @ 14:26 by Dale Cooper DO) Chest pain (Acute) R07.9 Abnormal stress test (Acute) R94.39 Essential hypertension (Chronic) I10 Arthritis (Chronic) M19.90 Macular degeneration (Chronic) H35.30 Hearing loss (Chronic) H91.90 GERD (gastroesophageal reflux disease) (Chronic) K21.9 Emphysema lung (Chronic) J43.9 COPD (chronic obstructive pulmonary disease) (Chronic) J44.9 Hypertension (Inactive) I10 - Past Surgical History Surgical History: Past Surgical History (Last Reviewed 11/19/18 @ 14:26 by Dale Cooper DO) H/O hernia repair Z98.890, Z87.19 History of bilateral cataract extraction Z98.41, Z98.42 History of cholecystectomy Z90.49 Hx of heart artery stent Z95.5 10/18/18 - Family History Summary Family History: Family History (Last Reviewed 11/19/18 @ 14:26 by Dale Cooper DO) Father Colon cancer Mother Heart disease Uncle Myocardial infarction Hypertension Social History - Smoking History Smoking Status: Former smoker Years Smokin Packs Smoked per Day: 4 - RANGED 3-4 PPD AT HEAVIEST Hx Smoking Cessation Date: 1986 Hx Tobacco Use: Yes Hx Smoking Exposure: No - Alcohol Use Alcohol Usage: Yes - OCASSIONALLY SOCIALLY - Substance Abuse Hx Substance Use: No - Occupation Occupation (List type of work in comments):: Retired - Hobbies, Recreation, Social Activities Hobbies: Sports - GOLFED IN THE PAST., Hiking, Other - GOLF Recreational Activities: I am able to engage in a few activities Social Environment - Status Marital Status: - Current Living Arrangements Living Environment:: Spouse - Children How many children do you have?: 2 Do any of your children live nearby?: Yes - 1 LOCALLY 1 IN [place] - Safety Do you feel safe in your surroundings?: Yes - Assistance Do you need any assistance at home?: NONE Review of Systems - Review of Systems Hints: Right click = Denies (Slash). Left click = Reports ([place]) Review of Present Symptoms: Reports: Shortness of Breath at Rest - ONCE IN A WHILE DUE TO THE COPD., Shortness of Breath with Exertion, Dizziness/Lightheadedness, Fatigue, Heart Arrhythmia/Irregularities - EXPERIENCED PALPITATIONS PRIOR TO STENT, EKG INDICATED SINUS BRADYCARDIA OTHERWISE NORMAL EKG, Appetite - Normal, Appetite - Special Diet - TRYING TO WATCH WHAT EAT DAILY TRY TO EAT BETTER., Sleep - Normal. 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 HE WAS REFERRED TO DR. ABDI FOR EVAULATION AND HAD A ABNORMAL EXERCISE STRESS TEST AND SUBSEQUENT HEART CATH PROCEDURE RESULTING IN ONE STENT PLACEMENT WHICH COVERED TWO BLOCKAGE AREAS IN CORONARY ARTERY. - Vital Signs Temperature: 98.7 F - LAST WEEK CAUGHT BUG HAD SLIGHT FEVER 100-101 AND IS ON ANTIBIOTICS UNDER DR. COOPER. Respiratory Rate: 16 Pulse Ox: 90 Blood Pressure: 128/62 - Pulse Pulse Rate: 64 Pulse Rhythm: Regular - Hypertension How long have you been treated?: LAST 5-6 YEARS On medication(s)?: YES Blood Pressure Sitting - Left Arm: 128/62 - Diabetes Nutrition Referral for Diabetes: No - Obesity Height: 5 ft 6 in Weight:: 209 lb Weight in Pounds: 209.0 lbs Weight Source: Stated by Patient Body Mass Index (BMI): 33.7 Desired Body Weight: 191 Nutritional Referral for Obesity: Yes - PATIENT COULD BENEFIT FROM A STRRUCTURED WEIGHT LOSS AND DIETARY CONSULT - Physical Inactivity Physical Inactivity: Reg Exercise 30 min/day - TRYING TO EXERCISE 3 DAYS PER WEEK AFTTER MI PROGRAM WAS OVER, AT [facility] - Risk Stratification Risk Guidelines: Lowest Risk: Risk Factor for Smoking, Risk Factor for Diabetes, Risk Factor for Hypertension, Risk Factor for Sedentary Lifestyle, Risk Factor for Depression, Moderate Risk: Risk Factor for Dyslipidemia, Highest Risk: Risk Factor for Obesity - For Smoking Smoking Risk Guidelines: Smoking Low Risk: None or quit greater than 6 months ago. Smoking Moderate Risk: Smoker or quit 6 months or less ago. Smoking High Risk: Smoker - For Dyslipidemia Dyslipidemia Risk Guidelines: Low Risk: Moderate Risk: High Risk: 15-25% fat 25.1-29% fat >/= 30% fat. <7% sat fat 7-9% sat fat >9% sat fat. <150 mg chol 150-299 mg chol >/= 300 mg chol. LDL <100 LDL 100-129 LDL >/= 130. Chol/HDL ratio <5.0 Chol/HDL ratio 5.0-6.0 Chol/HDL ratio >6.0. Triglycerides <100 Triglycerides 100-149 Triglycerides >/= 150 - For Diabetes Mellitus Diabetes Risk Guidelines: Diabetes Low Risk: HgA1c <6.5% and/or FBG <120. Diabetes Moderate Risk: HgA1c 6.6-7.9% and/or FBG 120-180. Diabetes High Risk: HgA1c >/= 8% and/or FBG >180 - For Obesity/Overweight Obesity/Overweight Risk Guidelines: Obesity Low Risk: BMI <25.0. Obesity Moderate Risk: BMI 25-29.9. Obesity High Risk: BMI >/= 30.0 - For Hypertension Hypertension Risk Guidelines: Hypertension Low Risk: Systolic <120 and Diastolic <80. Hypertension Moderate Risk: Systolic 120-139 and Diastolic 80-89. Hypertension High Risk: Systolic >/= 140 and Diastolic >/= 90 - For Sedentary Lifestyle Sedentary Lifestyle Risk Guidelines: Sedentary Lifestyle Low Risk: >/= 1,500 kcal/week. Sedentary Lifestyle Moderate Risk: 700-1,499 kcal/week. Sedentary Lifestyle High Risk: < 700 kcal/week - For Depression Depression Risk Guidelines: Depression Low Risk: Not clinically depressed. Depression Moderate Risk: Mildly depressed. Depression High Risk: Clinically depressed - Family History Family History: Family History (Last Reviewed 11/19/18 @ 14:26 by Dale Cooper DO) Father Colon cancer Mother Heart disease Uncle Myocardial infarction Hypertension Motivation - Motivation to Participate On a scale of 1 to 10, how prepared are you to commit to attending program?: 10 What do you see as barriers to successfully being able to complete the program?: NONE; UNLESS FAMILY EMERGENCY OR SOMETHING What do you see as the benefits of succesfully completing the program? In other words, what do you hope to get out of participating in the program?: LONGER LIFE! HEALTHIER LIFE Are there issues you are dealing with that will interfere with completing the program?: NONE- REQUIRES OXYGEN DURING EXERCISE. Do you have a spouse or signficant other, family or friends who will help support you to complete the program?: YES.
--- NOTE | 2018-11-21 09:37 | CR.HP_ITS ---
CR - History & Physical - General Arrival date:: 11/21/18 Arrival time:: 09:00 Date of Referral:: 10/25/18 Referring Physician: TRINIDAD Primary Diagnosis: PCI W/STENTING - History of Present Cardiac Event Onset Date: Enter Onset Date of cardiac illnesses in Comment field below PTCA or coronary stenting:: Yes - PCI W/STENTING 10/18/2018 Type of Symptoms:: CHEST DISCOMFORT AND PAIN UNDER THE ARMS WHILE EXERCISE, CAME IN FOR EVALUATION. Interventions with present event:: EXERCISE STRESS TEST AND THEN HEART CATH Were there any complications?: NONE - Medications Home Medications: Ambulatory Orders Medication Instructions Recorded [place]-3/Dha/Epa/Fish Oil [Fish Oil 1 ea PO DAILY 11/09/17 [place]-3 EC 1,200 mg] Vit A/Vit C/Vit E/Zinc/Copper 2 ea PO DAILY 11/09/17 [Preservision Areds Softgel] mometasone-formoterol HFA 200 2 puff INHALATION BID #13 g 01/24/18 mcg-5 mcg/actuation aerosol inhaler omeprazole 40 mg capsule,delayed 40 mg PO QDAY #90 cap 01/24/18 release albuterol sulfate HFA 90 2 puff INHALATION Q6H PRN #1 device 07/10/18 mcg/actuation aerosol inhaler Aspirin [Aspirin, Baby] 81 mg PO DAILY 10/18/18 Tiotropium [place] [Spiriva] 1 cap INHALATION QDAY 10/18/18 Atorvastatin Calcium [Lipitor] 80 mg PO QHS #30 tab 10/19/18 Isosorbide Mononitrate [Imdur] 30 mg PO DAILY #60 tab 10/19/18 Losartan Potassium [Cozaar] 50 mg PO BID #60 tab 10/19/18 Metoprolol Tartrate [Lopressor 25 mg PO BID tab 10/19/18 (beta [place])] hydroCHLOROthiazide 12.5 mg PO DAILY #30 cap 10/19/18 [Hydrochlorothiazide] clopidogrel 75 mg tablet 75 mg PO DAILY #90 tab 10/25/18 doxycycline hyclate 100 mg tablet 100 mg PO BID #20 tab 11/19/18 - Allergies Allergies/Adverse Reactions: Allergies hydrocodone [From Vicodin] Adverse Reaction (Unknown, Verified 11/02/18 12:55) Unknown - Sleep Disorder Evaluation Hx of Sleep Apnea: Yes Do you snore loudly (louder than talking or can be heard through closed doors)?: Yes - WEARS CPAP UNIT AT HOME DURING HS Do you often feel tired/ fatigued/ sleepy during daytime?: Yes Has anyone observed you stop breathing during sleep?: No History of Hypertension (for STOP score): Yes STOP Results: Positive Advanced Directives - Advanced Directives Power of Garment Looper: No Living Will: No Advance Directives Information Provided: Yes Advance Directives on File: No DNR Order?:: No - MOLST See MOLST form: No Past Medical History - Past Medical Illness Medical History: Past Medical History (Last Reviewed 11/19/18 @ 14:26 by Dale Cooper DO) Chest pain (Acute) R07.9 Abnormal stress test (Acute) R94.39 Essential hypertension (Chronic) I10 Arthritis (Chronic) M19.90 Macular degeneration (Chronic) H35.30 Hearing loss (Chronic) H91.90 GERD (gastroesophageal reflux disease) (Chronic) K21.9 Emphysema lung (Chronic) J43.9 COPD (chronic obstructive pulmonary disease) (Chronic) J44.9 Hypertension (Inactive) I10 - Past Surgical History Surgical History: Past Surgical History (Last Reviewed 11/19/18 @ 14:26 by Dale Cooper DO) H/O hernia repair Z98.890, Z87.19 History of bilateral cataract extraction Z98.41, Z98.42 History of cholecystectomy Z90.49 Hx of heart artery stent Z95.5 10/18/18 - Family History Summary Family History: Family History (Last Reviewed 11/19/18 @ 14:26 by Dale Cooper DO) Father Colon cancer Mother Heart disease Uncle Myocardial infarction Hypertension Social History - Smoking History Smoking Status: Former smoker Years Smokin Packs Smoked per Day: 4 - RANGED 3-4 PPD AT HEAVIEST Hx Smoking Cessation Date: 1986 Hx Tobacco Use: Yes Hx Smoking Exposure: No - Alcohol Use Alcohol Usage: Yes - OCASSIONALLY SOCIALLY - Substance Abuse Hx Substance Use: No - Occupation Occupation (List type of work in comments):: Retired - Hobbies, Recreation, Social Activities Hobbies: Sports - GOLFED IN THE PAST., Hiking, Other - GOLF Recreational Activities: I am able to engage in a few activities Social Environment - Status Marital Status: - Current Living Arrangements Living Environment:: Spouse - Children How many children do you have?: 2 Do any of your children live nearby?: Yes - 1 LOCALLY 1 IN [place] - Safety Do you feel safe in your surroundings?: Yes - Assistance Do you need any assistance at home?: NONE Review of Systems - Review of Systems Hints: Right click = Denies ([place]ash). Left click = Reports ([place]) Review of Present Symptoms: Reports: Shortness of Breath at Rest - ONCE IN A WHI LE DUE TO THE COPD., Shortness of Breath with Exertion, Dizziness/Lightheadedness, Fatigue, Heart Arrhythmia/Irregularities - EXPERIENCED PALPITATIONS PRIOR TO STENT, EKG INDICATED SINUS BRADYCARDIA O THERWISE NORMAL EKG, Appetite - Normal, Appetite - Special Diet - TRYING TO WATCH WHAT EAT DAILY TRY TO EAT BETTER., Sleep - Normal. 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 HE WAS REFERRED TO DR. ABDI FOR EVAULATION AND HAD A ABNORMAL EXERCISE STRESS TEST AND SUBSEQUENT HEART CATH PROCEDURE RESULTING IN ONE STENT PLACEMENT WHICH COVERED TWO BLOCKAGE AREAS IN CORONARY ARTERY. - Vital Signs Temperature: 98.7 F - LAST WEEK CAUGHT BUG HAD SLIGHT FEVER 100-101 AND IS ON ANTIBIOTICS UNDER DR. COOPER. Respiratory Rate: 16 Pulse Ox: 90 Blood Pressure: 128/62 - Pulse Pulse Rate: 64 Pulse Rhythm: Regular - Hypertension How long have you been treated?: LAST 5-6 YEARS On medication(s)?: YES Blood Pressure Sitting - Left Arm: 128/62 - Diabetes Nutrition Referral for Diabetes: No - Obesity Height: 5 ft 6 in Weight:: 209 lb Weight in Pounds: 209.0 lbs Weight Source: Stated by Patient Body Mass Index (BMI): 33.7 Desired Body Weight: 191 Nutritional Referral for Obesity: Yes - PATIENT COULD BENEFIT FROM A STRRUCTURED WEIGHT LOSS AND DIETARY CONSULT - Physical Inactivity Physical Inactivity: Reg Exercise 30 min/day - TRYING TO EXERCISE 3 DAYS PER WEEK AFTTER NE PROGRAM WAS OVER, AT [facility] - Risk Stratification Risk Guidelines: Lowest Risk: Risk Factor for Smoking, Risk Factor for Diabetes, Risk Factor for Hypertension, Risk Factor for Sedentary Lifestyle, Risk Factor for Depression, Moderate Risk: Risk Factor for Dyslipidemia, Highest Risk: Risk Factor for Obesity - For Smoking Smoking Risk Guidelines: Smoking Low Risk: None or quit greater than 6 months ago. Smoking Moderate Risk: Smoker or quit 6 months or less ago. Smoking High Risk: Smoker - For Dyslipidemia Dyslipidemia Risk Guidelines: Low Risk: Moderate Risk: High Risk: 15-25% fat 25.1-29% fat >/= 30% fat. <7% sat fat 7-9% sat fat >9% sat fat. <150 mg chol 150-299 mg chol >/= 300 mg chol. LDL <100 LDL 100-129 LDL >/= 130. Chol/HDL ratio <5.0 Chol/HDL ratio 5.0-6.0 Chol/HDL ratio >6.0. Triglycerides <100 Triglycerides 100-149 Triglycerides >/= 150 - For Diabetes Mellitus Diabetes Risk Guidelines: Diabetes Low Risk: HgA1c <6.5% and/or FBG <120. Diabetes Moderate Risk: HgA1c 6.6-7.9% and/or FBG 120-180. Diabetes High Risk: HgA1c >/= 8% and/or FBG >180 - For Obesity/Overweight Obesity/Overweight Risk Guidelines: Obesity Low Risk: BMI <25.0. Obesity Moderate Risk: BMI 25-29.9. Obesity High Risk: BMI >/= 30.0 - For Hypertension Hypertension Risk Guidelines: Hypertension Low Risk: Systolic <120 and Diastolic <80. Hypertension Moderate Risk: Systolic 120-139 and Diastolic 80-89. Hypertension High Risk: Systolic >/= 140 and Diastolic >/= 90 - For Sedentary Lifestyle Sedentary Lifestyle Risk Guidelines: Sedentary Lifestyle Low Risk: >/= 1,500 kcal/week. Sedentary Lifestyle Moderate Risk: 700-1,499 kcal/week. Sedentary Lifestyle High Risk: < 700 kcal/week - For Depression Depression Risk Guidelines: Depression Low Risk: Not clinically depressed. Depression Moderate Risk: Mildly depressed. Depression High Risk: Clinically depressed - Family History Family History: Family History (Last Reviewed 11/19/18 @ 14:26 by Dale Cooper DO) Father Colon cancer Mother Heart disease Uncle Myocardial infarction Hypertension Motivation - Motivation to Participate On a scale of 1 to 10, how prepared are you to commit to attending program?: 10 What do you see as barriers to successfully being able to complete the program?: NONE; UNLESS FAMILY EMERGENCY OR SOMETHING What do you see as the benefits of succesfully completing the program? In other words, what do you hope to get out of participating in the program?: LONGER LIFE! HEALTHIER LIFE Are there issues you are dealing with that will interfere with completing the program?: NONE- REQUIRES OXYGEN DURING EXERCISE. Do you have a spouse or signficant other, family or friends who will help support you to complete the program?: YES.
[2018-11-21 09:52] VITALS: BP 128/62; PULSE 64; RESP 16; TEMP 37.1; O2SAT 90; BMI 33.7
--- NOTE | 2018-11-21 10:28 | PCM.CR.ITP ---
General Information - General Information Admitting Diagnosis: PCI w/stenting Oxygen: WITH EXERCISE AND EXERTION D/T COPD - Education/Goals Barriers to Learning: Hearing Impairment Individual Counseling: Initial Assessment: Abnormal Cholesterol Levels, High Blood Pressure, Overweight/Obesity Cardiac Rehabilitation Goals: 1. Maintain the individual as the primary focus of care. 2. To improve the patient's quality of life. 3. Identification of cardiac risk factors and provide cardiac risk factor management. 4. Enhance the psychosocial status of the patient. 5. Reconditioning enough to allow the patient to resume customary activities. 6. Control symptoms of cardiac disease Scale for measuring improvement of personal goals: Enter appropriate number in Comments. 2 = Unchanged. 3 = Slightly Better. 4 = Moderate Improvement. 5 = Met my Goal Personal Goals: Initial Assessment: Improve energy level, Participate in home exercise program, Improve muscle strength and endurance, Improve diet and eating habits (eat healthier), Control risk factors (learn risk factor modification) Exercise - Initial Assessment - Visit Date of Eval: 11/21/18 - START 11/25/2018 Session #:: 0 - Stages of Change Stages of Change:: Action - Stress Test Date: 08/29/18 HR (bpm):: 134 MET LEVEL:: 6.0 Blood Pressure: 186/94 - Exercise Prescription Mode:: Treadmill, Airdyne, NuStep Angina with exercise?: No Target Heart Rate:: 99-106 - Hypertension Do any of the following apply?: Yes, Medication, Diet Resting Blood Pressure:: 128/62 - Intervention Home Exercise/Activity Goal:: Sitting Time <3 hrs/day - Education Goals:: Warm-up, RPE DONTE Scale, S/S, Safe Exercise, Self-Monitoring - Exercise Program Goals Exercise Program Goals: Aerobic Activity >30 min Nutrition - Initial Assessment - Program Goals Nutrition Program Goals: LDL <70. Total Cholesterol <200. HDL >45. Triglycerides <150. HgbA1C <7%. BMI <25 - Visit Date of Assessment:: 11/21/18 - Stages of Change Stages of Change:: Action - Lipids Total Cholesterol (mg/dL) Goal = less than 200 mg/dL: 91 HDL Cholesterol (mg/dL) Goal = less than 45 mg/dL: 39 LDL Cholesterol (mg/dL) Goal = less than 70 mg/dL: 37 Triglycerides (mg/dL) Goal = less than 150 mg/dL: 76 - Diabetes Do you monitor your blood sugar at home?: No - Weight Management Height: 5 ft 6 in Weight:: 209 lb Weight Goal (kg):: 191 lb Body Fat %:: 33.7 - Intervention Referral to dietitian:: Yes Referral to Diabetic Clinic:: No Will attend diet classes:: Yes - Education Gave educational materials for:: Healthy eating Tobacco - Initial Assessment - Program Goals Tobacco Program Goals: Complete smoking cessation. Attend education classes. Improve Knowledge Test score - Stage of Change Stages of Change:: Action - Learning Barriers Learning Barriers: Hearing, Vision, Ready to Learn - Family Support Do you have family support?: Yes - Tobacco Use Tobacco Use: Non-smoker - QUIT 1986; HEAVY SMOKER 3-4 PPD FOR 30 YEARS Do you use smokeless tobacco?: No - Intervention Smoking Cessation Referral:: No Individual Education/Counseling:: No Education Schedule Given:: Yes - Education Gave educational material for:: Coronary artery disease, Risk factors, Sexuality, Medical compliance, Cardiac A&P, Angina signs & symptoms Psychosocial - Initial Assess - Target Goals Target Goals: Assess presence or absence of depression. Using a valid screening tool, maximizes coping skills. Positive support system - Stages of Change Stages of Change:: Action - Psychosocial Test Tool Used:: HANDS Depression Questionnaire - Intervention PS - Interventions: Yes Attend Stress Management Classes, Yes Uses Stress Management Skills, No Referral to Mental Health, No Referral to [facility] Case Management, No Referral to Physician - Education Gave educational materials for:: Coping techniques, Signs & symptoms of depression, Stress management, Relaxation techniques - Patient/Program Goal Preventative Medication(s):: Aspirin, Clopidogrel, Beta [place], Statin/lipid - Assistive Devices Assistive Devices:: None Fall Risk Assessed:: Yes Patient Health Questionnaire Initial Assessment 1. Little interest or pleasure in doing things: Several days 2. Feeling down, depressed, or hopeless: Not at all 3. Trouble falling or staying asleep, or sleeping too much: Not at all 4. Feeling tired or having little energy: Several days 5. Poor appetite or overeating: Not at all 6. Feeling bad about yourself -- or that you are a failure or have let yourself or your family down: Not at all 7. Trouble concentrating on things, such as reading the newspaper or watching television: Several days 8. Moving or speaking so slowly that other people could have noticed. Or the opposite - being so fidgety or restless that you have been moving around a lot more than usual: Not at all 9. Thoughts that you would be better off , or of hurting yourself in some way: Not at all How difficult have these problems made it for you to do your work, take care of things at home, or get along with other people?: Somewhat difficult Total Score: 3 DEANGELO-Q SV Test - Statements CAD is a disease of the arteries in the heart: False Examples of risk factors for heart disease: True Angina is chest pain or discomfort: True The benefits of resistance training include: True Eating more meat and dairy products: False Anti-platelet medications such as aspirin are important: True The only effective way to manage stress: False An exercise warm-up slowly increases heart rate: I Don't Know Prepared, processed foods usually have high sodium: True Depression is common after a heart attack: True The statin medications lower cholesterol: True To control blood pressure, lower the amount of sodium: True If someone gets chest discomfort during walking: False Transfats are partially hydrogenated vegetable oils: I Don't Know Sleep apnea that is not treated increases the risk: False To control cholesterol, one should become a vegetarian: False Someone knows if he/she is exercising at the right level: True Diabetes cannot be prevented with exercise & health eating: False Stress is a large risk for heart attack: True A diet that can help lower blood pressure is rich in: True - Total Score Total Correct Responses: 18 Self-Efficacy Initial Assessment We would like to know how confident you are in doing certain activities. Please select your confidence level for:: Select your confidence level for the following using the scale 1-10 where 1 is not at all confident and 10 is totally confident. Your score is the average of all 6 responses. Fatigue: How confident are you that you can keep the fatigue caused by your disease from interfering with the things you want to do? Select Number: 6 Physical Discomfort or Pain: How confident are you that you can keep the physical discomfort or pain of your disease from interfering with the things you want to do? Select Number: 7 Emotional Distress: How confident are you that you can keep the emotional distress caused by your disease from interfering with the things you want to do? Select Number: 9 Other Symptoms or Health Problems: How confident are you that you can keep other symptoms or health problems from interfering with the things you want to do? Select Number: 8 Different Tasks and Activities: How confident are you that you can do the different tasks and activities needed to manage your health condition so as to reduce your need to see a doctor? Select Number: 9 Medication: How confident are you that you can do things other than just taking medication to reduce how much your illness affects your everyday life? Select Number: 9 Total Score:: 8 Nutrition Survey - Nutrition Survey Instructions Scoring Instructions: Scoring is as follows: Yes = 1 points. No = 0 point. Patient score that is >/=12 is considered to be at potential nutritional risk and could benefit from a referral to a registered dietitian. - Nutrition Survey Initial Have you lost >10 lbs over the past 2 months without trying?: No Are you following a special diet at home for diabetes, low fat, or low salt?: No Are you interested in meeting with a dietitian for help understanding your diet?: Yes Do you eat less than 3 meals a day?: No Do you eat fatty meats (burciaga, sausage, ribs, etc), fried foods, desserts, large amounts of salad dressings, margarine, butter, or cheese most days?: Yes Do you have food allergies? [Enter types in comment field]: No Do you eat in restaurants more than 3 times a week?: No Do you season food with salt, seasoning salt, or garlic salt?: Yes Do you used canned, boxed, frozen meals, or soups, seasoning packets?: Yes - PATIENT IS INTERESTED IN WHY WEIGHT PROGRAM AND STRUCTURED WEIGHT LOSS Total Score:: 4
[2018-11-21 10:44] VITALS: BP 128/62; BP 186/94
--- OUTSIDE RECORDS SUMMARY | 2019-01-25 21:36 | XMS RPT_ITS ---
:1940 Author Organization [facility] Support Name Relationship Address Phone IAN MACHUCA Unavailable [address] + [place] [address] MAXWELL, POPPY/BRENDA Unavailable [address] + [place] [address] R Unavailable Unavailable Unavailable BRIGETTE IAN Unavailable [address] + [place] [address] MAXWELL, POPPY/BRENDA Unavailable [address] + [place] [address] R Unavailable Unavailable Unavailable IAN MACHUCA Unavailable [address] + [place] [address] MAXWELL, POPPY/BRENDA Unavailable [address] + [place] [address] R Unavailable Unavailable Unavailable BRIGETTE IAN Unavailable [address] + [place] [address] MAXWELL, POPPY/BRENDA Unavailable [address] + [place] [address] R Unavailable Unavailable Unavailable IAN MACHUCA Unavailable [address] + [place] [address] MAXWELL, POPPY/BRENDA Unavailable [address] + [place] [address] R Unavailable Unavailable Unavailable IAN MACHUCA Unavailable [address] + [place] [address] MAXWELL, POPPY/BRENDA Unavailable . + ., . . R Unavailable Unavailable Unavailable IAN MACHUCA Unavailable [address] + [place] [address] MAXWELL, POPPY/BRENDA Unavailable . + ., . . R Unavailable Unavailable Unavailable ATKINS, IAN Unavailable [address] + [place] [address] MAXWELL, POPPY/BRENDA Unavailable Unavailable + R Unavailable Unavailable Unavailable ATKINS, IAN Unavailable [address] + [place] [address] MAXWELL, POPPY/BRENDA Unavailable Unavailable + R Unavailable Unavailable Unavailable ATKINS, IAN Unavailable [address] + [place] [address] MAXWELL, POPPY/BRENDA Unavailable [address] + [place] [address] R Unavailable Unavailable Unavailable ATKINS, IAN Unavailable [address] + [place] [address] MAXWELL, POPPY/BRENDA Unavailable . + ., . . R Unavailable Unavailable Unavailable ATKINS, IAN Unavailable [address] + [place] [address] MAXWELL, POPPY/BRENDA Unavailable Unavailable + [place] [address] R Unavailable Unavailable Unavailable ATKINS, IAN Unavailable [address] + [place] [address] MAXWELL, POPPY/BRENDA Unavailable Unavailable + [place] [address] R Unavailable Unavailable Unavailable ATKINS, IAN Unavailable [address] + [place] [address] MAXWELL, POPPY/BRENDA Unavailable Unavailable + [place] [address] R Unavailable Unavailable Unavailable ATKINS, IAN Unavailable [address] + [place] [address] MAXWELL, POPPY/BRENDA Unavailable . + [place] [address] R Unavailable Unavailable Unavailable ATKINS, IAN Unavailable [address] + [place] [address] MAXWELL, POPPY/BRENDA Unavailable . + ., . . R Unavailable Unavailable Unavailable ATKINS, IAN Unavailable [address] + [place] [address] MAXWELL, POPPY/BRENDA Unavailable . + [place] [address] R Unavailable Unavailable Unavailable ATKINS, IAN Unavailable [address] + [place] [address] MAXWELL, POPPY/BRENDA Unavailable . + [place] [address] R Unavailable Unavailable Unavailable ATKINS, IAN Unavailable [address] + [place] [address] MAXWELL, POPPY/BRENDA Unavailable . + [place] [address] R Unavailable Unavailable Unavailable ATKINS, IAN Unavailable [address] + [place] [address] MAXWELL, POPPY/BRENDA Unavailable Unavailable + [place] [address] R Unavailable Unavailable Unavailable ATKINS, IAN Unavailable [address] + [place] [address] MAXWELL, POPPY/BRENDA Unavailable . + [place] [address] R Unavailable Unavailable Unavailable ATKINS, IAN Unavailable [address] + [place] [address] MAXWELL, POPPY/BRENDA Unavailable . + [place] [address] R Unavailable Unavailable Unavailable ATKINS, IAN Unavailable [address] + [place] [address] MAXWELL, POPPY/BRENDA Unavailable . [phone] [place] [address] R Unavailable Unavailable Unavailable ATKINS, IAN Unavailable [address] + [place] [address] MAXWELL, POPPY/BRENDA Unavailable . [phone] [place] [address] R Unavailable Unavailable Unavailable ATKINS, IAN Unavailable [address] + [place] [address] MAXWELL, POPPY/BRENDA Unavailable . [phone] [place] [address] R Unavailable Unavailable Unavailable ATKINS, IAN Unavailable [address] + [place] [address] MAXWELL, POPPY/BRENDA Unavailable . [phone] [place] [address] R Unavailable Unavailable Unavailable ATKINS, IAN Unavailable [address] + [place] [address] MAXWELL, POPPY/BRENDA Unavailable . [phone] [place] [address] R Unavailable Unavailable Unavailable ATKINS, IAN Unavailable [address] + [place] [address] MAXWELL, POPPY/BRENDA Unavailable Unavailable [phone] [place] [address] R Unavailable Unavailable Unavailable ATKINS, IAN Unavailable [address] + [place] [address] R Unavailable Unavailable Unavailable ATKINS, IAN Unavailable [address] + [place] [address] R Unavailable Unavailable Unavailable ATKINS, IAN Unavailable [address] + [place] [address] R Unavailable Unavailable Unavailable ATKINS, IAN Unavailable [address] + [place] [address] R Unavailable Unavailable Unavailable Care Team Providers Name Role Phone Lane Abdi Attending Unavailable MoodispaLane lawson Referring Unavailable Brown, Dale Primary Care Unavailable MoodLane baca Consulting Unavailable Lara Carrington Attending Unavailable Lane Abdi Referring Unavailable Brown, Dale Primary Care Unavailable MoodLane baca Consulting Unavailable Lexa Moody Attending Unavailable Brown, Dale Referring Unavailable MoodispawLane Attending Unavailable Joseph Copoer Referring Unavailable Moodisparenny, Lane Attending Unavailable MoodispaLane lawson Referring Unavailable Sean Dee Attending Unavailable Dale Cooper Referring Unavailable Moodispaw, Lane Attending Unavailable MoodispawLane Referring Unavailable Brown, Dale Primary Care Unavailable BrownDeejayDale Attending Unavailable Brown, Dale Referring Unavailable Brown, [...] Brown, Dale Primary Care Unavailable Sean Zimmerman MULTI CARE TECHNICIAN-C Attending Unavailable Brown, Dale Referring Unavailable Brown, [...] TYPE CONDITION / CODE ATTENDING STATUS SOURCE 11/29/2018 Unknown I25.10 - 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 / I25.10(ICD-10) 11/29/2018 Unknown R94.39 - Abnormal MoodisLane damon [place] result of other Community cardiovascular Hospital function study / Repository R94.39(ICD-10) 11/29/2018 Unknown J44.9 - Chronic MoodisLane damon Active [place] obstructive pulmonary Community disease, unspecified Hospital / J44.9(ICD-10) Repository 11/29/2018 Unknown Z95.5 - Presence of MoodispaLane lawson Active [place] coronary angioplasty Community implant and graft / Hospital Z95.5(ICD-10) Repository 11/29/2018 Unknown I10 - Essential MoodisLane damon Active [place] (primary) Community hypertension / Hospital I10(ICD-10) Repository 11/29/2018 Unknown 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 / Community E78.2(ICD-10) Hospital Repository 10/31/2018 Unknown R07.9 - Chest pain, MoodispaLane lawson Active [place] unspecified / Community R07.9(ICD-10) Hospital Repository 10/11/2018 Unknown I20.9 - Angina MoodisLane damon Active [place] pectoris, unspecified Community / I20.9(ICD-10) Hospital Repository 10/11/2018 Unknown E66.01 - Morbid MoodisLane damon Active [place] (severe) obesity due Community to excess calories / Hospital E66.01(ICD-10) Repository 10/11/2018 Unknown Z68.35 - Body mass Lane Abdi Active [place] index (BMI) Community 35.0-35.9, adult / Hospital Z68.35(ICD-10) Repository 08/20/2018 Unknown Z23 - Encounter for Brown, Dale Active [place] immunization / Community Z23(ICD-10) Hospital Repository 05/23/2018 Unknown 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, 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 / Community E29.1(ICD-10) Hospital Repository 03/05/2018 Unknown J42 - Unspecified Brown, Dale Active [place] chronic bronchitis / Community J42(ICD-10) Hospital Repository 01/24/2018 Unknown K21.9 - Brown, Dale Active [place] Gastro-esophageal Community reflux disease Hospital without esophagitis / Repository K21.9(ICD-10) PROCEDURES PROCEDURES No Procedure Records FoundRESULTS RESULTS CR - HISTORY AND Observed: 11/21/2018 Status: F Source: [place] PHYSICAL 12:53 PM [facility] REPOSITORY [facility] Cardiac Rehab [address] [place] [address] CR - History AND Physical MR#: [id number] Acct: [id number] Name: JESSE MACHUCA Rep #: [id number] : 1940 77 From: Lalito Malik SENIOR APPLICATION SECURITY CONSULTANT, REGISTERED NURSE STEP DOWN, BS PCP: Dale Cooper DO DOS: 11/21/18 [...] Home Medications: Ambulatory Orders Medication Instructions Recorded Raccoon-3/Dha/Epa/Fish Oil [Fish Oil 1 ea PO DAILY [...] Advanced Directives - Advanced Directives Power of Bricklayer Sewer: No Living Will: No Advance Directives Information [...] nearby?: Yes - 1 LOCALLY 1 IN [place] - Safety Do you feel safe in your surroundings?: Yes - Assistance Do you need any assistance at home?: NONE Review of Systems - Review of Systems Hints: Right click = Denies (Slash). Left click = Reports ([place]) Review of Present Symptoms: Reports: Shortness of [...] OLD MALE PATINET WHO RECENTLY HAD COMPLETED NV PROGRAM, DURING EXERCISING BEGAIN TO EXPERIENCE CHEST [...] TO EXERCISE 3 DAYS PER WEEK AFTTER NV PROGRAM WAS OVER, AT [facility] - Risk Stratification Risk Guidelines: Lowest Risk: [...] F Source: [place] OFFICE VISIT 2:30 PM [facility] [address] [place] [address] [place] [address] OFFICE VISIT Date of Service: 11/19/18 MR#: [id number] Acct: [id number] Name: JESSE MACHUCA Lyla Rep #: [id number] : 1940 Provider: Dale Cooper DO Age/Sex: 77/M Location: [facility] Status: Signed Intake Vital Signs11/19/18 Body Mass Index (BMI) 35.0 11/19/18 Height 5 ft 6 in Intake Visit Reasons: 3 MO FU Chief Complaint: f/u visit Is patient in pain?: No Allergies hydrocodone [From Vicodin] Adverse Reaction (Unknown, Verified 11/02/18 12:55) Unknown Medications Raccoon-3/Dha/Epa/Fish Oil [Fish Oil Raccoon-3 EC 1,200 mg] 1 ea PO DAILY [...] PO DAILY 10/18/18 [History Confirmed 11/19/18] Tiotropium [place] [Spiriva] 1 cap INHALATION QDAY 10/18/18 [History [...] person, oriented to place, oriented to time [facility] Head: normocephalic Ears: external ears normal, [...] 11/19/2018 Status: F Source: [place] 2:19 PM [facility] HOSPITAL REPOSITORY [facility] Imaging Services [address] [place] [address] Chest PA and Lateral MR#: [id number] Acct: [id number] Name: JESSE MACHUCA Rep #: [id number] : 1940 M 77 From: Chas Walker MD PCP: Dale Cooper DO Status: REG CLI Study: Chest PA and Lateral Date of Exam: 11/19/18 Exam# [id number] Ordering Dr: Dale Cooper DO HISTORY: Cough [...] Service support , CC: Dale Cooper DO Fabric Finisher: Signed LIVER PROFILE Collected: 11/11/2018 Status: F Source: [place] 7:58 AM [facility] REPOSITORY TYPE CODE TESTS RESULT OUT OF [...] 0.16 Performed By: #### L500.3400, L500.4100 #### [facility] [address] [facility] [place], [place], [address] LIPID PROFILE Collected: 11/11/2018 Status: F Source: [place] 7:58 AM [facility] REPOSITORY TYPE CODE TESTS RESULT OUT OF [...] 15 Performed By: #### L500.3400, L500.4100 #### [facility] [address] [facility] [place], [place], [address] URGENT CARE VISIT Observed: 11/02/2018 Status: F Source: [place] REPORT 1:28 PM [facility] REPOSITORY [facility] [address] [place] [address] [address] [place] [address] OFFICE VISIT Date of Service: 11/02/18 MR#: [id number] Acct: [id number] Name: JESSE MACHUCA Rep #: [id number] : 1940 Provider: DANISHA Dee Age/Sex: 77/M Location: [facility] Status: Signed Intake Vital Signs11/02/18 Body Mass Index (BMI) 35.0 11/02/18 Height 5 ft 6 in Intake Visit Reasons: COUGH/CHEST CONGESTION Chief Complaint: Cough/ congestion/ Rough Patcher Required: No Accompanied by: Is patient in pain?: No Allergies hydrocodone [From Vicodin] Adverse Reaction (Unknown, Verified 11/02/18 12:55) Unknown Medications Raccoon-3/Dha/Epa/Fish Oil [Fish Oil Raccoon-3 EC 1,200 mg] 1 ea PO DAILY [...] PO DAILY 10/18/18 [History Confirmed 11/02/18] Tiotropium Ringgold [Spiriva] 1 cap INHALATION QDAY 10/18/18 [History [...] person, oriented to place, oriented to time [facility] Head: normocephalic Ears: external ears normal, [...] CARDIOLOGY VISIT Observed: 10/25/2018 Status: F Source: [place] REPORT 12:27 PM [facility] REPOSITORY [facility] [address] [place] [address] OFFICE VISIT Date of Service: 10/25/18 MR#: [id number] Acct: [id number] Name: JESSE MACHUCA Rep #: [id number] : 1940 Provider: BEA Moody Age/Sex: 77/M Location[facility] Status: Signed HPI HPI Details: JESSE MACHUCA, [...] Lt brachial Intake Visit Reasons: S/P PCI Rough Patcher Required: No Is patient in pain?: No Allergies hydrocodone [From Vicodin] Adverse Reaction (Unknown, Verified 10/25/18 08:36) Unknown Medications Raccoon-3/Dha/Epa/Fish Oil [Fish Oil Raccoon-3 EC 1,200 mg] 1 ea PO DAILY [...] PO DAILY 10/18/18 [History Confirmed 10/18/18] Tiotropium [place] [Spiriva] 1 cap INHALATION QDAY 10/18/18 [History [...] affect Assessment AND Plan 1. Atherosclerosis of [place] coronary artery of [place] heart without angina pectoris I25.10 Status post [...] Code Off vis,est,level 3 Diagnoses Atherosclerosis of [place] coronary artery of [place] heart without angina pectoris I25.10 Essential (primary) hypertension I10 Mixed hyperlipidemia E78.2 Hyperlipidemia type: mixed hyperlipidemia COPD (chronic obstructive pulmonary disease) J44.9 Coding Level of Care Code Off vis,est,level 3 Diagnoses Atherosclerosis of [place] coronary artery of [place] heart without angina pectoris I25.10 Essential (primary) hypertension I10 Mixed hyperlipidemia E78.2 Hyperlipidemia type: mixed hyperlipidemia COPD (chronic obstructive pulmonary disease) J44.9 10/25/18 1227 <Electronically signed by Lexa BARTH> Date Lexa Luis Alfredo [facility] MULTI CARE TECHNICIAN-Yola Marrero Signature: Date (if applicable) CC: Dale Cooper DO 12 LEAD ELECTROCARDIOGRAM Observed: 10/23/2018 Status: F Source: [place] 4:06 PM [facility] REPOSITORY [facility] Cardiovascular Services [address] [place] [address] 12 Lead EKG 10/18/18 1252 MR#: [id number] Acct: [id number] Name: JESSE MACHUCA Rep #: [id number] : 1940 77 From: Austin Cowart MD Attending Dr: Lane Abdi MD Status: [facility] Ordering Dr: Lara Carrington MD Date: 10/18/18 Location: [facility] Sex: M C Admitted: Test [...] found Confirmed by MICHA MAN, AUSTIN ([id number]), film and video editor SEAMUS DUGGAN (56) on 10/23/2018 4:06:18 PM Referred By: Lane Abdi Confirmed By:AUSTIN COWART MD 10/23/18 1606 Date Austin Cowart MD CC: Lara Carrington MD; Dale Cooper DO; Lane Abdi MD Signed 12 LEAD ELECTROCARDIOGRAM Observed: 10/23/2018 Status: F Source: [place] 4:03 PM [facility] REPOSITORY [facility] Cardiovascular Services [address] [place] [address] 12 Lead EKG 10/19/18 0505 MR#: [id number] Acct: [id number] Name: JESSE MACHUCA Rep #: [id number] : 1940 77 From: Austin Cowart MD Attending Dr: Lane Abdi MD Status: DEP [facility] Ordering Dr: Lara Carrington MD Date: 10/19/18 Location: [facility] Sex: M C Admitted: Test [...] No significant change was found Confirmed by MICAH MAN, AUSTIN ([id number]), film and video editor SEAMUS DUGGAN (56) on 10/23/2018 4:03:35 PM Referred By: Lane Abdi Confirmed By:AUSTIN COWART MD 10/23/18 1603 Date Austin Cowart MD CC: Lara Carrington MD; Dale Cooper DO; Lane Abdi MD Signed DISCHARGE INSTRUCTION Observed: 10/19/2018 Status: F Source: [place] 12:03 PM [facility] REPOSITORY [facility] Medical Records Department [address] [place] [address] Instructions for Home/Discharge Instructions 10/19/18 1200 MR#: [id number] Acct: [id number] Name: JESSE MACHUCA Rep #: [id number] : 1940 77 From: Sarah RAMAN PCP: [...] 11:55) Unknown Medications to take at Discharge Raccoon-3/Dha/Epa/Fish Oil [Fish Oil Raccoon-3 EC 1,200 mg] 1 ea PO DAILY [...] Baby] 81 mg PO DAILY 10/18/18 Tiotropium [place] [Spiriva] 1 cap INHALATION QDAY 10/18/18 Aspirin [...] patient's physical, psychological, and social functioning. Health nurse care manager work in cardiac rehabilitation programs and assist you with getting the treatments you need to get stronger and healthier - like exercise, healthy eating habits, and medications. Cardiac rehabilitation has been show to help people with heart problems live longer and have better life enjoyment than people who do not go to cardiac rehabilitation. Please contact the Cardiac Rehabilitation Program at [facility] at in two weeks if you have not heard from them. 10/19/18 1203 <Electronically signed by Sarah RAMAN> Date Sarah RAMAN CC: Dale Cooper DO DISCHARGE SUMMARY Observed: 10/19/2018 Status: F Source: [place] 11:01 AM [facility] REPOSITORY [facility] Medical Records Department [address] [place] [address] Discharge Summary 10/19/18 1057 MR#: [id number] Acct: [id number] Name: JESSE MACHUCA Rep #: [id number] : 1940 77 From: Lara Carrington MD PCP: Dale Cooper DO Status: REG SDC Y Location: ICU [id number] Discharge Summary Date of Admission: 10/18/18 Date [...] F Source: [place] NO DIFF 4:05 AM [facility] REPOSITORY TYPE CODE TESTS RESULT OUT OF [...] MPV 9.9 Performed By: #### L100.0500 #### [facility] [address] [place], [place], [address] BASIC METABOLIC Collected: 10/19/2018 Status: F Source: [place] PROFILE (BMP) 4:05 AM [facility] REPOSITORY TYPE CODE TESTS RESULT OUT OF [...] GAP 6 Performed By: #### L500.2500 #### [facility] [address] [facility] [facility] [address] ACT ACTIVATED CLOTTING Collected: 10/18/2018 Status: F Source: [place] TIME 12:07 PM [facility] REPOSITORY TYPE CODE TESTS RESULT OUT OF RANGE REFERENCE UNITS LAB L9100.0100 74-137 sec High ACTk CLOT 257 TIME Performed By: #### L9100.0100 #### [facility] Point of Care [address] [place] [address] ACT ACTIVATED CLOTTING Collected: 10/18/2018 Status: F Source: [place] TIME 11:45 AM [facility] REPOSITORY TYPE CODE TESTS RESULT OUT OF RANGE REFERENCE UNITS LAB L9100.0100 74-137 sec High ACTk CLOT 401 TIME Performed By: #### L9100.0100 #### [facility] Point of Care [address] [place] [address] ECHO, COMPLETE W/ Observed: 10/14/2018 Status: F Source: [place] CONTRAST 3:43 PM [facility] REPOSITORY [facility] Cardiovascular Services [address] [place] [address] Echo Complete W/ Contrast 10/14/18 1105 MR#: [id number] Acct: [id number] Name: JESSE MACHUCA Rep #: [id number] : 1940 77 From: Lane Abdi MD [...] Date Dictated: 10/14/18 1105 Date Transcribed: 10/14/181542 Fabric Finisher: Signed CBC W/DIFF, AUTOMATED Collected: 10/11/2018 Status: F Source: [place] 9:41 AM [facility] REPOSITORY TYPE CODE TESTS RESULT OUT OF [...] Lymph 1.98 Performed By: #### L100.0100 #### [facility] [address] [place] [place], [address] PROTHROMBIN TIME W/INR Collected: 10/11/2018 Status: F Source: [place] 9:41 AM [facility] REPOSITORY TYPE CODE TESTS RESULT OUT OF RANGE REFERENCE UNITS LAB L300.4150 11.7-14.9 SECONDS Normal PROTIME 13.2 LAB L300.4200 Normal INR 1.0 Performed By: #### L300.3900, L300.4310 #### [facility] [address] [place], [address] PARTIAL THROMBOPLAST Collected: 10/11/2018 Status: F Source: [place] TIME 9:41 AM [facility] REPOSITORY TYPE CODE TESTS RESULT OUT OF RANGE REFERENCE UNITS LAB L300.4310 24.1-36.2 Seconds Normal PTT 32.6 Performed By: #### L300.3900, L300.4310 #### [facility] [address] [place], [address] BASIC METABOLIC Collected: 10/11/2018 Status: F Source: [place] PROFILE (BMP) 9:41 AM [facility] REPOSITORY TYPE CODE TESTS RESULT OUT OF [...] Performed By: #### L500.2500, L500.3400, L500.4100 #### [facility] [address] [place], [place], [address] LIVER PROFILE Collected: 10/11/2018 Status: F Source: [place] 9:41 AM [facility] REPOSITORY TYPE CODE TESTS RESULT OUT OF [...] Performed By: #### L500.2500, L500.3400, L500.4100 #### [facility] [address] [place], [address] LIPID PROFILE Collected: 10/11/2018 Status: F Source: [place] 9:41 AM [facility] REPOSITORY TYPE CODE TESTS RESULT OUT OF [...] Performed By: #### L500.2500, L500.3400, L500.4100 #### [facility] [address] [place], [address] CHEST PA AND LATERAL Observed: 10/11/2018 Status: F Source: [place] 9:39 AM [facility] REPOSITORY [facility] Imaging Services [address] [place] [address] Chest PA and Lateral MR#: [id number] Acct: [id number] Name: JESSE MACHUCA Rep #: [id number] : 1940 M 77 From: Patricio Patrick DO PCP: Dale Cooper DO Status: REG CLI Study: Chest PA and Lateral Date of Exam: 10/11/18 Exam# [id number] Ordering Dr: Lane Abdi MD STUDY: X-RAY [...] Patricio Patrick DO at 17:06 EST Tel [phone], Service support , CC: Dale Cooper DO; Lane Abdi MD Fabric Finisher: Signed CARDIOLOGY VISIT Observed: 10/10/2018 Status: F Source: [place] REPORT 6:28 PM [facility] REPOSITORY [facility] [address] [place] [address]. [address] [place] [address] OFFICE VISIT Date of Service: 10/10/18 MR#: [id number] Acct: [id number] Name: JESSE MACHUCA Rep #: [id number] : 1940 Provider: Lane Abdi MD Age/Sex: 77/M [facility] Status: Signed HPI HPI Details: JESSE MACHUCA, [...] Reaction (Unknown, Verified 10/10/18 11:55) Unknown Medications Raccoon-3/Dha/Epa/Fish Oil [Fish Oil Raccoon-3 EC 1,200 mg] 1 ea PO 11/09/17 [...] Observed: 10/10/2018 Status: F Source: [place] BY [facility] 12:08 PM [facility] [address] [place] [address] 12 Lead EKG performed by [facility] 10/10/181207 MR#: [id number] Acct: [id number] Name: JESSE MACHUCA Rep #: [id number] : 1940 77 From: Lane Abdi MD Attending Dr: Lane Abdi MD Status: DEP AMB Ordering Dr: Lane Abdi MD Date: 10/10/18 Location: [facility] Sex: José Miguel Aceves Admitted: [facility]/12 Lead EKG performed by [facility] ECG Report Interpretation Marked sinus Bradycardia Low voltage in limb leads. ABNORMAL Electronically signed on 10/10/2018 at 19:[address]di Software Version [id number] 10/10/181955 Date Lane Abdi MD CC: Dale Cooper DO Date Dictated: 10/10/181207 Date Transcribed: 10/10/181207 Fabric Finisher: PM Signed STRESS REPORT Observed: 08/29/2018 Status: F Source: [place] 10:04 AM [facility] Cardiovascular Services [address] [place] [address] MR#: [id number] Acct: [id number] Name: JESSE MACHUCA Rep #: [id number] : 1940 77 From: Lane Abdi MD [...] 69 %. This note was generated with [employer]ation software. It may contain incorrect words, spelling, and punctuation that were not noted in checking the note before signing. 08/29/18 1004 <Electronically signed by Lane Abdi MD> Date Lane Abdi MD CC: Dale Cooper DO Date Dictated: 08/29/18958 Date Transcribed: 08/29/18958 Fabric Finisher: PM Signed INTERNAL MEDICINE Observed: 08/20/2018 Status: F Source: [place] OFFICE VISIT 5:27 PM [facility] Internal Medicine [address] [place] [address] [place] [address] OFFICE VISIT Date of Service: 08/20/18 MR#: [id number] Acct: [id number] Name: JESSE MACHUCA Lyla Rep #: [id number] : 1940 Provider: Dale Cooper DO Age/Sex: 77/M Location: [facility] Status: Signed Intake Vital Signs08/20/18 Height 5 [...] Reaction (Unknown, Verified 08/20/18 13:15) Unknown Medications Raccoon-3/Dha/Epa/Fish Oil [Fish Oil Raccoon-3 EC 1,200 mg] 1 ea PO 11/09/17 [...] Admin Location Lot Number Expiration Date NDC Beef Skinner 0.5 mL IM Right Deltoid [id number] 03/04/19 97774-767-24 SEQIRUS VIS Given Date VIS Publication Date [...] NS Z23 r syringe (flu vac 2017 [id number](PF)) Discontinued Re ason: Duplicate Order Plan Detail Follow Up 3 Months Coding Level of Care Code Off vis,est,level 3 Diagnoses Stage 2 moderate COPD by GOLD classification J44.9 Hypertension I10 GERD (gastroesophageal reflux disease) K21.9 Exertional chest pain R07.9 08/20/18 1727 <Electronically signed by Dale Cooper DO> Date Dale [facility] Signature: Date (if applicable) CC: PULMONARY VISIT REPORT Observed: 07/10/2018 Status: F Source: [place] 8:20 AM [facility] REPOSITORY [facility] [place] [address] [place] [address] OFFICE VISIT Date of Service: 07/10/18 MR#: [id number] Acct: [id number] Name: JESSE MACHUCA Rep #: [id number] : 1940 Provider: Kendall Cooper D.O. Age/Sex: 77/M Location: [facility].PMW Status: Signed Assessment AND Plan 1. 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 He has baseline, chronic dyspnea on exertion, [...] full facemask and receives his equipment through [email or web address]. Today, the patient reports overall stability in [...] lb Intake Visit Reasons: 3 M FU Rough Patcher Required: No DME Vendor: [facility], [address] [place] [address] Accompanied by: Self Is patient in pain?: No Allergies No Known Allergies Allergy (Unverified 07/10/18 07:28) Medications Raccoon-3/Dha/Epa/Fish Oil [Fish Oil Raccoon-3 EC 1,200 mg] 1 ea PO 11/09/17 [...] PRN #1 device 07/10/18 [Rx Confirmed 07/10/18] [facility] Medical History Arthritis (Chronic) Macular degeneration (Chronic) [...] SERUM TOTAL Collected: 05/24/2018 Status: F Source: [place] 2:42 PM [facility] REPOSITORY TYPE CODE TESTS RESULT OUT OF [...] CHANGED 10/24/2017 Performed By: #### L509.3000 #### [place] [facility] [address], [id number] INTERNAL MEDICINE Observed: 05/24/2018 Status: F Source: [place] OFFICE VISIT 12:30 PM [facility] REPOSITORY [facility] [address] [place] [address] OFFICE VISIT Date of Service: 05/23/18 MR#: [id number] Acct: [id number] Name: JESSE MACHUCA Rep #: [id number] : 1940 Provider: Dale Cooper DO Age/Sex: 77/M Location: [facility] Status: Signed Intake Vital Signs05/23/18 Height 5 ft 6 in 05/23/18 Weight: 213 lb 05/23/18 Body Mass Index (BMI) 34.3 05/23/18 Blood Pressure 125/73 Intake Visit Reasons: 3 M FU Chief Complaint: 3 mo follow-up visit Is patient in pain?: No Allergies No Known Allergies Allergy (Unverified 05/23/18 16:07) Medications Raccoon-3/Dha/Epa/Fish Oil [Fish Oil Raccoon-3 EC 1,200 mg] 1 ea PO 11/09/17 [...] 05/02/2018 Status: F Source: [place] 1:53 PM [facility] REPOSITORY Pulmonary Medicine of [address] [place] [address] OFFICE VISIT Date of Service: 05/02/18 MR#: [id number] Acct: [id number] Name: JESSE MACHUCA Rep #: [id number] : 1940 Provider: Krissy Alanis Age/Sex: 77/M Location[facility] Status: Signed Assessment AND Plan 1. [...] rescue inhaler. He has not had any oqgw-nbd-hoqddow medications. See complete review of systems. Intake Vital Signs05/02/18 Pulse Ox 94 05/02/18 Oxygen Delivery Method nasal canula 05/02/18 Oxygen Flow Rate (L/min) 5 05/02/18 Comment 8 min -ambulation 05/02/18 Pulse Ox 88 05/02/18 Oxygen Delivery Method nasal canula Intake Visit Reasons: 6 wk FU DME Vendor: [employer] Accompanied by: Self Allergies No Known Allergies Allergy (Unverified 05/02/18 09:44) Medications Fluticasone 0.05% [Flonase Nasal [place]] 1 spray NASAL BID 11/09/17 [History Confirmed 05/02/18] Raccoon-3/Dha/Epa/Fish Oil [Fish Oil Raccoon-3 EC 1,200 mg] 1 ea PO 11/09/17 [...] BID #180 tab 03/28/18 [Rx Confirmed 05/02/18] [facility] Medical History Arthritis (Chronic) Macular degeneration (Chronic) [...] 03/21/2018 Status: F Source: [place] 8:29 AM [facility] REPOSITORY Pulmonary Medicine of [address] [place] [address] OFFICE VISIT Date of Service: 03/21/18 MR#: [id number] Acct: [id number] Name: JESSE MACHUCA Rep #: [id number] : 1940 Provider: Kendall Cooper D.O. Age/Sex: 77/M Location: [facility].PMW Status: Signed Assessment AND Plan 1. COPD [...] at this time. Will place call to [facility] and if the patient's equipment is truly older than 5 years, orders for new equipment will be placed. A compliance report will be generated prior to his follow-up office visit with us. Will attempt to obtain records pertinent to the patient's last polysomnogram in [place]. 4. 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 He has baseline, chronic dyspnea on exertion, [...] full facemask and receives his equipment through [employer]. He reports compliance with nocturnal CPAP utilization and denies significant air leaks. He does report significant improvement in his sleep quality since being started on CPAP therapy multiple years ago. His last sleep study was just completed within the last year and performed at a sleep center in [place]. His weight has been stable. He denies [...] 01/24/18 09:44) Medications Fluticasone 0.05% [Flonase Nasal [place]] 1 spray NASAL BID 11/09/17 [History Confirmed 01/24/18] Metoprolol Tartrate [Lopressor (Beta Gigi)] 50 mg PO BID 11/09/17 [History Confirmed 01/24/18] Raccoon-3/Dha/Epa/Fish Oil [Fish Oil Raccoon-3 EC 1,200 mg] 1 ea PO 11/09/17 [History Confirmed 01/24/18] Tiotropium [place] [Spiriva] 18 mcg IH 11/09/17 [History Confirmed [...] QDAY #30 ea 01/24/18 [Rx Confirmed 01/24/18] [facility] Medical History Arthritis (Chronic) Macular degeneration (Chronic) [...] Date (if applicable) CC: Dale Cooper DO [place] - INDIVIDUAL Observed: 03/04/2018 Status: F Source: [place] TREATMENT PLAN 7:03 PM [facility] REPOSITORY [facility] Pulmonary Rehab Reports [address] [place] [address] [place] - Individual Treatment Plan MR#: [id number] Acct: [id number] Name: JESSE MACHUCA Rep #: [id number] : 1940 77 From: Lalito Malik SENIOR APPLICATION SECURITY CONSULTANT, REGISTERED NURSE STEP DOWN, BS PCP: Dale Cooper DO Exercise - [...] and modality and progress per protocol. 03/04/18 225<Electronically signed by Lane Lord MD> Cosigner Signature: Date Lane Lord MD CC: Signed INTERNAL MEDICINE Observed: 02/20/2018 Status: F Source: [place] OFFICE VISIT 12:00 PM [facility] Internal Medicine [address] [place] [address] OFFICE VISIT Date of Service: 02/20/18 MR#: [id number] Acct: [id number] Name: JESSE MACHUCA Rep #: [id number] : 1940 Provider: Sean Zimmerman NP Age/Sex: 77/M Location: [facility] Status: Signed Intake Vital Signs02/20/18 Height 5 ft 6 in Intake Visit Reasons: FU for [employer] oxygen order, needs seen by PCP Chief Complaint: follow-up visit Is patient in pain?: No Allergies No Known Allergies Allergy (Unverified 01/24/18 09:44) Medications Fluticasone 0.05% [Flonase Nasal [place]] 1 spray NASAL BID 11/09/17 [History Confirmed 01/24/18] Metoprolol Tartrate [Lopressor (Beta Gigi)] 50 mg PO BID 11/09/17 [History Confirmed 01/24/18] Raccoon-3/Dha/Epa/Fish Oil [Fish Oil Raccoon-3 EC 1,200 mg] 1 ea PO 11/09/17 [History Confirmed 01/24/18] Tiotropium Ringgold [Spiriva] 18 mcg IH 11/09/17 [History Confirmed [...] QDAY #30 ea 01/24/18 [Rx Confirmed 01/24/18] [facility] Medical History Arthritis (Chronic) Macular degeneration (Chronic) [...] presents to the office today for a rigp-je-mowy evaluation for necessity of supplemental O2. He [...] he will be following up with a cd mixer helper next month. He denies any acute complaints [...] the office. He will follow-up with his cd mixer helper later next month. Dragon disclaimer Plan Detail Follow Up As previously scheduled or sooner if need Coding Level of Care Code Off vis,est,level 3 Diagnoses COPD (chronic obstructive pulmonary disease) J44.9 Hypoxemia R09.02 02/20/18 1200 <Electronically signed by Sean BARTH> Date Sean BARTH Cosigner Signature: Date (if applicable) CC: PULMONARY FUNCTION Observed: 02/13/2018 Status: F Source: [place] TEST 9:47 AM [facility] REPOSITORY [facility] Pulmonary Services/Neurology [address] [place] [address] MR#: [id number] Acct: [id number] Name: JESSE MACHUCA Rep #: [id number] : 1940 77 From: Kendall Cooper DO Referring Dr: Dale Cooper DO Status: REG CLI Ordering Dr: Date: Location: [facility] Sex: M C INTRODUCTION: The patient [...] DO Date Dictated: 02/13/18942 Date Transcribed: 02/13/18942 Fabric Finisher: DB Signed [place] - INDIVIDUAL Observed: 02/11/2018 Status: F Source: [place] TREATMENT PLAN 8:53 AM [facility] REPOSITORY [facility] Pulmonary Rehab Reports [address] [place] [address] [place] - Individual Treatment Plan MR#: [id number] Acct: [id number] Name: JESSE MACHUCA Lyla Rep #: [id number] : 1940 77 From: Lalito Malik SENIOR APPLICATION SECURITY CONSULTANT, REGISTERED NURSE STEP DOWN, BS PCP: Dale Cooper DO Exercise - [...] F Source: [place] OFFICE VISIT 12:33 PM [facility] Internal Medicine [address] [place] [address] OFFICE VISIT Date of Service: 01/24/18 MR#: [id number] Acct: [id number] Name: JESSE MACHUCA Rep #: [id number] : 1940 Provider: Dale Cooper DO Age/Sex: 77/M Location: [facility] Status: Signed Intake Vital Signs01/24/18 Height 5 ft 6 in Intake Visit Reasons: F/U Chief Complaint: follow-up visit Is patient in pain?: No Allergies No Known Allergies Allergy (Unverified 01/24/18 09:44) Medications Fluticasone 0.05% [Flonase Nasal [place]] 1 spray NASAL BID 11/09/17 [History Confirmed 01/24/18] Metoprolol Tartrate [Lopressor (Beta Gigi)] 50 mg PO BID 11/09/17 [History Confirmed 01/24/18] Raccoon-3/Dha/Epa/Fish Oil [Fish Oil Raccoon-3 EC 1,200 mg] 1 ea PO 11/09/17 [History Confirmed 01/24/18] Pantoprazole Sodium [Protonix] 40 mg PO 11/09/17 [History Confirmed 01/24/18] Tiotropium Ringgold [Spiriva] 18 mcg IH 11/09/17 [History Confirmed [...] DO Cosigner Signature: Date (if applicable) CC: [place] - INDIVIDUAL Observed: 12/31/2017 Status: F Source: [place] TREATMENT PLAN 7:01 PM [facility] REPOSITORY [facility] Pulmonary Rehab Reports [address] [place] [address] [place] - Individual Treatment Plan MR#: [id number] Acct: [id number] Name: JESSE MACHUCA Rep #: [id number] : 1940 77 From: Lalito Malik SENIOR APPLICATION SECURITY CONSULTANT, REGISTERED NURSE STEP DOWN, BS PCP: Dale Cooper DO Exercise - [...] and modality and progress per protocol. 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 Smoking Status: Former smoker - Living Arrangement Patient lives with other person(s) in the home:: AROUND THE CLOCK - Current/ Previous Services [facility] Home Health:: No Other Home Health:: No [facility] Cardiac Rehab:: No Life (Palliative) Care [...] I used to do, even walking to [employer] is a chore. Medications AND Vaccination Info Home Medications: Ambulatory Orders Fluticasone 0.05% [Flonase Nasal [place]] 1 spray NASAL BID 11/09/17 Metoprolol Tartrate [Lopressor (Beta Gigi)] 50 mg PO BID 11/09/17 Mometasone/Formoterol [Dulera 100 Mcg/5 Mcg Inhaler] 13 gm IH BID 11/09/17 Mometasone/Formoterol [Dulera 200 Mcg/5 Mcg Inhaler] 13 gm IH BID 11/09/17 Raccoon-3/Dha/Epa/Fish Oil [Fish Oil Raccoon-3 EC 1,200 mg] 1 each PO 11/09/17 Pantoprazole Sodium [Protonix] 40 mg PO 11/09/17 Sildenafil Citrate [Viagra] 100 mg PO 11/09/17 Tiotropium Ring[place] [Spiriva] 18 mcg IH 11/09/17 Vit A/Vit [...] Advanced Directives - Advanced Directives Power of Bricklayer Sewer: No Living Will: No Advance Directives Information [...] Free?: Yes Pain Location: none - Hearing/Speech/Vision/Spiritual Cultural/Congregational Needs that may affect Treatment Plan: No Do you have any Spiritual/Emotional needs of which our [employer] [facility] could be of assistance?: No [facility] [facility] to contact Place of Hinduism?: No Primary Language: Ukrainian Right Hearing Abillity: Hard of Hearing Visual [...] Results Hematology/Chemistry: see labs from Dr. Cooper's office/[facility]. - Diagnostic and Imaging Results CXR:: Breanna [...] Signature: Date Brandin Matias MD CC: Signed [place] - INDIVIDUAL Observed: 12/14/2017 Status: F Source: [place] TREATMENT PLAN 6:05 PM [facility] REPOSITORY [facility] Pulmonary Rehab Reports [address] [place] [address] [place] - Individual Treatment Plan MR#: [id number] Acct: [id number] Name: JESSE MACHUCA Rep #: [id number] : 1940 76 From: Lalito Malik CRT, [...] and modality and progress per protocol. 12/14/17 1674<Electronically signed by Brandin Matias MD> Cosigner Signature: Date Brandin Matias MD CC: Signed [place] - INDIVIDUAL Observed: 12/14/2017 Status: F Source: [place] TREATMENT PLAN 6:05 PM [facility] REPOSITORY [facility] Pulmonary Rehab Reports [address] [place] [address] [place] - Individual Treatment Plan MR#: [id number] Acct: [id number] Name: JESSE MACHUCA Rep #: [id number] : 1940 76 From: Lalito Malik CRT, [...] SOURCE 11/02/2018 Drug hydrocodone/F Unknown Unknown [place] [facility] Allergy/4160 094497102(RXN Hospital 62676(SNOMED ORM) Repository CT) 10/10/2018 Drug acetaminophen Unknown Unknown [place] [facility] Allergy/4160 /R587962397(R Hospital 88422(SNOMED XNORM) Repository CT) 07/10/2018 Drug No Known Unknown [place] [facility] Allergy/4160 Allergies/F00 Hospital 30593(SNOMED 3533361(RXNOR Repository CT) M) ENCOUNTERS ENCOUNTERS ADMIT/DISCHARGE ACCOUNT ADMITTING ENCOUNTER LOCATION SOURCE NUMBER CLASS 11/29/2018 [id number] Ambulatory [place] 8 [facility] ing:CR Repository 11/21/2018 [id number] Ambulatory [place] 7 [facility] ing:CR Repository 11/19/2018 [id number] Ambulatory [place] 0 [facility] ing:MTRAD Repository 11/19/2018/ [id number] Ambulatory BMSBuilding:B [place] 9 9 [place] Repository 11/11/2018 [id number] Ambulatory [place] 5 [facility] ing:LAB Repository 11/02/2018/ [id number] Ambulatory BMSBuilding:B [place] 8 8 [facility] Repository 10/25/2018/ [id number] Ambulatory BMSBuilding:B [place] 8 0 [facility] Repository 10/19/2018 [id number] Ambulatory BMSBuilding:B [place] 4 [place] Repository 10/18/2018 [id number] Ambulatory BMSBuilding:B [place] 5 [facility] Repository 10/18/2018/ [id number] Ambulatory [place] 8 5 [facility] Hospital ing:CLSPRoom: Repository [id number] 10/14/2018 [id number] Ambulatory BMSBuilding:W [place] 7 [facility] Repository 10/14/2018 [id number] Ambulatory [place] 3 [facility] Repository 10/11/2018 [id number] Ambulatory [place] 9 [facility] ing:RAD Repository 10/11/2018 [id number] Ambulatory [place] 4 [facility] ing:LAB Repository 10/10/2018/ [id number] Ambulatory BMSBuilding:B [place] 8 1 [facility] Repository 08/29/2018 [id number] Ambulatory BMSBuilding:W [place] 8 [facility] Repository 08/29/2018 [id number] Ambulatory [place] 0 [facility] Hospital ing:CVS Repository 08/20/2018/ [id number] Ambulatory BMSBuilding:B [place] 8 9 [facility] Hospital Repository 07/10/2018/ [id number] Ambulatory BMSBuilding:B [place] 8 0 [facility] Hospital Repository 05/24/2018 [id number] Ambulatory [place] 9 [facility] Hospital ing:LAB Repository 05/23/2018/ [id number] Ambulatory BMSBuilding:B [place] 8 5 [facility] Hospital Repository 05/02/2018/ [id number] Ambulatory BMSBuilding:B [place] 8 7 [facility] Hospital Repository 03/21/2018/ [id number] Ambulatory BMSBuilding:B [place] 8 9 [facility] Hospital Repository 03/15/2018 [id number] Ambulatory [place] 1 [facility] Hospital ing:[place] Repository 02/22/2018/ [id number] Ambulatory [place] 8 8 [facility] Hospital ing:[place] Repository 02/20/2018/ [id number] Ambulatory BMSBuilding:B [place] 8 8 [place].[facility] Repository 02/13/2018 [id number] Ambulatory BMSBuilding:W [place] 7 [facility] Repository 02/12/2018 [id number] Ambulatory [place] 4 [facility] ing:PSN Repository 02/01/2018/ [id number] Ambulatory [place] 8 8 [facility] ing:[place] Repository 01/24/2018/ [id number] Ambulatory BMSBuilding:B [place] 8 5 [facility] Repository 01/02/2018/ [id number] Ambulatory [place] 8 5 [facility] ing:[place] Repository 12/03/2017/ [id number] Ambulatory [place] 8 6 [facility] ing:[place] Repository PAYERS PAYERS ENCOUNTER GUARANTOR PAYER SUBSCRIBER SOURCE 11/29/2018 JESSE J Primary JESSE J [place] [id number] Insurance:JOHANNA ATKINSDOB: [facility] Number: Repository [id number]: 330 [id number] [phone] () Date:4722-57-92GU [facility] [address], [place] [address]QF: 11/29/2018 Secondary NOT GIVENUNK [place] Insurance:SELF PAY [facility] Number: Effective Repository Date:2018-11-21 11/21/2018 JESSE J Primary JESSE J [place] [id number] Insurance:JOHANNA ATKINSDOB: [facility] [id number] Number: Repository [id number]: 330 [id number] [phone] () Date:2958-08-07RD [facility] [address], [place] [address]YN: 11/21/2018 Secondary NOT GIVENUNK [place] Insurance:SELF PAY [facility] Number: Effective Repository Date:2018-11-04 11/19/2018 JESSE J Primary JESSE J [place] [id number] Insurance:JOHANNA ATKINSDOB: [facility] [id number] Area [facility] Number: Repository [address]Cby: 330 [id number] [phone] (HP) Date:0276-45-14RR [address], [place] [address]WF: 11/19/2018 Secondary NOT GIVENUNK [place] Insurance:SELF PAY [facility] Number: Effective Repository Date:2018-11-19 11/19/2018 JESSE J Primary JESSE J [place] [id number] Insurance:JOHANNA ATKINSDOB: [facility] [id number] [facility] Number: Repository [address]Lum: 330 [id number] [phone] (HP) Date:9983-63-90JH [address], [place] [address]MM: 11/19/2018 Secondary NOT GIVENUNK [place] Insurance:SELF PAY [facility] Number: Effective Repository Date:2018-11-11 11/11/2018 JESSE J Primary JESSE J [place] [id number] Insurance:JOHANNA ATKINSDOB: [facility] [id number] Area [facility] Number: Repository [address]Yjt: 330 [id number] [phone] (HP) Date:1195-68-44YG [address], [place] [address]SF: 11/11/2018 Secondary NOT GIVENUNK [place] Insurance:SELF PAY [facility] Number: Effective Repository Date:2018-11-11 11/02/2018 JESSE J Primary JESSE J [place] [id number] Insurance:JOHANNA ATKINSDOB: [facility] [id number] Area [facility] Number: Repository [address]Syi: 330 [id number] [phone] (HP) Date:6113-41-50CE [address] [place] [address]YC: 11/02/2018 Secondary NOT GIVENUNK [place] Insurance:SELF PAY [facility] Number: Effective Repository Date:2018-11-02 10/25/2018 JESSE J Primary JESSE J [place] [id number] Insurance:JOHANNA ATKINSDOB: [facility] [id number] Area [facility] Number: Repository [id number]: 330 [id number] [phone] (HP) Date:4634-04-79TH [address], [place] [address]TV: 10/25/2018 Secondary NOT GIVENUNK [place] Insurance:SELF PAY [facility] Number: Effective Repository Date:2018-10-25 10/19/2018 JESSE J Primary JESSE J [place] [id number] Insurance:JOHANNA ATKINSDOB: [facility] [id number] Area [facility] Number: Repository [id number]: 330 [id number] [phone] () Date:2148-13-46BW [facility] [address] [place] [address]UU: 10/19/2018 Secondary NOT GIVENUNK [place] Insurance:SELF PAY [facility] Number: Effective Repository Date:2018-10-19 10/18/2018 JESSE J Primary JESSE J [place] [id number] Insurance:JOHANNA ATKINSDOB: [facility] [id number] Area [facility] Number: Repository [address]Ccq: (133) [id number] [phone] (HP) Date:8377-55-98FA [address] [place] [address]UY: 10/18/2018 Secondary NOT GIVENUNK [place] Insurance:SELF PAY [facility] Number: Effective Repository Date:2018-10-18 10/18/2018 JESSE J Primary JESSE J [place] [id number] Insurance:JOHANNA ATKINSDOB: [facility] [id number] Baptist Medical CenterOPolregional medical center Number: Repository [id number]: 330 [id number] [phone] (HP) Date:8386-36-37XJ [facility] [address], [place] [address]YG: 10/18/2018 Secondary NOT GIVENUNK [place] Insurance:SELF PAY [facility] Number: Effective Repository Date:2018-10-10 10/14/2018 JESSE J Primary JESSE J [place] [id number] Insurance:JOHANNA AT[facility] [id number] Area [facility] Number: Repository [address]Gaw: 330 [id number] [phone] (HP) Date:4600-21-81MR [facility] [address] [address]MN: 10/14/2018 Secondary NOT GIVENUNK [place] Insurance:SELF PAY [facility] Number: Effective Repository Date:2018-10-14 10/14/2018 JESSE J Primary JESSE J [place] [id number] Insurance:JOHANNA ATKINSDOB: [facility] [id number] Area [facility] Number: Repository [address]Zfs: 330 [id number] [phone] (HP) Date:2498-71-12VN [facility] [address], [place] [address]AA: 10/14/2018 Secondary NOT GIVENUNK [place] Insurance:SELF PAY [facility] Number: Effective Repository Date:2018-10-10 10/11/2018 JESSE J Primary JESSE J [place] [id number] Insurance[facility] [id number] [place] Number: Repository [id number]: 330 [id number] [phone] (HP) Date:4807-36-08GH [facility] [address] [address]SD: 10/11/2018 Secondary NOT GIVENUNK [place] Insurance:SELF PAY [facility] Number: Effective Repository Date:2018-10-11 10/11/2018 JESSE J Primary JESSE J [place] [id number] Insurance:JOHANNA ATKINSDOB: [facility] [id number] [place] Number: Repository [address]Xzm: 330 [id number] [phone] () Date:7191-18-08DZ [facility] [address] [place] [address]CV: 10/11/2018 Secondary NOT GIVENUNK [place] Insurance:SELF PAY [facility] Number: Effective Repository Date:2018-10-11 10/10/2018 JESSE J Primary JESSE J [place] [id number] Insurance:JOHANNA ATKINSDOB: [facility] [id number] [place] Number: Repository [id number]: 330 [id number] [phone] () Date:9342-72-71QE [facility] [address] [address]BU: 10/10/2018 Secondary NOT GIVENUNK [place] Insurance:SELF PAY [facility] Number: Effective Repository Date:2018-10-10 08/29/2018 JESSE J Primary JESSE J [place] [id number] Insurance:JOHANNA ATKINSDOB: [facility] [id number] Area [facility] [place] Number: Repository [id number]: 330 [id number] [phone] () Date:3724-72-15VY [facility] [address] [address]QC: 08/29/2018 Secondary NOT GIVENUNK [place] Insurance:SELF PAY [facility] Number: Effective Repository Date:2018-08-29 08/29/2018 JESSE J Primary JESSE J [place] [id number] Insurance:JOHANNA ATKINSDOB: [facility] [id number] [facility] CenterOPol[facility] Number: Repository [id number]: 330 [id number] [phone] (HP) Date:7305-59-51FF [address], [place] [address]XZ: 08/29/2018 Secondary NOT GIVENUNK [place] Insurance:SELF PAY [facility] Number: Effective Repository Date:2018-08-20 08/20/2018 JESSE J Primary JESSE J [place] [id number] Insurance:JOHANNA ATKINSDOB: [facility] [id number] Area [facility] [place] Number: Repository [address]Awt: 330 [id number] [phone] (HP) Date:3411-66-13AS [facility] [address] [address]VE: 08/20/2018 Secondary NOT GIVENUNK [place] Insurance:SELF PAY [facility] Number: Effective Repository Date:2018-08-20 07/10/2018 JESSE J Primary JESSE J [place] [id number] Insurance:JOHANNA ATKINSDOB: [facility] [id number] Area [facility] [place] Number: Repository [address]Wso: 330 [id number] [phone] () Date:9080-02-64CG [facility] [address] [address]BS: 07/10/2018 Secondary NOT GIVENUNK [place] Insurance:SELF PAY [facility] Number: Effective Repository Date:2018-07-09 05/24/2018 JESSE J Primary JESSE J [place] [id number] Insurance:JOHANNA ATKINSDOB: [facility] [id number] Area [facility] [place] Number: Repository [address]Btk: 330 [id number] [phone] (HP) Date:2035-37-41QU [address] [address]TL: 05/24/2018 Secondary NOT GIVENUNK [place] Insurance:SELF PAY [facility] Number: Effective Repository Date:2018-05-24 05/23/2018 JESSE J Primary JESSE J [place] [id number] Insurance:JOHANNA ATKINSDOB: [facility] [id number] Area [facility] [place] Number: Repository [address]Piv: 330 [id number] [phone] () Date:6573-28-70XG [facility] [address] [address]HB: 05/23/2018 Secondary NOT GIVENUNK [place] Insurance:SELF PAY [facility] Number: Effective Repository Date:2018-04-30 05/02/2018 JESSE J Primary JESSE J [place] [id number] Insurance:JOHANNA ATKINSDOB: [facility] [id number] Area [facility] [place] Number: Repository [address]Gha: 330 [id number] [phone] () Date:4368-95-90ZT [facility] [address] [place] [address]HL: 05/02/2018 Secondary NOT GIVENUNK [place] Insurance:SELF PAY [facility] Number: Effective Repository Date:2018-03-21 03/21/2018 JESSE J Primary JESSE J [place] [id number] Insurance:JOHANNA ATKINSDOB: [facility] [id number] Area [facility] [place] Number: Repository [address]Jbk: 330 [id number] [phone] () Date:7361-78-11ZE [facility] [address] [address]AZ: 03/21/2018 Secondary NOT GIVENUNK [place] Insurance:SELF PAY [facility] Number: Effective Repository Date:2018-03-19 03/15/2018 JESSE J Primary JESSE J [place] [id number] Insurance:JOHANNA ATKINSDOB: [facility] [id number] Area Memorial [facility] [place] Number: Repository [id number]: 330 [id number] [phone] () Date:6004-12-00XA [address] [place] [address]DX: 03/15/2018 Secondary NOT GIVENUNK [place] Insurance:SELF PAY [facility] Number: Effective Repository Date:2018-03-05 02/22/2018 JESSE J Primary JESSE J [place] [id number] Insurance:JOHANNA ATKINSDOB: [facility] [id number] Area Memorial [facility] [place] Number: Repository [id number]: 330 [id number] [phone] () Date:4208-67-81EG [facility] [address] [place] [address]NQ: 02/22/2018 Secondary NOT GIVENUNK [place] Insurance:SELF PAY [facility] Number: Effective Repository Date:2018-02-03 02/20/2018 JESSE J Primary JESSE J [place] [id number] Insurance:JOHANNA ATKINSDOB: [facility] [id number] Area Memorial [facility] [place] Number: Repository [address]487Ker: 330 [id number] [phone] () Date:2199-24-70BH [facility] [address] [place] [address]MB: 02/20/2018 Secondary NOT GIVENUNK [place] Insurance:SELF PAY [facility] Number: Effective Repository Date:2018-02-19 02/13/2018 JESSE J Primary JESSE J [place] [id number] Insurance:JOHANNA ATKINSDOB: [facility] [id number] Area Memorial Hospital [facility] [place] Number: Repository [address]Lkh: 330 [id number] [phone] () Date:3966-89-16SU [facility] [address] [address]YO: 02/13/2018 Secondary NOT GIVENUNK [place] Insurance:SELF [facility]Y [facility] Number: Effective Repository Date:2018-02-13 02/12/2018 JESSE J Primary JESSE Arita [place] [id number] Insurance:JOHANNA ATKINSDOB: [facility] [employer] [id number] HMOPolregional medical center Number: Repository [id number]: [phone] [id number] [phone] () Date:3798-65-14BK [address] [place] [address]CB: 02/12/2018 Secondary NOT GIVENUNK [place] Insurance:SELF PAY [facility] Number: Effective Repository Date:2018-01-24 02/01/2018 JESSE J Primary IAN L [place] [id number] Insurance:AULTCAREPol ATKINSDOB: [facility] icy Number: [id number] [id number] Repository [address]Tbk: 330) Date:0531-53-70KB [phone] () [address] [address]ZW: 02/01/2018 Secondary NOT GIVENUNK [place] Insurance:SELF PAY [facility] Number: Effective Repository Date:2018-01-03 01/24/2018 JESSE J Primary IAN L [place] [id number] Insurance:AULTCAREPol ATKINSDOB: [facility] icy Number: [id number] [id number] Repository [address]Ywa: (330) Date:2457-30-91RK [phone] () [address] [address]LD: 01/24/2018 Secondary NOT GIVENUNK [place] Insurance:SELF PAY [facility] Number: Effective Repository Date:2018-01-24 01/02/2018 Jesse J Primary IAN L [place] [id number] Insurance:AULTCAREPol ATKINSDOB: [facility] ic Number: [id number], [place] [id number] Repository [address]Avp: (330) Date:0199-56-65ND [phone] () [address] [address]GD: 01/02/2018 Secondary NOT GIVENUNK [place] Insurance:SELF PAY [facility] Number: Effective Repository Date:2017-12-06 12/03/2017 Jesse Lyla Primary IAN Ocampo [id number] Insurance[facility]AREOwatonna HospitalD[facility] Number: [id number] [id number] Repository [address]Qay: (330) Date:5279-11-57BD [phone] () [address] [address]QT: 12/03/2017 Secondary NOT GIVENUNK [place] Insurance:SELF PAY [facility] Number: Effective Repository Date:2017-11-07
== END ==
PROVIDERS: Family Provider Family Medicine; PCP Family Medicine; Referring Provider Internal Medicine Cardiovascular Disease; Visit Provider Internal Medicine Cardiovascular Disease
DX: I10 Essential (primary) hypertension (principal); J96.11 Chronic respiratory failure with hypoxia; E66.9 Obesity, unspecified; I25.10 Atherosclerotic heart disease of native coronary artery without angina pectoris; E78.5 Hyperlipidemia, unspecified; K21.9 Gastro-esophageal reflux disease without esophagitis; Z95.5 Presence of coronary angioplasty implant and graft

== ENCOUNTER 2018-12-02 11:30 | Outpatient (RCR) | payer MEDICARE, SELFPAY ==
[2018-10-18 14:00] VITALS: BMI 35.0
[2018-11-21 09:52] VITALS: BMI 33.7
== END 2018-12-05 23:59 ==
LOC: CR 11:30
PROVIDERS: Family Provider Family Medicine; PCP Family Medicine; Referring Provider Internal Medicine Cardiovascular Disease; Visit Provider Internal Medicine Cardiovascular Disease
DX: I25.10 Atherosclerotic heart disease of native coronary artery without angina pectoris (principal); R94.39 Abnormal result of other cardiovascular function study
CPT/HCPCS: 93798

== ENCOUNTER 2018-12-30 11:30 | Outpatient (RCR) | payer MEDICARE, SELFPAY ==
[2018-10-18 14:00] VITALS: BMI 35.0
[2018-11-21 09:52] VITALS: BMI 33.7
--- NOTE | 2018-12-20 08:59 | PCM.CR.ITP ---
Exercise - 30-day Assessment - Visit Date of Eval: 12/20/18 Session #:: 10 - Stages of Change Stages of Change:: Action - Exercise Prescription Mode:: Treadmill, Rower, Airdyne, NuStep Frequency (x/week): 3 Duration:: 30-45 METs - Progression: 0.5-1 MET as tolerated: 3.5 Target Heart Rate:: 99-106 - Hypertension Resting Blood Pressure:: 148/60 Peak Exercise Blood Pressure:: 148/60 Medication Changes:: No - Intervention Home Exercise/Activity Goal:: Moderate Exercise 30 min/day x 5 days/wk - Education Goals:: Warm-up, RPE DONTE Scale, S/S, Safe Exercise, Self-Monitoring - Exercise Program Goals Exercise Program Goals: Aerobic Activity >30 min Nutrition - Initial Assessment - Program Goals Nutrition Program Goals: LDL <70. Total Cholesterol <200. HDL >45. Triglycerides <150. HgbA1C <7%. BMI <25 - Diabetes Do you monitor your blood sugar at home?: No Nutrition - 30-Day Assessment - Program Goals Nutrition Program Goals: LDL <70. Total Cholesterol <200. HDL >45. Triglycerides <150. HgbA1C <7%. BMI <25 - Visit Date of Eval: 12/20/18 - Stages of Change Stages of Change:: Action - Lipids Has the patient seen the dietitian?: No - Diabetes Diabetes:: No - Weight Management Weight:: 211 lb 8 oz - Intervention Referral to dietitian:: No Referral to Diabetic Clinic:: No Will attend diet classes:: Yes - Education Attended class for:: Healthy eating Tobacco - Initial Assessment - Program Goals Tobacco Program Goals: Complete smoking cessation. Attend education classes. Improve Knowledge Test score - Learning Barriers Learning Barriers: Hearing, Vision, Ready to Learn Tobacco - 30-Day Assessment - Program Goals Tobacco Program Goals: Complete smoking cessation. Attend education classes. Improve Knowledge Test score - Stage of Change Stages of Change:: Action - Learning Barriers Learning Barriers: Participates in education - Family Support Do you have family support?: Yes - Tobacco Use Tobacco Use: Non-smoker Do you use smokeless tobacco?: No - Intervention Smoking Cessation Referral:: No Individual Education/Counseling:: No Education Schedule Given:: Yes - Education Attended class for:: Coronary artery disease, Risk factors, Sexuality, Medical compliance, Cardiac A&P, Angina signs & symptoms Psychosocial - Initial Assess - Target Goals Target Goals: Assess presence or absence of depression. Using a valid screening tool, maximizes coping skills. Positive support system - Psychosocial Test Tool Used:: HANDS Depression Questionnaire - Assistive Devices Fall Risk Assessed:: Yes Psychosocial - 30-Day Assess - Target Goals Target Goals: Assess presence or absence of depression. Using a valid screening tool, maximizes coping skills. Positive support system - Stages of Change Stages of Change:: Action - Psychosocial Test Tool Used:: HANDS Depression Questionnaire - Intervention PS - Interventions: Yes Attend Stress Management Classes, Yes Uses Stress Management Skills, No Referral to Mental Health, No Referral to [facility] Case Management, No Referral to Physician - Education Attended classes for:: Coping techniques, Signs & symptoms of depression, Stress management, Relaxation techniques - Patient/Program Goal Preventative Medication(s):: Aspirin, Clopidogrel, Beta remington, Statin/lipid - Assistive Devices Assistive Devices:: None Fall Risk Assessed:: Yes Patient Health Questionnaire 30-Day Re-eval Assessment 1. Little interest or pleasure in doing things: Several days 2. Feeling down, depressed, or hopeless: Not at all 3. Trouble falling or staying asleep, or sleeping too much: Not at all 4. Feeling tired or having little energy: Several days 5. Poor appetite or overeating: Not at all 6. Feeling bad about yourself -- or that you are a failure or have let yourself or your family down: Not at all 7. Trouble concentrating on things, such as reading the newspaper or watching television: Several days 8. Moving or speaking so slowly that other people could have noticed. Or the opposite - being so fidgety or restless that you have been moving around a lot more than usual: Not at all 9. Thoughts that you would be better off , or of hurting yourself in some way: Not at all How difficult have these problems made it for you to do your work, take care of things at home, or get along with other people?: Not difficult at all Total Score: 3 Self-Efficacy 30-Day Re-eval Assessment We would like to know how confident you are in doing certain activities. Please select your confidence level for:: Select your confidence level for the following using the scale 1-10 where 1 is not at all confident and 10 is totally confident. Your score is the average of all 6 responses. Fatigue: How confident are you that you can keep the fatigue caused by your disease from interfering with the things you want to do? Select Number: 7 Physical Discomfort or Pain: How confident are you that you can keep the physical discomfort or pain of your disease from interfering with the things you want to do? Select Number: 8 Emotional Distress: How confident are you that you can keep the emotional distress caused by your disease from interfering with the things you want to do? Select Number: 8 Other Symptoms or Health Problems: How confident are you that you can keep other symptoms or health problems from interfering with the things you want to do? Select Number: 10 Different Tasks and Activities: How confident are you that you can do the different tasks and activities needed to manage your health condition so as to reduce your need to see a doctor? Select Number: 9 Medication: How confident are you that you can do things other than just taking medication to reduce how much your illness affects your everyday life? Select Number: 9 Total Score:: 8
[2018-12-20 09:04] VITALS: BP 148/60
== END 2019-01-02 23:59 ==
LOC: CR 11:30
PROVIDERS: Family Provider Family Medicine; PCP Family Medicine; Referring Provider Internal Medicine Cardiovascular Disease; Visit Provider Internal Medicine Cardiovascular Disease
DX: I25.10 Atherosclerotic heart disease of native coronary artery without angina pectoris (principal); R94.39 Abnormal result of other cardiovascular function study
CPT/HCPCS: 93798

== ENCOUNTER → 2019-01-09 10:42 | Outpatient (CLI) | payer MEDICARE, SELFPAY ==
[2018-10-18 14:00] VITALS: BMI 35.0
[2018-11-21 09:52] VITALS: BMI 33.7
== END ==
PROVIDERS: Family Provider Family Medicine; PCP Family Medicine; Referring Provider Internal Medicine Cardiovascular Disease; Visit Provider Internal Medicine Cardiovascular Disease
DX: I49.3 Ventricular premature depolarization (principal)
CPT/HCPCS: 93225; 93226

== ENCOUNTER → 2019-01-13 09:58 | Outpatient (CLI) | payer MEDICARE, SELFPAY ==
[2018-10-18 14:00] VITALS: BMI 35.0
[2019-01-09 11:37] VITALS: BMI 34.2
== END ==
PROVIDERS: Family Provider Family Medicine; PCP Family Medicine; Referring Provider Internal Medicine Critical Care Medicine; Visit Provider Internal Medicine Critical Care Medicine
DX: J44.9 Chronic obstructive pulmonary disease, unspecified (principal)
CPT/HCPCS: 93798; 94060; 94726; 94729

== ENCOUNTER → 2019-01-15 10:01 | Outpatient (CLI) | payer MEDICARE, SELFPAY ==
[2018-10-18 14:00] VITALS: BMI 35.0
[2019-01-09 11:37] VITALS: BMI 34.2
[2019-01-15 10:58] VITALS: PULSE 53; PULSE 57; PULSE 66; PULSE 69; PULSE 72; PULSE 73; PULSE 75; PULSE 77; O2SAT 85; O2SAT 89; O2SAT 91; O2SAT 92; O2SAT 93; O2SAT 96
--- NOTE | 2019-01-15 11:02 | CPS ---
Pt wears 3-4 lpm O2 at home with exertion and exercise as well as exercising during cardiac rehab. Started testing on room air, by the 3rd minute patient was 85%, started on 2lpm O2. Patient maintained SpO2 above 89% until 5 minutes and 30 seconds. Patient was 88% at this time, increased O2 to 3lpm for the remaining 30 seconds. Patient stated that the walk test is fairly light exercise compared to what he does in cardiac rehab.
--- NOTE | 2019-01-17 08:28 | PCM.PSN.6M ---
PSN 6 Minute Walk Test - 6 Minute Walk Test 6 Minute Walk Test: 6 Minute Walk Test PSN:6-Minute Walk Test Start: 01/15/19 10:58 Freq: Status: Active Protocol: RESP.6MINW Document 01/15/19 10:58 BENSONPAMELLA (Rec: 01/15/19 11:05 EFRAIN [id number]) 6 Minute Walk Test Date Performed 01/15/19 Time Performed 10:00 Height 5 ft 6 in Weight: 214 lb Weight in Pounds 214.[address]: Kendall Cooper Assistive device used: None Pre-test Oxygen Delivery Method Room Air Pulse Ox (%) 91 Pulse Rate (60-100 beats/min) 53 L Dyspnea Torrey Scale (0-10) 0.5 Exertion Torrey Scale (6-20) 6 1st minute Oxygen Delivery Method Room Air Pulse Ox (%) 92 Pulse Rate (60-100 beats/min) 66 2nd minute Oxygen Delivery Method Room Air Pulse Ox (%) 89 Pulse Rate (60-100 beats/min) 73 3rd minute Oxygen Delivery Method Room Air Pulse Ox (%) 85 Pulse Rate (60-100 beats/min) 72 4th minute Oxygen Flow Rate (L/min) (L/min) 2 Oxygen Delivery Method Nasal Cannula Pulse Ox (%) 96 Pulse Rate (60-100 beats/min) 69 5th minute Oxygen Flow Rate (L/min) (L/min) 2 Oxygen Delivery Method Nasal Cannula Pulse Ox (%) 93 Pulse Rate (60-100 beats/min) 75 6th minute Oxygen Flow Rate (L/min) (L/min) 3 Oxygen Delivery Method Nasal Cannula Pulse Ox (%) 89 Pulse Rate (60-100 beats/min) 77 Dyspnea Torrey Scale (0-10) 1 Exertion Torrey Scale (6-20) 11 Post-test Oxygen Flow Rate (L/min) (L/min) 3 Oxygen Delivery Method Nasal Cannula Pulse Ox (%) 96 Pulse Rate (60-100 beats/min) 57 L Full Laps Walked 17 Partial Lap, Number of Tiles Walked 20 Total Distance Walked (ft) 1023 01/15/19 11:02 Cardiopulmonary Services by Reshma Ortiz Pt wears 3-4 lpm O2 at home with exertion and exercise as well as exercising during cardiac rehab. Started testing on room air, by the 3rd minute patient was 85%, started on 2lpm O2. Patient maintained SpO2 above 89% until 5 minutes and 30 seconds. Patient was 88% at this time, increased O2 to 3lpm for the remaining 30 seconds. Patient stated that the walk test is fairly light exercise compared to what he does in cardiac rehab. Initialized on 01/15/19 11:02 - END OF NOTE - Interpretation Interpretation: The patient ambulated 1023 feet over the course of 6 minutes beginning on room air without assistive devices or breaks. Pretesting oxygen saturation was noted to be 91% on room air. With ambulation, the patient desaturated to 85% at minute 3 of testing. 2 L/min of oxygen was applied and the test was continued. The patient again desaturated to 88% at minute 5 of testing requiring an escalation in his flow rate to 3 L/min. - Recommendations Recommendations: 3 L/min of supplemental oxygen should be utilized with exertion.
== END ==
PROVIDERS: Family Provider Family Medicine; PCP Family Medicine; Referring Provider Internal Medicine Critical Care Medicine; Visit Provider Internal Medicine Critical Care Medicine
DX: J44.9 Chronic obstructive pulmonary disease, unspecified (principal)
CPT/HCPCS: 94618

== ENCOUNTER 2019-01-31 11:30 | Outpatient (RCR) | payer MEDICARE, SELFPAY ==
[2018-10-18 14:00] VITALS: BMI 35.0
[2018-11-21 09:52] VITALS: BMI 33.7
[2019-01-03 01:24] VITALS: BP 148/60
--- NOTE | 2019-01-14 11:25 | PFT ---
INTRODUCTION: The patient is a 78-year-old male that presents for pulmonary function studies secondary to a diagnosis of COPD. Respiratory therapy reports good patient effort. Bronchodilators were used during testing. INTERPRETATION: Forced expiration spirometry demonstrates the presence of a severe large airways obstructive ventilatory defect. There was a significant response to aerosolized bronchodilators noted. Spirograms are of good quality and do not plateau indicating slow emptying of the lungs. Body plethysmography was performed and reveals lung volumes to be within normal limits. Diffusing capacity by single breath CO is moderately reduced at 55% of predicted. When compared to previous pulmonary function studies dated February 2018, there has been a 20% reduction in FEV1. IMPRESSION: These pulmonary function studies demonstrate the presence of a partially reversible severe large airways obstructive ventilatory defect with a symmetric reduction in diffusing capacity. There has been worsening in the patient's FEV1 since PFTs were last completed in February 2018.
--- NOTE | 2019-01-17 12:49 | PCM.CR.ITP ---
General Information - General Information Admitting Diagnosis: pci with stent - Education/Goals Barriers to Learning: None Cardiac Rehabilitation Goals: 1. Maintain the individual as the primary focus of care. 2. To improve the patient's quality of life. 3. Identification of cardiac risk factors and provide cardiac risk factor management. 4. Enhance the psychosocial status of the patient. 5. Reconditioning enough to allow the patient to resume customary activities. 6. Control symptoms of cardiac disease Scale for measuring improvement of personal goals: Enter appropriate number in Comments. 2 = Unchanged. 3 = Slightly Better. 4 = Moderate Improvement. 5 = Met my Goal Exercise - 60-Day Assessment - Visit Date of Eval: 01/17/19 Session #:: 21 - Stages of Change Stages of Change:: Action - Physician Prescribed Exercise Modalities: Treadmill, Airdyne, NuStep Frequency (days/week): 3 Duration (Minutes):: 30-45 Intensity: 60-80% age predicted maximum heart rate reserve METs - Progression: 0.5-1.0 MET, RPE 11-14 WEEK: 3.8 Target Heart Rate:: 99-106 Max hr 98 - Hypertension Resting Blood Pressure:: 110/54 Peak Exercise Blood Pressure:: 148/72 - Intervention Home Exercise/Activity Goal:: Sitting Time <3 hrs/day - Education Goals:: Warm-up, RPE DONTE Scale, S/S, Safe Exercise, Self-Monitoring - Exercise Program Goals Exercise Program Goals: Aerobic Activity >30 min, B/P <130/80 Nutrition - Initial Assessment - Program Goals Nutrition Program Goals: LDL <70. Total Cholesterol <200. HDL >45. Triglycerides <150. HgbA1C <7%. BMI <25 - Diabetes Do you monitor your blood sugar at home?: No Nutrition - 60-Day Assessment - Program Goals Nutrition Program Goals: LDL <70. Total Cholesterol <200. HDL >45. Triglycerides <150. HgbA1C <7%. BMI <25 - Visit Date of Eval: 01/17/19 - Stages of Change Stages of Change:: Action - Weight Management Weight:: 97.069 kg - Intervention Referral to dietitian:: No Referral to Diabetic Clinic:: No Will attend diet classes:: Yes - Education Attended class for:: Signs & symptoms of hypoglycemia, Signs & symptoms of hyperglycemia, Relate diabetes to coronary artery disease, Healthy eating Tobacco - Initial Assessment - Program Goals Tobacco Program Goals: Complete smoking cessation. Attend education classes. Improve Knowledge Test score - Learning Barriers Learning Barriers: Hearing, Vision, Ready to Learn Tobacco - 60-Day Assessment - Program Goals Tobacco Program Goals: Complete smoking cessation. Attend education classes. Improve Knowledge Test score - Stage of Change Stages of Change:: Action - Learning Barriers Learning Barriers: Participates in education - Family Support Do you have family support?: Yes - Tobacco Use Tobacco Use: Non-smoker Do you use smokeless tobacco?: No - Intervention Smoking Cessation Referral:: No Individual Education/Counseling:: No Education Schedule Given:: Yes - Education Attended class for:: Tobacco triggers, Coronary artery disease, Risk factors, Sexuality, Medical compliance, Cardiac A&P, Angina signs & symptoms Psychosocial - Initial Assess - Target Goals Target Goals: Assess presence or absence of depression. Using a valid screening tool, maximizes coping skills. Positive support system - Psychosocial Test Tool Used:: HANDS Depression Questionnaire - Assistive Devices Fall Risk Assessed:: Yes Psychosocial - 60-Day Assess - Target Goals Target Goals: Assess presence or absence of depression. Using a valid screening tool, maximizes coping skills. Positive support system - Stages of Change Stages of Change:: Action - Psychosocial Test Tool Used:: HANDS Depression Questionnaire - Intervention PS - Interventions: Yes Attend Stress Management Classes, Yes Uses Stress Management Skills, No Referral to Mental Health, No Referral to [facility] Case Management, No Referral to Physician - Education Attended classes for:: Coping techniques, Signs & symptoms of depression, Stress management, Relaxation techniques - Assistive Devices Assistive Devices:: None Fall Risk Assessed:: Yes Patient Health Questionnaire 60-Day Re-eval Assessment 1. Little interest or pleasure in doing things: Several days 2. Feeling down, depressed, or hopeless: Not at all 3. Trouble falling or staying asleep, or sleeping too much: Not at all 4. Feeling tired or having little energy: Several days 5. Poor appetite or overeating: Not at all 6. Feeling bad about yourself -- or that you are a failure or have let yourself or your family down: Several days 7. Trouble concentrating on things, such as reading the newspaper or watching television: Not at all 8. Moving or speaking so slowly that other people could have noticed. Or the opposite - being so fidgety or restless that you have been moving around a lot more than usual: Not at all 9. Thoughts that you would be better off , or of hurting yourself in some way: Not at all How difficult have these problems made it for you to do your work, take care of things at home, or get along with other people?: Not difficult at all Total Score: 3 Self-Efficacy 60-Day Re-eval Assessment We would like to know how confident you are in doing certain activities. Please select your confidence level for:: Select your confidence level for the following using the scale 1-10 where 1 is not at all confident and 10 is totally confident. Your score is the average of all 6 responses. Fatigue: How confident are you that you can keep the fatigue caused by your disease from interfering with the things you want to do? Select Number: 8 Physical Discomfort or Pain: How confident are you that you can keep the physical discomfort or pain of your disease from interfering with the things you want to do? Select Number: 8 Emotional Distress: How confident are you that you can keep the emotional distress caused by your disease from interfering with the things you want to do? Select Number: 10 Other Symptoms or Health Problems: How confident are you that you can keep other symptoms or health problems from interfering with the things you want to do? Select Number: 9 Different Tasks and Activities: How confident are you that you can do the different tasks and activities needed to manage your health condition so as to reduce your need to see a doctor? Select Number: 9 Medication: How confident are you that you can do things other than just taking medication to reduce how much your illness affects your everyday life? Select Number: 9 Total Score:: 8
[2019-01-17 12:54] VITALS: BP 110/54; BP 148/72
== END 2019-02-02 23:59 ==
LOC: CR 11:30
PROVIDERS: Family Provider Family Medicine; PCP Family Medicine; Referring Provider Internal Medicine Cardiovascular Disease; Visit Provider Internal Medicine Cardiovascular Disease
DX: I25.10 Atherosclerotic heart disease of native coronary artery without angina pectoris (principal); R94.39 Abnormal result of other cardiovascular function study
CPT/HCPCS: 93798

== ENCOUNTER 2019-02-21 13:00 | Outpatient (RCR) | payer MEDICARE, SELFPAY ==
[2018-10-18 14:00] VITALS: BMI 35.0
[2019-02-03 01:06] VITALS: BP 110/54; BP 148/72; BMI 33.7
--- NOTE | 2019-02-17 08:16 | CR.ITP_ITS ---
General Information - General Information Admitting Diagnosis: PCI with stent - Education/Goals Cardiac Rehabilitation Goals: 1. Maintain the individual as the primary focus of care. 2. To improve the patient's quality of life. 3. Identification of cardiac risk factors and provide cardiac risk factor management. 4. Enhance the psychosocial status of the patient. 5. Reconditioning enough to allow the patient to resume customary activities. 6. Control symptoms of cardiac disease Scale for measuring improvement of personal goals: Enter appropriate number in Comments. 2 = Unchanged. 3 = Slightly Better. 4 = Moderate Improvement. 5 = Met my Goal Exercise - 90-Day Assessment - Visit Date of Eval: 02/17/19 Session #:: 33 - Stages of Change Stages of Change:: Action - Physician Prescribed Exercise Modalities: Treadmill, Airdyne, NuStep Intensity: 60-80% age predicted maximum heart rate reserve METs - Progression: 0.5-1.0 MET, RPE 11-14 WEEK: 3.9 Target Heart Rate:: 99-106 Max HR 94 - Hypertension Resting Blood Pressure:: 124/68 Peak Exercise Blood Pressure:: 140/72 - Intervention Home Exercise/Activity Goal:: Sitting Time <3 hrs/day - Education Goals:: Warm-up, RPE DONTE Scale, S/S, Safe Exercise, Self-Monitoring - Exercise Program Goals Exercise Program Goals: Aerobic Activity >30 min, B/P <130/80 Nutrition - Initial Assessment - Program Goals Nutrition Program Goals: LDL <70. Total Cholesterol <200. HDL >45. Triglycerides <150. HgbA1C <7%. BMI <25 - Diabetes Do you monitor your blood sugar at home?: No Nutrition - 90-Day Assessment - Program Goals Nutrition Program Goals: LDL <70. Total Cholesterol <200. HDL >45. Triglyceri jarett <150. HgbA1C <7%. BMI <25 - Visit Date of Eval: 02/17/19 - Stages of Change Stages of Change:: Action - Weight Management Weight:: 93.213 kg - Intervention Referral to dietitian:: No Referral to Diabetic Clinic:: No Will attend diet classes:: Yes - Education Attended class for:: Signs & symptoms of hypoglycemia, Signs & symptoms of hyperglycemia, Relate diabetes to coronary artery disease, Healthy eating Tobacco - Initial Assessment - Program Goals Tobacco Program Goals: Complete smoking cessation. Attend education classes. Improve Knowledge Test score - Learning Barriers Learning Barriers: Hearing, Vision, Ready to Learn Tobacco - 90-Day Assessment - Program Goals Tobacco Program Goals: Complete smoking cessation. Attend education classes. Improve Knowledge Test score - Stage of Change Stages of Change:: Action - Learning Barriers Learning Barriers: Participates in education - Family Support Do you have family support?: Yes - Tobacco Use Tobacco Use: Non-smoker Do you use smokeless tobacco?: No - Intervention Smoking Cessation Referral:: No Individual Education/Counseling:: No Education Schedule Given:: Yes - Education Attended class for:: Tobacco triggers, Coronary artery disease, Risk factors, Sexuality, Medical compliance, Cardiac A&P, Angina signs & symptoms Psychosocial - Initial Assess - Target Goals Target Goals: Assess presence or absence of depression. Using a valid screening tool, maximizes coping skills. Positive support system - Psychosocial Test Tool Used:: HANDS Depression Questionnaire - Assistive Devices Fall Risk Assessed:: Yes Psychosocial - 90-Day Assess - Target Goals Target Goals: Assess presence or absence of depression. Using a valid screening tool, maximizes coping skills. Positive support system - Stages of Change Stages of Change:: Action - Psychosocial Test Tool Used:: HANDS Depression Questionnaire - Intervention PS - Interventions: Yes Attend Stress Management Classes, Yes Uses Stress Management Skills, No Referral to Mental Health, No Referral to [facility] Case Management, No Referral to Physician - Education Attended classes for:: Coping techniques, Signs & symptoms of depression, Stress management, Relaxation techniques - Assistive Devices Assistive Devices:: None Fall Risk Assessed:: Yes Patient Health Questionnaire 90-Day Re-eval Assessment 1. Little interest or pleasure in doing things: Several days 2. Feeling down, depressed, or hopeless: Not at all 3. Trouble falling or staying asleep, or sleeping too much: Not at all 4. Feeling tired or having little energy: Several days 5. Poor appetite or overeating: Not at all 6. Feeling bad about yourself -- or that you are a failure or have let yourself or your family down: Several days 7. Trouble concentrating on things, such as reading the newspaper or watching television: Not at all 8. Moving or speaking so slowly that other people could have noticed. Or the opposite - being so fidgety or restless that you have been moving around a lot more than usual: Not at all 9. Thoughts that you would be better off , or of hurting yourself in some way: Not at all How difficult have these problems made it for you to do your work, take care of things at home, or get along with other people?: Not difficult at all Total Score: 3 Self-Efficacy 90-Day Re-eval Assessment We would like to know how confident you are in doing certain activities. Please select your confidence level for:: Select your confidence level for the following using the scale 1-10 where 1 is not at all confident and 10 is totally confident. Your score is the average of all 6 responses. Fatigue: How confident are you that you can keep the fatigue caused by your disease from interfering with the things you want to do? Select Number: 8 Physical Discomfort or Pain: How confident are you that you can keep the physical discomfort or pain of your disease from interfering with the things you want to do? Select Number: 8 Emotional Distress: How confident are you that you can keep the emotional distress caused by your disease from interfering with the things you want to do? Select Number: 10 Other Symptoms or Health Problems: How confident are you that you can keep other symptoms or health problems from interfering with the things you want to do? Select Number: 9 Different Tasks and Activities: How confident are you that you can do the different tasks and activities needed to manage your health condition so as to reduce your need to see a doctor? Select Number: 9 Medication: How confident are you that you can do things other than just taking medication to reduce how much your illness affects your everyday life? Select Number: 9 Total Score:: 8
[2019-02-17 08:18] VITALS: BP 124/68; BP 140/72
== END 2019-02-23 11:30 | disposition home or self-care (01) ==
LOC: CR 13:00
PROVIDERS: Family Provider Family Medicine; PCP Family Medicine; Referring Provider Internal Medicine Cardiovascular Disease; Visit Provider Internal Medicine Cardiovascular Disease
DX: I25.10 Atherosclerotic heart disease of native coronary artery without angina pectoris (principal); R94.39 Abnormal result of other cardiovascular function study
CPT/HCPCS: 93798

== ENCOUNTER → 2019-03-20 20:21 | Outpatient (CLI) | payer MEDICARE, SELFPAY ==
[2018-10-18 14:00] VITALS: BMI 35.0
[2019-02-17 12:28] VITALS: BMI 32.9
== END ==
PROVIDERS: Family Provider Family Medicine; PCP Family Medicine; Referring Provider Internal Medicine Critical Care Medicine; Visit Provider Internal Medicine Critical Care Medicine
DX: G47.33 Obstructive sleep apnea (adult) (pediatric) (principal)
CPT/HCPCS: 95811

== ENCOUNTER → 2019-06-05 12:01 | Outpatient (CLI) | payer MEDICARE, SELFPAY ==
[2018-10-18 14:00] VITALS: BMI 35.0
[2019-06-05 11:30] VITALS: BMI 33.0
[2019-06-05 14:24] LABS: AST(SGOT) 9 U/L (15-37); Alanine Aminotransfer ALT/SGPT 27 U/L (16-61); Albumin, Serum 3.5 g/dL (3.2-5.0); Alkaline Phosphatase 76 U/L (45-117); Anion Gap 4 (5-15); BUN 17 mg/dL (7-18); Calcium,Total 9.1 mg/dL (8.5-10.1); Chloride 106 mmol/L (98-107); Cholesterol 114 mg/dL (200); EST Glomerular Filtration Rate 77 mL/min (>60); Est Glom Filt Rate - Afr Amer 93 mL/min (>60); Globulin 3.6 g/dL (2.2-4.2); Glucose 99 mg/dL (74-106); High Density Lipoprotein 51 mg/dL; Potassium 4.1 mmol/L (3.5-5.1); Protein, Total 7.1 g/dL (6.4-8.2); Sodium Level 138 mmol/L (136-145); Triglycerides 92 mg/dL; Very Low Density Lipoprotein 18 mg/dL (5-40)
== END ==
PROVIDERS: Family Provider Family Medicine; PCP Family Medicine; Visit Provider Family Medicine
DX: E78.5 Hyperlipidemia, unspecified (principal); I25.10 Atherosclerotic heart disease of native coronary artery without angina pectoris
CPT/HCPCS: 36415; 80053; 80061

== ENCOUNTER → 2019-12-09 06:51 | Outpatient (CLI) | payer MEDICARE, SELFPAY ==
[2018-10-18 14:00] VITALS: BMI 35.0
[2019-11-10 09:49] VITALS: BMI 36.0
--- NOTE | 2019-12-09 13:14 | STRESSREP ---
Stress Test Report Date: 12-09-2019 Procedure: Exercise tolerance test/imaging study Indications: Chest pain; CAD; PCI Consent: Per the patient Procedure: The patient exercised on a Josse protocol for 4 minutes and 30 seconds completing Stage I and 1 minute and 30 seconds of Stage II achieving a peak heart rate of 129 bpm (91 % predicted maximal heart rate) with a peak blood pressure 184/66 mmHg and a peak MET capacity of X METs. The baseline ECG demonstrated sinus bradycardia. The peak exercise ECG demonstrated somatic/motion artifact with no obvious ECG changes. There was an occasional PVC during exercise and a rare ventricular couplet during exercise; there was an occasional PVC during recovery and a rare ventricular couplet during recovery. The functional capacity was considered decreased. There was no complaint of chest discomfort during exercise or recovery. The examination was discontinued secondary to dyspnea. Impression: 1. Technically adequate (percent predicted maximal heart rate greater than 85%) exercise tolerance test 2. Peak exercise ECG demonstrated somatic/motion artifact with no obvious ECG changes 3. There was an occasional PVC during exercise and a rare ventricular couplet during exercise; there was an occasional PVC during recovery and a rare ventricular couplet during recovery 4. Nuclear images pending Myocardial perfusion imaging study: Technique: The patient was injected with 14.8 mCi of technetium 99m Cardiolite and subsequently rest SPECT Cardiolite nuclear imaging was obtained in the horizontal long, vertical long, and short axis views. The patient exercised on a Josse protocol for 4 minutes and 30 seconds completing Stage I and 1 minute and 30 seconds of Stage II achieving a peak heart rate of 129 bpm (91 % predicted maximal heart rate) with a peak blood pressure 184/66 mmHg and a peak MET capacity of X METs. The patient was injected with 44.5 mCi of technetium 99m Cardiolite and subsequently stress SPECT Cardiolite nuclear imaging was obtained in the horizontal long, vertical long, and short axis views. A gated Cardiolite study at peak stress was obtained. Interpretation: Rest and stress SPECT Cardiolite nuclear imaging status post realignment, normalization, and attenuation correction, demonstrates at rest a small area of subtle diminished tracer uptake near the apical segments which appears to improve and/or normalize following stress. There is end systolic thickening and brightening. The gated Cardiolite study demonstrates myocardial thickening and inward wall motion. The reported LVEF is 71 %. Impression: 1. Rest and stress SPECT Cardiolite nuclear imaging demonstrate myocardial perfusion changes at rest which appear to improve and/or normalize following stress appearing compatible shifting soft tissue attenuation/artifact with no myocardial perfusion changes considered diagnostic for associated stress-induced myocardial ischemia. 2. The gated Cardiolite study reports an LVEF of 71 %. This note was generated with [employer] software. It may contain incorrect words, spelling, and punctuation that were not noted in checking the note before signing.
== END ==
PROVIDERS: Family Provider Family Medicine; PCP Family Medicine; Referring Provider Internal Medicine Cardiovascular Disease; Visit Provider Internal Medicine Cardiovascular Disease
DX: I25.10 Atherosclerotic heart disease of native coronary artery without angina pectoris (principal); R07.9 Chest pain, unspecified
CPT/HCPCS: 78452; 93017; A9500; A4216

== ENCOUNTER → 2020-05-10 10:00 | Outpatient (CLI) | payer MEDICARE, SELFPAY ==
[2018-10-18 14:00] VITALS: BMI 35.0
[2020-05-10 08:11] VITALS: BMI 35.2
[2020-05-10 11:00] LABS: AST(SGOT) 12 U/L (15-37); Alanine Aminotransfer ALT/SGPT 35 U/L (16-61); Albumin, Serum 3.4 g/dL (3.2-5.0); Alkaline Phosphatase 93 U/L (45-117); Bilirubin, Direct 0.21 mg/dL (0.00-0.30); Cholesterol 117 mg/dL (200); Globulin 3.7 g/dL (2.2-4.2); High Density Lipoprotein 47 mg/dL; Protein, Total 7.1 g/dL (6.4-8.2); Triglycerides 75 mg/dL; Very Low Density Lipoprotein 15 mg/dL (5-40)
== END ==
PROVIDERS: PCP Family Medicine; Referring Provider Nurse Practitioner Family; Visit Provider Nurse Practitioner Family
DX: I25.10 Atherosclerotic heart disease of native coronary artery without angina pectoris (principal); E78.2 Mixed hyperlipidemia; I10 Essential (primary) hypertension; Z95.5 Presence of coronary angioplasty implant and graft
CPT/HCPCS: 36415; 80061; 80076

== ENCOUNTER → 2021-02-15 08:02 | Outpatient (CLI) | payer MEDICARE, SELFPAY ==
[2018-10-18 14:00] VITALS: BMI 35.0
[2021-02-07 09:39] VITALS: BMI 35.7
[2021-02-15 09:07] LABS: AST(SGOT) 11 U/L (15-37); Alanine Aminotransfer ALT/SGPT 40 U/L (16-61); Albumin, Serum 3.7 g/dL (3.2-5.0); Alkaline Phosphatase 83 U/L (45-117); Bilirubin, Direct 0.17 mg/dL (0.00-0.30); Cholesterol 138 mg/dL (200); High Density Lipoprotein 49 mg/dL; Protein, Total 7.7 g/dL (6.4-8.2); Triglycerides 81 mg/dL; Very Low Density Lipoprotein 16 mg/dL (5-40)
== END ==
PROVIDERS: PCP Family Medicine; Referring Provider Internal Medicine Cardiovascular Disease; Visit Provider Internal Medicine Cardiovascular Disease
DX: E78.00 Pure hypercholesterolemia, unspecified (principal); E78.2 Mixed hyperlipidemia
CPT/HCPCS: 36415; 80061; 80076

== ENCOUNTER → 2021-08-24 15:00 | Outpatient (CLI) | payer MEDICARE, SELFPAY ==
[2018-10-18 14:00] VITALS: BMI 35.0
[2021-08-24 16:52] LABS: Absolute Lymphocyte Count 2.35 X10^3/uL (0.83-4.51); Absolute Neutrophil Count 4.5 X10^3/uL (2.0-7.7); Basophil# 0.06 X10^3/uL; Basophil% 0.7 % (0-1); Eosinophil# 0.42 X10^3/uL; Eosinophils% 5.2 % (0-5); Hematocrit 43.4 % (40-54); Hemoglobin 13.8 g/dL (13.0-16.5); Lymphocyte # 2.35 X10^3/ul (0.83-4.51); Mean Corp Hgb Conc 31.8 g/dL (32-36); Mean Corpuscular Hgb 29.7 pg (27.0-32.0); Mean Corpuscular Volume 93.3 fL (80-94); Mean Platelet Vol. 10.3 fl (6.2-12.0); Monocyte# 0.74 X10^3/uL; Monocyte% 9.1 % (0-10); NRBC Flagged by Analyzer 0 % (0-5); Neutrophil % 55.8 % (47-70); Platelet Count 273 K/mm3 (150-450); RBC Distribution Width CV 13.7 % (11.6-14.6); Red Blood Count 4.65 M/mm3 (4.6-6.2); White Blood Count 8.1 K/mm3 (4.4-11.0)
== END ==
PROVIDERS: PCP Family Medicine; Referring Provider Family Medicine; Visit Provider Family Medicine
DX: J44.9 Chronic obstructive pulmonary disease, unspecified (principal)
CPT/HCPCS: 36415; 85025

== ENCOUNTER → 2021-09-16 10:01 | Outpatient (CLI) | payer MEDICARE, SELFPAY ==
[2018-10-18 14:00] VITALS: BMI 35.0
== END ==
PROVIDERS: PCP Family Medicine; Referring Provider Family Medicine; Visit Provider Family Medicine
DX: Z20.822 Contact with and (suspected) exposure to COVID-19 (principal)
CPT/HCPCS: 87635; U0005; U0003

== ENCOUNTER 2021-12-28 08:18 | Outpatient (CLI) | payer MEDICARE, SELFPAY ==
[2018-10-18 14:00] VITALS: BMI 35.0
[2021-12-28 09:12] LABS: AST(SGOT) 10 U/L (15-37); Alanine Aminotransfer ALT/SGPT 38 U/L (16-61); Albumin, Serum 3.5 g/dL (3.2-5.0); Alkaline Phosphatase 81 U/L (45-117); Bilirubin, Direct 0.14 mg/dL (0.00-0.30); Cholesterol 123 mg/dL (200); Globulin 3.9 g/dL (2.2-4.2); High Density Lipoprotein 54 mg/dL; Protein, Total 7.4 g/dL (6.4-8.2); Triglycerides 110 mg/dL; Very Low Density Lipoprotein 22 mg/dL (5-40)
== END 2021-12-28 23:59 | disposition home or self-care (01) ==
PROVIDERS: PCP Family Medicine; Referring Provider Internal Medicine Cardiovascular Disease; Visit Provider Internal Medicine Cardiovascular Disease
DX: E78.00 Pure hypercholesterolemia, unspecified (principal)
CPT/HCPCS: 36415; 80061; 80076

== ENCOUNTER → 2023-04-24 | Outpatient (CLI) | payer MEDICARE, SELFPAY ==
[2018-10-18 14:00] VITALS: BMI 35.0
[2023-04-24 13:52] LABS: Hemoglobin A1c 6.5 % (3.8-5.6)
[2023-04-24 14:07] LABS: ALB/GLOB Ratio 0.9 RATIO (0.9-2.4); AST(SGOT) 13 U/L (15-37); Alanine Aminotransfer ALT/SGPT 38 U/L (16-61); Albumin, Serum 3.5 g/dL (3.2-5.0); Alkaline Phosphatase 86 U/L (45-117); Anion Gap 5 (5-15); BUN 19 mg/dL (7-18); BUN/Creat Ratio 17.9 RATIO (10-20); Calcium,Total 9.5 mg/dL (8.5-10.1); Chloride 104 mmol/L (98-107); Cholesterol 113 mg/dL (200); Creatinine, Serum 1.06 mg/dL (0.70-1.30); EST Glomerular Filtration Rate 71 mL/min (>60); Est Glom Filt Rate - Afr Amer 86 mL/min (>60); Globulin 3.7 g/dL (2.2-4.2); Glucose 102 mg/dL (74-106); High Density Lipoprotein 52 mg/dL; Potassium 4.4 mmol/L (3.5-5.1); Protein, Total 7.2 g/dL (6.4-8.2); Sodium Level 138 mmol/L (136-145); Triglycerides 122 mg/dL; Very Low Density Lipoprotein 24 mg/dL (5-40)
== END | disposition home or self-care (01) ==
LOC: BIMLAB 11:30
PROVIDERS: PCP Family Medicine; Referring Provider Family Medicine; Visit Provider Family Medicine
DX: E11.9 Type 2 diabetes mellitus without complications (principal); E66.01 Morbid (severe) obesity due to excess calories; Z68.35 Body mass index [BMI] 35.0-35.9, adult
CPT/HCPCS: 36415; 80053; 80061; 83036

== ENCOUNTER → 2023-08-14 | Outpatient (CLI) | payer MEDICARE, SELFPAY ==
[2018-10-18 14:00] VITALS: BMI 35.0
--- NOTE | 2023-08-14 14:45 | CT_ITS ---
STUDY: CT FACIAL BONES WITHOUT CONTRAST REASON FOR EXAM: Male, 82 years old. OTHER CRONIC SINUSITIS RADIATION DOSAGE (If Supplied By Facility): CTDIvol = ( 28.14 ) mGy, DLP = ( 682.87 ) mGycm TECHNIQUE: The patient was scanned in a multi detector CT scanner. Sagittal and coronal images were reconstructed. Individualized dose optimization techniques were used for this CT. COMPARISON: None. FINDINGS: Normal soft tissue structures. Normal orbital moise and orbital contents. Normal nasal bones and anterior nasal spine. Normal facial bones. There is no demonstrated fracture. Mucosal thickening involving the bilateral maxillary sinuses, sphenoid, ethmoids and frontal sinuses consistent with chronic sinusitis. The left ostiomeatal complex is patent. There is narrowing of the right ostiomeatal complex from surrounding mucosal thickening. CT/Sinus/Facial Bone IMPRESSION: Pansinusitis, likely chronic. No air-fluid level seen. No acute fracture. Electronically Signed: Radha Maldonado MD at 19:29 EDT ,
== END | disposition home or self-care (01) ==
PROVIDERS: PCP Family Medicine; Referring Provider Otolaryngology; Visit Provider Otolaryngology
DX: J32.8 Other chronic sinusitis (principal)
CPT/HCPCS: 70486

== ENCOUNTER 2023-09-07 17:35 | Emergency (ER) | payer MEDICARE, SELFPAY ==
[2018-10-18 14:00] VITALS: BMI 35.0
[2023-09-07 17:36] VITALS: BP 127/56; PULSE 56; RESP 18; TEMP 36.4; O2SAT 94; BMI 34.0
[2023-09-07 17:49] VITALS: BP 140/64; PULSE 53; RESP 18; O2SAT 93
--- NOTE | 2023-09-07 18:15 | EKG12_ITS ---
Test Reason : CP Blood Pressure : / mmHG Vent. Rate : 057 BPM Atrial Rate : 057 BPM P-R Int : 192 ms QRS Dur : 100 ms QT Int : 388 ms P-R-T Axes : 067 003 058 degrees QTc Int : 377 ms Sinus bradycardia Otherwise normal ECG Confirmed by CARY MAN, DELGADO ([id number]), non linear editor MALACHI QUESADA ([id number]) on 09/17/2023 7:50:25 AM Referred By: RAFAELA Confirmed By:LINNEA TOWNSEND MD
[2023-09-07 18:23] VITALS: PULSE 68; RESP 18
[2023-09-07] MEDS: Ipratropium/Albuterol Sulfate 3 ML AMPUL.NEB INHALATION (18:23)
[2023-09-07 18:34] LABS: Absolute Lymphocyte Count 2.37 X10^3/uL (0.83-4.51); Absolute Neutrophil Count 4.8 X10^3/uL (2.0-7.7); Basophil# 0.08 X10^3/uL; Basophil% 0.8 % (0-1); Eosinophil# 1.73 X10^3/uL; Eosinophils% 17.7 % (0-5); Hematocrit 46.2 % (40-54); Hemoglobin 14.9 g/dL (13.0-16.5); Lymphocyte # 2.37 X10^3/ul (0.83-4.51); Lymphocyte % 24.3 % (19-41); Mean Corp Hgb Conc 32.3 g/dL (32-36); Mean Corpuscular Hgb 30.2 pg (27.0-32.0); Mean Corpuscular Volume 93.7 fL (80-94); Mean Platelet Vol. 10.5 fl (6.2-12.0); Monocyte# 0.81 X10^3/uL; Monocyte% 8.3 % (0-10); NRBC Flagged by Analyzer 0 % (0-5); Neutrophil # 4.75 X10^3/uL (2.7-7.7); Neutrophil % 48.6 % (47-70); Platelet Count 222 K/mm3 (150-450); RBC Distribution Width CV 13.9 % (11.6-14.6); RBC Distribution Width SD 47.6 fl (35.1-43.9); Red Blood Count 4.93 M/mm3 (4.6-6.2); White Blood Count 9.8 K/mm3 (4.4-11.0)
--- NOTE | 2023-09-07 18:39 | EDS_ITS ---
HPI History of Present Illness Chief Complaint: Chest Pain Informant: patient and family Narrative Narrative: 82-year-old male presenting to the emergency room for chest pain. Patient states he had coronary stent placed October 2018. He follows with Terrence holden. Yesterday he underwent an office ENT procedure. Today he has had an intermittent pain lower left anterior chest that comes up across his lower anterior chest onto the right. Nothing seems to make it better or worse. It is variable in length usually lasting several minutes. He notes he has a history of COPD. He denies any change in cough or sputum. 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 Essential hypertension GERD (gastroesophageal reflux disease) Hearing loss History of coronary artery stent placement (~10/18/18) Hypertension Macular degeneration Mixed hyperlipidemia JOSE (obstructive sleep apnea) Premature ventricular contraction Ventricular ectopy Home Medications omega-3 360 fe-rgz-car-fish oil 1,200 mg capsule,delayed release 1 ea PO DAILY 11/09/17 [History Last Taken Unknown] vitamins A,C,F-dmqd-zouxyy 4,296 mcg-226 mg-90 mg capsule 2 ea PO DAILY supplement 11/09/17 [History Last Taken Unknown] aspirin 81 mg chewable tablet 81 mg PO DAILY 10/18/18 [History Last Taken 09/07/23] B-complex with vitamin C 1 tab PO DAILY 11/10/19 [History Last Taken Unknown] acetaminophen 500 mg tablet (Tylenol Extra Strength) 500 mg PO Q6H PRN 05/10/20 [History Last Taken Unknown] albuterol sulfate 90 mcg/actuation aerosol inhaler (Proventil HFA) 2 puff inhalation Q6H PRN shortness of breath or wheezing #3 device 02/01/21 [Rx Last Taken Unknown] cholecalciferol (vitamin D3) 125 mcg (5,000 unit) capsule 125 mcg PO DAILY 06/15/21 [History Last Taken Unknown] Kenalog 40 mg/mL suspension for injection (triamcinolone acetonide) 40 mg intra- articular ONCE #1 mL 07/27/21 [Clinic Last Taken Unknown] clopidogrel 75 mg tablet (Plavix) 75 mg PO DAILY #90 tabs 01/05/22 [Rx Last Taken Unknown] ipratropium 0.5 mg-albuterol 3 mg (2.5 mg base)/3 mL nebulization soln 3 ml inhalation Q4H PRN PRN SOB &/OR WHEEZING #180 mL 04/17/22 [Rx Last Taken Unknown] atorvastatin 80 mg tablet 80 mg PO QHS #90 tabs 11/01/22 [Rx Last Taken 09/06/23] hydrochlorothiazide 12.5 mg tablet 12.5 mg PO DAILY #90 tabs 12/07/22 [Rx Last Taken 09/07/23] metoprolol tartrate 25 mg tablet 25 mg PO BID #180 tabs 03/12/23 [Rx Last Taken 09/07/23] isosorbide mononitrate 30 mg tablet,extended release 24 hr See Rx Instructions .Route .COMPLEX #60 tabs 03/13/23 [Rx Last Taken 09/07/23] losartan 50 mg tablet 50 mg PO DAILY #90 tabs 03/13/23 [Rx Last Taken 09/07/23] omeprazole 40 mg capsule,delayed release 40 mg PO QDAY #90 caps 03/13/23 [Rx Last Taken Unknown] amoxicillin 875 mg-potassium clavulanate 125 mg tablet 1 tab PO BID #20 tabs 07/10/23 [Rx Last Taken Unknown] budesonide-formoterol HFA 160 mcg-4.5 mcg/actuation aerosol inhaler (Symbicort) 2 puff inhalation BID #1 ea 07/10/23 [Rx Last Taken 09/07/23] prednisone 10 mg tablet 10 mg PO QDAY #30 tabs 07/10/23 [Rx Last Taken Unknown] tiotropium bromide 18 mcg capsule with inhalation device (Spiriva with HandiHaler) 1 cap inhalation QDAY #3 ea 07/10/23 [Rx Last Taken 09/07/23] Allergy/AdvReac Type Severity Reaction Status Date / Time hydrocodone [From Vicodin] AdvReac Unknown Car Verified 09/07/23 17:36 sickness Family History Father Colon cancer Mother Heart disease Uncle Myocardial infarction Hypertension Surgical History H/O hernia repair History of bilateral cataract extraction History of cholecystectomy Presence of coronary angioplasty implant and graft (~10/18/18) Social History Smoking Status: Former smoker how long ago did patient quit smokin second hand exposure: No alcohol intake: current alcohol intake frequency: a few times a week Alcohol type: wine substance use type: does not use caffeine: Yes Type: coffee Number of servings: 4 and tea what type of physical activity do you participate in: other details: pulmonary rehab frequency: 3-4 times per week ROS ROS ED Constitutional Constitutional ED: Denies chills or weight loss Eyes Eyes: Denies change in vision or diplopia ENT ENT ED: Reports rhinorrhea; Denies ear pain or sore throat Cardiovascular Cardiovascular: Reports chest pain; Denies orthopnea, palpitations or racing heartbeat Respiratory/Chest Respiratory/Chest: Reports dyspnea; Denies cough or orthopnea Gastrointestinal Gastrointestinal: Denies abdominal pain, diarrhea, nausea or vomiting Genitourinary Genitourinary ED: Denies dysuria, hematuria or urinary frequency Musculoskeletal Musculoskeletal: Denies arthralgias or myalgias Integumentary Denies abscess or rash Neurologic Neurologic: Denies headache(s) or weakness Psychiatric Psychiatric: Denies anxiety, depression, suicidal ideation or suicidal thoughts Endocrine Endocrinology: Denies polydipsia, polyphagia or polyuria Allergic/Immunologic Allergic/Immunologic ED: Denies mouth swelling, tongue swelling or urticaria EXAM Physical Exam Const Vital Signs: 09/07/23 17:36 09/07/23 17:49 09/07/23 18:23 Temperature 97.6 F L Temperature Source Temporal Pulse Rate 56 L 53 L 68 Respiratory Rate 18 18 18 Respiratory Pattern Normal Blood Pressure 127/56 H 140/64 H Blood Pressure Mean 79 89 Pulse Ox 94 93 Oxygen Delivery Method Room Air Room Air 09/07/23 19:39 Temperature Temperature Source Pulse Rate 76 Respiratory Rate 19 H Respiratory Pattern Blood Pressure 126/53 H Blood Pressure Mean 77 Pulse Ox 93 Oxygen Delivery Method Room Air Positive well nourished and well developed General Appearance ED: well developed HEENT Reports normocephalic, head/scalp atraumatic and moist mucous membranes Eyes PERRL and EOMs intact bilaterally Neck no lymphadenopathy, supple and no JVD Chest Wall inspection of chest normal and palpation of chest normal Resp normal respiratory effort Auscultation: wheezes expiratory wheezes and lower bilaterally Cardio regular rate, regular rhythm and no murmurs GI normal to inspection, nondistended, normoactive bowel sounds and non-tender Palpation: soft Back/Spine no CVA tenderness and normal ROM Extremity normal to inspection General Extremety ED: Negative for edema General Extremity: Negative for edema Neuro oriented x3 and CN's II-XII intact bilaterally Sensorium / Orientation: alert Motor Exam: strength 5/5 throughout Psych mental status grossly normal Mood & Affect: Negative for depressed or tearful Skin no rashes or lesions noted and no wounds MDM MDM MDM Narrative Medical decision making narrative: Patient has oxygen that he wears when I am out and about. he is not more short of breath than normal. He notes an increase in cough which he relates to postnasal drip from the sinus procedure yesterday. Troponin normal at 12. CBC normal. BMP glucose 135. Magnapen interpretation of chest x-ray is chronic changes, no acute findings. Patient received a breathing treatment. He is on Augmentin for the sinus. He does not have an increase in shortness of breath or change in sputum. I think his chest pain is noncardiac. I doubt pulmonary embolism given his intermittent nature. May be pleurisy. He is comfortable with discharge and follow-up if not improving return if worsening or changing symptoms. History & Record Review Discussion w/independent historian: Patient and Family Additional record(s) reviewed:: No prior records Lab Data Labs: Laboratory Results - last 24 hr 09/07/23 17:50 WBC 9.8 RBC 4.93 Hgb 14.9 Hct 46.2 MCV 93.7 MCH 30.2 MCHC 32.3 RDW Std Deviation 47.6 H RDW Coeff of Aba 13.9 Plt Count 222 MPV 10.5 Immature Gran % (Auto) 0.300 Neut % (Auto) 48.6 Lymph % (Auto) 24.3 [place] % (Auto) 8.3 Eos % (Auto) 17.7 H Baso % (Auto) 0.8 Absolute Neuts (auto) 4.8 Absolute Lymphs (auto) 2.37 Nucleated RBC % 0 Sodium 140 Potassium 3.6 Chloride 106 Carbon Dioxide 30.0 Anion Gap 4 L BUN 13 Creatinine 1.04 Estim Creat Clear Calc 48.57 Est GFR (MDRD) Af Amer 88 Est GFR (MDRD) Non-Af 72 BUN/Creatinine Ratio 12.5 Glucose 135 H Calcium 9.2 Troponin I High Sens 12 Radiography Diagnostic Testing: Clinical Impression(s) from Imaging Studies Chest X-Ray 09/07/23 18:45 IMPRESSION: No acute radiographic abnormalities. Electronically Signed: Osmar Jung MD at 20:09 EDT Reading Location ID and State: [facility] / [place] Tel , Service support , EKG Initial EKG: Attestation: I personally reviewed and interpreted this EKG as follows: Comments: Sinus bradycardia with a ventricular rate of 57 bpm. No definitive features of ACS noted Prior EKG tracings: available for review Prior: Unchanged Discharge Plan Triage Chief Complaint: Chest Pain ED Provider: Gage Campuzano Dx/Rx/DC Orders Clinical Impression: Essential hypertension, Atherosclerosis of [place] coronary artery of [place] heart without angina pectoris, COPD (chronic obstructive pulmonary disease), Chest pain Instructions: ED Pleurisy Prescriptions: No Action B-complex with vitamin C Tablet 1 tab PO DAILY acetaminophen [Tylenol Extra Strength] 500 mg tablet 500 mg PO Q6H PRN cholecalciferol (vitamin D3) 125 mcg (5,000 unit) capsule 125 mcg PO DAILY triamcinolone acetonide [Kenalog] 40 mg/mL suspension 40 mg intra-articular ONCE Qty: 1 0RF ipratropium-albuterol 0.5 mg-3 mg(2.5 mg base)/3 mL solution for nebulization 3 ml inhalation Q4H PRN PRN (Reason: SOB &/OR WHEEZING) Qty: 180 6RF budesonide-formoterol [Symbicort] 160-4.5 mcg/actuation HFA aerosol inhaler 2 puff inhalation BID Qty: 1 11RF Rx Instructions: administer with spacer, rinse mouth after each use tiotropium bromide [Spiriva with HandiHaler] 18 mcg capsule, w/inhalation device 1 cap INHALATION QDAY Qty: 3 3RF prednisone 10 mg tablet 10 mg PO QDAY Qty: 30 0RF Rx Instructions: take 4 tabs for three days, then 3 tabs for three days, then 2 tabs for three days, then 1 tab for 3 days amoxicillin-pot clavulanate 875-125 mg tablet 1 tab PO BID Qty: 20 0RF vitamins A,C,D-yteo-xquihi 1 EACH capsule 2 ea PO DAILY omega 8-pyy-qti-fish oil 1 EACH capsule,delayed release(DR/EC) 1 ea PO DAILY aspirin 81 MG tablet,chewable 81 mg PO DAILY albuterol sulfate [Proventil HFA] 90 mcg/actuation HFA aerosol inhaler 2 puff INHALATION Q6H PRN (Reason: shortness of breath or wheezing) Qty: 3 3RF clopidogrel [Plavix] 75 mg tablet 75 mg PO DAILY Qty: 90 3RF atorvastatin 80 mg tablet 80 mg PO QHS Qty: 90 3RF hydrochlorothiazide 12.5 mg tablet 12.5 mg PO DAILY Qty: 90 3RF metoprolol tartrate 25 mg tablet 25 mg PO BID Qty: 180 3RF losartan 50 mg tablet 50 mg PO DAILY Qty: 90 3RF omeprazole 40 mg capsule,delayed release(DR/EC) 40 mg PO QDAY Qty: 90 3RF Rx Instructions: swallow whole; do not crush, chew, dissolve, cut, break isosorbide mononitrate 30 mg tablet extended release 24 hr See Rx Instructions .ROUTE .COMPLEX Qty: 60 12RF Dose Instruction: TAKE 1 TABLET BY MOUTH DAILY Rx Instructions: TAKE 1 TABLET BY MOUTH DAILY Primary Care Provider: Dale Cooper Referrals: Dale Cooper DO [Primary Care Provider] - As Needed Disposition Disposition: Home, Self Care
--- NOTE | 2023-09-07 18:45 | RAD_ITS ---
INDICATION: chest pain EXAMINATION/TECHNIQUE: X-RAY - XR Chest 1 View COMPARISON: 11/19/2018. FINDINGS: Chronic lung changes. No definite acute lung findings. Tortuous and calcified thoracic aorta. The heart is mildly enlarged. No pleural effusion or pneumothorax. Degenerative changes of the thoracic spine. RAD/Chest 1 View (Portable) IMPRESSION: No acute radiographic abnormalities. Electronically Signed: Osmar Jung MD at 20:09 EDT ,
[2023-09-07 18:47] LABS: Anion Gap 4 (5-15); BUN 13 mg/dL (7-18); BUN/Creat Ratio 12.5 RATIO (10-20); Calcium,Total 9.2 mg/dL (8.5-10.1); Chloride 106 mmol/L (98-107); Creatinine, Serum 1.04 mg/dL (0.70-1.30); EST Glomerular Filtration Rate 72 mL/min (>60); Est Glom Filt Rate - Afr Amer 88 mL/min (>60); Estimated Creatinine Clearance 48.57 ml/min; Glucose 135 mg/dL (74-106); Potassium 3.6 mmol/L (3.5-5.1); Sodium Level 140 mmol/L (136-145); Troponin-I HS (w/2H Reflex) 12 pg/mL (3.0-78.0)
[2023-09-07 19:39] VITALS: BP 126/53; PULSE 76; RESP 19; O2SAT 93
[2023-09-07 20:24] LABS: Reflex Troponin-HS? (from REC) Y
== END 2023-09-07 20:21 | disposition home or self-care (01) ==
PROVIDERS: Emergency Provider Emergency Medicine; PCP Family Medicine; Visit Provider Emergency Medicine
DX: R07.9 Chest pain, unspecified (principal); J44.9 Chronic obstructive pulmonary disease, unspecified; E11.9 Type 2 diabetes mellitus without complications; I25.10 Atherosclerotic heart disease of native coronary artery without angina pectoris; E78.2 Mixed hyperlipidemia; Z87.891 Personal history of nicotine dependence; R09.82 Postnasal drip; I10 Essential (primary) hypertension; G47.33 Obstructive sleep apnea (adult) (pediatric); K21.9 Gastro-esophageal reflux disease without esophagitis; Z79.82 Long term (current) use of aspirin
CPT/HCPCS: 71045; 80048; 84484; 85025; 93005; 94640; 99284; A4216

== ENCOUNTER → 2025-01-21 | Outpatient (CLI) | payer MEDICARE, SELFPAY ==
[2018-10-18 14:00] VITALS: BMI 35.0
[2025-01-21 12:28] LABS: Absolute Lymphocyte Count 1.92 X10^3/uL (0.83-4.51); Absolute Neutrophil Count 3.8 X10^3/uL (2.0-7.7); Basophil# 0.06 X10^3/uL; Basophil% 0.8 % (0-1); Eosinophil# 0.46 X10^3/uL; Eosinophils% 6.5 % (0-5); Hematocrit 42.7 % (40-54); Lymphocyte # 1.92 X10^3/ul (0.83-4.51); Lymphocyte % 27.1 % (19-41); Mean Corp Hgb Conc 32.8 g/dL (32-36); Mean Corpuscular Hgb 30.8 pg (27.0-32.0); Mean Corpuscular Volume 94.1 fL (80-94); Mean Platelet Vol. 10.1 fl (6.2-12.0); Monocyte# 0.78 X10^3/uL; NRBC Flagged by Analyzer 0 % (0-5); Neutrophil # 3.84 X10^3/uL (2.7-7.7); Neutrophil % 54.2 % (47-70); Platelet Count 247 K/mm3 (150-450); RBC Distribution Width CV 13.7 % (11.6-14.6); RBC Distribution Width SD 46.2 fl (35.1-43.9); Red Blood Count 4.54 M/mm3 (4.6-6.2); White Blood Count 7.1 K/mm3 (4.4-11.0)
[2025-01-21 12:55] LABS: ALB/GLOB Ratio 1.4 RATIO (0.9-2.4); AST(SGOT) 17 U/L (<=37); Alanine Aminotransfer ALT/SGPT 33 U/L (<=46); Albumin, Serum 4.2 g/dL (3.4-4.8); Alkaline Phosphatase 75 U/L (40-129); Anion Gap 13 (5-15); BUN 19 mg/dL (4-19); BUN/Creat Ratio 17.4 RATIO (10-20); Calcium,Total 9.7 mg/dL (7.6-11.0); Carbon Dioxide 22.7 mmol/L (21.0-32.0); Chloride 104 mmol/L (98-108); Creatinine, Serum 1.08 mg/dL (0.70-1.20); EST Glomerular Filtration Rate 67 (>60); Globulin 2.9 g/dL (2.2-4.2); Glucose 118 mg/dL (70-99); Magnesium 2.1 mg/dL (1.5-2.2); PSA,Total - Annual Screen 0.54 ng/mL (0.02-4.00); Potassium 4.4 mmol/L (3.3-5.1); Protein, Total 7.2 g/dL (5.9-8.4); Sodium Level 139 mmol/L (133-145); Total Bilirubin 0.44 mg/dL (0.00-1.30)
== END | disposition home or self-care (01) ==
LOC: BIMLAB 10:36
PROVIDERS: PCP Family Medicine; Referring Provider Family Medicine; Visit Provider Family Medicine
DX: E11.9 Type 2 diabetes mellitus without complications (principal); Z12.5 Encounter for screening for malignant neoplasm of prostate
CPT/HCPCS: 36415; 80053; 83735; 84153; 85025; G0103

== ENCOUNTER → 2025-02-16 | Outpatient (CLI) | payer MEDICARE, SELFPAY ==
[2018-10-18 14:00] VITALS: BMI 35.0
[2025-02-16 09:15] LABS: Absolute Lymphocyte Count 2.04 X10^3/uL (0.83-4.51); Absolute Neutrophil Count 3.9 X10^3/uL (2.0-7.7); Basophil# 0.06 X10^3/uL; Basophil% 0.8 % (0-1); Eosinophil# 0.47 X10^3/uL; Eosinophils% 6.4 % (0-5); Hemoglobin 14.1 g/dL (13.0-16.5); Lymphocyte # 2.04 X10^3/ul (0.83-4.51); Lymphocyte % 27.9 % (19-41); Mean Corp Hgb Conc 32.8 g/dL (32-36); Mean Corpuscular Hgb 31.2 pg (27.0-32.0); Mean Corpuscular Volume 95.1 fL (80-94); Mean Platelet Vol. 9.9 fl (6.2-12.0); Monocyte# 0.82 X10^3/uL; Monocyte% 11.2 % (0-10); NRBC Flagged by Analyzer 0 % (0-5); Neutrophil % 53.3 % (47-70); Platelet Count 226 K/mm3 (150-450); RBC Distribution Width CV 13.6 % (11.6-14.6); RBC Distribution Width SD 47.6 fl (35.1-43.9); Red Blood Count 4.52 M/mm3 (4.6-6.2); White Blood Count 7.3 K/mm3 (4.4-11.0)
[2025-02-16 10:43] LABS: Cholesterol 128 mg/dL (<=200); High Density Lipoprotein 62 mg/dL; Low Density Lipoprotein Calc. 45 mg/dL; Triglycerides 107 mg/dL; Very Low Density Lipoprotein 21 mg/dL (5-40); cholesterol:hdl ratio screen 2.06
[2025-02-16 10:46] LABS: ALB/GLOB Ratio 1.4 RATIO (0.9-2.4); AST(SGOT) 20 U/L (<=37); Alanine Aminotransfer ALT/SGPT 35 U/L (<=46); Albumin, Serum 4.1 g/dL (3.4-4.8); Alkaline Phosphatase 90 U/L (40-129); Anion Gap 11 (5-15); BUN 15 mg/dL (4-19); BUN/Creat Ratio 13.8 RATIO (10-20); Calcium,Total 9.6 mg/dL (7.6-11.0); Chloride 104 mmol/L (98-108); Creatinine, Serum 1.07 mg/dL (0.70-1.20); EST Glomerular Filtration Rate 68 (>60); Globulin 2.9 g/dL (2.2-4.2); Glucose 116 mg/dL (70-99); Potassium 4.5 mmol/L (3.3-5.1); Protein, Total 7.1 g/dL (5.9-8.4); Sodium Level 139 mmol/L (133-145); Total Bilirubin 0.35 mg/dL (0.00-1.30)
== END | disposition home or self-care (01) ==
LOC: LAB 08:20
PROVIDERS: PCP Family Medicine; Referring Provider Nurse Practitioner Gerontology; Visit Provider Nurse Practitioner Gerontology
DX: E78.2 Mixed hyperlipidemia (principal); R53.83 Other fatigue
CPT/HCPCS: 36415; 80053; 80061; 84443; 85025

== ENCOUNTER 2025-03-08 13:16 | Emergency (ER) | payer MEDICARE, SELFPAY ==
[2018-10-18 14:00] VITALS: BMI 35.0
[2025-03-08] VITALS (8 sets, daily range): BP systolic 129–153; BP diastolic 56–88; PULSE 42–49; RESP 12–20; TEMP 36.6; O2SAT 92–97; BMI 34.3
--- NOTE | 2025-03-08 13:30 | EKG12_ITS ---
Test Reason : DIZZY Blood Pressure : */* mmHG Vent. Rate : 48 BPM Atrial Rate : 48 BPM P-R Int : 198 ms QRS Dur : 104 ms QT Int : 428 ms P-R-T Axes : 61 35 57 degrees QTcB Int : 382 ms Sinus bradycardia Low voltage QRS Borderline ECG Confirmed by Constantine Dee ([id number]), film editor supervisor STEPHANIE MCGILL ([id number]) on 03/13/2025 1:06:07 PM Referred By: Confirmed By: Constantine Dee
--- NOTE | 2025-03-08 14:15 | CT_ITS ---
EXAM: BRAIN/HEAD WITHOUT CONTRAST CLINICAL HISTORY: 84 y/o M with DIZZINESS. COMPARISON: CT head 08/14/2023. TECHNIQUE: Routine CT imaging of the head without IV contrast. Additional multiplanar reformats were obtained. Dose reduction techniques were used including intermediate exposure control (AEC),iterative reconstruction technique, and/or mA and/or KV dose adjustments based on patient's size. FINDINGS: Mild generalized cerebral volume loss with concordant prominence of the ventricles and subarachnoid spaces. 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 Mild scattered supratentorial white matter hypodensities. The yates-white matter interfaces are otherwise maintained. No acute intracranial hemorrhage or herniation. Prior ocular lens replacements. Mucosal thickening of the bilateral frontal and maxillary sinuses. The mastoid air cells are well-aerated. Prior dental restorations with osseous lucency and thinning of tooth implant #29. No acute calvarial fracture or scalp hematoma. CT/Brain/Head without Contrast IMPRESSION: 1. No acute intracranial finding. 2. Findings of chronic microvascular ischemic changes and age-related changes. 3. Prior tooth implant #29 with osseous thinning and lucency, which may represe nt odontogenic infection. Outpatient dental consultation recommended. Reading Location: [id number]
--- NOTE | 2025-03-08 14:18 | EX.ED.DYSGE1 ---
HPI History of Present Illness Chief Complaint: Dizziness Detail of Chief Complaint: Room spinning dizziness that started around 4 AM this morning. Informant: patient and family Onset/Context/Timing Onset: Today and Hours Context: Sudden Onset Timing: Continuous Current Severity: Mild Maximum Severity: Mild Narrative Narrative: 84-year-old male history of diabetes, hypertension, CAD with stent, COPD typically wears 3 L of oxygen. States around 4 AM this morning he awoke with room spinning dizziness. No headache or head trauma. No blood thinners. No trouble moving his arms or legs. No acute vision or speech changes. It is worse when he moves his head. Denies any recent nausea, vomiting or diarrhea. No headache. No chest pain or shortness of breath. No prior stroke or TIA. He has had this before but usually resolves he is never been evaluated for it. Prior similar symptoms: Yes Recent Illness/Hospitalization: No PFSH COUNTS INCLUDE 234 BEDS AT THE [facility] Medical History DM w/o complication type II Mixed hyperlipidemia JOSE (obstructive sleep apnea) Premature ventricular contraction Ventricular ectopy History of coronary artery stent placement (~10/18/18) Essential hypertension Arthritis Macular degeneration Hearing loss Hypertension GERD (gastroesophageal reflux disease) Emphysema lung COPD (chronic obstructive pulmonary disease) Home Medications ?Medication ?Instructions ?Recorded ?Last Taken ?Type omega-3 360 tm-qmg-ind-fish oil 1 ea PO DAILY 11/09/17 Unknown History 1,200 mg capsule,delayed release vitamins A,C,U-cenx-gevtno 4,296 2 ea PO DAILY supplement 11/09/17 Unknown History mcg-226 mg-90 mg capsule aspirin 81 mg chewable tablet 81 mg PO DAILY 10/18/18 09/07/23 History B-complex with vitamin C 1 tab PO DAILY 11/10/19 Unknown History acetaminophen 500 mg tablet 500 mg PO Q6H PRN 05/10/20 Unknown History (Tylenol Extra Strength) albuterol sulfate 90 mcg/actuation 2 puff inhalation Q6H PRN 02/01/21 Unknown Rx aerosol inhaler (Proventil HFA) shortness of breath or wheezing #3 device cholecalciferol (vitamin D3) 125 125 mcg PO DAILY 06/15/21 Unknown History mcg (5,000 unit) capsule Kenalog 40 mg/mL suspension for 40 mg intra-articular ONCE #1 mL 07/27/21 Unknown Clinic injection (triamcinolone acetonide) ipratropium 0.5 mg-albuterol 3 mg 3 ml inhalation Q4H PRN PRN SOB 04/17/22 Unknown Rx (2.5 mg base)/3 mL nebulization &/OR WHEEZING #180 mL soln omeprazole 40 mg capsule,delayed 40 mg PO QDAY #90 caps 03/21/24 Unknown Rx release budesonide-formoterol HFA 160 2 puff inhalation BID #1 ea 07/28/24 Unknown Rx mcg-4.5 mcg/actuation aerosol inhaler (Symbicort) tiotropium bromide 18 mcg capsule 1 cap inhalation QDAY #3 ea 07/28/24 Unknown Rx with inhalation device (Spiriva with HandiHaler) atorvastatin 80 mg tablet 80 mg PO QHS #90 tabs 02/16/25 Unknown Rx hydrochlorothiazide 12.5 mg tablet 12.5 mg PO DAILY #90 tabs 02/16/25 Unknown Rx isosorbide mononitrate 30 mg 30 mg PO QDAY #90 tabs 02/16/25 Unknown Rx tablet,extended release 24 hr losartan 50 mg tablet 50 mg PO DAILY #90 tabs 02/16/25 Unknown Rx metoprolol tartrate 25 mg tablet 12.5 mg (1/2 x 25 mg) PO BID #90 02/16/25 Unknown Rx tabs meclizine 25 mg chewable tablet 25 mg PO TID #14 tabs 03/08/25 Unknown Rx (Antivert) Allergy/AdvReac Type Severity Reaction Status Date / Time hydrocodone (From Vicodin) AdvReac Unknown Car Verified 03/08/25 13:17 sickness Family History Father Colon cancer Mother Heart disease Uncle Myocardial infarction Hypertension Surgical History H/O sinus surgery Presence of coronary angioplasty implant and graft (~10/18/18) History of bilateral cataract extraction History of cholecystectomy H/O hernia repair Social History Smoking Status: Former smoker how long ago did patient quit smokin second hand exposure: No alcohol intake: current alcohol intake frequency: a few times a week Alcohol type: wine substance use type: does not use caffeine: Yes Type: coffee Number of servings: 4 and tea what type of physical activity do you participate in: other details: pulmonary rehab frequency: 3-4 times per week ROS ROS ED ROS Narrative Room spinning dizziness. Worse with head movement. Denies recent illness. Constitutional Constitutional ED: Denies chills or fever(s) Eyes Eyes: Denies blurry vision ENT ENT ED: Denies ear pain Cardiovascular Cardiovascular: Denies chest pain Respiratory/Chest Respiratory/Chest: Denies cough or dyspnea Gastrointestinal Gastrointestinal: Denies abdominal pain Genitourinary Genitourinary ED: Denies dysuria or hematuria Musculoskeletal Musculoskeletal: Denies arthralgias or back pain Integumentary Denies abscess or Abrasions Neurologic Neurologic: Denies headache(s), paresthesias or weakness Psychiatric Psychiatric: Denies anxiety or depression Endocrine Endocrinology: Denies cold intolerance Hematologic/Lymphatic Hematologic/Lymphatic: Reports none Allergic/Immunologic Allergic/Immunologic ED: Denies mouth swelling, tongue swelling or urticaria EXAM Physical Exam Narrative Exam Narrative: 84-year-old male sitting upright in bed. Vital signs are stable afebrile. Family with him. He is in no distress. H EENT exam pupils round react to light. Motions are intact. No facial droop. No trauma to his face or scalp. Nontender. Normal speech. Neck nontender no. Lymphadenopathy. Back nontender. Lungs clear to auscultation bilaterally. Heart bradycardic in the 40s no murmur. Chest wall ribs nontender. Abdomen soft nontender. No peritoneal signs. Moving all 4 extremities. 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 Dorsi plantarflexion intact. He can lift either upper or lower extremities without drift. Fingertip to nose within normal limits. Neurologically he is awake and alert. Answering questions following commands. NIH is 0. Positive Hallpike with rotating his head from [id number]. No focal motor or sensory deficits. Const Vital Signs: 03/08/25 13:17 03/08/25 13:19 03/08/25 13:50 Temperature 97.8 F 97.8 F Temperature Source Oral Oral Pulse Rate 45 L 43 L Respiratory Rate 20 H 20 H Blood Pressure 153/72 H 153/72 H Blood Pressure Mean 99 99 Pulse Ox 92 93 97 Oxygen Delivery Method Nasal Cannula Nasal Cannula Nasal Cannula Oxygen Flow Rate (L/min) 3 3 3 03/08/25 14:17 03/08/25 15:00 03/08/25 16:00 Temperature Temperature Source Pulse Rate 43 L 42 L 47 L Respiratory Rate 13 17 12 Blood Pressure 150/88 H 129/56 H Blood Pressure Mean 108 80 Pulse Ox 96 94 95 Oxygen Delivery Method Nasal Cannula Nasal Cannula Nasal Cannula Oxygen Flow Rate (L/min) 3 3 3 Positive well nourished and well developed; Negative for cachectic, contractures or unkempt General Appearance ED: well developed and NAD; Negative for unkempt, cachectic, contractures, cyanotic, diaphoretic or pallor Nutritional Appearance: Negative for cachectic HEENT Reports TM's clear and moist mucous membranes HEENT Narrative: TMs are clear bilaterally. No cerumen impaction. Negative for trauma or tenderness Tympanic Membrane ED: Yes TM's clear Eyes PERRL and EOMs intact bilaterally General Eye ED: Negative for pale conjunctiva or scleral icterus Neck no lymphadenopathy, supple and no JVD General: Negative for tenderness Lymph Lymphatic: Negative for other Chest Wall inspection of chest normal and palpation of chest normal Resp normal respiratory effort and clear to auscultation bilaterally Effort and Inspection: Negative for retractions Auscultation: Negative for rales, rhonchi, wheezes or diminished lung sounds Cardio regular rhythm, S1 normal heart sound, S2 normal heart sound and no murmurs; Negative for regular rate Rate: bradycardia GI normal to inspection, nondistended, normoactive bowel sounds, non-tender, non-distended and no masses Auscultation: normoactive bowel sounds Palpation: soft; Negative for tender, guarding, mass or rebound tenderness present Back/Spine no CVA tenderness General Back: Negative for CVA tenderness Cervical Spine: Negative for cervical spine tenderness Thoracic Spine / Upper Back: Negative for thoracic spinal tenderness or paraspinal muscle tenderness Lumbar Spine / Lower Back: Negative for lumbar spinal tenderness Extremity normal to inspection General Extremety ED: Negative for edema or tenderness General Extremity: Negative for edema Neuro CN's II-XII intact bilaterally Sensorium / Orientation: alert; Negative for orientation impaired, lethargic or stuporous Motor Exam: strength 5/5 throughout; Negative for general weakness or strength abnormal Psych mental status grossly normal Appearance: Negative for unkempt or other Attitude: No agitated Mood & Affect: Negative for depressed, anxious or tearful Skin no rashes or lesions noted, no wounds and skin turgor normal General Skin Exam: Negative for jaundice or pallor Lesions: No lesion noted Rashes: No rashes noted Trauma: Negative for abrasion Wounds: Negative for wounds noted MDM MDM MDM Narrative Medical decision making narrative: 84-year-old male room spinning dizziness exam is normal neurologic exam is normal. He does have a positive Hallpike consistent with vertigo. He does not have any cerumen impaction in his ears. Good strength in both upper and lower extremities. This does not appear to be a stroke or mini stroke. CT of his brain screening labs to be obtained. He will be treated with some Antivert and see if it helps his symptoms. Repeat exam patient is doing well. He walked in from the bathroom without any difficulty. He says he is feeling improved. We went over his test results. Repeat exam is unchanged except he is feeling better. We treated his vertigo. Discharged home. Outpatient follow-up. Return if worse. Be written for Antivert. History & Record Review Discussion w/independent historian: Patient Additional record(s) reviewed:: Prior inpatient record, Prior outpatient record, Prior ED visit and Prior labs Lab Data Attestation: I reviewed the patient's lab results. Lab results narrative: CBC white count 8.7. H&H 14 and 42. Platelets 240. Electrolytes show sodium 138. Gap 10. BUN and creatinine 21 and 1. Glucose 113. Labs: Laboratory Results - last 24 hr 03/08/25 13:37 WBC 8.7 RBC 4.59 L Hgb 14.3 Hct 42.3 MCV 92.2 MCH 31.2 MCHC 33.8 RDW Std Deviation 45.8 H RDW Coeff of Aba 13.6 Plt Count 240 MPV 10.2 Immature Gran % (Auto) 0.500 Neut % (Auto) 57.7 Lymph % (Auto) 26.5 [place] % (Auto) 9.5 Eos % (Auto) 4.9 Baso % (Auto) 0.9 Absolute Neuts (auto) 5.0 Absolute Lymphs (auto) 2.31 Nucleated RBC % 0 Sodium 138 Potassium 4.2 Chloride 103 Carbon Dioxide 24.7 Anion Gap 10 BUN 21 H Creatinine 1.04 Estim Creat Clear Calc 56.46 Est GFR (MDRD) Non-Af 70 BUN/Creatinine Ratio 20.0 Glucose 113 H Calcium 9.4 Radiography Diagnostic Testing: Clinical Impression(s) from Imaging Studies Brain CT 03/08/25 14:15 IMPRESSION: 1. No acute intracranial finding. 2. Findings of chronic microvascular ischemic changes and age-related changes. 3. Prior tooth implant #29 with osseous thinning and lucency, which may represent odontogenic infection. Outpatient dental consultation recommended. Reading Location: [facility] Rhythm Strip Rhythm Strip: Bradycardia Rate: 48 Ectopy: None EKG Initial EKG: Attestation: I personally reviewed and interpreted this EKG as follows: Interpretation: Sinus Bradycardia Comments: Sinus bradycardia rate of 48 no acute signs of NH or ischemia. Discharge Plan Triage Chief Complaint: Dizziness ED Provider: Darrin Alvarez Dx/Rx/DC Orders Clinical Impression: Dizziness, Vertigo, History of diabetes mellitus, History of coronary artery disease Instructions: ED Vertigo, Unspecified Prescriptions: New meclizine [Antivert] 25 mg tablet,chewable 25 mg PO TID Qty: 14 0RF No Action B-complex with vitamin C Tablet 1 tab PO DAILY acetaminophen [Tylenol Extra Strength] 500 mg tablet 500 mg PO Q6H PRN cholecalciferol (vitamin D3) 125 mcg (5,000 unit) capsule 125 mcg PO DAILY triamcinolone acetonide [Kenalog] 40 mg/mL suspension 40 mg intra-articular ONCE Qty: 1 0RF ipratropium-albuterol 0.5 mg-3 mg(2.5 mg base)/3 mL solution for nebulization 3 ml inhalation Q4H PRN PRN (Reason: SOB &/OR WHEEZING) Qty: 180 6RF budesonide-formoterol [Symbicort] 160-4.5 mcg/actuation HFA aerosol inhaler 2 puff inhalation BID Qty: 1 11RF Rx Instructions: administer with spacer, rinse mouth after each use tiotropium bromide [Spiriva with HandiHaler] 18 mcg capsule, w/inhalation device 1 cap INHALATION QDAY Qty: 3 3RF atorvastatin 80 mg tablet 80 mg PO QHS Qty: 90 3RF hydrochlorothiazide 12.5 mg tablet 12.5 mg PO DAILY Qty: 90 3RF isosorbide mononitrate 30 mg tablet extended release 24 hr 30 mg PO QDAY Qty: 90 3RF losartan 50 mg tablet 50 mg PO DAILY Qty: 90 3RF metoprolol tartrate 25 mg tablet 12.5 mg PO BID Qty: 90 3RF vitamins A,C,I-awzi-umkdlw 1 EACH capsule 2 ea PO DAILY omega 9-uhe-ukt-fish oil 1 EACH capsule,delayed release(DR/EC) 1 ea PO DAILY aspirin 81 MG tablet,chewable 81 mg PO DAILY albuterol sulfate [Proventil HFA] 90 mcg/actuation HFA aerosol inhaler 2 puff INHALATION Q6H PRN (Reason: shortness of breath or wheezing) Qty: 3 3RF omeprazole 40 mg capsule,delayed release(DR/EC) 40 mg PO QDAY Qty: 90 3RF Rx Instructions: swallow whole; do not crush, chew, dissolve, cut, break Primary Care Provider: Dale Cooper Referrals: Dale Cooper, DO [Primary Care Provider] - 3-5 Days if not improving Activity Restrictions/Additional Instructions: Your labs and CAT scan look good. I think your dizziness is secondary to vertigo. Antivert which is also meclizine 1 pill 3 times a day as needed for dizziness. Follow-up with your doctor if not improving or return if worse. Print Language: Argentine Disposition Disposition: Home, Self Care
[2025-03-08] MEDS: Meclizine HCl 25 MG Tablet PO (14:26)
[2025-03-08 14:39] LABS: Absolute Lymphocyte Count 2.31 X10^3/uL (0.83-4.51); Basophil# 0.08 X10^3/uL; Basophil% 0.9 % (0-1); Eosinophil# 0.43 X10^3/uL; Eosinophils% 4.9 % (0-5); Hematocrit 42.3 % (40-54); Hemoglobin 14.3 g/dL (13.0-16.5); Lymphocyte # 2.31 X10^3/ul (0.83-4.51); Lymphocyte % 26.5 % (19-41); Mean Corp Hgb Conc 33.8 g/dL (32-36); Mean Corpuscular Hgb 31.2 pg (27.0-32.0); Mean Corpuscular Volume 92.2 fL (80-94); Mean Platelet Vol. 10.2 fl (6.2-12.0); Monocyte# 0.83 X10^3/uL; Monocyte% 9.5 % (0-10); NRBC Flagged by Analyzer 0 % (0-5); Neutrophil # 5.02 X10^3/uL (2.7-7.7); Neutrophil % 57.7 % (47-70); Platelet Count 240 K/mm3 (150-450); RBC Distribution Width CV 13.6 % (11.6-14.6); RBC Distribution Width SD 45.8 fl (35.1-43.9); Red Blood Count 4.59 M/mm3 (4.6-6.2); White Blood Count 8.7 K/mm3 (4.4-11.0)
[2025-03-08 14:46] LABS: Anion Gap 10 (5-15); BUN 21 mg/dL (4-19); Calcium,Total 9.4 mg/dL (7.6-11.0); Carbon Dioxide 24.7 mmol/L (21.0-32.0); Chloride 103 mmol/L (98-108); Creatinine, Serum 1.04 mg/dL (0.70-1.20); EST Glomerular Filtration Rate 70 (>60); Estimated Creatinine Clearance 56.46 ml/min (50-250); Glucose 113 mg/dL (70-99); Potassium 4.2 mmol/L (3.3-5.1); Sodium Level 138 mmol/L (133-145)
== END 2025-03-08 17:19 | disposition home or self-care (01) ==
PROVIDERS: Emergency Provider Emergency Medicine; PCP Family Medicine; Visit Provider Emergency Medicine
DX: R42 Dizziness and giddiness (principal); J44.9 Chronic obstructive pulmonary disease, unspecified; E11.9 Type 2 diabetes mellitus without complications; I25.10 Atherosclerotic heart disease of native coronary artery without angina pectoris; G47.33 Obstructive sleep apnea (adult) (pediatric); Z87.891 Personal history of nicotine dependence; Z95.5 Presence of coronary angioplasty implant and graft
CPT/HCPCS: 70450; 80048; 85025; 99283; A4216

== ENCOUNTER → 2025-03-19 | Outpatient (CLI) | payer MEDICARE, SELFPAY ==
[2018-10-18 14:00] VITALS: BMI 35.0
--- NOTE | 2025-03-20 14:42 | STRESSREP ---
Stress Test Report Date: 03/19/2025 Procedure: Pharmacologic stress nuclear imaging study Indications: CAD, fatigue Consent: Per the patient Procedure: The patient underwent pharmacologic (Regadenoson) evaluation with a peak heart rate of 50 beats per minute (51%predicted maximal heart rate) and a peak blood pressure of 136/74 mmHg. The baseline ECG demonstrated sinus bradycardia. EKG during lexiscan infusion revealed no significant ischemic changes. EKG post infusion revealed no significant ischemic changes [There were no cardiac dysrhythmias pretest, during pharmacologic infusion, or recovery]. [There was no complaint of chest discomfort during pharmacologic infusion or recovery]. The examination was discontinued secondary to completion of protocol. Impression: 1. Lexiscan stress test test is negative for Lexiscan infusion induced EKG changes of ischemia. 2. Lexiscan stress test test is negative for Lexiscan infusion induced chest pain. 3. Results of the nuclear portion of the test is as below Myocardial perfusion imaging study: Technique: The patient was injected with 14.5 millicuries of technetium 99m Cardiolite and subsequently rest SPECT Cardiolite nuclear imaging was obtained in the horizontal long, vertical long, and short axis views. The patient underwent pharmacologic [Regadenoson 0.4mg] evaluation. Please see above for details. The patient was injected with 44.4 millicuries of technetium 99m Cardiolite and subsequently stress SPECT Cardiolite nuclear imaging was obtained in the horizontal long, vertical long, and short axis views. A gated Cardiolite study at peak stress was obtained. Interpretation: Rest and stress SPECT Cardiolite nuclear imaging status post realignment, normalization, and attenuation correction demonstrate mild fixed defect involving the apex. There is no significant reversibility suggestive of large areas of significant ischemia. Gated images reveal no significant regional wall motion abnormalities. The reported LVEF is greater than 70%. Impression: 1. There is no evidence of significant ischemia. 2. Estimated ejection fraction is greater than 70%. This note was generated with [employer]iz[employer] software. It may contain incorrect words, spelling, and punctuation that were not noted in checking the note before signing.
== END | disposition home or self-care (01) ==
LOC: CVS 06:10
PROVIDERS: PCP Family Medicine; Referring Provider Nurse Practitioner Gerontology; Visit Provider Nurse Practitioner Gerontology
DX: I25.10 Atherosclerotic heart disease of native coronary artery without angina pectoris (principal); R53.83 Other fatigue
CPT/HCPCS: 78452; 93017; A9500; J2785

== ENCOUNTER → 2025-09-04 | Outpatient (CLI) | payer MEDICARE, SELFPAY ==
[2018-10-18 14:00] VITALS: BMI 35.0
--- NOTE | 2025-09-04 08:39 | CDU_ITS ---
Reason For Study VL/Carotid Duplex Ultrasound
== END | disposition home or self-care (01) ==
PROVIDERS: PCP Family Medicine; Referring Provider Nurse Practitioner Gerontology; Visit Provider Nurse Practitioner Gerontology
DX: R42 Dizziness and giddiness (principal)
CPT/HCPCS: 93880